=== PATIENT | female | born 1945 | race Caucasian/White ===

== ENCOUNTER 2018-01-01 11:14 | Outpatient (CLI) | payer OTHER, SELFPAY ==
--- NOTE | 2018-01-01 11:12 | DI.RAD_ITS ---
SYMPTOMS/DIAGNOSIS: SHORTNESS OF BREATH, R06..02 PA AND LATERAL CHEST: Comparison is made with [id number]. The patient is status post aortic valve prosthesis. Again noted is elevation of both diaphragms which appears chronic. No infiltrate, effusion or pulmonary edema is seen. IMPRESSION: No acute abnormality.
== END 2018-01-01 11:34 ==
PROVIDERS: PCP Emergency Medicine; Visit Provider Internal Medicine Cardiovascular Disease
DX: R06.02 Shortness of breath (principal); Z95.2 Presence of prosthetic heart valve
CPT/HCPCS: 71046

== ENCOUNTER 2018-01-15 00:32 | Outpatient (CLI) | payer OTHER, SELFPAY ==
--- NOTE | 2018-01-15 10:38 | MERGE_ITS ---
*[facility]* *[facility]* [address] [place] [address] Date of study: 01/15/2018 Transthoracic Echocardiography M-mode, complete 2D, complete spectral Doppler, and color Doppler *STUDY CONCLUSIONS* Impressions: Good function of new bioprosthetic AV, preserved LV function. Summary: 1. Left ventricle: The cavity size was normal. Wall thickness was at the upper limits of normal. Systolic function was normal. The estimated ejection fraction was 60-65%. Wall motion was normal; there were no regional wall motion abnormalities. 2. Aortic valve: A bioprosthesis was present and functioning normally. 3. Mitral valve: Moderately calcified annulus. Mildly thickened leaflets. Severe focal calcification of the posterior leaflet. 4. Right ventricle: The cavity size was normal. Wall thickness was normal. Systolic function was normal. 5. Tricuspid valve: There was mild-moderate regurgitation. *PATIENT PRESENTATION* Height: 157.5cm ((62in) ) S/D Pressure: 147 / 99 Weight: 80.7kg ((177.6lb) ) BSA: 1.91m^2 Test start time: 10:30 AM. Test stop time: 11:35 AM. PERFORMING Unknown ORDERING Taj Oscar REFERRING Tja Oscar PERFORMING [facility] [employer]NER Jessika Monsivais *PROCEDURE DATA* Procedure information: This study was interpreted by [facility]. Pertinent images and digital data are archived for permanent storage and are available for subsequent review. Comparison was made to the study of 03/31/2017. Study status: Routine. Transthoracic echocardiography. M-mode, complete 2D, complete spectral Doppler, and color Doppler. A Transthoracic Echocardiogram was performed. Scanning was performed from the parasternal, apical, subcostal, and suprasternal notch acoustic windows. Images were obtained using an [id number] 2000 cardiac ultrasound machine. Image quality was fair. Study completion: The patient tolerated the procedure well. History: PMH: Bio prosthetic Aortic Valve Shortness of Breath *CARDIAC ANATOMY* Left ventricle: The cavity size was normal. Wall thickness was at the upper limits of normal. Systolic function was normal. The estimated ejection fraction was 60-65%. Wall motion was normal; there were no regional wall motion abnormalities. Aortic valve: Normal thickness leaflets. A bioprosthesis was present and functioning normally. Mobility was not restricted. Doppler: Transvalvular velocity was increased, due to patient/prosthesis mismatch. There was no stenosis. There was no significant regurgitation. VTI ratio of LVOT to aortic valve: 0.54. Valve area (VTI): 1.4cm^2. Indexed valve area (VTI): 0.7cm^2/m^2. Peak velocity ratio of LVOT to aortic valve: 0.54. Valve area (Vmax): 1.4cm^2. Indexed valve area (Vmax): 0.7cm^2/m^2. Mean velocity ratio of LVOT to aortic valve: 0.47. Valve area (Vmean): 1.2cm^2. Indexed valve area (Vmean): 0.6cm^2/m^2. Mean gradient (S): 16.2mm Hg. Peak gradient (S): 30.5mm Hg. Aorta: Aortic root: The aortic root was normal in size. Ascending aorta: The ascending aorta was at upper normal limits. Mitral valve: Moderately calcified annulus. Mildly thickened leaflets. Severe focal calcification of the posterior leaflet. Mobility was not restricted. Doppler: Transvalvular velocity was within the normal range. There was no evidence for stenosis. There was no significant regurgitation. Valve area by pressure half-time: 3.1cm^2. Indexed valve area by pressure half-time: 1.6cm^2/m^2. Peak gradient (D): 2.3mm Hg. Left atrium: The atrium was normal in size. Right ventricle: The cavity size was normal. Wall thickness was normal. Systolic function was normal. Pulmonic valve: Poorly visualized. Doppler: Transvalvular velocity was within the normal range. There was no evidence for stenosis. There was trivial regurgitation. Peak gradient (S): 5.1mm Hg. Tricuspid valve: Structurally normal valve. Doppler: Transvalvular velocity was within the normal range. There was no evidence for stenosis. There was mild-moderate regurgitation. Pulmonary artery: Poorly visualized. Pulmonary systolic pressure was at the upper limits of normal. Right atrium: The atrium was normal in size. Pericardium: There was no pericardial effusion. Systemic veins: Inferior vena cava: The vessel was normal in size. The respirophasic diameter changes were in the normal range (greater than or equal to 50%), consistent with normal central venous pressure. Measurements Left ventricle Value 03/31/2017 Reference LV ID, ED, PLAX 4.1 cm 4.5 3.5 - 6.0 LV ID, ES, PLAX 2.5 cm 3.0 2.1 - 4.0 LV PW thickness, ED, PLAX 1.0 cm 1.0 LV end-diastolic volume, 90 ml 68 1-p A2C LV ejection fraction, 1-p 52 % 66 A2C LV end-diastolic volume, 72 ml 57 1-p A4C LV ejection fraction, 1-p 54 % 52 A4C Ventricular septum Value 03/31/2017 Reference IVS thickness, ED, PLAX 0.9 cm 1.0 LVOT Value 03/31/2017 Reference LVOT ID, A-P 1.8 cm 2.0 LVOT area 2.6 cm^2 3.1 LVOT peak velocity, S 1.5 m/sec 0.99 LVOT mean velocity, S 0.88 m/sec LVOT VTI, S 31.6 cm 20.4 LVOT peak gradient, S 9 mm Hg LVOT mean gradient, S 3.9 mm Hg 1.9 Stroke volume (SV), LVOT 81 ml DP Stroke index (SV/bsa), 42 ml/m^2 LVOT DP Aortic valve Value 03/31/2017 Reference Aortic valve peak 2.8 m/sec 4 velocity, S Aortic valve mean 1.89 m/sec 0.03 velocity, S Aortic valve VTI, S 58.6 cm Aortic mean gradient, S 16.2 mm Hg 36.4 Aortic peak gradient, S 30.5 mm Hg 63.7 VTI ratio, LVOT/AV 0.54 0.24 Aortic valve area, VTI 1.4 cm^2 0.7 Velocity ratio, peak, 0.54 0.25 LVOT/AV Aortic valve area, peak 1.4 cm^2 0.8 velocity Velocity ratio, mean, 0.47 LVOT/AV Aortic valve area, mean 1.2 cm^2 velocity Aortic valve area/bsa, 0.6 cm^2/m^2 mean velocity Aorta Value 03/31/2017 Reference Aortic root ID, ED 2.8 cm 3.2 Ascending aorta ID, A-P, S 3.4 cm 3.6 Left atrium Value 03/31/2017 Reference LA ID, A-P, ES 4.3 cm LA ID/bsa, A-P 2.2 cm/m^2 <=2.2 LA area, ES, A4C 18.3 cm^2 18 8.8 - 23.4 LA area, ES, A2C 23 cm^2 LA volume/bsa, S 38 ml/m^2 LA volume, ES, 2-p 66 ml LA volume/bsa, ES, 2-p 35 ml/m^2 LA/aortic root ratio 1.51 1.28 Mitral valve Value 03/31/2017 Reference Mitral E-wave peak 0.76 m/sec 0.66 velocity Mitral A-wave peak 0.67 m/sec 0.75 velocity Mitral deceleration time (H) 244 ms 256 150 - 230 Mitral pressure half-time 71 ms 74 Mitral peak gradient, D 2.3 mm Hg Mitral E/A ratio, peak 1.12 0.88 Mitral valve area, PHT, DP 3.1 cm^2 3 Pulmonary arteries Value 03/31/2017 Reference PA pressure, S, DP 29 mm Hg <=30 Tricuspid valve Value 03/31/2017 Reference Tricuspid regurg peak 2.4 m/sec 2.1 velocity Tricuspid peak RV-RA 23.9 mm Hg 17 gradient Right atrium Value 03/31/2017 Reference RA area, ES, A4C 15.6 cm^2 13.5 8.3 - 19.5 Systemic veins Value 03/31/2017 Reference Estimated CVP 10 mm Hg Right ventricle Value 03/31/2017 Reference RV pressure, S, DP (H) 34 mm Hg <=30 Pulmonic valve Value 03/31/2017 Reference Pulmonic peak gradient, S 5.1 mm Hg 2.4 Legend: (L) and (H) guanako values outside specified reference range. I have personally reviewed the images and have reviewed and edited the reported findings. Electronically signed by Deirdre Aldridge 01/15/2018 13:53
== END 2018-01-15 00:52 ==
PROVIDERS: PCP Emergency Medicine; Visit Provider Internal Medicine Cardiovascular Disease
DX: I48.0 Paroxysmal atrial fibrillation (principal); I10 Essential (primary) hypertension; Z95.2 Presence of prosthetic heart valve
CPT/HCPCS: 93306

== ENCOUNTER → 2018-05-31 14:02 | Outpatient (BNVA) | payer OTHER, SELFPAY | PROVIDERS: PCP Emergency Medicine; Visit Provider Internal Medicine Cardiovascular Disease | DX: I10 Essential (primary) hypertension (principal); E78.5 Hyperlipidemia, unspecified; I35.0 Nonrheumatic aortic (valve) stenosis; Z95.2 Presence of prosthetic heart valve | CPT/HCPCS: 99213 ==

== ENCOUNTER 2018-07-19 00:51 | Outpatient (CLI) | payer OTHER, SELFPAY ==
--- NOTE | 2018-07-19 13:00 | DI.MAMMO_ITS ---
SYMPTOM/DIAGNOSIS: SCREENING, Z12.31 MAMMOGRAMS: Mammograms were interpreted according to the usual protocol including computer analysis with CAD system, tomosynthesis and C view imaging. Comparison is made with exams from [id number]. The breasts are composed of scattered fibroglandular densities, breast density, Category B. There are no suspicious masses or suspicious microcalcifications. There has been no significant change. IMPRESSION: Category 1, negative mammogram. Yearly screening mammography is recommended. [facility] ASSESSMENT OF FINDINGS: Negative. Category 1. Patient will receive a letter notifying them of these results. BI-RADS category B. There are scattered areas of fibroglandular density.
== END 2018-07-19 01:11 ==
PROVIDERS: PCP Emergency Medicine; Visit Provider Emergency Medicine
DX: Z12.31 Encounter for screening mammogram for malignant neoplasm of breast (principal)
CPT/HCPCS: 77063; 77067

== ENCOUNTER 2018-10-19 11:05 | Outpatient (CLI) | payer OTHER, SELFPAY ==
[2018-10-19 13:05] LABS: HCT 40.6 % (36.0-46.0); HGB 12.7 g/dL (12.0-15.5); Mean Corp. HGB Concentration 31.3 g/dL (32.0-36.0); Mean Corpuscular Hemoglobin 29.8 pg (27.0-33.0); Mean Corpuscular Volume 95.3 fL (80-95); Mean Platelet Volume 10.3 fL (8.0-11.0); Platelet Count 262 x1000/uL (130-400); RBC 4.26 m/cumm (4.00-5.20); RBC Distribution Width 14.1 % (11.7-14.6); White Blood Cell Count 7.31 k/cumm (4.4-10.8)
[2018-10-19 13:11] LABS: Anion Gap 11.6 mmol/L (3-11); BUN 23 mg/dL (7-18); CO2 26.4 mmol/L (21.0-32.0); CREATININE 0.74 mg/dL (0.55-1.02); Calcium 9.2 mg/dL (8.5-10.1); Chloride 108 mmol/L (98-107); Glucose 106 mg/dL (70-100); NT-proBNP 319 pg/mL; Potassium 4.7 mmol/L (3.5-5.1); Sodium 146 mmol/L (136-145)
== END 2018-10-19 11:25 ==
PROVIDERS: PCP Emergency Medicine; Visit Provider Emergency Medicine
DX: I10 Essential (primary) hypertension (principal); R06.00 Dyspnea, unspecified; I50.9 Heart failure, unspecified
CPT/HCPCS: 36415; 80048; 85027; 83880

== ENCOUNTER 2019-06-23 09:27 | Outpatient (CLI) | payer OTHER, SELFPAY | END 2019-06-23 09:47 | PROVIDERS: PCP Emergency Medicine; Visit Provider Internal Medicine Cardiovascular Disease | DX: E78.5 Hyperlipidemia, unspecified (principal); Z95.3 Presence of xenogenic heart valve; I10 Essential (primary) hypertension | CPT/HCPCS: 93005; 93010; 99213 ==

== ENCOUNTER 2019-09-21 02:36 | Outpatient (CLI) | payer OTHER, SELFPAY ==
[2019-09-21 13:46] LABS: ALT 38 U/L (14-59); AST 22 U/L (15-37); Albumin 3.8 g/dL (3.4-5.0); Alkaline Phosphatase 105 U/L (46-116); Anion Gap 7.7 mmol/L (3-11); BUN 24 mg/dL (7-18); Bilirubin, Total 0.6 mg/dL (0.2-1.0); CO2 27.3 mmol/L (21.0-32.0); CREATININE 0.73 mg/dL (0.55-1.02); Calcium 8.9 mg/dL (8.5-10.1); Calculated LDL 103 mg/dL (<100); Chloride 106 mmol/L (98-107); Cholesterol 183 mg/dL (<200); Glucose 101 mg/dL (74-106); HDL Cholesterol 49 mg/dL (40-60); Sodium 141 mmol/L (136-145); Total Protein 7.2 g/dL (6.4-8.2); Triglyceride 158 mg/dL (<150)
[2019-09-21 14:04] LABS: NT-proBNP 285 pg/mL (<300)
== END 2019-09-21 02:56 ==
PROVIDERS: PCP Emergency Medicine; Visit Provider Emergency Medicine
DX: E66.9 Obesity, unspecified (principal); E78.5 Hyperlipidemia, unspecified; I10 Essential (primary) hypertension; R06.00 Dyspnea, unspecified; I50.9 Heart failure, unspecified; E11.9 Type 2 diabetes mellitus without complications
CPT/HCPCS: 36415; 80053; 80061; 83036; 83880

== ENCOUNTER 2020-01-27 21:59 | Outpatient (REF) | payer OTHER, SELFPAY ==
[2020-01-27 21:09] LABS: Abs Immature Grans 0.02 10^3/uL (0.0-0.06); Absolute Basophil Count 0.04 10^3/uL (0.0-0.2); Absolute Eosinophil Count 0.11 10^3/uL (0.0-0.7); Absolute Lymphocyte Count 1.86 10^3/uL (1.2-3.4); Absolute Monocyte Count 0.61 10^3/uL (0.1-0.8); Absolute Neutrophil Count 6.71 10^3/uL (1.2-6.7); Basophils % 0.4; Eosinophils % 1.2; HCT 37.3 % (36.0-46.0); HGB 11.9 g/dL (11.2-15.7); Immature Grans % 0.2; Lymphocytes % 19.9; MCH 29.5 pg (27.0-33.0); MCHC 31.9 % (32.0-36.0); MCV 92.3 fL (80-95); MPV 10.6 fL (8.0-11.0); Monocytes % 6.5; Neutrophils % 71.8; Nucleated RBC 0 %; Platelet Count 289 10^3/uL (130-400); RBC 4.04 10^6/uL (3.93-5.22); RDW 13.5 % (11.7-14.6); RDW-SD 45.7 fL; WBC 9.35 10^3/uL (4.4-10.8)
[2020-01-27 21:31] LABS: C-Reactive Protein 0.25 mg/dL (0.0-0.3); NT-proBNP 2016 pg/mL (<300)
[2020-01-27 21:43] LABS: ESR 15 mm/hr (0-30)
== END 2020-01-27 22:19 ==
LOC: LBN 21:59
PROVIDERS: PCP Emergency Medicine; Visit Provider Emergency Medicine
DX: R06.02 Shortness of breath (principal); I50.9 Heart failure, unspecified
CPT/HCPCS: 85652; 83880; 85025; 86140

== ENCOUNTER 2020-01-30 00:56 | Outpatient (CLI) | payer OTHER, SELFPAY ==
--- NOTE | 2020-01-30 06:30 | DI.RAD_ITS ---
EXAM: XR HIP RT COMPLETE AP PELVIS CLINICAL HISTORY: right hip pain,ARTHRALGIA RT HIP, M25.559 TECHNIQUE: COMPARISON: No exams were available for comparison FINDINGS: Three views were obtained. There is ovxj-sx-lorkjjal loss cartilaginous joint spaces of both hips. There are mild hypertrophic acetabular marginal osteophytes bilaterally. Greater tuberosity osteophy te formation of the femur is also noted bilaterally. Mild DJD of the SI joints noted bilaterally. M oderate degenerative changes of the lower lumbar spine noted disc space narrowing and prominent hyper trophic endplate changes. 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 RADIATION DOSE DELIVERED: Total DLP
--- NOTE | 2020-01-30 06:30 | DI.RAD_ITS ---
EXAM: XR CHEST 2V PA LATERAL CLINICAL HISTORY: sob,r06.02 TECHNIQUE: COMPARISON: CR XR CHEST 2V PA LATERAL from 01/01/2018 FINDINGS: Heart is not enlarged. There is an aortic valve prosthesis. There is a poor inspiration. There are areas of apparent bibasilar scarring. No acute consolidation, no evidence of pulmonary edema. No p leural effusion. IMPRESSION: No evidence of acute process. RADIATION DOSE DELIVERED: Total DLP
== END 2020-01-30 01:16 ==
PROVIDERS: PCP Emergency Medicine; Visit Provider Emergency Medicine
DX: M16.0 Bilateral primary osteoarthritis of hip (principal); R06.02 Shortness of breath; M51.36 Other intervertebral disc degeneration, lumbar region
CPT/HCPCS: 71046; 73502

== ENCOUNTER 2020-02-02 00:27 | Outpatient (CLI) | payer OTHER, SELFPAY ==
--- NOTE | 2020-02-02 14:21 | DI.US_ITS ---
APPROVED REPORT EXAM: Comprehensive 2D, Doppler, and color-flow Echocardiogram Patient Location: Out-Patient Strategy Lead: Jessika Monsivais RDCS (AE) Indications: New onset CHF, Bio AVR Other Information Study Quality: Adequate Conclusion Left Ventricle : The left ventricle is normal size. The left ventricular systolic function is normal. The left ventricular ejection fraction is within the normal range. There is normal left ventricular wall thickness. There is normal LV segmental wall motion. The left ventricular diastolic function is abnormal. LVEF is 52%. Right Ventricle : Right ventricle is not well visualized. Right ventricular systolic function could n ot be assessed. The RVSP is 14.9mmHg. Aortic Valve : Bioprosthetic aortic valve is present. It appears well-seated without any paravalvula r leak. No hemodynamically significant valvular aortic stenosis. No aortic regurgitation is present. Mitral Valve : The mitral valve is normal in structure. No evidence of mitral valve stenosis. Mild mi tral regurgitation. Please see remainder of study for further details. Compared to study from 01/15/2018, there is no significant change. Wall motion Left Ventricle The left ventricle is normal size. The left ventricular systolic function is normal. The left ventric ular ejection fraction is within the normal range. There is normal left ventricular wall thickness. T here is normal LV segmental wall motion. The left ventricular diastolic function is abnormal. There i s no ventricular septal defect visualized. LVEF is 52%. Right Ventricle Right ventricle is not well visualized. Right ventricular systolic function could not be assessed. Th e RVSP is 14.9mmHg. Atria The left atrium size is normal. The right atrium size is normal. The interatrial septum is intact wit h no evidence for an atrial septal defect. Aortic Valve Bioprosthetic aortic valve is present. It appears well-seated without any paravalvular leak. No hemod ynamically significant valvular aortic stenosis. No aortic regurgitation is present. Bioprosthetic ao rtic valve is present. Mitral Valve The mitral valve is normal in structure. No evidence of mitral valve stenosis. Mild mitral regurgitat ion. Tricuspid Valve The tricuspid valve is normal in structure. There is no tricuspid valve stenosis. Mild to moderate tr icuspid regurgitation. Pulmonic Valve The pulmonary valve is normal in structure. There is no pulmonic valvular stenosis. Trace pulmonic re gurgitation. Great Vessels The aortic root is not well visualized. The ascending aorta is mildly dilated. Aortic arch is normal in caliber. IVC is normal in size and collapses >50% with inspiration. Pericardium There is no pericardial effusion. 2D Dimensions IVSD d PLAX 0.93 cm F: 0.6-1.0 LV Vol A2C d MOD 76.8 mL LVPW d PLAX 0.94 cm F: 0.6 - 1.0 LV Vol A4C d MOD 73.4 mL LVID d PLAX 4.05 cm F: 3.8 - 5.2 LA vol/ BSA A2C s A-L 16.2 mL/m2 LVDs 2.85 cm F: 2.2 - 3.5 LA vol/ BSA A4C s A-L 35.0 mL/m2 Ao Root d 2.43 cm F: 2.7 - 3.3 LA Vol/ BSA Biplane s A-L 25.3 mL/m2 RA Area A4C 16.46 cm2 LA Area A4C s MOD 20.39 cm2 RA Vol/ BSA A4C s A-L 26.0 mL/m2 LA Area A2C s MOD 13.06 cm2 Ao Asc Diam d 3.45 cm F: 2.3 - 3.1 LV EF A4C MOD 54.0 % LV EF Teichholz 55.5 % LV EF A2C MOD 52.4 % LVEF ([employer]) 52.47 % F: 54 - 74 LV EF Biplane MOD 52.5 % LV Volume 58.81 mL F: 46 - 106 SV 39.69 mL LV Volume Index 32.67 mL/m2 F: 29 - 61 SV Index 22.03 mL/m2 LV Vol Biplane MOD 75.6 mL FS 28.45 % M-Mode TAPSE 1.49 cm (M/F) >1.7 LV Diastology MV E' medial 0.069 (>0.07 m/s) MV E Vmax 1.02 (0.4-1.3 m/s) LV E/e MED 14.75 (<14) MV E' lateral 0.076 (>0.1 m/s) LV E/e LAT 13.50 (<14) MV E/E' medial 14.78 MV E/E' lateral 13.51 Aortic Valve LVOT Area 2.65 cm2 AoV Area Vmax 1.47 cm2 LVOT Vmax 1.10 m/s AoV Area/ BSA (Vmax) 0.82 cm2/m2 LVOT Mean Shay. 0.78 m/s KEVIN Mean Shay. 1.51 cm2 LVOT Peak Grad 4.8 mmHg KEVIN Mean Shay. Index 0.84 cm2/m2 LVOT Mean Grad 2.7 mmHg LVOT VTI 0.183 m LVOT Diam s 1.80 cm AoV Vmax 1.98 m/s Velocity Ratio 0.55 AoV Mean Shay. 1.37 m/s AoV Peak Grad 15.7 mmHg LVOT SV 48.46 mL AoV Mean Grad 8.5 mmHg AoV VTI 0.359 m AoV Area VTI 1.35 cm2 AoV Area/ BSA (VTI) 0.75 cm/m2 Mitral Valve MV DT 193 (160-240 msec) MV PHT 56 msec MV Area PHT 3.94 cm2 Pulmonary Valve PV Vmax 0.83 (0.5-1.5 m/s) RVOT Peak Gr. 1.49 mmHg PV Peak Grad 2.7 mmHg RVOT Mean Gr. 0.70 mmHg PV Mean Grad 1.3 mmHg RVOT VTI 0.113 m PV VTI 0.131 m RVOT Vmax 0.61 m/s Tricuspid Valve TR Peak Grad 11.9 mmHg TR Vmax 1.73 m/s RA Pressure 3.00 mmHg RVSP (TR) 14.9 mmHg
== END 2020-02-02 00:47 ==
PROVIDERS: PCP Emergency Medicine; Visit Provider Emergency Medicine
DX: I50.9 Heart failure, unspecified (principal); I34.0 Nonrheumatic mitral (valve) insufficiency
CPT/HCPCS: 93306

== ENCOUNTER 2020-02-14 10:51 | Outpatient (CLI) | payer OTHER, SELFPAY ==
--- NOTE | 2020-02-14 10:45 | RT.EKG_ITS ---
APPROVED REPORT Exam: Resting ECG Patient Location: O HR:96 bpm ECG Measurements Heart Rate 96 AXIS DE [id number] P [id number] QRSd 134 QRS 86 QT 373 T 11 QTc 471 Conclusion Atrial fibrillation...V-rate 64-116, irreg A-activity Right bundle branch block...QRSd>120, terminal axis(90,270)
== END 2020-02-14 11:11 ==
PROVIDERS: PCP Emergency Medicine; Visit Provider Emergency Medicine
DX: I48.91 Unspecified atrial fibrillation (principal)

== ENCOUNTER 2020-02-15 03:39 | Outpatient (CLI) | payer OTHER, SELFPAY | END 2020-02-15 03:59 | PROVIDERS: PCP Emergency Medicine; Visit Provider Emergency Medicine | DX: I48.91 Unspecified atrial fibrillation (principal) | CPT/HCPCS: 93225 ==

== ENCOUNTER 2020-02-16 10:25 | Outpatient (CLI) | payer OTHER, SELFPAY ==
--- NOTE | 2020-02-16 12:04 | W.HOLTRPT ---
Date of service: 02/16/20 Time of Service: 12:05 Holter Monitor Report Referring Provider:: Mauricio Indications:: Atrial fibrillation Holter Monitor Note: This is a 24-hour Holter monitor ordered for indication of atrial fibrillation. ?The patient was in atrial fibrillation for the entirety of the recording with a maximal heart rate of 144 bpm. The average heart rate was 92 bpm. ?There were no episodes of ventricular tachycardia and occasional (1.6%) PVCs. ?There were no pauses greater than 3 seconds and no evidence of high degree heart block.
== END 2020-02-16 10:45 ==
PROVIDERS: PCP Emergency Medicine; Visit Provider Emergency Medicine
DX: I48.91 Unspecified atrial fibrillation (principal); I49.3 Ventricular premature depolarization
CPT/HCPCS: 93227; 93226

== ENCOUNTER → 2020-02-21 14:50 | Outpatient (BNVA) | payer OTHER, SELFPAY | PROVIDERS: PCP Emergency Medicine; Referring Provider Emergency Medicine; Visit Provider Internal Medicine Cardiovascular Disease | DX: I48.91 Unspecified atrial fibrillation (principal); I50.9 Heart failure, unspecified; Z95.3 Presence of xenogenic heart valve; I11.0 Hypertensive heart disease with heart failure | CPT/HCPCS: 99214 ==

== ENCOUNTER 2020-03-09 12:09 | Emergency (ER) | payer OTHER, SELFPAY ==
[2020-03-09] VITALS (7 sets, daily range): BP systolic 93–110; BP diastolic 52–78; PULSE 76–135; RESP 16–18; TEMP 36–36.8; O2SAT 85–99
--- NOTE | 2020-03-09 12:35 | ED.GENADUL_ITS ---
Discharge Plan Disposition Patient Disposition: HOME Condition: Stable Discharge Details Clinical Impression: Hematuria Primary Care Provider: Wade Martínez ED Provider: Lesli Kathleen Home Meds and New Rx's Prescriptions: Continued aspirin [Adult Low Dose Aspirin] 81 mg tablet,delayed release (DR/EC) 81 mg PO BID RF: 0 furosemide 40 mg tablet 40 mg PO DAILY Qty: 90 RF: 3 multivitamin [Once Daily] 1 EACH tablet 1 tab PO DAILY RF: 0 triamcinolone acetonide 0.1 % cream 1 applic TP BID Qty: 30 RF: 4 amlodipine 5 mg tablet 5 mg PO DAILY Qty: 90 RF: 3 atorvastatin 20 mg tablet 20 mg PO DAILY Qty: 90 RF: 3 lisinopril 10 mg tablet 10 mg PO DAILY Qty: 90 RF: 3 metoprolol tartrate 25 mg tablet 25 mg PO BID Qty: 180 RF: 3 Discontinued warfarin 5 mg tablet 5 mg PO DAILY Qty: 90 RF: 3 Discharge Instructions Instructions: Hematuria (ED) Additional Instructions: Stop taking your Coumadin or warfarin for 2 days. Have your blood drawn again on Thursday. Keep your scheduled appointment on Thursday with Dr. Martínez. Return for any worsening bleeding, increased blood in your urine, bloody nose that does not stop after 15 minutes of holding pressure or any other concerns. Follow up with primary care provider in 3-5 days. Return to ED sooner if any worsening or concerns. Increase oral fluids. Referrals: Wade Martínez, [Primary Care Provider] - Discharge Data Discharge Date/Time-TO BE ENTERED AT DEPARTURE: 03/09/20 15:30 Medical Decision Making 1512: The coag machine is down in the lab they had to send out the PT/INR to [facility] to have resulted. At this time I do not have results. Discussed with patient she request to be discharged at this time. I will call her with the results. Due to her bleeding I instructed her to hold her Coumadin for 2 days. I will order an outpatient PT and INR to be drawn on Thursday, she does have a PCP follow-up appointment on Thursday with Dr. Wilson. I encouraged her to keep this appointment. Written for outpatient lab draw for PT/INR to be drawn on Thursday. Patient given lab requisition. HPI General Mode of arrival: ambulatory . Date/Time Provider Initiated Documentation: 03/09/20 12:13 . Limitations to Documentation: no limitations . Information obtained by: patient . HPI Narrative: 75-year-old female presents to the ED chief complaint of hematuria. She noticed the past 2 days having bright red blood in the toilet after urinating. She also states this morning she blew her nose and had a little blood clot noted. She currently does not have any epistaxis. She has a contusion noted to her right frontal scalp which she states that this was caused by her dog. She denies any other injuries or loss of consciousness. She is unsure she has had dark stools or blood in her stools. She denies any pain no chest pain no abdominal pain no nausea vomiting no diarrhea. Related Data Home Medications Medication Instructions Recorded Confirmed multivitamin [Once Daily] 1 tab PO DAILY 09/02/12 03/09/20 aspirin 81 mg tablet,delayed 81 mg PO BID tab 10/19/18 03/09/20 release triamcinolone acetonide 0.1 % 1 applic TP BID #30 gm 03/18/19 03/09/20 topical cream amlodipine 5 mg tablet 5 mg PO DAILY #90 tab 10/14/19 03/09/20 atorvastatin 20 mg tablet 20 mg PO DAILY #90 tab 01/18/20 03/09/20 lisinopril 10 mg tablet 10 mg PO DAILY #90 tab 01/18/20 03/09/20 metoprolol tartrate 25 mg tablet 25 mg PO BID #180 tab 01/18/20 03/09/20 furosemide 40 mg tablet 40 mg PO DAILY #90 tab 02/21/20 03/09/20 Previous Rx's Medication Instructions Recorded triamcinolone acetonide 0.1 % 1 applic TP BID #30 gm 03/18/19 topical cream amlodipine 5 mg tablet 5 mg PO DAILY #90 tab 10/14/19 atorvastatin 20 mg tablet 20 mg PO DAILY #90 tab 01/18/20 lisinopril 10 mg tablet 10 mg PO DAILY #90 tab 01/18/20 metoprolol tartrate 25 mg tablet 25 mg PO BID #180 tab 01/18/20 furosemide 40 mg tablet 40 mg PO DAILY #90 tab 02/21/20 Allergies Allergy/AdvReac Type Severity Reaction Status Date / Time diclofenac Allergy Severe HIVES Verified 02/21/20 14:52 nifedipine AdvReac Unknown PEDAL EDEMA Verified 02/21/20 14:52 General Stated Complaint: Urinary FEDERICO: 3 Review of Systems Narrative: Constitutional: Negative for weight loss, alert and oriented, well groomed, normal body habitus, appears comfortable. HEENT: Denies trauma, headaches, blurry vision, nasal discharge, sore throat, trouble swallowing. Positive bloody nose which has resolved. Chest: Denies chest pain, palpitations, irregular rhythm, hypertension. Respiratory: Denies Shortness of breath, cough, hemoptysis. GI: Denies abdominal pain, nausea, vomiting, diarrhea, constipation. : Denies dysuria, flank pain. Positive hematuria. Neuro: Denies dizziness, blurry vision, weakness, syncope, headache or facial numbness. Hematologic: Denies, intolerance to heat or cold, hair loss. Positive easy bruising is on Coumadin. [facility] Medical History Atrial fibrillation Chronic anticoagulation History of obesity Hyperlipemia Hypertension SOB (shortness of breath) Surgical History Abdominal hysterectomy (~08/1994) Bilateral salpingectomy with oophorectomy (~08/1994) PROCEDURES CARDIAC STRESS TEST [facility], NORMAL EXC/DEST INTVRT DISC NOS, 1990 micro disc surgery Family History Mother Diabetes Heart disease Father Diabetes Heart disease Sister Diabetes Personal history of malignant neoplasm CERVICAL Brother Diabetes Grandfather No problems noted. Grandfather No problems noted. Grandmother No problems noted. Grandmother No problems noted. Social History Smoking/Tobacco Use Status: Never Smoking risk assessment performed?: Yes Alcohol Intake: never Drug use: Never Substance use type: does not use What type of physical activity do you participate in: none Do you feel safe at home: Yes Do you feel safe in your relationship?: Yes Exam Narrative Exam Narrative: Constitutional: Alert and oriented x3. Appears stated age. Normal body habitus. Head: Normocephalic. Eyes: Pupils PERRLA, Red reflex noted, EOM's intact. Eyelids symmetrical without lesions, discharge, or swelling. Has a contusion noted to the right frontal scalp. ENT: Bilateral TM's WNL, External ear normal to inspection, no mastoid TTP, swelling, or erythema, Nasal turbinates on the right there is some dried blood noted to the distal turbinate no active bleeding noted.. Normal dentition, Posterior pharynx WNL, no exudate. Chest: RRR, Normal S1, S2, distal pulses intact. Resp: Lungs clear to auscultation bilaterally, no wheezes, rales, or rhonchi. Abdomen: Soft nondistended, nontender to palpation all 4 quadrants. : Reports hematuria denies dysuria. Musculoskeletal: Normal gait, 5/5 strength to all four extremities. Skin: No suspicious rashes or lesions. Capillary refill less than 2 sec. Neurologic: Cranial nerves II-XII intact. Alert and oriented x 3. DTR's intact. Hematologic/Lymphatic: no lymphadenopathy. Course Vital Signs Vital signs: Vital Signs Temperature 36.6 C 03/09/20 12:15 Pulse 76 03/09/20 12:15 Respiratory Rate 18 03/09/20 12:15 Blood Pressure 93/55 L 03/09/20 12:15 Pulse Oximetry 99 03/09/20 12:15 Temperature 36.6 C 03/09/20 12:15 Temperature Source Skin 03/09/20 12:15 Pulse 76 03/09/20 12:15 Respiratory Rate 18 03/09/20 12:15 Blood Pressure 93/55 L 03/09/20 12:15 Blood Pressure Position Sitting 03/09/20 12:15 Pulse Oximetry 99 03/09/20 12:15 Oxygen Delivery Method Room Air 03/09/20 12:15 Oxygen Flow Rate 0 03/09/20 12:15 Pain Level 0 03/09/20 12:15 Comment states it is always good 03/09/20 12:15 Procedures Stool Hemoccult Procedural Steps Taken: stool placed in appropriate test area, developer placed on stool and control areas and controls appropriately positive and negative Hemoccult result: positive
[2020-03-09 12:49] LABS: Bilirubin Negative (Negative); Blood Large (Negative); Clarity Turbid (Clear); Glucose Negative (Negative); Ketones Negative (Negative); Leukocyte Esterase Trace (Negative); Nitrite Negative (Negative); Urobilinogen 0.2 EU/dL (Up TO 0.2)
[2020-03-09 12:50] LABS: RBC >50 HPF (0-2)
[2020-03-09 12:51] LABS: C & S Indicated? Yes
[2020-03-09 13:13] LABS: Abs Immature Grans 0.04 10^3/uL (0.0-0.06); Absolute Basophil Count 0.04 10^3/uL (0.0-0.2); Absolute Eosinophil Count 0.05 10^3/uL (0.0-0.7); Absolute Lymphocyte Count 1.64 10^3/uL (1.2-3.4); Absolute Monocyte Count 0.72 10^3/uL (0.1-0.8); Basophils % 0.4; Eosinophils % 0.5; HGB 12.8 g/dL (11.2-15.7); Immature Grans % 0.4; Lymphocytes % 15.6; MCH 29.8 pg (27.0-33.0); MCHC 32.8 % (32.0-36.0); MCV 90.9 fL (80-95); MPV 9.9 fL (8.0-11.0); Monocytes % 6.9; Neutrophils % 76.2; Nucleated RBC 0 %; Platelet Count 294 10^3/uL (130-400); RBC 4.29 10^6/uL (3.93-5.22); RDW 13.4 % (11.7-14.6); RDW-SD 44.7 fL; WBC 10.49 10^3/uL (4.4-10.8)
[2020-03-09 13:31] LABS: ALT 30 U/L (14-59); AST 18 U/L (15-37); Albumin 3.5 g/dL (3.4-5.0); Alkaline Phosphatase 107 U/L (46-116); Anion Gap 11.4 mmol/L (3-11); BUN 27 mg/dL (7-18); Bilirubin, Total 0.9 mg/dL (0.2-1.0); CO2 25.6 mmol/L (21.0-32.0); CREATININE 1.06 mg/dL (0.55-1.02); Calcium 8.7 mg/dL (8.5-10.1); Chloride 104 mmol/L (98-107); Estimated GFR 50.67 (mL/min/1.73m2); Glucose 145 mg/dL (74-106); Sodium 141 mmol/L (136-145); Total Protein 7.5 g/dL (6.4-8.2)
--- NOTE | 2020-03-09 17:09 | W.ED.FU ---
inr over upper limit of normal, I called and spoke with pt and she has no gross bleeding now. Discussed with her and advised to come back for vitamin K tonight but she states she will likely come tomorrow, and over the phone has capacity to make her own decisions and understands importance of taking this medicine
--- NOTE | 2020-03-10 09:15 | ED.FU.B_ITS ---
Date of service: 03/10/20 Time of Service: 09:15 Follow Up Plan: Call made to patient regarding elevated PT and INR as of yesterday. Patient states that she still is having hematuria. Patient's daughter Nirmala is here to forklift picker vitamin K prescription for her mother. Call made to the pharmacy they do not carry vitamin K. Discussed seriousness of patient's condition with daughter and strongly encouraged her to bring her mother back here for reevaluation and administration of vitamin K and possibly admission if patient will agree to that. Daughter verbalized understanding.
== END 2020-03-09 15:30 | disposition home or self-care (01) ==
PROVIDERS: Emergency Provider Registered Nurse Emergency; PCP Emergency Medicine
DX: R31.0 Gross hematuria (principal); R79.1 Abnormal coagulation profile; T45.515A Adverse effect of anticoagulants, initial encounter; Z79.01 Long term (current) use of anticoagulants; I10 Essential (primary) hypertension
CPT/HCPCS: 36415; 80053; 99283; 81003; 81015; 85025; 85610; 87086; 99284

== ENCOUNTER 2020-03-10 11:04 | Inpatient (IN) | payer OTHER, SELFPAY ==
[2020-03-10] VITALS (58 sets, daily range): BP systolic 72–114; BP diastolic 49–99; PULSE 75–153; RESP 16–38; TEMP 36.5–37.5; O2SAT 92–100
--- NOTE | 2020-03-10 11:30 | DI.CT_ITS ---
EXAM: CT ABDOMEN PELVIS W INDICATION: Abdominal pain,. COMPARISON: No exams were available for comparison TECHNIQUE: FINDINGS: CT examination of the abdomen and pelvis was performed with a bolus infusion of 100 cc of Omnipaque 3 50. Images obtained through the lung bases are unremarkable. Note is made of an aortic valve replacement in position. The liver is unremarkable in appearance except for a less than 1 cm in diameter posterior right hepat ic lobe lesion too small to characterize but probably representing a cyst.. Gallbladder and bile ducts are CT normal. There is a probable diverticulum of the C-loop of the duodenum. Pancreas appears normal. Spleen is unremarkable in appearance. Adrenals appear normal. The kidneys show fairly homogeneous cortical enhancement. There is an incidental left renal cyst. T here is slight perinephric fat stranding. There is wall thickening of the collecting systems and pel ves of the kidneys as well as the proximal ureters bilaterally. There may be slight bilateral hydron ephrosis. No renal or ureteral calcification identified. The findings as described may represent in flammatory process including infection. Urinary bladder unremarkable. Abdominal aorta is of normal diameter. There is dense wall calcification of the abdominal aorta. Th ere are dense calcifications at the origins of right and left renal arteries, renal artery stenosis n ot excluded. No abdominal wall hernia. No abdominal or pelvic adenopathy. Uterus is atrophic or absent. Appendix is normal. No evidence of diverticulitis or bowel obstruction. IMPRESSION: Mild perinephric fat stranding, wall thickening collecting systems and proximal ureters bilaterally r aising the possibility of infectious process. Please correlate clinically. The there is also questi on of slight bilateral hydronephrosis, this could be due to the patient's reported hematuria with thr ombus in the ureters, other causes of ureteral obstruction not excluded.. RADIATION DOSE DELIVERED: 929.33mGy.cm Total DLP 929.33mGy.cm Total DLP
--- NOTE | 2020-03-10 11:30 | RT.EKG_ITS ---
APPROVED REPORT Exam: Resting ECG Patient Location: E HR:131 bpm ECG Measurements Heart Rate 131 AXIS ID [id number] P [id number] QRSd 140 QRS 94 QT 342 T -9 QTc 505 Conclusion Atrial fibrillation...V-rate 80-172, irreg A-activity RBBB and LPFB...QRSd >120mS, axis(90,210) I have reviewed and interpreted ECG and agree with software generated interpretation.
[2020-03-10] MEDS: Phytonadione 5 MG TABLET 10 MG PO (11:39)
--- NOTE | 2020-03-10 11:51 | W.ED.GENAD ---
Discharge Plan Disposition Patient Disposition: HOME Condition: Stable Discharge Details Clinical Impression: Coagulopathy Primary Care Provider: Wade Martínez ED Provider: Lesli Kathleen Medical Decision Making 75-year-old female presents to the ED for the second day in a row. Patient had PT and INR reading of high, it was too high to read yesterday. She was called and instructed to return back to the emergency room for reevaluation and she received vitamin K. Patient is taking 5 mg of warfarin daily for atrial fibrillation. She has a new diagnosis of atrial fibrillation and was started on warfarin on February 19. She states that she has never had her INR checked since receiving the warfarin. She presented yesterday with a chief complaint of hematuria. She stated that she has been peeing bright red blood for approximately 3 days. She has no complaints of chest pain, shortness of breath. Her only other complaint today is that she was unable to have a bowel movement this morning. She denies any abdominal pain to me upon initial exam. CBC shows white blood cell count of 12.53 which is up from yesterday, RBCs are 3.4 which is decreased from before yesterday. Hemoglobin is 11.2, yesterday it was 12.8, hematocrit is a 35.1 which is decreased from yesterday, yesterday's value was 39.0. PT is greater than 83.4 seconds, INR is greater than 8.8, sodium is 139, potassium 3.8, anion gap is 8.3, BUN is 31, creatinine is 1.19 which is also elevated from yesterday. Glucose is 141, total bilirubin is 1.2. Exam: CT Abdomen And Pelvis With Contrast Exam date and time: 03/10/2020 11:40 AM Age: 75 years old Clinical indication: Abdominal tenderness and other: Blood in urine per patient TECHNIQUE: Imaging protocol: Computed tomography of the abdomen and pelvis with intravenous contrast. COMPARISON: CR XR HIP RT COMPLETE AP PELVIS 01/30/2020 8:33 AM FINDINGS: Heart: Cardiomegaly. Sternotomy. AVR Mediastinal space: Esophageal hiatal hernia. Liver: Normal. No mass. Gallbladder and bile ducts: Normal. No calcified stones. No ductal dilation. Pancreas: Pancreatic parenchyma is atrophic. Spleen: Normal. No splenomegaly. Adrenal glands: Benign appearing thickening of the bilateral adrenal glands. Kidneys and ureters: Mild bilateral hydronephrosis and ureterectasis, worse left with peripelvic and periureteric soft tissue stranding, worse on the left. Mild thickening of the wall of the bilateral renal pelves, slightly worse on the right. No urinary calculi are identified. Findings could be due to inflammatory or neoplastic process of the collecting systems. 9 mm benign cyst lower pole left kidney. Stomach and bowel: Sigmoid diverticulosis without evidence of diverticulitis. Duodenal diverticulum. Appendix: No evidence of appendicitis. Intraperitoneal space: Unremarkable. No free air. No significant fluid collection. Vasculature: Vascular calcifications. No aneurysm identified. Dense vascular calcifications. No aneurysm identified. Dense atheromatous calcification of the origin of the SMA without evidence of stenosis. Lymph nodes: Unremarkable. No enlarged lymph nodes. Urinary bladder: Unremarkable as visualized. Reproductive: Hysterectomy. Bones/joints: The bones are demineralized. Degenerative arthritis in the spine and pelvis. No worrisome bone lesions are identified. Soft tissues: Unremarkable. Lungs: Dependent atelectasis in the lung bases. IMPRESSION: 1. Mild bilateral hydronephrosis and ureterectasis with peripelvic and periureteric soft tissue stranding and thickening of the wall of the renal pelves. Findings could be due to infectious, inflammatory or neoplastic etiology. No urinary calculi are identified. Thank you for allowing us to participate in the care of your patient. Dictated and Authenticated by: Indira Espinoza MD 1326: Discussed results with patient, discussed the risks versus benefits of admission, patient is agreeable to stay in the hospital however rather reluctantly. She is complaining of abdominal pain and is requesting a Dulcolax suppository to aid in having a bowel movement. Usually takes these at home. 1338: Discussed patient case in details with hospitalist Dr. Sheldon who is requesting a consult with urology regarding patient CT result. 1343: Urology paged, message left. 1355: Urology at [facility] paged. Patient was able to give us urine sample however the to collect suppository contaminated specimen. It is still grossly bloody, no clots. 1438: Spoke with Dr. Ahuja with [facility] urology, he was personally able to review the CT scan, he does not recommend any urgent interventions at this time, he recommends that it would be appropriate to admit patient here and have urology consult on her early in the week. 1442: Spoke again with Dr. Sheldon who agrees to admit patient after speaking [place] [facility] [place], she is concerned that the patient may need a Gay or bladder irrigation. At this time patient is urinating on her own and is able to empty her bladder. Dr. Sheldon agrees to admit patient and will place bridging orders. She does recommend bladder scan to R/O urine retention. 1504: Bladder scan ordered: 290ml pre void, 34ml post void. 1550: Patient transported up to floor. HPI General Mode of arrival: ambulatory. Date/Time Provider Initiated Documentation: 03/10/20 11:30. Limitations to Documentation: no limitations. Information obtained by: patient. HPI Narrative: 75-year-old female presents to the ED for the second day in a row. Patient had PT and INR reading of high, it was too high to read yesterday. She was called and instructed to return back to the emergency room for reevaluation and she received vitamin K. Patient is taking 5 mg of warfarin daily for atrial fibrillation. She has a new diagnosis of atrial fibrillation and was started on warfarin on February 19. She states that she has never had her INR checked since receiving the warfarin. She presented yesterday with a chief complaint of hematuria. She stated that she has been peeing bright red blood for approximately 3 days. She has no complaints of chest pain, shortness of breath. Her only other complaint today is that she was unable to have a bowel movement this morning. She denies any abdominal pain to me upon initial exam. Related Data Home Medications Medication Instructions Recorded Confirmed multivitamin [Once Daily] 1 tab PO DAILY 09/02/12 03/10/20 aspirin 81 mg tablet,delayed 81 mg PO BID tab 10/19/18 03/10/20 release triamcinolone acetonide 0.1 % 1 applic TP BID #30 gm 03/18/19 03/10/20 topical cream amlodipine 5 mg tablet 5 mg PO DAILY #90 tab 10/14/19 03/10/20 atorvastatin 20 mg tablet 20 mg PO DAILY #90 tab 01/18/20 03/10/20 lisinopril 10 mg tablet 10 mg PO DAILY #90 tab 01/18/20 03/10/20 metoprolol tartrate 25 mg tablet 25 mg PO BID #180 tab 01/18/20 03/10/20 furosemide 40 mg tablet 40 mg PO DAILY #90 tab 02/21/20 03/10/20 warfarin 5 mg PO DAILY 03/10/20 03/10/20 Previous Rx's Medication Instructions Recorded triamcinolone acetonide 0.1 % 1 applic TP BID #30 gm 03/18/19 topical cream amlodipine 5 mg tablet 5 mg PO DAILY #90 tab 10/14/19 atorvastatin 20 mg tablet 20 mg PO DAILY #90 tab 01/18/20 lisinopril 10 mg tablet 10 mg PO DAILY #90 tab 01/18/20 metoprolol tartrate 25 mg tablet 25 mg PO BID #180 tab 01/18/20 furosemide 40 mg tablet 40 mg PO DAILY #90 tab 02/21/20 Allergies Allergy/AdvReac Type Severity Reaction Status Date / Time diclofenac Allergy Severe HIVES Verified 03/10/20 11:27 nifedipine AdvReac Unknown PEDAL EDEMA Verified 03/10/20 11:27 General Stated Complaint: Abd Prob FEDERICO: 2 Review of Systems Narrative: Constitutional: Negative for weight loss, alert and oriented, well groomed, normal body habitus, appears comfortable. HEENT: Denies trauma, headaches, blurry vision, nasal discharge, sore throat, trouble swallowing. Chest: Denies chest pain, palpitations, irregular rhythm, hypertension. Respiratory: Denies Shortness of breath, cough, hemoptysis. GI: Denies abdominal pain, nausea, vomiting, diarrhea, constipation. : Denies dysuria, flank pain, rectal bleeding. Positive hematuria. Neuro: Denies dizziness, blurry vision, weakness, syncope, headache or facial numbness. Hematologic: Denies easy bruising, intolerance to heat or cold, hair loss. [facility] Medical History Atrial fibrillation Chronic anticoagulation History of obesity Hyperlipemia Hypertension SOB (shortness of breath) Surgical History Abdominal hysterectomy (~08/1994) Bilateral salpingectomy with oophorectomy (~08/1994) PROCEDURES CARDIAC STRESS TEST [facility], NORMAL EXC/DEST INTVRT DISC NOS, 1990 micro disc surgery Family History Mother Diabetes Heart disease Father Diabetes Heart disease Sister Diabetes Personal history of malignant neoplasm CERVICAL Brother Diabetes Grandfather No problems noted. Grandfather No problems noted. Grandmother No problems noted. Grandmother No problems noted. Social History Smoking/Tobacco Use Status: Never Smoking risk assessment performed?: Yes Alcohol Intake: never Drug use: Never Substance use type: does not use What type of physical activity do you participate in: none Do you feel safe at home: Yes Do you feel safe in your relationship?: Yes Exam Narrative Exam Narrative: Constitutional: Alert and oriented x3. Appears stated age. Normal body habitus. Head: Normocephalic, ecchymosis noted to right frontal scalp. Eyes: Pupils PERRLA, Red reflex noted, EOM's intact. Eyelids symmetrical without lesions, discharge, or swelling. ENT: Bilateral TM's WNL, External ear normal to inspection, no mastoid TTP, swelling, or erythema, Nasal turbinates WNL, no nasal discharge. Normal dentition, Posterior pharynx WNL, no exudate. Chest: RRR, Normal S1, S2, distal pulses intact. Resp: Lungs clear to auscultation bilaterally, no wheezes, rales, or rhonchi. Musculoskeletal: Normal gait, 5/5 strength to all four extremities. Skin: No suspicious rashes or lesions. Capillary refill less than 2 sec. Neurologic: Cranial nerves II-XII intact. Alert and oriented x 3. DTR's intact. Hematologic/Lymphatic: No ecchymosis, no lymphadenopathy. Course Vital Signs Vital signs: Vital Signs Temperature 36.5 C 03/10/20 11:24 Pulse 100 H 03/10/20 11:24 Respiratory Rate 16 03/10/20 11:24 Pulse Oximetry 100 03/10/20 11:24 Temperature 36.5 C 03/10/20 11:24 Temperature Source Skin 03/10/20 11:24 Pulse 100 H 03/10/20 11:24 Respiratory Rate 16 03/10/20 11:24 Respiratory Effort Non-Labored 03/10/20 11:24 Blood Pressure Position Sitting 03/10/20 11:24 Pulse Oximetry 100 03/10/20 11:24 Oxygen Delivery Method Room Air 03/10/20 11:24 Oxygen Flow Rate 0 03/10/20 11:24 Pain Level 9 03/10/20 11:24
[2020-03-10 11:59] LABS: Abs Immature Grans 0.06 10^3/uL (0.0-0.06); Absolute Lymphocyte Count 1.05 10^3/uL (1.2-3.4); Absolute Monocyte Count 0.86 10^3/uL (0.1-0.8); Basophils % 0.2; HCT 35.1 % (36.0-46.0); HGB 11.2 g/dL (11.2-15.7); Immature Grans % 0.5; Lymphocytes % 8.4; MCH 29.2 pg (27.0-33.0); MCHC 31.9 % (32.0-36.0); MCV 91.4 fL (80-95); MPV 9.6 fL (8.0-11.0); Monocytes % 6.9; Nucleated RBC 0 %; Platelet Count 291 10^3/uL (130-400); RBC 3.84 10^6/uL (3.93-5.22); RDW 13.4 % (11.7-14.6); RDW-SD 45.1 fL; WBC 12.53 10^3/uL (4.4-10.8)
[2020-03-10 12:02] LABS: Absolute Basophil Count 0.03 10^3/uL (0.0-0.2); Absolute Neutrophil Count 10.53 10^3/uL (1.2-6.7)
[2020-03-10 12:12] LABS: ALT 29 U/L (14-59); AST 18 U/L (15-37); Albumin 3.4 g/dL (3.4-5.0); Alkaline Phosphatase 98 U/L (46-116); Anion Gap 8.3 mmol/L (3-11); BUN 31 mg/dL (7-18); Bilirubin, Total 1.2 mg/dL (0.2-1.0); CO2 28.7 mmol/L (21.0-32.0); CREATININE 1.19 mg/dL (0.55-1.02); Calcium 8.6 mg/dL (8.5-10.1); Chloride 102 mmol/L (98-107); Estimated GFR 44.34 (mL/min/1.73m2); Glucose 141 mg/dL (74-106); Lipase 74 U/L (73-393); Magnesium 1.8 mg/dL (1.8-2.4); Potassium 3.8 mmol/L (3.5-5.1); Sodium 139 mmol/L (136-145); Total Protein 7.1 g/dL (6.4-8.2)
[2020-03-10 12:25] LABS: Prothrombin Time > 83.4 sec (9.3-11.0)
[2020-03-10 12:26] LABS: INR > 8.8 (0.9-1.1)
[2020-03-10] MEDS: Normal Saline - Diluent 50 ML VIAL IV (12:56)
[2020-03-10] MEDS: Omnipaque 350 MG/ML 100 ML BTL IJ (12:56)
--- NOTE | 2020-03-10 13:17 | DI.VRAD_ITS ---
PROCEDURE INFORMATION: Exam: CT Abdomen And Pelvis With Contrast Exam date and time: 03/10/2020 11:40 AM Age: 75 years old Clinical indication: Abdominal tenderness and other: Blood in urine per patient TECHNIQUE: Imaging protocol: Computed tomography of the abdomen and pelvis with intravenous contrast. COMPARISON: CR XR HIP RT COMPLETE AP PELVIS 01/30/2020 8:33 AM FINDINGS: Heart: Cardiomegaly. Sternotomy. AVR Mediastinal space: Esophageal hiatal hernia. Liver: Normal. No mass. Gallbladder and bile ducts: Normal. No calcified stones. No ductal dilation. Pancreas: Pancreatic parenchyma is atrophic. Spleen: Normal. No splenomegaly. Adrenal glands: Benign appearing thickening of the bilateral adrenal glands. Kidneys and ureters: Mild bilateral hydronephrosis and ureterectasis, worse left with peripelvic and periureteric soft tissue stranding, worse on the left. Mild thickening of the wall of the bilateral renal pelves, slightly worse on the right. No urinary calculi are identified. Findings could be due to inflammatory or neoplastic process of the collecting systems. 9 mm benign cyst lower pole left kidney. Stomach and bowel: Sigmoid diverticulosis without evidence of diverticulitis. Duodenal diverticulum. Appendix: No evidence of appendicitis. Intraperitoneal space: Unremarkable. No free air. No significant fluid collection. Vasculature: Vascular calcifications. No aneurysm identified. Dense vascular calcifications. No aneurysm identified. Dense atheromatous calcification of the origin of the SMA without evidence of stenosis. Lymph nodes: Unremarkable. No enlarged lymph nodes. Urinary bladder: Unremarkable as visualized. Reproductive: Hysterectomy. Bones/joints: The bones are demineralized. Degenerative arthritis in the spine and pelvis. No worrisome bone lesions are identified. Soft tissues: Unremarkable. Lungs: Dependent atelectasis in the lung bases. IMPRESSION: 1. Mild bilateral hydronephrosis and ureterectasis with peripelvic and periureteric soft tissue stranding and thickening of the wall of the renal pelves. Findings could be due to infectious, inflammatory or neoplastic etiology. No urinary calculi are identified. Dictated and Authenticated by: Indira Espinoza MD. Ordering:KEN Ballesteros MD
[2020-03-10] MEDS: Bisacodyl 10 MG SUPP PR (13:30)
--- NOTE | 2020-03-10 14:01 | NUR.NOTE ---
Nursing Note:Patient up to BSC to void. Urine is very much improved since yesterday. Urine is still bloody but only bright red tinged not dark, dark red like yesterday. Unable to use for specimen r/t the suppository being in it.
[2020-03-10] MEDS: Normal Saline 250 ML 500 ML IV (14:55)
--- NOTE | 2020-03-10 15:25 | W.PM.HP.N ---
Date of service: 03/10/20 Time of Service: 15:26 Assessment and Plan Assessment and plan (1) Hematuria: Status: Acute Assessment and plan: We will be monitoring for urinary retention/clot formation. For now, per urology, no rendon/CBI is indicated. Hold anticoagulation. The patient is s/p Vitamin K. Trend H/H. If hematuria persists past tomorrow, will need to be seen by our urology on Thursday. Otherwise, outpatient follow up for the abnormalities on CT. (2) Coagulopathy: Status: Acute Assessment and plan: In setting of therapy with coumadin. Hold coumadin. Trend H/H and INR now that the patient is s/p Vitamin K. Should her bleeding make her hemodynamically unstable, would give FFP. (3) Atrial fibrillation: Status: Chronic Assessment and plan: The patient's ventricular rate right now is rapid, in 130s-140's. I wonder if this is fueled by blood loss. Will monitor on tele. I am writing for prn IV lopressor. Continue home metoprolol. As above - hold anticoagulation. (4) Hydronephrosis: Status: Acute Assessment and plan: As above. (5) Constipation: Status: Acute Assessment and plan: Write for bowel regimen. (6) Discharge planning issues: Status: Acute Assessment and plan: Full code. History of Present Illness History of Present Illness Chief Complaint: Called back to come to ED due to an elevated INR Narrative: Ms Fowler is a 75 year old female with PMHx of Afib, on coumadin, as well as chronic diastolic CHF, aortic stenosis s/p bioprosthetic valve, hypertension, who was seen in our ED yesterday for hematuria x 2 days as well as epistaxis. Her INR result was not yet back at the time of her discharge home, but came back to be greater than >8.8. She was asked to come back to our ED yesterday evening for vitamin K administration, but did not come back until this morning, when her INR is still >8.8. She continues to have hematuria and reported abdominal pain to the ED provider, who obtained a CT of her abdomen/pelvis, demonstrating no nephrolithiasis, but a bilateral hydronephrosis/thickening collecting systems. The images were reviewed by [facility] urology (Dr Ahuja), who felt that the it is less likely that the hydronephroses were caused by thrombosis, especially given a relatively preserved GFR, and was suspecting a possible malignancy, for which further investigation would have to happen non-emergently. The patient was recommended observation over the next 24 hours. The patient reports lower abdominal pain earlier today, though it has resolved now, which she attributes to constipation. Her last BM was more than 2 days ago, and she feels she might be able to have a bowel movement now. She has not had any difficulty voiding, and in the ED she was not retaining urine by bladder scan. Review of Systems Narrative: Denies symptoms of or exposure to anyone known to have COVID-19. Explains presence of an ecchymosis above her R eyebrow as her garcia retriever jumping at her 2 days ago - he also stepped on her right foot, where she also has a bruise. All systems reviewed & are unremarkable except as noted in HPI and below PFSH Medical History Atrial fibrillation Chronic anticoagulation History of obesity Hyperlipemia Hypertension SOB (shortness of breath) Surgical History Abdominal hysterectomy (~08/1994) Bilateral salpingectomy with oophorectomy (~08/1994) PROCEDURES CARDIAC STRESS TEST [facility], NORMAL EXC/DEST INTVRT DISC NOS, 1990 micro disc surgery Family History Mother Diabetes Heart disease Father Diabetes Heart disease Sister Diabetes Personal history of malignant neoplasm CERVICAL Brother Diabetes Grandfather No problems noted. Grandfather No problems noted. Grandmother No problems noted. Grandmother No problems noted. Social History Smoking/Tobacco Use Status: Never Smoking risk assessment performed?: Yes Alcohol Intake: never Drug use: Never Substance use type: does not use What type of physical activity do you participate in: none Do you feel safe at home: Yes Do you feel safe in your relationship?: Yes Meds Home Medications and Allergies Home Medications Medication Instructions Recorded Confirmed Type multivitamin [Once Daily] 1 tab PO DAILY 09/02/12 03/10/20 History aspirin 81 mg tablet,delayed 81 mg PO BID tab 10/19/18 03/10/20 History release triamcinolone acetonide 0.1 % 1 applic TP BID #30 gm 03/18/19 03/10/20 Rx topical cream amlodipine 5 mg tablet 5 mg PO DAILY #90 tab 10/14/19 03/10/20 Rx atorvastatin 20 mg tablet 20 mg PO DAILY #90 tab 01/18/20 03/10/20 Rx lisinopril 10 mg tablet 10 mg PO DAILY #90 tab 01/18/20 03/10/20 Rx metoprolol tartrate 25 mg tablet 25 mg PO BID #180 tab 01/18/20 03/10/20 Rx furosemide 40 mg tablet 40 mg PO DAILY #90 tab 02/21/20 03/10/20 Rx warfarin 5 mg PO DAILY 03/10/20 03/10/20 History Allergies Allergy/AdvReac Type Severity Reaction Status Date / Time diclofenac Allergy Severe HIVES Verified 03/10/20 11:27 nifedipine AdvReac Unknown PEDAL EDEMA Verified 03/10/20 11:27 Exam Narrative Exam Narrative: General: Pleasant elderly female, who is sitting comfortably at the edge of the bed, good history provider, does not look ill Neurological: A&Ox3, no focal deficits Psychiatric: appropriate speech pattern/content/mood/affect Skin: Ecchymosis above right eyebrow as well as on R foot, both dark blue to brown HEENT: Normocephalic, EOMI, MMM, clear oropharynx, no submandibular or cervical lymphadenopathy, no goiter or JVD Cardiovascular: irregularly irregular rhythm, no m/r/g Lungs: CTAB Gastrointestinal: soft, mildly tender in suprapubic area Genitourinary: deferred Extremities: no e/c/c BLE's, +1 pedal pulses B. Ecchymosis R foot as described. Results Imaging Additional studies: CT abdomen/pelvis: Mild perinephric fat stranding, wall thickening collecting systems and proximal ureters bilaterally raising the possibility of infectious process. Please correlate clinically. The there is also question of slight bilateral hydronephrosis, this could be due to the patient's reported hematuria with thrombus in the ureters, other causes of ureteral obstruction not excluded. EKG: Afib, HR 131, RBBB, no acute ischemia Labs Result diagrams: 03/10/20 11:52 03/10/20 11:52 Labs: Laboratory Results - last 24 hr 03/10/20 03/10/20 03/10/20 11:52 11:52 11:52 WBC 12.53 H RBC 3.84 L Hgb 11.2 Hct 35.1 L MCV 91.4 MCH 29.2 MCHC 31.9 L RDW 13.4 Plt Count 291 MPV 9.6 Immature Gran % 0.5 Neutrophils % 84.0 Lymphocytes % 8.4 Monocytes % 6.9 Eosinophils % 0.0 Basophils % 0.2 Nucleated RBC % 0 Absolute Neutrophils 10.53 H Absolute Lymphocytes 1.05 L Absolute Monocytes 0.86 H Absolute Eosinophils 0.00 Absolute Basophils 0.03 PT > 83.4 H INR > 8.8 H* Sodium 139 Potassium 3.8 Chloride 102 Carbon Dioxide 28.7 Anion Gap 8.3 BUN 31 H Creatinine 1.19 H Estimated GFR/1.73 m2 44.34 Glucose 141 H Calcium 8.6 Magnesium 1.8 Total Bilirubin 1.2 H AST 18 ALT 29 Alkaline Phosphatase 98 Total Protein 7.1 Albumin 3.4 Lipase 74 COVID-19 PCR Nasopharyn COVID-19 PCR Ref Test Perform Site 03/10/20 15:00 WBC RBC Hgb Hct MCV MCH MCHC RDW Plt Count MPV Immature Gran % Neutrophils % Lymphocytes % Monocytes % Eosinophils % Basophils % Nucleated RBC % Absolute Neutrophils Absolute Lymphocytes Absolute Monocytes Absolute Eosinophils Absolute Basophils PT INR Sodium Potassium Chloride Carbon Dioxide Anion Gap BUN Creatinine Estimated GFR/1.73 m2 Glucose Calcium Magnesium Total Bilirubin AST ALT Alkaline Phosphatase Total Protein Albumin Lipase COVID-19 PCR Cancelled Nasopharyn COVID-19 PCR Cancelled Ref Test Perform Site Cancelled Last Vital Signs Temp 36.5 C 03/10/20 11:24 Pulse 89 03/10/20 14:01 Resp 22 03/10/20 14:01 BP 104/57 L 03/10/20 14:01 Pulse Ox 98 03/10/20 14:01 COVID-19 Screening Have you, or household traveled for leisure in last 14 days?: No Had IN PERSON contact w/suspected or confirmed C-19 person: No
[2020-03-10 16:47] LABS: HCT 35.1 % (36.0-46.0); HGB 11.1 g/dL (11.2-15.7)
[2020-03-10 16:54] LABS: Bilirubin Negative (Negative); Blood Large (Negative); Clarity Turbid (Clear); Glucose Negative (Negative); Ketones Negative (Negative); Leukocyte Esterase Negative (Negative); Nitrite Negative (Negative); Specific Gravity 1.015 (1.005-1.025); Urobilinogen 0.2 EU/dL (Up TO 0.2); pH 6.5 (5-8)
[2020-03-10 17:01] LABS: Epithelial Cells Rare HPF (Negative); RBC >50 HPF (0-2); WBC 0-2 HPF (0-5)
[2020-03-10 17:02] LABS: Bacteria Rare HPF (Negative); C & S Indicated? C&S Done As Ordered; Casts Negative LPF (Negative); Crystals Negative HPF (Negative); Mucus Negative (Negative)
[2020-03-10] MEDS: Metoprolol 5 MG/5 ML VIAL 2.5 MG IVP (17:09)
[2020-03-10] MEDS: Normal Saline Flush 10 ML SYR IVP ×2 (17:13→19:42)
[2020-03-10 18:03] LABS: HCT 38.5 % (36.0-46.0); HGB 12.1 g/dL (11.2-15.7)
[2020-03-10] MEDS: Metoprolol 25 MG TAB PO (19:42)
[2020-03-10] MEDS: Docusate Sodium 100 MG CAP PO (19:42)
[2020-03-11] VITALS (12 sets, daily range): BP systolic 80–116; BP diastolic 58–78; PULSE 85–120; RESP 17–20; TEMP 36–36.9; O2SAT 94–96
[2020-03-11] MEDS: Metoprolol 25 MG TAB PO ×3 (02:17→15:47)
[2020-03-11 06:28] LABS: Abs Immature Grans 0.09 10^3/uL (0.0-0.06); Absolute Eosinophil Count 0.04 10^3/uL (0.0-0.7); Absolute Lymphocyte Count 1.46 10^3/uL (1.2-3.4); Absolute Monocyte Count 0.89 10^3/uL (0.1-0.8); Basophils % 0.3; Eosinophils % 0.3; HCT 33.6 % (36.0-46.0); HGB 11.2 g/dL (11.2-15.7); Immature Grans % 0.8; Lymphocytes % 12.5; MCH 29.5 pg (27.0-33.0); MCHC 33.3 % (32.0-36.0); MCV 88.4 fL (80-95); Monocytes % 7.6; Neutrophils % 78.5; Nucleated RBC 0 %; Platelet Count 274 10^3/uL (130-400); RDW 13.4 % (11.7-14.6); RDW-SD 43.6 fL
[2020-03-11 06:31] LABS: Absolute Basophil Count 0.04 10^3/uL (0.0-0.2); Absolute Neutrophil Count 9.18 10^3/uL (1.2-6.7)
[2020-03-11 06:34] LABS: Anion Gap 7.9 mmol/L (3-11); BUN 36 mg/dL (7-18); CO2 27.1 mmol/L (21.0-32.0); CREATININE 1.43 mg/dL (0.55-1.02); Calcium 8.7 mg/dL (8.5-10.1); Chloride 103 mmol/L (98-107); Estimated GFR 35.87 (mL/min/1.73m2); Glucose 125 mg/dL (74-106); Potassium 3.8 mmol/L (3.5-5.1); Sodium 138 mmol/L (136-145)
[2020-03-11 06:43] LABS: Prothrombin Time 52.7 sec (9.3-11.0)
[2020-03-11 06:57] LABS: INR 5.5 (0.9-1.1)
[2020-03-11] MEDS: Docusate Sodium 100 MG CAP PO ×2 (07:45→19:43)
[2020-03-11] MEDS: Atorvastatin 20 MG TAB PO (07:46)
[2020-03-11] MEDS: Multivitamin TAB 1 TAB PO (07:46)
[2020-03-11] MEDS: Normal Saline Flush 10 ML SYR IVP (08:15)
[2020-03-11] MEDS: Normal Saline 1,000 ML 75 ML IV (08:16)
--- NOTE | 2020-03-11 10:57 | PGE_ITS ---
Date of Service Date of service: 03/11/20 Time of Service: 10:57 Assessment and Plan Assessment and plan (1) Hematuria: Status: Acute Assessment and plan: Persists. INR is 5.5 today. H/H and hemodynamically stable. I am getting concerned about the slight worsening of the Cr - are there now thrombi within her ureters? Check US renal to assess for worsening of the hydronephrosis. Urology is consulted. Continue to hold anticoagulation. Continue monitoring for urinary retention/clot formation. Await urology consult. (2) Coagulopathy: Status: Acute Assessment and plan: In setting of therapy with coumadin. S/p Vitamin K on 03/10/2020. INR 5.5 today, still bleeding, but H/H stable. Hold coumadin. Continue to trend H/H and INR. Should her bleeding make her hemodynamically unstable, would give FFP. (3) Atrial fibrillation: Status: Chronic Assessment and plan: Rate better since increasing beta blockers. Continue to monitor on tele. Continue prn IV lopressor. As above - hold anticoagulation. (4) Hydronephrosis: Status: Acute Assessment and plan: As above. Check US renal to assess for worsening. (5) Constipation: Status: Resolved Assessment and plan: Continue bowel regimen. (6) Discharge planning issues: Status: Acute Assessment and plan: Full code. Admit to inpatient status. Consult PT. Consult nutrition for discussion of coumadin diet. I have asked care management to talk to the patient re affordability of DOACs. Subjective Subjective Interval history since last seen: Ms Fowler no longer has abdominal pain after h aving a large BM today (heme +). Continues to have hematuria. She has not been retaining urine or passing blood clots in her urine. Her HR has gone up to 150 overnight, so her metoprolol was doubled (afib) - since then, it is better. She denies dizziness, chest pain, shortness of breath, nausea. Per nursing, she is a little unsteady while walking, trying to stabilize herself by touching a wall. Exam Narrative Exam Narrative: General: Pleasant elderly female, looks well, laying in bed without dyspnea/tachypnea HEENT: EOMI, MMM, ecchymosis over R eyebrow unchanged Cardiovascular: irregularly irregular rhythm, rate is better today, + quiet LIAS Lungs: CTAB Gastrointestinal: soft, nontender, nondistended Extremities: no e/c/c BLE's, +1 pedal pulses B. Objective Last Vital Signs Temp 36.7 C 03/11/20 07:18 Pulse 101 H 03/11/20 07:18 Resp 18 03/11/20 07:18 BP 104/73 03/11/20 07:18 Pulse Ox 94 03/11/20 07:18 Laboratory Results - last 24 hr 03/10/20 03/10/20 03/10/20 11:52 11:52 11:52 WBC 12.53 H RBC 3.84 L Hgb 11.2 Hct 35.1 L MCV 91.4 MCH 29.2 MCHC 31.9 L RDW 13.4 Plt Count 291 MPV 9.6 Immature Gran % 0.5 Neutrophils % 84.0 Lymphocytes % 8.4 Monocytes % 6.9 Eosinophils % 0.0 Basophils % 0.2 Nucleated RBC % 0 Absolute Neutrophils 10.53 H Absolute Lymphocytes 1.05 L Absolute Monocytes 0.86 H Absolute Eosinophils 0.00 Absolute Basophils 0.03 PT > 83.4 H INR > 8.8 H* Sodium 139 Potassium 3.8 Chloride 102 Carbon Dioxide 28.7 Anion Gap 8.3 BUN 31 H Creatinine 1.19 H Estimated GFR/1.73 m2 44.34 Glucose 141 H Calcium 8.6 Magnesium 1.8 Total Bilirubin 1.2 H AST 18 ALT 29 Alkaline Phosphatase 98 Total Protein 7.1 Albumin 3.4 Lipase 74 Urine Color Urine Clarity Urine pH Ur Specific [place] Urine Protein Urine Ketones Urine Blood Urine Nitrite Urine Bilirubin Urine Urobilinogen Ur Leukocyte Esterase Urine RBC Urine WBC Ur Epithelial Cells Urine Crystals Urine Bacteria Urine Casts Urine Mucus Ur Culture Indicated? Urine Glucose SARS-CoV-2 Source SARS-CoV-2 (PCR) 03/10/20 03/10/20 03/10/20 11:52 15:00 15:40 WBC RBC Hgb 11.1 L Hct 35.1 L MCV MCH MCHC RDW Plt Count MPV Immature Gran % Neutrophils % Lymphocytes % Monocytes % Eosinophils % Basophils % Nucleated RBC % Absolute Neutrophils Absolute Lymphocytes Absolute Monocytes Absolute Eosinophils Absolute Basophils PT INR Sodium Potassium Chloride Carbon Dioxide Anion Gap BUN Creatinine Estimated GFR/1.73 m2 Glucose Calcium Magnesium Total Bilirubin AST ALT Alkaline Phosphatase Total Protein Albumin Lipase Urine Color Red Urine Clarity Turbid Urine pH 6.5 Ur Specific [place] 1.015 Urine Protein >=300 H Urine Ketones Negative Urine Blood Large H Urine Nitrite Negative Urine Bilirubin Negative Urine Urobilinogen 0.2 Ur Leukocyte Esterase Negative Urine RBC >50 H Urine WBC 0-2 Ur Epithelial Cells Rare Urine Crystals Negative Urine Bacteria Rare Urine Casts Negative Urine Mucus Negative Ur Culture Indicated? C&s done as ordered Urine Glucose Negative SARS-CoV-2 Source Cancelled SARS-CoV-2 (PCR) Cancelled 03/10/20 03/11/20 03/11/20 17:45 06:09 06:09 WBC 11.70 H RBC 3.80 L Hgb 12.1 11.2 Hct 38.5 33.6 L MCV 88.4 D MCH 29.5 MCHC 33.3 RDW 13.4 Plt Count 274 MPV 10.0 Immature Gran % 0.8 Neutrophils % 78.5 Lymphocytes % 12.5 Monocytes % 7.6 Eosinophils % 0.3 Basophils % 0.3 Nucleated RBC % 0 Absolute Neutrophils 9.18 H Absolute Lymphocytes 1.46 Absolute Monocytes 0.89 H Absolute Eosinophils 0.04 Absolute Basophils 0.04 PT INR Sodium 138 Potassium 3.8 Chloride 103 Carbon Dioxide 27.1 Anion Gap 7.9 BUN 36 H Creatinine 1.43 H Estimated GFR/1.73 m2 35.87 Glucose 125 H Calcium 8.7 Magnesium 2.0 Total Bilirubin AST ALT Alkaline Phosphatase Total Protein Albumin Lipase Urine Color Urine Clarity Urine pH Ur Specific [place] Urine Protein Urine Ketones Urine Blood Urine Nitrite Urine Bilirubin Urine Urobilinogen Ur Leukocyte Esterase Urine RBC Urine WBC Ur Epithelial Cells Urine Crystals Urine Bacteria Urine Casts Urine Mucus Ur Culture Indicated? Urine Glucose SARS-CoV-2 Source SARS-CoV-2 (PCR) 03/11/20 06:09 WBC RBC Hgb Hct MCV MCH MCHC RDW Plt Count MPV Immature Gran % Neutrophils % Lymphocytes % Monocytes % Eosinophils % Basophils % Nucleated RBC % Absolute Neutrophils Absolute Lymphocytes Absolute Monocytes Absolute Eosinophils Absolute Basophils PT 52.7 H INR 5.5 H* D Sodium Potassium Chloride Carbon Dioxide Anion Gap BUN Creatinine Estimated GFR/1.73 m2 Glucose Calcium Magnesium Total Bilirubin AST ALT Alkaline Phosphatase Total Protein Albumin Lipase Urine Color Urine Clarity Urine pH Ur Specific [place] Urine Protein Urine Ketones Urine Blood Urine Nitrite Urine Bilirubin Urine Urobilinogen Ur Leukocyte Esterase Urine RBC Urine WBC Ur Epithelial Cells Urine Crystals Urine Bacteria Urine Casts Urine Mucus Ur Culture Indicated? Urine Glucose SARS-CoV-2 Source SARS-CoV-2 (PCR)
[2020-03-11 11:28] LABS: COVID-19 RT-PCR UVMMC Result Negative (Negative)
--- NOTE | 2020-03-11 11:33 | PDOC.CMIN ---
- If Service Date Differs Date of service: 03/11/20 Time of Service: 11:33 Care Management Initial Assess REASON FOR HOSPITALIZATION:: Elevated INR, Hematuria PAST MEDICAL HISTORY/PAST SURGICAL HISTORY:: Medical hx: Atrial fibrillation. Chronic anticoagulation. History of obesity. Hyperlipemia. Hypertension. SOB (shortness of breath). Surgical Hx: Aortic Valve replacement 2018 PREVIOUS FUNCTIONAL STATUS/SOCIAL/FAMILY SUPPORTS:: Aurea is for about 10 years now. 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 Her daughter lives next door and her grandaughter lives with her. She drives, and is indpendent with ADL's. She describes a large family that is supportive. CURRENT FUNCTIONAL STATUS:: Aurea is engaged during assessment. She does not want to be in the hospital however understands she will be here overnight. She states she did not understand the follow up care on her new medications Warfin. She states she was not scheduled for follow up lab work to monitor her INR. She also is not able to articulate condition that was r/t starting of anticoagulation. Aurea was orginally ordered to start Eliquis however due to cost was not able to obtain that prescription and prescription was exchanged for Eliquis. Aurea will complete the paperwork for Eliquis finanical assistance to determine if she could obtain the medication and a lower cost, CM will complete with her. CM did review advance directives with Aurea she will consider completing them if not here she will take the forms home to review. Aurea does state her daughter Nirmala would be the person to make her decisions in the event she could not. ADVANCE DIRECTIVES:: None on file - CM will provide forms Has patient been provided with info about the portal/API?: Yes Did the patient sign up for the portal?: No CODE STATUS:: Full Code INSURANCE COVERAGE / FINANCIAL ISSUES:: [facility] CURRENT HOME/COMMUNITY SERVICES/EQUIPMENT:: No current sevices PRIMARY CARE PHYSICIAN:: POTENTIAL DISCHARGE NEEDS:: Follow up appointment with primary care, griceldaanical aid application for Eliquis PATIENT/FAMILY EDUCATION NEEDS:: Discharge education, limitations and follow up plan of care including ask me three and self management. Aurea will benefit from disease specific education and medications. ANTICIPATED BARRIERS TO DISCHARGE:: Elevated INR is still 5.5 today Creatinine is worsening, Warfin remains on hold TRANSPORTATION:: Via private car with daughter at time of discharge PLAN:: Aurea transition to inpatient today, she continues to need close monitoring of her labs and risk for bleeding. Diuretic is on hold, she is receiving gentle IV hydration related to elevated cr. CM will assist in completing her finanical forms for Eliquis and continue to assess for discharge needs and coordination of disposition.
--- NOTE | 2020-03-11 14:18 | PHA.REVIEW ---
Pharmacy Admission Review - Admission Clinical Review (Last Reviewed 03/10/20 @ 11:54 by Lesli Kathleen) Discharge planning issues (Acute) Hydronephrosis (Acute) Hematuria (Acute) Coagulopathy (Acute) diclofenac Allergy (Severe, Verified 03/10/20 11:27) HIVES nifedipine Adverse Reaction (Unknown, Verified 03/10/20 11:27) PEDAL EDEMA Height 5 ft 2 in Weight 78.6 kg - Renal Dosing Renal Dosing: BUN 36 mg/dL (7-18) H 03/11/20 06:09 Creatinine 1.43 mg/dL (0.55-1.02) H 03/11/20 06:09 Medications needing adjustments: Reviewed (Crcl ~33.6 mL/min using adjusted body weight, current meds okay.) - Anticoagulation Anticoagulation: Hgb 11.2 g/dL (11.2-15.7) 03/11/20 06:09 Hct 33.6 % (36.0-46.0) L 03/11/20 06:09 Plt Count 274 10^3/uL (130-400) 03/11/20 06:09 INR 5.5 (0.9-1.1) H* D 03/11/20 06:09 Creatinine 1.43 mg/dL (0.55-1.02) H 03/11/20 06:09 DVT Prohphylaxis: N/A Therapeutic Anticoagulation: Reviewed Medications: Warfarin (on hold due to hematuria and supratherapeutic INR) - Opiate Usage Evaluate Pain Scale/Pains Meds: N/A - Relevant Labs Sodium 138 mmol/L (136-145) 03/11/20 06:09 Potassium 3.8 mmol/L (3.5-5.1) 03/11/20 06:09 Chloride 103 mmol/L (98-107) 03/11/20 06:09 Magnesium 2.0 mg/dL (1.8-2.4) 03/11/20 06:09 Electrolytes, C-Reactive P, ESR: Reviewed - DM Control DM Control: Glucose 125 mg/dL (74-106) H 03/11/20 06:09 Insulin Dosing: Reviewed (BG elevated, previous A1c was 6.0 on 09/21/2019) - Heart Failure/[place] EF%, DANIEL's, B-Blockers, Diuretics: N/A - BP Control BP Control: Blood Pressure 100/61 Blood Pressure 104/73 Blood Pressure 110/76 If elevated: Reviewed (hypotensive, metoprolol dosing changed from Q6H to Q8H (has hold parameters), amlodipine and furosemide on hold.) - Qtc Review If Elevated: Reviewed (QTc 505 current meds okay) - IV to PO Switch IV Medications: Reviewed - Home Meds Home Med List reviewed: Reviewed (Aspirin may enhance the anticoagulant effect of warfarin; avoid higher doses of aspirin, enhance monitoring when using cardioprotective doses.) Relevent Home Meds Not ordered & why?: aspirin and warfarin (on hold), lisinopril (hypotensive, renal function) - Current meds Current Medication Order Review: Intervened (Discontinued DI meds, had already been given.) - Comments Comments/Follow Ups: Watch BP, HR, BG, SCr, INR, and for med changes (possible renal dosing adjustments, avoid QT prolonging meds).
[2020-03-12] MEDS: Metoprolol 25 MG TAB PO ×3 (00:02→19:34)
[2020-03-12 03:15] VITALS: BP 97/64; PULSE 106; RESP 16; TEMP 37; O2SAT 96
[2020-03-12 07:26] LABS: Abs Immature Grans 0.05 10^3/uL (0.0-0.06); Absolute Basophil Count 0.04 10^3/uL (0.0-0.2); Absolute Eosinophil Count 0.09 10^3/uL (0.0-0.7); Absolute Lymphocyte Count 1.35 10^3/uL (1.2-3.4); Absolute Monocyte Count 0.67 10^3/uL (0.1-0.8); Absolute Neutrophil Count 6.53 10^3/uL (1.2-6.7); Basophils % 0.5; HCT 30.1 % (36.0-46.0); HGB 9.9 g/dL (11.2-15.7); Immature Grans % 0.6; Lymphocytes % 15.5; MCH 29.6 pg (27.0-33.0); MCHC 32.9 % (32.0-36.0); MCV 89.9 fL (80-95); MPV 10.5 fL (8.0-11.0); Monocytes % 7.7; Neutrophils % 74.7; Nucleated RBC 0 %; Platelet Count 271 10^3/uL (130-400); RBC 3.35 10^6/uL (3.93-5.22); RDW 13.3 % (11.7-14.6); RDW-SD 43.8 fL; WBC 8.73 10^3/uL (4.4-10.8)
[2020-03-12 07:32] VITALS: BP 116/79; PULSE 101; RESP 17; TEMP 36.8; O2SAT 94
[2020-03-12 07:32] LABS: Anion Gap 7.2 mmol/L (3-11); BUN 39 mg/dL (7-18); CO2 27.8 mmol/L (21.0-32.0); CREATININE 1.26 mg/dL (0.55-1.02); Calcium 8.5 mg/dL (8.5-10.1); Chloride 105 mmol/L (98-107); Estimated GFR 41.51 (mL/min/1.73m2); Glucose 114 mg/dL (74-106); Magnesium 1.9 mg/dL (1.8-2.4); Potassium 4.3 mmol/L (3.5-5.1); Sodium 140 mmol/L (136-145)
[2020-03-12] MEDS: Normal Saline Flush 10 ML SYR IVP ×2 (07:53→19:40)
[2020-03-12] MEDS: Docusate Sodium 100 MG CAP PO ×2 (07:53→19:34)
[2020-03-12] MEDS: Multivitamin TAB 1 TAB PO (07:53)
[2020-03-12] MEDS: Atorvastatin 20 MG TAB PO (07:53)
--- NOTE | 2020-03-12 08:00 | DI.US_ITS ---
EXAM: US RENAL CLINICAL HISTORY: follow up bilateral hydronephrosis. TECHNIQUE: Luna scale, color and spectral Doppler were used. COMPARISON: No exams were available for comparison FINDINGS: Renal size in cm: Right: 10.7. Left: 11.6. Echogenicity: Normal. Hydronephrosis: Mild left hydronephrosis. Cyst or mass: 1 cm simple cyst on the left kidney. Nephrolithiasis: No. Other findings: None. Bladder:The urinary bladder was empty. Ureteral jets: Right: Could not be visualized on this examination. Left: Could not be visualized on this examination. Prevoid vol:The urinary bladder was empty. Renal color flow: Symmetric and within normal limits. IMPRESSION: Mild left hydronephrosis. DATA REPOSITORY:
[2020-03-12 08:11] LABS: Prothrombin Time 40.3 sec (9.3-11.0)
[2020-03-12 08:13] LABS: INR 4.2 (0.9-1.1)
--- NOTE | 2020-03-12 08:50 | IN_ITS ---
Date of service: 03/12/20 Time of Service: 08:50 PT Notes Visit Reasons: HEMATURIA, ELEVATED INR, ABNORMAL CT SCAN Physical Therapy Inpatient Initial Evaluation Date: 03/12/2020 Referring Doctor: Swati Sheldon MD PT Orders: PT CONSULT: Limited ability. Unsteady gait when walking with nursing; patient on anticoagulation Precautions: Fall. Standard. Activity as tolerated. Patient Profile/Admitting Diagnosis: Aurea is a 75-year-old female who presented to the ED on 1112 and 1113 first with complaints of blood in urine and the following day with inability to have a bowel movement. Patient is diagnosed with atrial fibrillation and had been started on warfarin as of 02/20/2020, coagulopathy, hydronephrosis, and constipation. PMHX: Medical History Atrial fibrillation Chronic anticoagulation History of obesity Hyperlipemia Hypertension SOB (shortness of breath) Surgical History Abdominal hysterectomy (~08/1994) Bilateral salpingectomy with oophorectomy (~08/1994) PROCEDURES CARDIAC STRESS TEST [facility], NORMAL EXC/DEST INTVRT DISC NOS, 1990 micro disc surgery Social History/Home Situation: Lives with granddaughter in a private home with 3 steps to enter and rails on both sides. Independent with all aspects of ADLs without the need for an assistive ambulatory device nor adaptive equipment. Equipment Owned/DME: 2 front wheeled walkers Subjective: Agreeable to PT consult. States that without a walker, she tends to bend forward to minimize pain in her back, this has been going on since her back surgery. Patient complained of chest discomfort with ambulation activity that subsided with rest. Objective: General Observation: Seated at edge of bed. Telemetry monitoring in place. In no apparent distress. Contusion on right frontal area. Mental Status: Alert and oriented x4 Pain: Mild sternal pain with ambulation activity. 2?3/10 pain in the back when not using front wheeled walker Vital Signs: Heart rate high of 140 bpm and low of 120 bpm during ambulation activity. ROM: Trunk: Bent about 30 degrees from vertical on the sagittal plane if not holding onto front wheeled walker Right Upper Extremity: Shoulder Flexion WFL. Shoulder abduction WFL. Elbow flexion WFL. Wrist flexion WFL. Opening and closing of hand WFL. Left Upper Extremity: Shoulder Flexion WFL. Shoulder abduction WFL. Elbow flexion WFL. Wrist flexion WFL. Opening and closing of hand WFL. Right Lower Extremity: Hip flexion WFL. Hip abduction WFL. Knee flexion WFL. Ankle dorsiflexion WFL. Ankle plantarflexion WFL. Left Lower Extremity: Hip flexion WFL. Hip abduction WFL. Knee flexion WFL. Ankle dorsiflexion WFL. Ankle plantarflexion WFL. Strength: Trunk extensors: 3-/5 Right Upper Extremity: Shoulder flexors 4/5. Shoulder abductors 4/5. Elbow flexors 4/5. Elbow extensors 4/5. Scientific Software Developer strong. Left Upper Extremity: Shoulder flexors 4/5. Shoulder abductors 4/5. Elbow flexors 4/5. Elbow extensors 4/5. Scientific Software Developer strong. Right Lower Extremity: Hip flexors 4/5. Hip abductors 4/5. Knee flexors 4/5. Knee extensors 4/5. Ankle dorsiflexors 4/5. Ankle plantarflexors 4/5. Left Lower Extremity:Hip flexors 4/5. Hip abductors 4/5. Knee flexors 4/5. Knee extensors 4/5. Ankle dorsiflexors 4/5. Ankle plantarflexors 4/5. Sensation: Intact as to pain and pressure on bilateral lower extremities. Bed Mobility/Transfers: Rolling independent Supine to sit independent Sit to supine independent Sit to stand supervision Stand to sit supervision Bed to chair supervision Chair to bed supervision Gait: 80 feet + 40 feet using front-wheeled walker with standby assist and minimal verbal cueing for directions only. Aurea reported mild discomfort in her chest which subsided with seated rest for about 2 3 minutes. Heart rate ranged from 120 to 140 beats per minute during ambulation activity. Normalized 10 107 degrees with rest. Balance: Static Sitting: Normal Dynamic Sitting: Normal Static Standing: Fair Dynamic Standing: Fair Special Tests: Mobility Limitations Standardized Measure [facility] AM-PAC 6 clicks Basic Mobility Inpatient Short Form: Raw Score: 23 CMS Score: 11% deficit 4-stage balance test: Only able to maintain feet together and symptoms but is unable to perform the other 3 positions indicating at risk for falls without the use of a front wheeled walker. Informed Consent/Education: Patient instructed in purpose of PT consult and plan of care. Assessment: Aurea demonstrates functional mobility decline requiring the use of a front wheeled walker for all mobility ADL performance, decreased activity tolerance, and increased risk for falls due to admitting diagnoses and co- morbidities. She will require PT services in order to closely monitor heart rate response during mobility ADL performance and reduce fall risk. The use of a front wheeled walker facilitates more erect posture and conserve energy during transfer and ambulation task performance. Patient presents with clinical signs and symptoms consistent with current/admitting diagnoses that have resulted to mobility limitations, gait instability, generalized weakness, and impairment of motor control as demonstrated by the following impairment level findings: 1. Impaired standing balance 2. Impaired activity tolerance 3. Limitation of joint range of motion in trunk extension (chronic) Impairments are contributing to the following functional limitations: 1. Inability to safely ambulate without assistive device 2. Increase completion time for mobility ADL performance 3. Increased fall risk 4. Inability to negotiate steps alone safely Patient is assessed as a [id number] moderate complexity based on the following: History: 75-year-old female with impairment level findings, functional limitations, and past medical history as indicated above Examination: Demonstrable impairment in strength, balance, and mobility level with underlying impairments and functional limitations as documented above Presentation:Evolving Decision Makin moderate complexity Goals: Goals X 3 days 1. Sit-Stand independent 2. Stand-Sit independent 3. Bed-Chair independent 4. Chair-Bed independent 5. Independent gait on level surface with use of least restrictive device for at least 300 feet without report of pain nor dyspnea 6. Independent stair negotiation while holding onto bilateral rails for at least 10 steps without report of pain nor dyspnea 7. Independent with home exercise program 8. Good static and dynamic standing balance/tolerance Plan of Care/Treatment Plan: 1-2x/day, 7 days/week x 1 week. Plan of care has been reviewed with the STORAGE WHARFAGE CLERK providing the service under Physical Therapy direction. Initiate Physical Therapy intervention for strengthening, bed mobility, transfers, gait, stairs, balance training, use of assistive device. DISCHARGE RECOMMENDATIONS: Home when medically cleared by hospitalist. No equipment needs at this time. TREATMENT CODE/TIME: [id number] x 27 minutes beginning at 8:50 AM. Thank you for the opportunity to participate in the care of this patient. Pham Joseph PT, DPT, CLT [facility], [place]
[2020-03-12] MEDS: Triamcinolone 0.1% CR 15 GM TUBE TP ×2 (09:30→19:34)
[2020-03-12 11:11] VITALS: BP 111/76; PULSE 61; RESP 18; TEMP 37.2; O2SAT 98
--- NOTE | 2020-03-12 12:33 | CCONE_ITS ---
Date of service: 03/12/20 Time of Service: 12:33 Assessment and Plan Assessment and plan (1) Atrial fibrillation: Status: Chronic Assessment and plan: The patient's dysrhythmia was discussed with the spitalist Dr. Sheldon Previously the patient's heart rate was controlled on metoprolol tartrate 25 mg twice daily as documented by Holter monitor. It may be that her current elevated rate is related to her acute illness and presentation as well as anemia I recommended adding amiodarone 200 mg daily to the beta-allison. This should not result in additional blood pressure lowering Outpatient follow-up including repeat Holter, and early office visit can be considered I agree that changing from warfarin to one of the newer anticoagulants would be a good choice, as she will require chronic anticoagulation for stroke prevention. This of course depends on affordability of the medication for the patient Thank you for the opportunity to participate in this patient's care. Look forward to seeing her again in clinic (2) Aortic stenosis: Status: Acute (3) Hematuria: Status: Acute (4) Chronic anticoagulation: Status: Acute History of Present Illness History of Present Illness Chief Complaint: Hematuria Narrative: This is a 75-year-old woman with atrial fibrillation and a prior aortic valve replacement. She was discovered to have atrial fibrillation in January and was started on rate control with metoprolol tartrate 25 mg twice daily. She was also begun on warfarin. She had a Holter monitor recording for 24 hours that showed persistent atrial fib, rate 92. She presented to the hospital with hematuria and a supratherapeutic INR. War farin has appropriately been withheld Her medications have been adjusted due to inadequately controlled heart rate. Amlodipine was stopped. Efforts to increase her beta-allison have been limited by relative hypotension The patient is expressing a desire to go home. She has no symptoms referable to her dysrhythmia, specifically denying palpitations shortness of breath chest discomfort dizziness or lightheadedness. Recent echocardiogram showed normal left ventricular systolic function and a nor fatuma functioning aortic bioprosthesis She does not have any underlying coronary artery disease documented at the time of her cardiac catheterization Consults Consult date: 03/12/20 Requesting physician: Swati Sheldon Review of Systems Cardiovascular Cardiovascular: Reports as per HPI, Denies chest pain, Denies chest pain at rest, Denies lightheadedness, Denies radiating jaw, neck or arm pain, Denies palpitations, Denies dyspnea and Denies dyspnea on exertion Respiratory Respiratory: Denies dyspnea and Denies dyspnea on exertion Endocrine Endocrine: Denies palpitations PFSH Medical History Atrial fibrillation Chronic anticoagulation History of obesity Hyperlipemia Hypertension SOB (shortness of breath) Surgical History Abdominal hysterectomy (~08/1994) Bilateral salpingectomy with oophorectomy (~08/1994) PROCEDURES CARDIAC STRESS TEST [facility], NORMAL EXC/DEST INTVRT DISC NOS, 1990 micro disc surgery Family History Mother Diabetes Heart disease Father Diabetes Heart disease Sister Diabetes Personal history of malignant neoplasm CERVICAL Brother Diabetes Grandfather No problems noted. Grandfather No problems noted. Grandmother No problems noted. Grandmother No problems noted. Social History Smoking/Tobacco Use Status: Never Smoking risk assessment performed?: Yes Alcohol Intake: never Drug use: Never Substance use type: does not use What type of physical activity do you participate in: none Do you feel safe at home: Yes Do you feel safe in your relationship?: Yes Exam Const General: comfortable Nutritional Appearance: overweight Eyes Pupils: PERRL EOM: EOM intact bilaterally Neck Other: No neck vein distention, no V waves, normal carotid upstrokes without bruits Resp Auscultation: clear to auscultation bilaterally Cardio Other: Irregular irregular rate 100 220 widely split S2, soft systolic ejection quality murmur Extrem Other: No peripheral edema Results Last Vital Signs Temp 37.2 C 03/12/20 11:11 Pulse 61 03/12/20 11:11 Resp 18 03/12/20 11:11 BP 111/76 03/12/20 11:11 Pulse Ox 98 03/12/20 11:11 Labs Result diagrams: 03/12/20 06:33 03/12/20 06:33 Labs: Laboratory Results - last 24 hr 03/12/20 03/12/20 03/12/20 06:33 06:33 06:33 WBC 8.73 RBC 3.35 L Hgb 9.9 L Hct 30.1 L MCV 89.9 MCH 29.6 MCHC 32.9 RDW 13.3 Plt Count 271 MPV 10.5 Immature Gran % 0.6 Neutrophils % 74.7 Lymphocytes % 15.5 Monocytes % 7.7 Eosinophils % 1.0 Basophils % 0.5 Nucleated RBC % 0 Absolute Neutrophils 6.53 Absolute Lymphocytes 1.35 Absolute Monocytes 0.67 Absolute Eosinophils 0.09 Absolute Basophils 0.04 PT 40.3 H INR 4.2 H* D Sodium 140 Potassium 4.3 Chloride 105 Carbon Dioxide 27.8 Anion Gap 7.2 BUN 39 H Creatinine 1.26 H Estimated GFR/1.73 m2 41.51 Glucose 114 H Calcium 8.5 Magnesium 1.9
--- NOTE | 2020-03-12 12:40 | NUR.NOTE ---
Nursing Note: 12:40 03/12/2020 Patient reported to nurse that she would like to leave and go home. Nurse provided verbal education to patient about her condition and that if she were to leave it would be against medical advice. Nurse told patient that it could be dangerous if the leaves the hospital before being medically cleared. Patient verbalized understanding and said I don't care if I live or , I want to get out of here. Nurse informed charge nurse.
[2020-03-12] MEDS: Amiodarone 200 MG TAB PO (13:08)
--- NOTE | 2020-03-12 15:09 | CMPROGNOTE_ITS ---
- If Service Date Differs Date of service: 03/12/20 Time of Service: 15:09 Care Management Progress Note S/O: Aurea remains inpatient she wants to return home she states she has a dog that she misses terribly. She was able to complete her advance directives today and a copy was sent to the registry. CM did complete the Eliquis assistance paperwork with her although she will not be discharged on the medication it would be good to have complete for future ordering if she is approved otherwise it is to costly. CM email to Chronic Marketing Sales Supervisor at primary care for follow up She does get her prescriptions through [facility] and does not have large copays through them. Future anticoagulation to be determined by primary care provider. Aurea reports she continues to have hematuria she is not sure why she has to stay in the hospital for it. She does tell this assembly instructions writer that she is having it frequently. Aurea will be seen by urology today and discharge to be determined. Cardiology did meet with her today and offered to see her again as outpatient, anticipate she will have a 48 event monitor at discharge while adjusting her betablockers per provider. A: Aurea is a 75 year old patient admitted with hematuria and elevated INR P: Aurea will be discharged home when medically ready, she will be discharged with a 48 hour event monitor, follow up with cardiology and urology. She will be transported home via private car with family. CONRAD emailed copy of Eliquis form to [facility] for follow up.
--- NOTE | 2020-03-12 15:22 | CHAPLAIN ---
Aurea was resting in bed when I visited. She really wants to go home, and said she thought she was all set to go but doesn't know who actually discharged her. I suggested she talk with her Care Manger. She talked about her 33 year old granddaughter who lives with her, and her 17 month old garcia retriever, Zeyad. I will continue to visit Aurea
[2020-03-12 15:31] VITALS: BP 127/92; PULSE 106; RESP 18; TEMP 36.7; O2SAT 96
--- NOTE | 2020-03-12 15:44 | W.UROLOGYCON ---
Date of service: 03/12/20 Time of Service: 15:45 Assessment and Plan Assessment and plan (1) Hematuria: Status: Acute Assessment and plan: To complete her work-up, we would recommend a cystoscopy and retrograde pyelogram. I think the studies can be done safely as an outpatient. As long as she does not develop retention, I would actually prefer to wait until her INR has come back down. That way, if I were to find some pathology (such as a bladder tumor) I had be able to safely resect the tissue at that time. From what I understand, the patient is very anxious to be released from the hospital. I would ask that she have a follow-up with me in about a week so that we can make arrangements for the cystoscopy and retrograde pyelogram. History of Present Illness History of Present Illness Chief Complaint: Gross hematuria Narrative: This is a 75-year-old woman who has a history of atrial fibrillation. She was started on warfarin and developed supratherapeutic levels with an INR over 8. The warfarin has been withheld and today's INR is down to 4. She developed gross painless hematuria in the past week. She denies any hematuria previously. She has no history of kidney stones or urinary tract infections. She has not been a smoker. She has no previous urologic surgery. She has been able to void with no clots or retention. Review of Systems Constitutional Constitutional: Denies chills and Denies fever(s) Cardiovascular Cardiovascular: Denies chest pain and Reports rapid heart rate Respiratory Respiratory: Denies cough and Denies hemoptysis Gastrointestinal Gastrointestinal: Denies nausea, Denies vomiting and Denies hematemesis [facility] Medical History Atrial fibrillation Chronic anticoagulation History of obesity Hyperlipemia Hypertension SOB (shortness of breath) Surgical History Abdominal hysterectomy (~08/1994) Bilateral salpingectomy with oophorectomy (~08/1994) PROCEDURES CARDIAC STRESS TEST [facility], NORMAL EXC/DEST INTVRT DISC NOS, 1990 micro disc surgery Family History Mother Diabetes Heart disease Father Diabetes Heart disease Sister Diabetes Personal history of malignant neoplasm CERVICAL Brother Diabetes Grandfather No problems noted. Grandfather No problems noted. Grandmother No problems noted. Grandmother No problems noted. Social History Smoking/Tobacco Use Status: Never Smoking risk assessment performed?: Yes Alcohol Intake: never Drug use: Never Substance use type: does not use What type of physical activity do you participate in: none Do you feel safe at home: Yes Do you feel safe in your relationship?: Yes Exam Narrative Exam Narrative: She is a pleasant woman in no current distress. She is cooperative. Her vital signs are documented elsewhere There is an ecchymotic area above the right eye Her abdomen is soft with no guarding or rebound tenderness. The kidneys, liver and spleen are not enlarged. Her bladder is not distended. She is awake, alert and oriented. I reviewed her CT scan and her renal ultrasound on the PACS system. I do not see any solid renal masses. The kidneys and upper ureter areas are a bit more dilated than I would expect, but no specific filling defects or points of obstruction are identified. These are all very nonspecific findings. Results Last Vital Signs Temp 36.7 C 03/12/20 15:31 Pulse 106 H 03/12/20 15:31 Resp 18 03/12/20 15:31 BP 127/92 H 03/12/20 15:31 Pulse Ox 96 03/12/20 15:31 Labs Result diagrams: 03/12/20 06:33 03/12/20 06:33 Labs: Laboratory Results - last 24 hr 03/12/20 03/12/20 03/12/20 06:33 06:33 06:33 WBC 8.73 RBC 3.35 L Hgb 9.9 L Hct 30.1 L MCV 89.9 MCH 29.6 MCHC 32.9 RDW 13.3 Plt Count 271 MPV 10.5 Immature Gran % 0.6 Neutrophils % 74.7 Lymphocytes % 15.5 Monocytes % 7.7 Eosinophils % 1.0 Basophils % 0.5 Nucleated RBC % 0 Absolute Neutrophils 6.53 Absolute Lymphocytes 1.35 Absolute Monocytes 0.67 Absolute Eosinophils 0.09 Absolute Basophils 0.04 PT 40.3 H INR 4.2 H* D Sodium 140 Potassium 4.3 Chloride 105 Carbon Dioxide 27.8 Anion Gap 7.2 BUN 39 H Creatinine 1.26 H Estimated GFR/1.73 m2 41.51 Glucose 114 H Calcium 8.5 Magnesium 1.9
--- NOTE | 2020-03-12 15:58 | PT.INTREAT ---
Date of service: 03/12/20 Time of Service: 13:00 PT Notes Visit Reasons: HEMATURIA, ELEVATED INR, ABNORMAL CT SCAN Inpatient Physical Therapy Treatment Note [facility] Date: 03/12/2020 PRECAUTIONS: Fall SUBJECTIVE: Aurea states that she is feeling okay today. She reports that she normally walks hunched over and that she does not use an FWW at home, although she feels that she should start doing that. OBJECTIVE: PAIN: No c/o pain BED MOBILITY/TRANSFERS Supine-sit: I Sit-supine: I Sit-stand: I Stand-sit: I GAIT Assistive Device: FWW Weight bearing: Full Assist: SBA Distance: 60' x2 Deviation: Increased trunk flexion, SOB VITALS: HR: 110-155 bpm with gait training THEREX: Patient was instructed in several lower extremity strengthening exercises, both seated at EOB, as per flow sheet. ASSESSMENT: Patient demonstrates increased heart rate and SOB with gait training, which appears to limit the distance she is able to ambulate with FWW support. She would benefit from continued global strengthening as well as gait training for improved mobility and continued progression towards baseline level of function. PLAN: Continue with global strengthening and gait training TREATMENT CODE/TIME: 20 minutes; 02173
--- NOTE | 2020-03-12 16:11 | W.PM.PROGNOT ---
Date of Service Date of service: 03/12/20 Time of Service: 16:11 Assessment and Plan Assessment and plan (1) Hematuria: Status: Acute Assessment and plan: Persists. INR is 4.2 today. H/H and hemodynamically stable. Cr better. Does have hydronephrosis, no evidence of stones. Urology will work this up further as outpatient. For now will continue to hold anticoagulation and trending H/H. Continue monitoring for urinary retention/clot formation. (2) Coagulopathy: Status: Acute Assessment and plan: Improving. In setting of therapy with coumadin. S/p Vitamin K on 03/10/2020. INR 4.2 today, but may worsen now that we added amiodarone. Hold coumadin. Continue to trend H/H and INR. Should her bleeding make her hemodynamically unstable, would give FFP. (3) Atrial fibrillation: Status: Chronic Assessment and plan: Patient was unable to tolerate up-titration of beta blockers due to development of hypotension. Cardiology recommended adding amiodarone - done. Will monitor on tele. Continue metoprolol at home dose (25 mg PO BID). As above - hold anticoagulation. (4) Hydronephrosis: Status: Acute Assessment and plan: As above. Will need outpatient follow up once the coagulopathy has resolved (5) Constipation: Status: Resolved Assessment and plan: Continue bowel regimen. (6) Discharge planning issues: Status: Acute Assessment and plan: Full code. Continues to require hospitalization. Subjective Subjective Interval history since last seen: Ms Fowler states that she is continuing to have hematuria, but she is not having any pain. Denies dizziness, chest pain, shortness of breath, nausea, vomiting. Seen by urology - recommended outpatient cystoscopy. Seen by cardiology - recommended addition of amiodarone. Exam Narrative Exam Narrative: General: Pleasant elderly female, very anxious, but appears comfortable HEENT: EOMI, MMM, ecchymosis over R eyebrow unchanged Cardiovascular: irregularly irregular rhythm, rate is better today Lungs: CTAB Gastrointestinal: soft, nontender, nondistended Extremities: no e/c/c BLE's, +1 pedal pulses B. Objective Last Vital Signs Temp 36.7 C 03/12/20 15:31 Pulse 106 H 03/12/20 15:31 Resp 18 03/12/20 15:31 BP 127/92 H 03/12/20 15:31 Pulse Ox 96 03/12/20 15:31 Laboratory Results - last 24 hr 03/12/20 03/12/20 03/12/20 06:33 06:33 06:33 WBC 8.73 RBC 3.35 L Hgb 9.9 L Hct 30.1 L MCV 89.9 MCH 29.6 MCHC 32.9 RDW 13.3 Plt Count 271 MPV 10.5 Immature Gran % 0.6 Neutrophils % 74.7 Lymphocytes % 15.5 Monocytes % 7.7 Eosinophils % 1.0 Basophils % 0.5 Nucleated RBC % 0 Absolute Neutrophils 6.53 Absolute Lymphocytes 1.35 Absolute Monocytes 0.67 Absolute Eosinophils 0.09 Absolute Basophils 0.04 PT 40.3 H INR 4.2 H* D Sodium 140 Potassium 4.3 Chloride 105 Carbon Dioxide 27.8 Anion Gap 7.2 BUN 39 H Creatinine 1.26 H Estimated GFR/1.73 m2 41.51 Glucose 114 H Calcium 8.5 Magnesium 1.9
[2020-03-12 19:21] VITALS: BP 131/84; PULSE 104; RESP 18; TEMP 36.7; O2SAT 96
[2020-03-12 23:05] VITALS: BP 128/88; PULSE 118; RESP 18; TEMP 36.2; O2SAT 97
[2020-03-13] MEDS: Polyethylene Glycol 3350 17 GM PACKET PO (02:10)
[2020-03-13] MEDS: Milk of Magnesia 30 ML CUP PO (02:10)
[2020-03-13 03:29] VITALS: BP 118/73; PULSE 95; RESP 17; TEMP 36.3; O2SAT 96
[2020-03-13 07:27] LABS: Abs Immature Grans 0.06 10^3/uL (0.0-0.06); Absolute Basophil Count 0.03 10^3/uL (0.0-0.2); Absolute Monocyte Count 0.76 10^3/uL (0.1-0.8); Absolute Neutrophil Count 11.08 10^3/uL (1.2-6.7); Basophils % 0.2; HCT 32.6 % (36.0-46.0); HGB 10.5 g/dL (11.2-15.7); Immature Grans % 0.5; Lymphocytes % 6.3; MCH 29.2 pg (27.0-33.0); MCHC 32.2 % (32.0-36.0); MCV 90.8 fL (80-95); MPV 10.1 fL (8.0-11.0); Nucleated RBC 0 %; Platelet Count 316 10^3/uL (130-400); RBC 3.59 10^6/uL (3.93-5.22); RDW 13.2 % (11.7-14.6); RDW-SD 44.6 fL; WBC 12.73 10^3/uL (4.4-10.8)
[2020-03-13 07:34] LABS: Anion Gap 8.5 mmol/L (3-11); BUN 40 mg/dL (7-18); CO2 26.5 mmol/L (21.0-32.0); CREATININE 1.43 mg/dL (0.55-1.02); Calcium 8.9 mg/dL (8.5-10.1); Chloride 104 mmol/L (98-107); Estimated GFR 35.87 (mL/min/1.73m2); Glucose 139 mg/dL (74-106); Magnesium 2.1 mg/dL (1.8-2.4); Potassium 4.6 mmol/L (3.5-5.1); Sodium 139 mmol/L (136-145)
[2020-03-13 07:38] LABS: INR 3.5 (0.9-1.1)
[2020-03-13] MEDS: Atorvastatin 20 MG TAB PO (07:58)
[2020-03-13] MEDS: Multivitamin TAB 1 TAB PO (07:58)
[2020-03-13] MEDS: Docusate Sodium 100 MG CAP PO (07:58)
[2020-03-13] MEDS: Amiodarone 200 MG TAB PO (07:59)
[2020-03-13] MEDS: Normal Saline Flush 10 ML SYR IVP (07:59)
[2020-03-13] MEDS: Metoprolol 25 MG TAB PO (07:59)
[2020-03-13 08:00] VITALS: BP 128/88; PULSE 108; RESP 18; TEMP 36.7; O2SAT 97
[2020-03-13] MEDS: cefTRIAXone 1 GM/50 ML BAG IVPB (11:03)
[2020-03-13 11:15] VITALS: BP 123/78; BP 126/74; BP 127/78; PULSE 102; PULSE 113; PULSE 115
--- NOTE | 2020-03-13 11:21 | W.NUTRFU ---
Date of service: 03/13/20 Time of Service: 11:21 Nutritional Follow up NOTE: Pt admitted with hematuria and elevated INR. BMI 32 indicates class 1 obesity. Following regular diet with adequate intake to meet nutrient and fluid needs. Not at nutritional risk at this time. Will continue to follow. Time Spent in Nutritional Counseling and Treatment: 0
[2020-03-13 11:22] VITALS: BP 120/85; PULSE 104; RESP 17; TEMP 36.9; O2SAT 97
--- NOTE | 2020-03-13 12:02 | PT.INTREAT ---
Date of service: 03/13/20 Time of Service: 10:15 PT Notes Visit Reasons: HEMATURIA, ELEVATED INR, ABNORMAL CT SCAN Inpatient Physical Therapy Treatment Note [facility] Date: 03/12/2020 PRECAUTIONS: Fall SUBJECTIVE: Aurea states that she is feeling better today, she is hopeful that she will be discharged to home today. OBJECTIVE: PAIN: No c/o pain BED MOBILITY/TRANSFERS Supine-sit: I Sit-supine: I Sit-stand: I Stand-sit: I GAIT Assistive Device: FWW Weight bearing: Full Assist: S Distance: 25' + 50' Deviation: Increased trunk flexion, mild SOB VITALS: HR: <130 bpm with gait training STAIRS: Up/down 3x4 using B rails and a step-over pattern, independently ASSESSMENT: Patient continues to demonstrate increased heart rate and mild SOB with gait training, which decreases quickly with frequent seated rests between activities. She demonstrates independence with bed mobility and transfers, as well as stair negotiation at this time. PLAN: Continue with global strengthening and gait training TREATMENT CODE/TIME: Session 1: 15 minutes; [id number]
--- NOTE | 2020-03-13 14:37 | W.PM.PROGNOT ---
Date of Service Date of service: 03/13/20 Time of Service: 14:37 Assessment and Plan Assessment and plan (1) Hematuria: Status: Acute Assessment and plan: I will plan on completing her hematuria work-up as an outpatient. I will propose a cystoscopy and bilateral retrograde pyelogram to assess both the hematuria and the mild hydronephrosis seen on imaging studies. (2) Hydronephrosis: Status: Acute Subjective Subjective Interval history since last seen: She is not having any flank pain. She tells me that her urine has cleared quite a bit. Exam Narrative Exam Narrative: She looks well. Her vital signs are documented elsewhere She has no CVA tenderness. Her bladder is not distended. She is awake and alert Her INR is down to 3.5 Objective Last Vital Signs Temp 36.9 C 03/13/20 11:22 Pulse 104 H 03/13/20 11:22 Resp 17 03/13/20 11:22 BP 120/85 03/13/20 11:22 Pulse Ox 97 03/13/20 11:22 Laboratory Results - last 24 hr 03/13/20 03/13/20 03/13/20 06:50 06:50 06:50 WBC 12.73 H D RBC 3.59 L Hgb 10.5 L Hct 32.6 L MCV 90.8 MCH 29.2 MCHC 32.2 RDW 13.2 Plt Count 316 MPV 10.1 Immature Gran % 0.5 Neutrophils % 87.0 Lymphocytes % 6.3 Monocytes % 6.0 Eosinophils % 0.0 Basophils % 0.2 Nucleated RBC % 0 Absolute Neutrophils 11.08 H Absolute Lymphocytes 0.80 L Absolute Monocytes 0.76 Absolute Eosinophils 0.00 Absolute Basophils 0.03 PT 34.0 H INR 3.5 H D Sodium 139 Potassium 4.6 Chloride 104 Carbon Dioxide 26.5 Anion Gap 8.5 BUN 40 H Creatinine 1.43 H Estimated GFR/1.73 m2 35.87 Glucose 139 H Calcium 8.9 Magnesium 2.1
[2020-03-13 15:24] VITALS: BP 131/87; PULSE 127; RESP 16; TEMP 37; O2SAT 92
--- NOTE | 2020-03-13 15:41 | DSE_ITS ---
Date of service: 03/13/20 Time of Service: 15:41 DS: Diagnosis Discharge Diagnosis (1) Hematuria: Status: Acute (2) Hydronephrosis: Status: Acute (3) Coagulopathy: Status: Acute (4) UTI (urinary tract infection): Status: Acute (5) MISSY (acute kidney injury): Status: Acute (6) Chronic atrial fibrillation with rapid ventricular response: Status: Acute (7) Chronic diastolic CHF (congestive heart failure): Status: Acute (8) COVID-19 ruled out by laboratory testing: Status: Ruled-out (9) Constipation: Status: Resolved Discharge Plan Disposition Patient Disposition: HOME Condition: Stable Discharge Details Reason For Visit: HEMATURIA, ELEVATED INR, ABNORMAL CT SCAN Admit Date/Time: 03/11/20 10:55 Admit Provider: Swati Sheldon Attending Provider: Swati Sheldon Primary Care Provider: Wade Martínez [facility] Hospital Course: Ms Fowler is a 75 year old female with PMHx of Afib, diagnosed and initiated on coumadin in January of this year, as well as chronic diastolic CHF, h/o bioprosthetic aortic valve, hypertension, and dyslipidemia, who was admitted to [facility] hospitalist service on 03/10/2020 with hematuria in setting of supratherapeutic INR. Her imaging revealed B hydronephrosis without evidence of kidney stones. She was treated with Vitamin K. Her hemoglobin did drift down from 12.8, which is her baseline, to 10.5 on day of discharge, but is stable over the last 24 hours. She did not require blood transfusion. Because there was evidence of MISSY, we held her lasix and lisinopril and treated her with gentle IVF for less than 24 hrs. Per urology at [facility], it was unlikely that the patient was forming clots in her ureters, causing hydronephrosis, and this will need further workup, which Dr Silver, who saw the patient in consult, is planning to complete as outpatient. Over the last 24 hours, her hematuria has resolved, her INR is 3.5, and she is stable for discharge home from the urology stand point. I am putting her on cefpodoxime on discharge to complete a 1 week course, since there is evidence of GPCs in her urine and she has a borderline elevated white count, so a UTI is suspected. Naturally, she is being discharged without any anticoagulation until her procedure with Dr Silver is completed. She will need follow up of her CBC and INR as outpatient. The patient's atrial fibrillation had not been well controlled here, and she has been asymptomatic, but tachycardic to 130s-150s throughout her hospitalization. Cardiology was consulted and felt that this could be related to the patient's acute illness, but did recommend initiation of amiodarone 200 mg daily, since we were not successful in up-titrating her beta blockers (the patient developed hypotension even on metoprolol 12.5 mg PO TID). The patient is being discharged home with a 48 hour holter monitor and cardiology follow up. As far as her anticoagulation, it is felt that, when the patient has completed her workup by urology, she likely should resume anticoagulation, but this time it should be a DOAC. Our care management team has initiated an application for the patient to qualify for a patient assistance program for [email or web address]. This, too, should be followed up as outpatient. She is medically stable for discharge home today. Care for patient as well as completion of her discharge summary on day of discharge took 45 minutes. Home Meds and New Rx's Prescriptions: New amiodarone 200 mg Tablet 200 mg PO DAILY Qty: 30 RF: 0 docusate sodium [Colace] 100 mg Capsule 100 mg PO BID Qty: 60 RF: 0 furosemide [Lasix] 20 mg tablet 20 mg PO DAILY Qty: 14 RF: 0 cefpodoxime 100 mg tablet 100 mg PO BID Qty: 12 RF: 0 Continued multivitamin [Once Daily] 1 EACH tablet 1 tab PO DAILY RF: 0 atorvastatin 20 mg tablet 20 mg PO DAILY Qty: 90 RF: 3 metoprolol tartrate 25 mg tablet 25 mg PO BID Qty: 180 RF: 3 Changed aspirin [Adult Low Dose Aspirin] 81 mg tablet,delayed release (DR/EC) 81 mg PO DAILY Qty: 0 RF: 0 Discontinued furosemide 40 mg tablet 40 mg PO DAILY Qty: 90 RF: 3 amlodipine 5 mg tablet 5 mg PO DAILY Qty: 90 RF: 3 lisinopril 10 mg tablet 10 mg PO DAILY Qty: 90 RF: 3 warfarin 5 mg tablet 5 mg PO DAILY RF: 0 Discharge Instructions Instructions: Amiodarone (By mouth), Cefpodoxime Proxetil (By mouth), A-fib (Atrial Fibrillation) (DC), Hematuria (ED) Additional Instructions: Return to the hospital with any fever, bleeding, chest pain, or shortness of breath. Follow up with your PCP, cardiology, and with Dr Silver of urology. Referrals: Wade Martínez DO [Primary Care Provider] - Axel Silver MD [ [facility] STAFF PHYSICIAN] - (Sugar Presser will call you to make an appt to see Dr. Silver in 1 week) Blanca Foreman MD [ [facility] STAFF PHYSICIAN] - Activity:: Activity as Tolerated Equipment/Supplies:: 48 hour holter monitor Diet:: Low Sodium Discharge Orders Discharge Orders: Discharge Order (Routine); Ordered 03/13/20 Ordered By: Swati Sheldon Other Ambulatory Orders: Holter Monitor (Outpt) (ONCE) Location: None Selected Ordered By: Swati Sheldon DS: Summary Status at Discharge Functional status at discharge: uses cane/walker Overall status at discharge: patient is back to baseline Mental Status: mental status grossly normal Speech and Movement: speech and movement normal Mood: congruent mood and anxious mood Affect: normal affect Exam Narrative Exam Narrative: General: Pleasant elderly female, very anxious, but appears comfortable HEENT: EOMI, MMM, ecchymosis over R eyebrow unchanged Cardiovascular: irregularly irregular rhythm, rate is better today Lungs: CTAB Gastrointestinal: soft, nontender, nondistended Extremities: no e/c/c BLE's, +1 pedal pulses B. Psych Mental Status: mental status grossly normal Speech and Movement: speech and movement normal Mood: congruent mood and anxious mood Affect: normal affect DS: Data Vitals/I&O Vitals and I&O: Vital Signs Temperature 37 C 03/13/20 15:24 Temperature Source Tympanic 03/13/20 15:24 Pulse 127 H 03/13/20 15:24 Pulse Rhythm Irregular 03/13/20 15:24 Pulse 125 H 03/10/20 15:40 Respiratory Rate 16 03/13/20 15:24 Respiratory Effort Non-Labored 03/13/20 15:24 Respiratory Depth Normal 03/13/20 15:24 Respiratory Pattern Normal 03/13/20 15:24 Blood Pressure 131/87 03/13/20 15:24 Blood Pressure Mean 68 03/10/20 15:31 Blood Pressure Position Sitting 03/10/20 11:24 Pulse Oximetry 92 03/13/20 15:24 Oxygen Delivery Method Room Air 03/13/20 15:24 Oxygen Flow Rate 0 03/13/20 15:24 Pain Level 0 03/13/20 15:24 Comment 03/12/20 03:15 Intake & Output 03/12/20 03/13/20 03/13/20 23:59 11:59 23:59 Intake Total 480 / 860 140 / 380 240 / 380 Output Total 400 / 1300 475 / 475 Balance 80 / -440 -335 / -95 240 / -95 Weight 80.3 kg Intake: IV Oral 480 / 840 120 / 360 240 / 360 Output: Urine 400 / 1300 475 / 475 Other: Urine Color Dark Red Pale Brown Urine Appearance Hematuria Sediment Urine Odor Strong None Comment PVR Voiding Methods Toilet Toilet Data Completed and Pending Completed studies during hospitalization [Text1]: CT abdomen/pelvis: Mild perinephric fat stranding, wall thickening collecting systems and proximal ureters bilaterally raising the possibility of infectious process. Please correlate clinically. The there is also question of slight bilateral hydronephrosis, this could be due to the patient's reported hematuria with thrombus in the ureters, other causes of ureteral obstruction not excluded. US renal; Mild left hydronephrosis Labs on day of discharge: Labs from last 24 hours 03/13/20 03/13/20 03/13/20 06:50 06:50 06:50 WBC 12.73 H D RBC 3.59 L Hgb 10.5 L Hct 32.6 L MCV 90.8 MCH 29.2 MCHC 32.2 RDW 13.2 Plt Count 316 MPV 10.1 Immature Gran % 0.5 Neutrophils % 87.0 Lymphocytes % 6.3 Monocytes % 6.0 Eosinophils % 0.0 Basophils % 0.2 Nucleated RBC % 0 Absolute Neutrophils 11.08 H Absolute Lymphocytes 0.80 L Absolute Monocytes 0.76 Absolute Eosinophils 0.00 Absolute Basophils 0.03 PT 34.0 H INR 3.5 H D Sodium 139 Potassium 4.6 Chloride 104 Carbon Dioxide 26.5 Anion Gap 8.5 BUN 40 H Creatinine 1.43 H Estimated GFR/1.73 m2 35.87 Glucose 139 H Calcium 8.9 Magnesium 2.1 PFSH Medical History Atrial fibrillation Chronic anticoagulation History of obesity Hyperlipemia Hypertension SOB (shortness of breath) Surgical History Abdominal hysterectomy (~08/1994) Bilateral salpingectomy with oophorectomy (~08/1994) PROCEDURES CARDIAC STRESS TEST NEC, NORMAL EXC/DEST INTVRT DISC NOS, 1990 micro disc surgery Family History Mother Diabetes Heart disease Father Diabetes Heart disease Sister Diabetes Personal history of malignant neoplasm CERVICAL Brother Diabetes Grandfather No problems noted. Grandfather No problems noted. Grandmother No problems noted. Grandmother No problems noted. Social History Smoking/Tobacco Use Status: Never Smoking risk assessment performed?: Yes Alcohol Intake: never Drug use: Never Substance use type: does not use What type of physical activity do you participate in: none Do you feel safe at home: Yes Do you feel safe in your relationship?: Yes
--- NOTE | 2020-03-13 16:20 | CMDISCH_ITS ---
LACE Index Scoring Tool - Questions: Length of Stay (in days): 2 Acuity (Admit via E.D.?): Yes Comorbidities: Congestive Heart Failure E.D. Visits: 2 - Answers: Total Score: 9 Risk of Readmission: Low Risk Care Management Discharge Reason for Hospitalization: Elevated INR, Hematuria Discharge Plan: Aurea will be discharged home when medically ready, she will be discharged with a 48 hour event monitor, follow up with cardiology and urology. She will be transported home via private car with family. CM emailed co py of Eliquis form to [facility] for follow up. Patient/Family Education Needs: Review discharge instructions, discuss Ask Me Three.
--- NOTE | 2020-03-16 12:11 | PT.INDS ---
Date of service: 03/16/20 Time of Service: 12:12 PT Notes Visit Reasons: HEMATURIA, ELEVATED INR, ABNORMAL CT SCAN Physical Therapy Inpatient Discharge Summary Date: 03/12/2020 Date of service: 03/12/2020 through 03/13/2020 This is a clinical summary of care provided on the duration of dates listed above. No charge was made in the completion of this documentation. Referring Doctor: Swati Sheldon MD PT Orders: PT CONSULT: Limited ability. Unsteady gait when walking with nursing; patient on anticoagulation Precautions: Fall. Standard. Activity as tolerated. Patient Profile/Admitting Diagnosis: Aurea is a 75-year-old female who presented to the ED on 111 and 111 first with complaints of blood in urine and the following day with inability to have a bowel movement. Patient is diagnosed with atrial fibrillation and had been started on warfarin as of 02/20/2020, coagulopathy, hydronephrosis, and constipation. PMHX: Medical History Atrial fibrillation Chronic anticoagulation History of obesity Hyperlipemia Hypertension SOB (shortness of breath) Surgical History Abdominal hysterectomy (~08/1994) Bilateral salpingectomy with oophorectomy (~08/1994) PROCEDURES CARDIAC STRESS TEST [facility] NORMAL EXC/DEST INTVRT DISC NOS, 1990 micro disc surgery Social History/Home Situation: Lives with granddaughter in a private home with 3 steps to enter and rails on both sides. Independent with all aspects of ADLs without the need for an assistive ambulatory device nor adaptive equipment. Equipment Owned/DME: 2 front wheeled walkers Subjective: NT. See most recent MUSEUM EXHIBIT TECHNICIAN notes. Objective: General Observation: NT. See most recent MUSEUM EXHIBIT TECHNICIAN notes. Mental Status: NT. See most recent MUSEUM EXHIBIT TECHNICIAN notes. Pain: NT. See most recent MUSEUM EXHIBIT TECHNICIAN notes. Vital Signs: NT. See most recent MUSEUM EXHIBIT TECHNICIAN notes. ROM: Trunk: Bent about 30 degrees from vertical on the sagittal plane if not holding onto front wheeled walker Right Upper Extremity: Shoulder Flexion WFL. Shoulder abduction WFL. Elbow flexion WFL. Wrist flexion WFL. Opening and closing of hand WFL. Left Upper Extremity: Shoulder Flexion WFL. Shoulder abduction WFL. Elbow flexion WFL. Wrist flexion WFL. Opening and closing of hand WFL. Right Lower Extremity: Hip flexion WFL. Hip abduction WFL. Knee flexion WFL. Ankle dorsiflexion WFL. Ankle plantarflexion WFL. Left Lower Extremity: Hip flexion WFL. Hip abduction WFL. Knee flexion WFL. Ankle dorsiflexion WFL. Ankle plantarflexion WFL. Strength: Trunk extensors: 3-/5 Right Upper Extremity: Shoulder flexors 4/5. Shoulder abductors 4/5. Elbow flexors 4/5. Elbow extensors 4/5. Junior Manufacturing Engineer strong. Left Upper Extremity: Shoulder flexors 4/5. Shoulder abductors 4/5. Elbow flexors 4/5. Elbow extensors 4/5. Junior Manufacturing Engineer strong. Right Lower Extremity: Hip flexors 4/5. Hip abductors 4/5. Knee flexors 4/5. Knee extensors 4/5. Ankle dorsiflexors 4/5. Ankle plantarflexors 4/5. Left Lower Extremity:Hip flexors 4/5. Hip abductors 4/5. Knee flexors 4/5. Knee extensors 4/5. Ankle dorsiflexors 4/5. Ankle plantarflexors 4/5. Sensation: Intact as to pain and pressure on bilateral lower extremities. Bed Mobility/Transfers: Rolling independent Supine to sit independent Sit to supine independent Sit to stand independent Stand to sit independent Bed to chair independent Chair to bed independent Gait: 80 feet + 40 feet using front-wheeled walker with standby assist and minimal verbal cueing for directions only. Up and down 3 x 4 steps while holding onto B rails independently. Balance: Static Sitting: Normal Dynamic Sitting: Normal Static Standing: Fair Dynamic Standing: Fair Assessment: Aurea demonstrates improved functional mobility skills during this episode of care as evidenced by goal status below. Goals: Goals X 3 days 1. Sit-Stand independent MET 2. Stand-Sit independent MET 3. Bed-Chair independent MET 4. Chair-Bed independent MET 5. Independent gait on level surface with use of least restrictive device for at least 300 feet without report of pain nor dyspnea NOT MET 6. Independent stair negotiation while holding onto bilateral rails for at least 10 steps without report of pain nor dyspnea MET 7. Independent with home exercise program NOT MET 8. Good static and dynamic standing balance/tolerance NOT MET DISCHARGE RECOMMENDATIONS: Home when medically cleared by hospitalist. No equipment needs at this time. TREATMENT CODE/TIME: NC. Thank you for the opportunity to participate in the care of this patient. Pham Joseph PT, DPT, CLT [facility] [place], [place]
== END 2020-03-13 16:54 | disposition home or self-care (01) | DRG 696 ==
LOC: ER 14:45 → MS 16:31
PROVIDERS: Admitting Provider Internal Medicine; Emergency Provider Registered Nurse Emergency; PCP Emergency Medicine; Visit Provider Internal Medicine
DX: R31.9 Hematuria, unspecified (principal); D68.32 Hemorrhagic disorder due to extrinsic circulating anticoagulants; I50.32 Chronic diastolic (congestive) heart failure; I48.20 Chronic atrial fibrillation, unspecified; T45.515A Adverse effect of anticoagulants, initial encounter; R93.422 Abnormal radiologic findings on diagnostic imaging of left kidney; R93.421 Abnormal radiologic findings on diagnostic imaging of right kidney; Z79.01 Long term (current) use of anticoagulants; N39.0 Urinary tract infection, site not specified; N17.9 Acute kidney failure, unspecified; N13.30 Unspecified hydronephrosis; R19.5 Other fecal abnormalities; K59.00 Constipation, unspecified; I11.0 Hypertensive heart disease with heart failure; Z95.3 Presence of xenogenic heart valve; E78.5 Hyperlipidemia, unspecified; Z03.818 Encounter for observation for suspected exposure to other biological agents ruled out
CPT/HCPCS: 36415; 76770; 80048; 80053; 83690; 93005; 96360; 97162; 97530; 99220; 99221; 99222; 99231; 99232; 99233; 99239; 99252; 99253; 99285; U0003; 74177; 81003; 81015; 83735; 85014; 85018; 85025; 85610; 87086; 93010; 99223; G0378; J0696; J3490

== ENCOUNTER 2020-03-14 08:44 | Outpatient (RCR) | payer OTHER, SELFPAY ==
--- NOTE | 2020-03-14 11:00 | HOLTER_ITS ---
APPROVED REPORT Exam Type: HOLTER MONITOR APPLICATION Reason for Test: AF with RVR Patient Location: O Conclusion This was a 48-hour Holter monitor The patient was in atrial fibrillation throughout with an average heart rate of 128. Minimum heart r ate was 91, maximum 179 There were rare ventricular ectopic beats There were no pauses greater than 3 seconds Heart rates were significantly lower during sleeping hours No patient symptoms were reported
== END 2020-03-26 23:59 | disposition home or self-care (01) ==
LOC: RT 08:44
PROVIDERS: PCP Emergency Medicine; Visit Provider Emergency Medicine
DX: I48.91 Unspecified atrial fibrillation (principal)
CPT/HCPCS: 93227; 99238; 93225; 93226

== ENCOUNTER 2020-03-19 08:18 | Outpatient (RCR) | payer OTHER, SELFPAY | END 2020-03-26 23:59 | disposition home or self-care (01) | LOC: RT 08:18 | PROVIDERS: PCP Emergency Medicine; Visit Provider Emergency Medicine | DX: Z53.9 Procedure and treatment not carried out, unspecified reason (principal) | CPT/HCPCS: 93226 ==

== ENCOUNTER 2020-03-23 01:54 | Outpatient (RCR) | payer OTHER, SELFPAY ==
--- NOTE | 2020-03-23 10:45 | HOLTER_ITS ---
APPROVED REPORT Exam Type: HOLTER MONITOR APPLICATION Reason for Test: AF Patient Location: O Conclusion This is a 48-hour Holter monitor The patient was in atrial fibrillation throughout with an average heart rate of 94 bpm. Minimum hear t rate was 69, peak 158. Heart rate during sleep was approximately 75. Heart rate while awake avera ged 100 -110 There were rare ventricular ectopic beats. There was no ventricular tachycardia There were no pauses greater than 3 seconds No patient symptoms were reported
== END 2020-03-26 23:59 | disposition home or self-care (01) ==
LOC: RT 01:54
PROVIDERS: PCP Emergency Medicine; Visit Provider Emergency Medicine
DX: R55 Syncope and collapse (principal); I48.91 Unspecified atrial fibrillation
CPT/HCPCS: 93227; 93225; 93226

== ENCOUNTER 2020-03-30 08:25 | Outpatient (CLI) | payer OTHER, SELFPAY ==
[2020-03-30 12:21] LABS: HCT 35.4 % (36.0-46.0); MCH 29.3 pg (27.0-33.0); MCHC 31.1 % (32.0-36.0); MCV 94.4 fL (80-95); MPV 10.4 fL (8.0-11.0); Platelet Count 343 10^3/uL (130-400); RBC 3.75 10^6/uL (3.93-5.22); RDW 14.6 % (11.7-14.6); RDW-SD 50.3 fL
[2020-03-30 12:36] LABS: Prothrombin Time 10.3 sec (9.3-11.0)
[2020-03-30 12:51] LABS: Anion Gap 8.6 mmol/L (3-11); BUN 31 mg/dL (7-18); CO2 27.4 mmol/L (21.0-32.0); CREATININE 1.02 mg/dL (0.55-1.02); Calcium 9.1 mg/dL (8.5-10.1); Chloride 105 mmol/L (98-107); Estimated GFR 52.97 (mL/min/1.73m2); Glucose 134 mg/dL (74-106); Potassium 4.1 mmol/L (3.5-5.1); Sodium 141 mmol/L (136-145)
== END 2020-03-30 08:45 ==
PROVIDERS: PCP Emergency Medicine; Visit Provider Emergency Medicine
DX: I10 Essential (primary) hypertension (principal); N17.9 Acute kidney failure, unspecified; I48.20 Chronic atrial fibrillation, unspecified
CPT/HCPCS: 36415; 80048; 85027; 85610

== ENCOUNTER 2020-04-17 02:02 | Outpatient (CLI) | payer OTHER, SELFPAY ==
[2020-04-17 08:41] LABS: HCT 35.8 % (36.0-46.0); MCH 28.1 pg (27.0-33.0); MCHC 30.7 % (32.0-36.0); MCV 91.6 fL (80-95); MPV 9.6 fL (8.0-11.0); Platelet Count 337 10^3/uL (130-400); RBC 3.91 10^6/uL (3.93-5.22); RDW 13.7 % (11.7-14.6); RDW-SD 46.5 fL; WBC 8.34 10^3/uL (4.4-10.8)
[2020-04-17 09:36] LABS: Ferritin 21 ng/mL (8-252)
[2020-04-17 09:58] LABS: NT-proBNP 1248 pg/mL (<300)
== END 2020-04-17 02:22 ==
PROVIDERS: PCP Emergency Medicine; Visit Provider Emergency Medicine
DX: D64.9 Anemia, unspecified (principal); I50.32 Chronic diastolic (congestive) heart failure; I48.20 Chronic atrial fibrillation, unspecified
CPT/HCPCS: 36415; 85027; 82728; 83880

== ENCOUNTER 2020-04-23 03:15 | Outpatient (RCR) | payer OTHER, SELFPAY ==
--- NOTE | 2020-04-23 10:00 | HOLTER_ITS ---
APPROVED REPORT Exam Type: HOLTER MONITOR APPLICATION Reason for Test: Rapid atrial fibrillation Patient Location: O Conclusion This is a 48-hour monitor ordered indication of atrial fibrillation. ???The patient was in atrial fibrillation for the entirety of the recording with a maximum heart rate of 147 bpm. Average heart rate was 89 bpm. ???There were rare PVCs. ???There were no episodes of ventricular tachycardia, no pauses greater than 3 seconds and no evidenc e of high degree heart block. ???There were no patient triggered events.
== END 2020-04-26 23:59 | disposition home or self-care (01) ==
LOC: RT 03:15
PROVIDERS: PCP Emergency Medicine; Visit Provider Emergency Medicine
DX: I48.20 Chronic atrial fibrillation, unspecified (principal)
CPT/HCPCS: 93225; 93226

== ENCOUNTER 2020-04-30 09:28 | Outpatient (CLI) | payer OTHER, SELFPAY | END 2020-04-30 09:48 | PROVIDERS: PCP Emergency Medicine; Referring Provider Emergency Medicine; Visit Provider Internal Medicine Cardiovascular Disease | DX: I48.20 Chronic atrial fibrillation, unspecified (principal) | CPT/HCPCS: 93227 ==

== ENCOUNTER → 2020-05-14 11:06 | Outpatient (BNVA) | payer OTHER, SELFPAY | PROVIDERS: PCP Emergency Medicine; Referring Provider Emergency Medicine; Visit Provider Nurse Practitioner Gerontology | DX: R31.0 Gross hematuria (principal); T45.515A Adverse effect of anticoagulants, initial encounter; I10 Essential (primary) hypertension; I48.91 Unspecified atrial fibrillation; Z79.01 Long term (current) use of anticoagulants | CPT/HCPCS: 81003; 99215 ==

== ENCOUNTER → 2020-05-17 09:51 | Outpatient (BNVA) | payer OTHER, SELFPAY | PROVIDERS: PCP Emergency Medicine; Referring Provider Emergency Medicine; Visit Provider Internal Medicine Cardiovascular Disease | DX: I48.20 Chronic atrial fibrillation, unspecified (principal); Z95.3 Presence of xenogenic heart valve; Z79.01 Long term (current) use of anticoagulants | CPT/HCPCS: 99214 ==

== ENCOUNTER 2020-05-31 03:58 | Outpatient (CLI) | payer OTHER, SELFPAY ==
[2020-05-31 08:59] LABS: HCT 38.1 % (36.0-46.0); HGB 11.9 g/dL (11.2-15.7); MCH 27.8 pg (27.0-33.0); MCHC 31.2 % (32.0-36.0); Platelet Count 264 10^3/uL (130-400); RBC 4.28 10^6/uL (3.93-5.22); RDW 14.4 % (11.7-14.6); RDW-SD 45.9 fL; WBC 7.19 10^3/uL (4.4-10.8)
[2020-05-31 09:41] LABS: Iron 56 ug/dL (50-170); Total Iron Binding Capacity 401 ug/dL (250-450); Transferrin Sat 14 % (15-50)
[2020-05-31 09:54] LABS: NT-proBNP 997 pg/mL (<300); TSH 1.68 uIU/mL (0.36-3.74)
[2020-05-31 10:19] LABS: Ferritin 15 ng/mL (8-252)
== END 2020-05-31 03:59 | disposition home or self-care (01) ==
LOC: LBO 03:58
PROVIDERS: PCP Emergency Medicine; Visit Provider Emergency Medicine
DX: D64.9 Anemia, unspecified (principal); E03.9 Hypothyroidism, unspecified; I50.9 Heart failure, unspecified
CPT/HCPCS: 36415; 85027; 82728; 83540; 83550; 83880; 84443

== ENCOUNTER → 2020-08-30 09:34 | Outpatient (BNVA) | payer OTHER, SELFPAY | PROVIDERS: PCP Emergency Medicine; Referring Provider Emergency Medicine; Visit Provider Internal Medicine Cardiovascular Disease | DX: I48.91 Unspecified atrial fibrillation (principal); Z95.3 Presence of xenogenic heart valve; I11.0 Hypertensive heart disease with heart failure; I50.32 Chronic diastolic (congestive) heart failure; Z79.01 Long term (current) use of anticoagulants | CPT/HCPCS: 99213 ==

== ENCOUNTER 2020-08-31 03:37 | Outpatient (CLI) | payer OTHER, SELFPAY ==
[2020-08-31 07:42] LABS: HCT 40.7 % (36.0-46.0); HGB 12.9 g/dL (11.2-15.7); MCH 28.7 pg (27.0-33.0); MCHC 31.7 % (32.0-36.0); MCV 90.6 fL (80-95); MPV 9.9 fL (8.0-11.0); Platelet Count 258 10^3/uL (130-400); RBC 4.49 10^6/uL (3.93-5.22); RDW 15.4 % (11.7-14.6); RDW-SD 51.3 fL; WBC 7.54 10^3/uL (4.4-10.8)
[2020-08-31 08:51] LABS: Iron 62 ug/dL (50-170); Total Iron Binding Capacity 340 ug/dL (250-450); Transferrin Sat 18 % (15-50)
[2020-08-31 09:01] LABS: Ferritin 33 ng/mL (8-252)
== END 2020-08-31 03:38 | disposition home or self-care (01) ==
LOC: LBO 03:37
PROVIDERS: PCP Emergency Medicine; Visit Provider Emergency Medicine
DX: D64.9 Anemia, unspecified (principal)
CPT/HCPCS: 36415; 85027; 82728; 83540; 83550

== ENCOUNTER 2020-10-12 16:52 | Outpatient (REF) | payer OTHER, SELFPAY ==
[2020-10-12 14:11] LABS: HCT 39.3 % (36.0-46.0); HGB 12.4 g/dL (11.2-15.7); MCHC 31.6 % (32.0-36.0); MCV 95.2 fL (80-95); MPV 10.7 fL (8.0-11.0); Platelet Count 253 10^3/uL (130-400); RBC 4.13 10^6/uL (3.93-5.22); RDW 14.2 % (11.7-14.6); RDW-SD 49.9 fL; WBC 8.53 10^3/uL (4.4-10.8)
[2020-10-12 14:37] LABS: Anion Gap 10.7 mmol/L (3-11); BUN 28 mg/dL (7-18); CO2 24.3 mmol/L (21.0-32.0); CREATININE 0.9 mg/dL (0.55-1.02); Calcium 8.9 mg/dL (8.5-10.1); Chloride 111 mmol/L (98-107); Glucose 109 mg/dL (74-106); NT-proBNP 1586 pg/mL (<300); Potassium 4.4 mmol/L (3.5-5.1); Sodium 146 mmol/L (136-145); TSH 1.38 uIU/mL (0.36-3.74)
== END 2020-10-12 16:53 | disposition home or self-care (01) ==
LOC: LBN 16:52
PROVIDERS: PCP Emergency Medicine; Visit Provider Emergency Medicine
DX: I10 Essential (primary) hypertension (principal); D64.9 Anemia, unspecified; I50.32 Chronic diastolic (congestive) heart failure; N17.8 Other acute kidney failure; E03.9 Hypothyroidism, unspecified
CPT/HCPCS: 80048; 85027; 83880; 84443

== ENCOUNTER 2020-10-15 02:07 | Outpatient (CLI) | payer OTHER, SELFPAY ==
--- NOTE | 2020-10-15 08:32 | DI.RAD_ITS ---
Exam(s) XR HIP LT COMPLETE AP PELVIS EXAM: XR HIP LT COMPLETE AP PELVIS CLINICAL HISTORY: left hip pain,M25.552. TECHNIQUE: 2D digital imaging was performed. COMPARISON: CR XR HIP RT COMPLETE AP PELVIS from 01/30/2020 FINDINGS: No evidence of pelvic or hip fracture. Mild degenerative changes in in the hips. No prominent degen erative changes. No osseous lesions. Degenerative disc disease in the lumbar spine noted IMPRESSION: DATA REPOSITORY: RADIATION DOSE DELIVERED:
== END 2020-10-15 02:27 ==
PROVIDERS: PCP Emergency Medicine; Visit Provider Emergency Medicine
DX: M25.552 Pain in left hip (principal); G89.29 Other chronic pain
CPT/HCPCS: 73502

== ENCOUNTER → 2020-11-13 08:29 | Outpatient (BNVA) | payer OTHER, SELFPAY | PROVIDERS: PCP Emergency Medicine; Referring Provider Emergency Medicine; Visit Provider Nurse Practitioner Gerontology | DX: R31.0 Gross hematuria (principal); N13.30 Unspecified hydronephrosis | CPT/HCPCS: 81003; 99213 ==

== ENCOUNTER → 2020-11-30 08:08 | Outpatient (BNVA) | payer OTHER, SELFPAY | PROVIDERS: PCP Emergency Medicine; Referring Provider Emergency Medicine; Visit Provider Student in an Organized Health Care Education/Training Program | DX: M70.62 Trochanteric bursitis, left hip (principal); M54.5 Low back pain | CPT/HCPCS: 99213 ==

== ENCOUNTER → 2021-01-18 09:21 | Outpatient (BNVA) | payer MEDICARE, SELFPAY | PROVIDERS: PCP Emergency Medicine; Referring Provider Emergency Medicine; Visit Provider Internal Medicine Cardiovascular Disease | DX: I48.21 Permanent atrial fibrillation (principal); Z95.3 Presence of xenogenic heart valve; I11.0 Hypertensive heart disease with heart failure; I50.32 Chronic diastolic (congestive) heart failure; Z79.01 Long term (current) use of anticoagulants | CPT/HCPCS: 99214; 99213 ==

== ENCOUNTER 2021-03-11 02:29 | Outpatient (CLI) | payer MEDICARE, SELFPAY ==
--- NOTE | 2021-03-11 06:30 | DI.US_ITS ---
Exam(s) US RENAL EXAM: US RENAL CLINICAL HISTORY: monitoring hydronephrosis,n13.30 TECHNIQUE: Ultrasound of both kidneys performed using standard protocol. COMPARISON: US US RENAL from 03/12/2020 FINDINGS: RIGHT KIDNEY: Measures 9.6 cm in length. No cysts evident. Normal cortical thickness and corticomedullary different iation .No solid masses No intrarenal calculi nor hydronephrosis.Previously described hydronephrosis left kidney seen on ultr asound examination 03/12/2020 is no longer seen. LEFT KIDNEY: Measures 9.2 cm in length. There is a 10 x 11 millimeters cyst in the lateral inferior aspect of the left kidney. Normal cortical thickness and corticomedullary differentiaion. No solids masses. No i ntrarenal calculi nor hydonephrosis. URINARY BLADDER: Prevoid volume is 63 cc Postvoid volume is difficult to assess as this patient's bladder was not adequately prepped. Cc No evidence of obvious bladder mass nor diverticuli. Ureterovesical jets: Both identified and appear symmetrical IMPRESSION: 1. Solitary small cyst in left kidney. No other focal renal findings. 2. No hydronephrosis on today's study DATA REPOSITORY:
== END 2021-03-11 02:49 ==
PROVIDERS: PCP Emergency Medicine; Visit Provider Nurse Practitioner Gerontology
DX: N13.30 Unspecified hydronephrosis (principal); N28.1 Cyst of kidney, acquired
CPT/HCPCS: 76770

== ENCOUNTER → 2021-03-18 13:32 | Outpatient (BNVA) | payer MEDICARE, SELFPAY | PROVIDERS: PCP Emergency Medicine; Visit Provider Urology | DX: N13.30 Unspecified hydronephrosis (principal) | CPT/HCPCS: 99212 ==

== ENCOUNTER → 2021-05-21 08:53 | Outpatient (BNVA) | payer MEDICARE, SELFPAY | PROVIDERS: PCP Emergency Medicine; Referring Provider Emergency Medicine; Visit Provider Internal Medicine Cardiovascular Disease | DX: I50.32 Chronic diastolic (congestive) heart failure (principal); I11.0 Hypertensive heart disease with heart failure; Z79.01 Long term (current) use of anticoagulants; Z95.3 Presence of xenogenic heart valve | CPT/HCPCS: 99214 ==

== ENCOUNTER 2021-06-21 02:30 | Outpatient (CLI) | payer MEDICARE, SELFPAY ==
--- NOTE | 2021-06-21 06:45 | DI.US_ITS ---
APPROVED REPORT EXAM: Comprehensive 2D, Doppler, and color-flow Echocardiogram Patient Location: Out-Patient [place]: Jessika Monsivais RDCS (AE) Indications: CHF, A Fib, Bioprosthetic aortic valve Other Information Study Quality: Adequate Conclusion Normal left ventricular wall thickness and chamber size. Estimated ejection fraction is 55 to 60%. There are no segmental wall motion abnormalities Borderline dilated right ventricle with normal systolic function Both atria are moderately enlarged There is an aortic valve bioprosthesis. There is no significant aortic stenosis. Mean gradient is 1 1 mmHg. There is no aortic regurgitation Moderate mitral annular calcification with trace mitral regurgitation Normal tricuspid valve with mild to moderate regurgitation. Estimated right ventricular systolic pre ssure is 31 mmHg Dilated ascending aorta measuring 3.57 cm Wall motion Left Ventricle The left ventricle is normal size. The left ventricular systolic function is normal. The left ventric ular ejection fraction is within the normal range. There is normal left ventricular wall thickness. T here is no ventricular septal defect visualized. LVEF is 55-60%. Right Ventricle Right ventricle is borderline dilated. Right ventricular systolic function is grossly normal. Atria Left atrium is moderately dilated. Right atrium is moderately dilated. The interatrial septum is inta ct with no evidence for an atrial septal defect. Aortic Valve No hemodynamically significant valvular aortic stenosis. Mean gradient 11 mmHg No aortic regurgitatio n is present. Bioprosthetic aortic valve is present. Mitral Valve Moderate mitral annular calcification. No evidence of mitral valve stenosis. Trace mitral regurgitati on. Tricuspid Valve The tricuspid valve is normal in structure. There is no tricuspid valve stenosis. Mild to moderate tr icuspid regurgitation. Pulmonic Valve The pulmonary valve is normal in structure. There is no pulmonic valvular stenosis. Trace pulmonic re gurgitation. Great Vessels The aortic root is normal in size. The ascending aorta is mildly dilated. Aortic arch is normal in ca liber. IVC is normal in size and collapses >50% with inspiration. Pericardium There is no pericardial effusion. 2D Dimensions IVSD d PLAX 0.93 cm F: 0.6-1.0 LV Vol A2C d MOD 100.8 mL LVPW d PLAX 0.90 cm F: 0.6 - 1.0 LV Vol A4C d MOD 78.5 mL LVID d PLAX 4.30 cm F: 3.8 - 5.2 LA vol/ BSA A2C s A-L 41.4 mL/m2 LVDs 3.10 cm F: 2.2 - 3.5 LA vol/ BSA A4C s A-L 34.3 mL/m2 Ao Root d 2.49 cm F: 2.7 - 3.3 LA Vol/ BSA Biplane s A-L 37.7 mL/m2 RA Area A4C 18.19 cm2 LA Area A4C s MOD 21.19 cm2 RA Vol/ BSA A4C s A-L 27.4 mL/m2 LA Area A2C s MOD 23.28 cm2 Ao Asc Diam d 3.57 cm F: 2.3 - 3.1 LV EF A4C MOD 56.2 % LV EF Teichholz 53.0 % LV EF A2C MOD 50.7 % LVEF ([facility]) 51.67 % F: 54 - 74 LV EF Biplane MOD 51.7 % LV Volume 71.77 mL F: 46 - 106 SV 47.78 mL LV Volume Index 39.65 mL/m2 F: 29 - 61 SV Index 26.39 mL/m2 LV Vol Biplane MOD 92.5 mL FS 27.00 % M-Mode TAPSE 1.08 cm (M/F) >1.7 LV Diastology MV E Vmax 0.99 (0.4-1.3 m/s) Aortic Valve LVOT Area 3.30 cm2 AoV Area Vmax 1.31 cm2 LVOT Vmax 0.86 m/s AoV Area/ BSA (Vmax) 0.72 cm2/m2 LVOT Mean Shay. 0.55 m/s KEVIN Mean Shay. 1.16 cm2 LVOT Peak Grad 3.0 mmHg KEVIN Mean Shay. Index 0.64 cm2/m2 LVOT Mean Grad 1.5 mmHg LVOT VTI 0.138 m LVOT Diam s 2.00 cm AoV Vmax 2.17 m/s Velocity Ratio 0.39 AoV Mean Shay. 1.58 m/s AoV Peak Grad 18.9 mmHg LVOT SV 45.39 mL AoV Mean Grad 11.0 mmHg AoV VTI 0.373 m AoV Area VTI 1.22 cm2 AoV Area/ BSA (VTI) 0.67 cm/m2 Mitral Valve MV DT 254 (160-240 msec) MV PHT 74 msec MV Area PHT 2.99 cm2 MV VTI 0.251 m MV Area VTI 1.81 (4.0-6.0 cm2) Pulmonary Valve PV Vmax 0.94 (0.5-1.5 m/s) RVOT Peak Gr. 0.59 mmHg PV Peak Grad 3.5 mmHg RVOT Mean Gr. 0.30 mmHg PV Mean Grad 1.8 mmHg RVOT VTI 0.068 m PV VTI 0.129 m RVOT Vmax 0.38 m/s Tricuspid Valve TR Peak Grad 27.6 mmHg TR Vmax 2.63 m/s RA Pressure 3.00 mmHg RVSP (TR) 30.6 mmHg
== END 2021-06-21 02:50 ==
LOC: DI 02:31
PROVIDERS: PCP Emergency Medicine; Visit Provider Emergency Medicine
DX: I50.9 Heart failure, unspecified (principal)
CPT/HCPCS: 93306

== ENCOUNTER 2021-06-21 04:03 | Outpatient (CLI) | payer MEDICARE, SELFPAY ==
[2021-06-21 10:41] LABS: Anion Gap 8.5 mmol/L (3-11); BUN 32 mg/dL (7-18); CO2 30.5 mmol/L (21.0-32.0); CREATININE 1.2 mg/dL (0.55-1.02); Calcium 9.4 mg/dL (8.5-10.1); Chloride 105 mmol/L (98-107); Glucose 107 mg/dL (74-106); NT-proBNP 2176 pg/mL (<300); Potassium 4.7 mmol/L (3.5-5.1); Sodium 144 mmol/L (136-145)
== END 2021-06-21 04:04 | disposition home or self-care (01) ==
LOC: LBO 04:03
PROVIDERS: PCP Emergency Medicine; Visit Provider Emergency Medicine
DX: I10 Essential (primary) hypertension (principal); I50.9 Heart failure, unspecified
CPT/HCPCS: 36415; 80048; 83880

== ENCOUNTER → 2021-11-19 08:43 | Outpatient (BNVA) | payer MEDICARE, SELFPAY | PROVIDERS: PCP Nurse Practitioner; Referring Provider Nurse Practitioner; Visit Provider Internal Medicine Cardiovascular Disease | DX: I48.91 Unspecified atrial fibrillation (principal); I50.32 Chronic diastolic (congestive) heart failure; I10 Essential (primary) hypertension; Z79.01 Long term (current) use of anticoagulants; Z95.3 Presence of xenogenic heart valve | CPT/HCPCS: 99214; 99213 ==

== ENCOUNTER 2022-09-12 02:18 | Outpatient (CLI) | payer MEDICARE, SELFPAY ==
[2022-09-12 12:14] LABS: HGB 13.1 g/dL (11.2-15.7); MCH 29.7 pg (27.0-33.0); MCHC 31.2 % (32.0-36.0); MCV 95 fL (80-95); MPV 10.2 fL (8.0-11.0); Platelet Count 355 10^3/uL (130-400); RBC 4.41 10^6/uL (3.93-5.22); RDW 13.3 % (11.7-14.6); RDW-SD 46.6 fL; WBC 10.63 10^3/uL (4.4-10.8)
[2022-09-12 12:48] LABS: ALT 24 U/L (14-59); AST 22 U/L (15-37); Albumin 3.6 g/dL (3.4-5.0); Alkaline Phosphatase 118 U/L (46-116); BUN 28 mg/dL (7-18); Bilirubin, Total 0.9 mg/dL (0.2-1.0); CREATININE 1.2 mg/dL (0.55-1.02); Calcium 9.3 mg/dL (8.5-10.1); Calculated LDL 111 mg/dL (<100); Chloride 102 mmol/L (98-107); Cholesterol 174 mg/dL (<200); Estimated GFR 46.91 (mL/min/1.73m2); Glucose 112 mg/dL (74-106); HDL Cholesterol 43 mg/dL (40-60); Potassium 3.9 mmol/L (3.5-5.1); Sodium 143 mmol/L (136-145); Total Protein 7.9 g/dL (6.4-8.2); Triglyceride 102 mg/dL (<150)
== END 2022-09-12 02:19 | disposition home or self-care (01) ==
LOC: LOS 02:18
PROVIDERS: PCP Nurse Practitioner Family; Visit Provider Nurse Practitioner Family
DX: E78.5 Hyperlipidemia, unspecified (principal); I10 Essential (primary) hypertension; I48.91 Unspecified atrial fibrillation; N17.9 Acute kidney failure, unspecified; J98.6 Disorders of diaphragm
CPT/HCPCS: 36415; 80053; 80061; 85027

== ENCOUNTER 2022-11-03 14:49 | Outpatient (REF) | payer MEDICARE, SELFPAY | END 2022-11-03 14:50 | disposition home or self-care (01) | LOC: LBN 14:49 | PROVIDERS: PCP Nurse Practitioner Family; Visit Provider Nurse Practitioner Family | DX: L02.413 Cutaneous abscess of right upper limb (principal) | CPT/HCPCS: 87077; 87070; 87186; 87205 ==

== ENCOUNTER 2022-11-25 08:13 | Outpatient (CLI) | payer MEDICARE, SELFPAY ==
--- NOTE | 2022-11-25 08:00 | RT.EKG_ITS ---
APPROVED REPORT Exam: Resting ECG Reason for Exam: afib Patient Location: O HR:79 bpm ECG Measurements Heart Rate 79 AXIS NC [id number] P [id number] QRSd 140 QRS 93 QT 409 T 19 QTc 469 Conclusion Atrial fibrillation...V-rate 61-100, irreg A-activity RBBB and LPFB...QRSd >120mS, axis(90,210) Artifact in lead(s) I,II,III,aVR,aVL,aVF
== END 2022-11-25 08:14 | disposition home or self-care (01) ==
LOC: DI.CARD 08:13
PROVIDERS: PCP Nurse Practitioner Family; Visit Provider Internal Medicine Cardiovascular Disease
DX: I48.91 Unspecified atrial fibrillation (principal); I50.32 Chronic diastolic (congestive) heart failure; R06.00 Dyspnea, unspecified
CPT/HCPCS: 93010

== ENCOUNTER → 2022-11-25 08:51 | Outpatient (BNVA) | payer MEDICARE, SELFPAY | PROVIDERS: PCP Nurse Practitioner Family; Visit Provider Internal Medicine Cardiovascular Disease | DX: I48.91 Unspecified atrial fibrillation (principal); Z79.01 Long term (current) use of anticoagulants; I10 Essential (primary) hypertension | CPT/HCPCS: 93005; 99214 ==

== ENCOUNTER 2023-08-30 19:25 | Inpatient (IN) | payer MEDICARE, SELFPAY ==
[2023-08-30] VITALS (74 sets, daily range): BP systolic 71–174; BP diastolic 48–135; PULSE 82–132; RESP 13–42; TEMP 36.8–38.5; O2SAT 90–98
--- NOTE | 2023-08-30 19:15 | RT.EKG_ITS ---
APPROVED REPORT Exam: Resting ECG Reason for Exam: a-fib Patient Location: E HR:120 bpm ECG Measurements Heart Rate 120 AXIS NE [id number] P [id number] QRSd 146 QRS 112 QT 336 T 12 QTc 476 Conclusion Atrial fibrillation...? atrial activity RBBB and LPFB...QRSd >120mS, axis(90,210) Physician: no stemi
--- NOTE | 2023-08-30 19:30 | DI.CT_ITS ---
Exam(s) CT HEAD WO EXAM: CT HEAD WO CLINICAL HISTORY: confused. TECHNIQUE: Imaging Protocol: Axial computed tomography images with coronal and sagittal reformatted images were created and reviewed COMPARISON: No exams were available for comparison FINDINGS: Ventricles and Extra axial spaces: Normal in size and morphology for the patient's age. Hemorrhage: None. Cerebral parenchyma: No evidence of acute infarct or mass. Mild white matter changes small vessel dis ease. Mild atrophy. Midline shift: None. Brainstem/Cerebellum: Normal. Calvarium: Normal. Visualized Paranasal sinuses:Clear. Mastoids: Clear. Soft Tissues: Unremarkable. ORBITS: Unremarkable. PITUITARY: Not enlarged. IMPRESSION: No acute intracranial process. RADIATION DOSE DELIVERED: 758.46mGy.cm Total DLP DATA REPOSITORY: All CT scans at this facility are submitted to the National Radiology Data Registry (NRDR) Dose Index Registry (DIR) with the [employer] (ACR). RADIATION OPTIMIZATION: All CT scans at this facility use at least one of these dose optimization te chniques: automated exposure control; mA and/or kV adjustment per patient size (includes targeted exa ms where dose is matched to clinical indication); or iterative reconstruction.
--- NOTE | 2023-08-30 19:34 | DI.RAD_ITS ---
Exam(s) XR CHEST 1V IN DI DEPT EXAM: XR CHEST 1V IN DI DEPT CLINICAL HISTORY: fever, hypoxic, eval for pneumonia TECHNIQUE: 2D digital imaging was performed. COMPARISON: CR XR CHEST 2V PA LATERAL from 01/30/2020 FINDINGS: Extremely limited exam due to under penetration and poor pulmonary inflation. LUNGS: Grossly clear with the exception mild basilar atelectasis. No pleural abnormality seen. HEART: Cardiac silhouette obscured. AORTA: Normal diameter. BONES: Sternal wires. Spine mainly obscured. Soft tissues: Unremarkable. IMPRESSION: Limited exam due to poor pulmonary inflation.. Mild basilar atelectasis. No acute findings. DATA REPOSITORY: RADIATION DOSE DELIVERED:
--- NOTE | 2023-08-30 19:36 | ED.GENADUL_ITS ---
Discharge Plan Disposition Patient Disposition: Admit to [facility] Condition: Critical Discharge Details Chief Complaint: GenMedical Clinical Impression: Urinary tract infection, Acute dehydration, Septic shock, Pneumonia, Hyperkalemia Primary Care Provider: Connie Simmons ED Provider: Nicolas Dumont Home Meds and New Rx's Prescriptions: No Action multivitamin [Once Daily] 1 EACH tablet 1 tab PO DAILY triamcinolone acetonide 0.1 % cream 1 applic TP BID Qty: 30 4RF apixaban 2.5 mg tablet 2.5 mg PO BID 30 Days Qty: 60 4RF atorvastatin 20 mg tablet 20 mg PO DAILY Qty: 90 3RF furosemide [Lasix] 20 mg tablet 40 mg PO DAILY Qty: 180 3RF metoprolol succinate [Toprol XL] 100 mg tablet extended release 24 hr 100 mg PO DAILY Qty: 90 3RF spironolactone 25 mg tablet See Rx Instructions .ROUTE .COMPLEX Qty: 45 3RF Dose Instruction: TAKE ONE-HALF TABLET BY MOUTH DAILY Rx Instructions: TAKE ONE-HALF TABLET BY MOUTH DAILY aspirin [Adult Low Dose Aspirin] 81 mg tablet,delayed release (DR/EC) 81 mg PO DAILY Qty: 0 0RF HPI General Date/Time Provider Initiated Documentation: 08/30/23 19:32 . HPI Narrative: 78-year-old female with a past medical history of atrial fibrillation, high cholesterol, hypertension, atrial fibrillation on apixaban, hysterectomy with salpingo-oophorectomy, who presents today for evaluation of altered mental status. Family states that she was doing fine today, and then this evening her legs gave out and she got very weak, she was slowly lowered to the floor/couch. She was slightly confused after this, and was noted to have a fever. EMS was called and she was brought to the ER for further assessment. Patient denies any cough, headache neck pain or chest pain. She denies any vomiting or diarrhea. She has no complaints herself. Family denies any trauma to the head or falls otherwise. No other complaints. No other modifying factors. Related Data Home Medications Medication Instructions Recorded Confirmed multivitamin (Once Daily tablet) 1 tab PO DAILY 09/02/12 02/19/23 aspirin 81 mg tablet,delayed 81 mg PO DAILY #0 tabs 03/13/20 02/19/23 release (Adult Low Dose Aspirin) triamcinolone acetonide 0.1 % 1 applic topical BID #30 grams 03/19/22 02/19/23 topical cream apixaban 2.5 mg tablet 2.5 mg PO BID 30 days #60 tabs 05/22/23 atorvastatin 20 mg tablet 20 mg PO DAILY #90 tabs 06/11/23 furosemide 20 mg tablet (Lasix) 40 mg (2 x 20 mg) PO DAILY #180 06/11/23 tabs metoprolol succinate 100 mg 100 mg PO DAILY #90 tabs 06/11/23 tablet,extended release 24 hr (Toprol XL) spironolactone 25 mg tablet See Rx Instructions .Route 06/11/23 .COMPLEX #45 tabs Previous Rx's Medication Instructions Recorded aspirin 81 mg tablet,delayed 81 mg PO DAILY #0 tabs 03/13/20 release (Adult Low Dose Aspirin) triamcinolone acetonide 0.1 % 1 applic topical BID #30 grams 03/19/22 topical cream apixaban 2.5 mg tablet 2.5 mg PO BID 30 days #60 tabs 05/22/23 atorvastatin 20 mg tablet 20 mg PO DAILY #90 tabs 06/11/23 furosemide 20 mg tablet (Lasix) 40 mg (2 x 20 mg) PO DAILY #180 06/11/23 tabs metoprolol succinate 100 mg 100 mg PO DAILY #90 tabs 06/11/23 tablet,extended release 24 hr (Toprol XL) spironolactone 25 mg tablet See Rx Instructions .Route 06/11/23 .COMPLEX #45 tabs Allergies Allergy/AdvReac Type Severity Reaction Status Date / Time diclofenac Allergy Severe HIVES Verified 08/30/23 19:33 nifedipine AdvReac Unknown PEDAL EDEMA Verified 08/30/23 19:33 General Stated Complaint: GenMedical 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 3.ENT: Atraumatic external nose and ears. Notably dry MM. Neck: Symmetric, trachea midline, No thyromegaly. 4.CVS: +S1/S2, No murmurs or gallops. Peripheral pulses 2+ and equal in all extremities. Brisk capillary refill in all extremities. 5.RESP: Unlabored respiratory effort. Crackles in the bases bilaterally 6.GI: Soft, Nontender/Nondistended, No hepatosplenomegaly. No guarding or rebound. 7.MSK: Normocephalic/Atraumatic, Extremities w/o deformity or ttp No cyanosis or clubbing, Normal movement of all extremities, trace pitting edema. Multiple scars small scabs and lesions on the shins bilaterally. 8.Skin: Warm, Dry. Patient demonstrates a few small scattered scabs and lesions on the shins, slightly purulent 1 on the left anterior thigh, as well as 1 over the right shoulder. No Osler nodes or Janeway lesions otherwise. Patient has notable fungal dermal irritation on the panel folds by the groin. These are red, erythematous and tender. Patient also has mild redness over the left thumb. Tenderness in that area as well. 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 Sensation grossly intact, no focal neurologic deficits. 10.Psych: (AAO) x3. Appropriate mood and affect Course Vital Signs Vital signs: Vital Signs Temperature 38.5 C H 08/30/23 19:26 Pulse 110 H 08/30/23 19:26 Respiratory Rate 42 H 08/30/23 19:26 Blood Pressure 174/128 H 08/30/23 19:26 Pulse Oximetry 91 L 08/30/23 19:26 Temperature 38.5 C H 08/30/23 19:26 Temperature Source Oral 08/30/23 19:26 Pulse 110 H 08/30/23 19:26 Respiratory Rate 42 H 08/30/23 19:26 Respiratory Effort Short of Breath, Labored, Grunting, Incrsd Work of Breathing 08/30/23 19:33 Blood Pressure 174/128 H 08/30/23 19:26 Pulse Oximetry 91 L 08/30/23 19:26 Oxygen Delivery Method Nasal Cannula 08/30/23 19:26 Pain Level 8 08/30/23 19:26 Lab/Test Results Lab/Test Results: 08/30/23 19:33 Blood Blood Culture - Pending 08/30/23 19:33 Blood Blood Culture - Pending Procedures Arterial Line Time Out Performed: Yes Size (Gauge): 16 Technique Used: guide wire technique Post-Procedure: line sutured into place and dry sterile dressing placed Patient Tolerated Procedure: well and no complications Complications: none Site: right Additional Comments: Procedure: Arterial Line Indication: Hemodynamic monitoring A time-out was completed verifying correct patient, procedure, site, positioning, and special equipment if applicable. Sharif?s test was performed to ensure adequate perfusion. The patient?s <left> wrist was prepped and draped in sterile fashion. 1% Lidocaine was used to anesthetize the area. The arterial line was introduced into the radial artery. The catheter was threaded over the guide wire and the needle was removed with appropriate pulsatile blood return. The catheter was then sutured in place to the skin and a sterile dressing applied. Perfusion to the extremity distal to the point of catheter insertion was checked and found to be adequate. Estimated Blood Loss: 3ml?s The patient tolerated the procedure well and there were no complications. Central Line Placement Right IJ: Time Out Performed: Yes Patient Placed on Monitor/Pulse Ox: Yes MD Prep: mask, gown and gloves Central Line Prep: Chlorhexidine scrub Local Anesthetic: Lidocaine 1% Amount of anesthesia used (mL): 3 Ultrasound Used for Placement: Yes Central Line Lumen Inserted: triple Post Procedure: good blood return, all ports aspirated, flushed, capped and sutured in place with 2-0 silk Post Procedure X-Ray: tip of catheter in good position Patient Tolerated Procedure: well and no complications Complications: none Medical Decision Making 78-year-old female with a past medical history of atrial fibrillation, high cholesterol, hypertension, atrial fibrillation on apixaban, hysterectomy with salpingo-oophorectomy, who presents today for evaluation of altered mental status. Family states that she was doing fine today, and then this evening her legs gave out and she got very weak, she was slowly lowered to the floor/couch. She was slightly confused after this, and was noted to have a fever. EMS was called and she was brought to the ER for further assessment. Patient denies any cough, headache neck pain or chest pain. She denies any vomiting or diarrhea. She has no complaints herself. Family denies any trauma to the head or falls otherwise. No other complaints. No other modifying factors. Exam demonstrates ANO x 3 female who appears slightly confused so. She has extremely dry mucous membranes, few scattered lesions that have some purulence that there are centers. Notable fungal dermatitis over her left inguinal panel fold. She is tachycardic. Febrile. She has mild crackles at her lung sounds. Concern for pneumonia, UTI and bacteremia. Cellulitis is of concern. Fungal component could be causing systemic symptoms. Intracranial etiology less likely. Will start vancomycin, Zosyn and azithromycin for broad-spectrum antibiotic coverage, will rehydrate with fluids, will get blood cultures, evaluate for concerning etiologies monitor closely and reassess. 10:31 PM Laboratory workup is returned, notable white count of 25, left shift, no bandemia. Lactate elevated at 2.1, no acidosis. Potassium high at 5.6, EKG demonstrates stability compared to prior. Troponin normal, proBNP elevated at 1600, TSH normal. Pro-Steven surprisingly normal at 0.1, urinalysis shows positive nitrites, 3-5 WBCs, still pending COVID flu and RSV. Chest x-ray read as negative, however clinically patient have coarse crackles in the bases prior to fluid administration, concern for pneumonia clinically. No indication for emergent CT scan as she was started on broad-spectrum antibiotics on arrival. Symptoms appearing consistent with PE or dissection. No evidence of STEMI on EKG. Differential continues to include the fungal infection on her pannus as a potential cause of her systemic response, UTI is on the differential still, and again has stated pneumonia. CT scan of the head negative for acute process. Patient became hypotensive in the 70s systolic,, discussed risk and benefits with family, decision was made to place central line, she has not taken her nightly dose of anticoagulant/apixaban. Triple-lumen was placed in the right IJ without complication, right art line was placed without complication. Patient tolerated this well. Chest x-ray post line demonstrates good placement. Patient's blood pressure went from the 70s systolic to the 140s after fluid and central line placement, will continue to monitor closely for additional need for pressor. Patient has received a liter of lactated ringer at this stage. Additionally for management of the patient's hyperkalemia she was administered 10 units of IV insulin, an amp of D50, calcium gluconate for cardiac stability, and inhaled albuterol. Patient tolerated this well. She still demonstrates no current ectopy. Discussed the case with the hospitalist Dr. Ashby, he agrees with the assessment and plan. Patient will be admitted to the ICU for continued potassium management, blood pressure management broad-spectrum antibiotics. I have extensively reviewed the treatment plan with the patient. I have addressed all patient concerns at this time. I have also discussed the plan with the admitting physician and they agree with the current assessment and plan and have agreed to assume responsibility for the patient. All parties demonstrate verbal understanding and agreement with our assessment and plan at this time. The d ocumentation in this chart was dictated using Sentient dictation software. Please excuse any dictation errors. FINDINGS: Limitations: The examination was exposed at low lung volumes. Lungs: There is platelike atelectasis in the lower lung zones. No focal pulmonary consolidation is seen. Pleural spaces: No pleural effusion or pneumothorax is demonstrated. Heart/Mediastinum: The heart is partially obscured but appears top-normal in size. There has been a prior median sternotomy. There is atherosclerotic calcification at the apex of the aortic arch. Bones/joints: The visualized bony structures appear grossly intact. There are osteophytes along the thoracic spinal margin. There is prominent degenerative change at the acromioclavicular joints bilaterally. IMPRESSION: No active disease is seen in the chest. Thank you for allowing us to participate in the care of your patient. Dictated and Authenticated by: Nikolai Silva MD FINDINGS: Bones/joints: Three views of the left 1st digit reveal no acute fracture or dislocation. There are osteophytes along the margins of the distal interphalangeal joint in keeping with osteoarthritis. Soft tissues: There is soft tissue swelling in the region of the metacarpophalangeal joint. IMPRESSION: 1. No acute fracture or dislocation. 2. 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 3. Soft tissue swelling at the metacarpophalangeal joint. Thank you for allowing us to participate in the care of your patient. Dictated and Authenticated by: Nikolai Silva MD 08/30/2023 9:42 PM Eastern Time ([place] & [place]) FINDINGS: Brain: No acute intracranial hemorrhage, mass-effect, midline shift, or extra- axial collection is seen. There is patchy white matter hypoattenuation, nonspecific but commonly seen as a chronic sequela of small vessel ischemic disease. The galicia white matter differentiation appears preserved. There is mild symmetric parenchymal volume loss. Cerebral ventricles: The ventricular system and basilar cisterns appear appropriate in size and configuration. Paranasal sinuses: The paranasal sinuses appear well aerated. No air-fluid levels are seen. Mastoid air cells: The mastoid air cells appear well-aerated. Auditory system: The middle ear cavities appear clear. Soft tissue density material within the external auditory canals probably represents cerumen; however, direct inspection is recommended for definitive evaluation. Orbital cavities: The globes and intraorbital structures appear grossly intact. Bones: The bony calvarium appears intact. No depressed skull fracture is seen. Soft tissues: There are scattered coarse skin calcifications in the frontal scalp. Vasculature: There is atherosclerotic calcification within the intracranial portion of the internal carotid and vertebral arteries bilaterally. IMPRESSION: 1. No acute intracranial abnormality seen. 2. Presumed chronic microvascular ischemic change. 3. Symmetric parenchymal volume loss. Thank you for allowing us to participate in the care of your patient. Dictated and Authenticated by: Nikolai Silva MD 08/30/2023 9:32 PM Eastern Time ([place] & [place]) FINDINGS: Limitations: Imaging was obtained at submaximal inspiration. Tubes, catheters and devices: There has been interval placement of a right internal jugular central venous catheter with its tip in the expected location of the right atrium. Lungs: No pulmonary consolidation is seen. Pleural spaces: There is blunting of the left costophrenic angle. A small left pleural effusion is not excluded. No right-sided pleural effusion is seen. No pneumothorax is demonstrated. Heart/Mediastinum: The heart is partially obscured but appears top-normal in size. There has been prior median sternotomy. There is atherosclerotic calcification at the apex of the aortic arch. Bones/joints: The visualized bony structures appear grossly intact. There is prominent degenerative change of the AC joints bilaterally. There are osteophytes along the thoracic spinal margin. IMPRESSION: Right internal jugular central venous catheter in-situ with its tip in the expected location of the right atrium. Thank you for allowing us to participate in the care of your patient. Quality:SDOH Health Related Social Needs: No Data to Display Critical Care Time Critical Care Time Critical Care Time: Yes Total Critical Care Time: 90 Attestation: Upon my evaluation, this patient had a high probability of imminent or life- threatening deterioration, which required my direct attention, intervention, and personal management. I have personally provided 90 minutes of critical care time exclusive of time spent on separately billable procedures. Time includes review of laboratory data, radiology results, discussion with consultants, and monitoring for potential decompensation. Interventions were performed as documented. [facility] All Active Problems (Updated 08/30/23 @ 22:37 by Nicolas Dumont DO) Hyperkalemia (Acute) Pneumonia (Acute) Septic shock (Acute) Acute dehydration (Acute) Urinary tract infection (Acute) Infection (Acute) Anticoagulated (Chronic) 2021-on low dose Eliquis Hyperlipidemia (Acute) Chronic diastolic CHF (congestive heart failure) (Acute) MISSY (acute kidney injury) (Acute) Chronic atrial fibrillation with rapid ventricular response (Acute) Atrial fibrillation (Chronic) History of aortic valve replacement with bioprosthetic valve (Acute) Replaced, 2018 Obesity (Acute) Lumbar disc prolapse with compression radiculopathy (Acute) s/p surgery 1990 Hyperlipidemia (Acute 12/16/12) Essential hypertension (Acute 06/13/13) Dyspnea (Acute 01/24/02) Exertional;neg MPI ECHO LVH Disorder of diaphragm (Acute) paralyzed left Medical History Gross hematuria Associated with Coumadin use, resolved-2021 Anemia Resolved-2020 likely associate with hematuria which had resolved Hydronephrosis Followed by urology, resolved as of 2021 Adenocarcinoma of endometrium, 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 Grandfather No problems noted. Grandmother No problems noted. Grandmother No problems noted. Other Anticoagulated Social History Smoking/Tobacco Use Status: Never Smoking risk assessment performed?: Yes Alcohol Intake: never Drug use: Never Substance use type: does not use What type of physical activity do you participate in: none Do you feel safe at home: Yes Do you feel safe in your relationship?: Yes
--- NOTE | 2023-08-30 19:45 | DI.RAD_ITS ---
Exam(s) XR THUMB LT EXAM: XR THUMB LT CLINICAL HISTORY: Erythema over MCP joint, eval for fracture/bony er. TECHNIQUE: 2D digital imaging was performed. Three views. COMPARISON: None. FINDINGS: BONES: No acute fracture is present. No bony destructive lesion is seen. JOINTS: No dislocation present. Degenerative changes at the interphalangeal joint of the thumb. Mil d degenerative changes also present 1st carpal metacarpal joint SOFT TISSUE: Soft tissue swelling around the metacarpophalangeal joint. IMPRESSION: No fracture or bony erosion. Soft tissue swelling DATA REPOSITORY: RADIATION DOSE DELIVERED:
[2023-08-30 19:49] LABS: BE (Venous) 4 mmol/L (-2-3); HCO3 (Venous) 28 mmol/L (23-28); O2 Sat (Venous) 87 %; TCO2 (Venous) 25 mmol/L (24-29); pCO2 (Venous) 44 mmHg (41-51); pH (Venous) 7.42 (7.31-7.41); pO2 (Venous) 53 mmHg
[2023-08-30 19:50] LABS: Lactate 2.1 mmol/L (0.6-1.4)
[2023-08-30 19:51] LABS: Absolute Basophil Count 0.08 10^3/uL (0.0-0.2); Absolute Eosinophil Count 0.03 10^3/uL (0.0-0.7); Absolute Lymphocyte Count 0.44 10^3/uL (1.2-3.4); Basophils % 0.3 %; Eosinophils % 0.1 %; HGB 12.8 g/dL (11.2-15.7); Immature Grans % 0.8 %; Lymphocytes % 1.7 %; MCH 29.8 pg (27.0-33.0); MCV 93 fL (80-95); Monocytes % 1.8 %; Neutrophils % 95.3 %; Platelet Count 259 10^3/uL (130-400); RBC 4.29 10^6/uL (3.93-5.22); RDW 13.6 % (11.7-14.6); RDW-SD 46.9 fL
[2023-08-30 19:53] LABS: Absolute Monocyte Count 0.46 10^3/uL (0.1-0.8)
[2023-08-30] MEDS: ACETAMINOPHEN 1,000 MG/100 ML BTL 400 MG IVPB (19:57)
[2023-08-30] MEDS: Normal Saline 1,000 ML 1000 ML IV (19:58)
[2023-08-30 20:04] LABS: INR 1.2 (0.9-1.1); PTT Activated 27.7 sec (23.6-32.8); Prothrombin Time 12.1 sec (9.1-11.1)
[2023-08-30 20:07] LABS: Bilirubin Negative (Negative); Blood Trace-intact (Negative); Clarity Clear (Clear); Glucose Negative (Negative); Ketones Trace mg/dL (Negative); Leukocyte Esterase Negative (Negative); Nitrite Positive (Negative)
[2023-08-30 20:13] LABS: Diff Comment Diff Reviewed; RBC Morphology Normal
[2023-08-30] MEDS: PIPERACILLIN/TAZO 4.5 GM in Normal Saline 100 ML IVPB (20:13)
[2023-08-30 20:17] LABS: ALT 34 U/L (14-59); AST 55 U/L (15-37); Albumin 3.2 g/dL (3.4-5.0); Alkaline Phosphatase 136 U/L (46-116); BUN 33 mg/dL (7-18); Bilirubin, Total 1.2 mg/dL (0.2-1.0); CREATININE 1.3 mg/dL (0.55-1.02); Calcium 8.9 mg/dL (8.5-10.1); Chloride 102 mmol/L (98-107); Estimated GFR 42.35 (mL/min/1.73m2); Glucose 165 mg/dL (74-106); NT-proBNP 1699 pg/mL (<300); Potassium 5.6 mmol/L (3.5-5.1); Sodium 139 mmol/L (136-145); TSH (W/Ref FT4) 0.93 uIU/mL (0.36-3.74); Total Protein 8.3 g/dL (6.4-8.2); Troponin I < 50 ng/L (< or =60)
[2023-08-30 20:22] LABS: Procalcitonin < 0.1 ng/mL
[2023-08-30] MEDS: AZITHROMYCIN 500 MG in Normal Saline 250 ML 250 MG IVPB (20:25)
[2023-08-30 20:29] LABS: Bacteria Many HPF (Negative); C & S Indicated? C&S Done As Ordered; Casts 0-2 Hyaline LPF (Negative); Crystals Negative HPF (Negative); Epithelial Cells Rare HPF (Negative); Mucus Moderate (Negative); RBC 0-2 HPF (0-2)
--- NOTE | 2023-08-30 21:08 | W.PM.HP.N ---
Date of service: 08/30/23 Time of Service: 21:08 Assessment and Plan Assessment and plan (1) Infection: Status: Acute Assessment and plan: 1. Infection manifesting with fever and leukocytosis, source not clear at present, though the oxygen requirement suggests this may be a pneumonia, yet to manifest on imaging; I think the absence of significant pyuria makes the urine an unlikely source. The pustule on the shoulder and thumb erythema raises question of embolic phenomenon (viz SBE), though I think these findings are probably more incidental. The hypotension indicates emerging sepsis. Will await blood cultures, continue triple antibiotics, push fluids and then add pressors as needed to maintain MAP>55-60. 2. AF: will continue DOAC and, as BP tolerates, beta allison for rate control 3. Hypokalemia: modest, without EKG changes, secondary to Spironolacone and azotemia. Has received Calcium and D50/insulin in ER. I think hydration and holding of Spironolactone should be sufficient, don't see that binders indicated at present. Reviewed ADs, requests Full Code History of Present Illness History of Present Illness Chief Complaint: weakness Narrative: 78 female with h/o AF, CHF -- brought to ER for one day of generalized weakness. EMS report temp 103. here in ER findings of note for O2 sat 92 on 4L (per nursing dips to 80s on RA), temp 38.5, initial BP 130/sys and pulse approx 120. Lab of note for white count 28, K 5.6 , CXR w/o definite infiltrate, urine + nitrite and bacteruria, but only 3-5 WBC/hpf. Blood cxx obtained and patient given Vanco, Zosyn and Zithromax. I was asked to evaluate for admission. During my visit BP dropped to 79/sys (auto cuff, confirmed by myself with 83/palp). Saline bolus ordered. Patient denies cough, dysuria or any other specific symptoms -- just generally weak, and also reports mouth is dry. Review of Systems Narrative: per HPI PFSH All Active Problems (Updated 08/30/23 @ 21:19 by Bhavik Ashby MD) Infection (Acute) Anticoagulated (Chronic) 2021-on low dose Eliquis Hyperlipidemia (Acute) Chronic diastolic CHF (congestive heart failure) (Acute) MISSY (acute kidney injury) (Acute) Chronic atrial fibrillation with rapid ventricular response (Acute) Atrial fibrillation (Chronic) History of aortic valve replacement with bioprosthetic valve (Acute) Replaced, 2018 Obesity (Acute) Lumbar disc prolapse with compression radiculopathy (Acute) s/p surgery 1990 Hyperlipidemia (Acute 12/16/12) Essential hypertension (Acute 06/13/13) Dyspnea (Acute 01/24/02) Exertional;neg MPI ECHO LVH Disorder of diaphragm (Acute) paralyzed left Medical History Gross hematuria Associated with Coumadin use, resolved-2021 Anemia Resolved-2020 likely associate with hematuria which had resolved Hydronephrosis Followed by urology, resolved as of 2021 Adenocarcinoma of endometrium, 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 Grandfather No problems noted. Grandmother No problems noted. Grandmother No problems noted. Other Anticoagulated Social History Smoking/Tobacco Use Status: Never Smoking risk assessment performed?: Yes Alcohol Intake: never Drug use: Never Substance use type: does not use What type of physical activity do you participate in: none Do you feel safe at home: Yes Do you feel safe in your relationship?: Yes Meds Allergies and Home Medications Allergies Allergy/AdvReac Type Severity Reaction Status Date / Time diclofenac Allergy Severe HIVES Verified 08/30/23 19:33 nifedipine AdvReac Unknown PEDAL EDEMA Verified 08/30/23 19:33 Home Medications Medication Instructions Recorded Confirmed Type multivitamin (Once Daily tablet) 1 tab PO DAILY 09/02/12 02/19/23 History aspirin 81 mg tablet,delayed 81 mg PO DAILY #0 tabs 03/13/20 02/19/23 Rx release (Adult Low Dose Aspirin) triamcinolone acetonide 0.1 % 1 applic topical BID #30 grams 03/19/22 02/19/23 Rx topical cream apixaban 2.5 mg tablet 2.5 mg PO BID 30 days #60 tabs 05/22/23 Rx atorvastatin 20 mg tablet 20 mg PO DAILY #90 tabs 06/11/23 Rx furosemide 20 mg tablet (Lasix) 40 mg (2 x 20 mg) PO DAILY #180 06/11/23 Rx tabs metoprolol succinate 100 mg 100 mg PO DAILY #90 tabs 06/11/23 Rx tablet,extended release 24 hr (Toprol XL) spironolactone 25 mg tablet See Rx Instructions .Route 06/11/23 Rx .COMPLEX #45 tabs Exam Narrative Exam Narrative: 79/sys, 110, 38.5, 38, 94% 2L. HEENT atraumatic; neck supple; luns clear grossly but diminished; heart irr/irr w.o MRG; abdomen soft and NT, extensive intertrigo left inguinal fold/pannus; extremities w/o edema; neuro ox3, moves all 4s; skin: chronic bilateral pretibial scabbed nodules; single pustule right shoulder and erythema over left MCP #1 Results Labs 08/30/23 19:40 08/30/23 19:40 Labs: Laboratory Results - last 24 hr 08/30/23 08/30/23 19:40 19:55 WBC 25.60 H* RBC 4.29 Hgb 12.8 Hct 40.0 MCV 93 MCH 29.8 MCHC 32.0 RDW 13.6 Plt Count 259 MPV 10.0 Immature Gran % 0.8 Neutrophils % 95.3 Lymphocytes % 1.7 Monocytes % 1.8 Eosinophils % 0.1 Basophils % 0.3 Nucleated RBC % 0.0 Absolute Neutrophils 24.40 H Absolute Lymphocytes 0.44 L Absolute Monocytes 0.46 Absolute Eosinophils 0.03 Absolute Basophils 0.08 RBC Morphology Normal PT 12.1 H INR 1.2 H APTT 27.7 VBG pH 7.42 H VBG pCO2 44 VBG pO2 53 VBG HCO3 28 VBG Total CO2 25 VBG O2 Saturation 87 VBG Base Excess 4 H VBG Lactate 2.1 H Sodium 139 Potassium 5.6 H Chloride 102 Carbon Dioxide 27.0 Anion Gap 10.0 BUN 33 H Creatinine 1.3 H Est GFR (CKD-EPI 2020) 42.35 Glucose 165 H Calcium 8.9 Total Bilirubin 1.2 H AST 55 H ALT 34 Alkaline Phosphatase 136 H Troponin I < 50 NT-Pro-B Natriuret Pep 1699 H Total Protein 8.3 H Albumin 3.2 L Procalcitonin < 0.1 TSH 0.93 Urine Color Yellow Urine Clarity Clear Urine pH 5.0 Ur Specific [place] 1.020 Urine Protein 100 H Urine Ketones Trace H Urine Blood Trace-intact H Urine Nitrite Positive H Urine Bilirubin Negative Urine Urobilinogen 1.0 H Ur Leukocyte Esterase Negative Urine RBC 0-2 Urine WBC 3-5 Ur Epithelial Cells Rare Urine Crystals Negative Urine Bacteria Many Urine Casts 0-2 Hyaline Urine Mucus Moderate Ur Culture Indicated? C&S Done As Ordered Urine Glucose Negative Last Vital Signs Temp 38.5 C H 08/30/23 19:34 Pulse 127 H 08/30/23 19:34 Resp 38 H 08/30/23 19:34 BP 169/90 H 08/30/23 19:34 Pulse Ox 93 08/30/23 19:34 Time Spent Time spent with Patient: 55-74 minutes Time was spent: preparing to see the patient(eg.review tests), obtaining and/or reviewing separately otained hiistory, ordering medications,tests, procedures, referring, communicating with other health health care manager and indepentently interpreting results
--- NOTE | 2023-08-30 21:32 | DI.VRAD_ITS ---
PROCEDURE INFORMATION: Exam: CT Head Without Contrast Exam date and time: 08/30/2023 8:39 PM Age: 78 years old Clinical indication: Altered mental status/memory loss; Patient HX: Confused TECHNIQUE: Imaging protocol: Computed tomography of the head without contrast. COMPARISON: No relevant prior studies available. FINDINGS: Brain: No acute intracranial hemorrhage, mass-effect, midline shift, or extra-axial collection is seen. There is patchy white matter hypoattenuation, nonspecific but commonly seen as a chronic sequela of small vessel ischemic disease. The galicia white matter differentiation appears preserved. There is mild symmetric parenchymal volume loss. Cerebral ventricles: The ventricular system and basilar cisterns appear appropriate in size and configuration. Paranasal sinuses: The paranasal sinuses appear well aerated. No air-fluid levels are seen. Mastoid air cells: The mastoid air cells appear well-aerated. Auditory system: The middle ear cavities appear clear. Soft tissue density material within the external auditory canals probably represents cerumen; however, direct inspection is recommended for definitive evaluation. Orbital cavities: The globes and intraorbital structures appear grossly intact. Bones: The bony calvarium appears intact. No depressed skull fracture is seen. Soft tissues: There are scattered coarse skin calcifications in the frontal scalp. Vasculature: There is atherosclerotic calcification within the intracranial portion of the internal carotid and vertebral arteries bilaterally. IMPRESSION: 1. No acute intracranial abnormality seen. 2. Presumed chronic microvascular ischemic change. 3. Symmetric parenchymal volume loss. Dictated and Authenticated by: Nikolai Silva MD. Ordering:AYDE Valenzuela MD
--- NOTE | 2023-08-30 21:40 | DI.VRAD_ITS ---
PROCEDURE INFORMATION: Exam: XR Chest Exam date and time: 08/30/2023 8:33 PM Age: 78 years old Clinical indication: Fever and other: Hypoxic; Patient HX: Fever, hypoxic, eval for pneumonia TECHNIQUE: Imaging protocol: Radiologic exam of the chest. Views: 1 view. COMPARISON: CR XR CHEST 2V PA LATERAL 01/30/2020 8:30 AM FINDINGS: Limitations: The examination was exposed at low lung volumes. Lungs: There is platelike atelectasis in the lower lung zones. No focal pulmonary consolidation is seen. Pleural spaces: No pleural effusion or pneumothorax is demonstrated. Heart/Mediastinum: The heart is partially obscured but appears top-normal in size. There has been a prior median sternotomy. There is atherosclerotic calcification at the apex of the aortic arch. Bones/joints: The visualized bony structures appear grossly intact. There are osteophytes along the thoracic spinal margin. There is prominent degenerative change at the acromioclavicular joints bilaterally. IMPRESSION: No active disease is seen in the chest. Dictated and Authenticated by: Nikolai Silva MD. Ordering:AYDE Valenzuela MD
--- NOTE | 2023-08-30 21:43 | DI.VRAD_ITS ---
PROCEDURE INFORMATION: Exam: XR Left Finger(s) Exam date and time: 08/30/2023 8:34 PM Age: 78 years old Clinical indication: Patient HX: Erythema over mcp joint; Eval for fx/bony er TECHNIQUE: Imaging protocol: Radiologic exam of the left fingers. Views: Minimum 2 views. COMPARISON: No relevant prior studies available. FINDINGS: Bones/joints: Three views of the left 1st digit reveal no acute fracture or dislocation. There are osteophytes along the margins of the distal interphalangeal joint in keeping with osteoarthritis. Soft tissues: There is soft tissue swelling in the region of the metacarpophalangeal joint. IMPRESSION: 1. No acute fracture or dislocation. 2. 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 3. Soft tissue swelling at the metacarpophalangeal joint. Dictated and Authenticated by: Nikolai Silva MD. Ordering:AYDE Valenzuela MD
--- NOTE | 2023-08-30 21:45 | DI.RAD_ITS ---
Exam(s) XR PORTABLE CHEST AP POST LINE EXAM: XR PORTABLE CHEST AP POST LINE CLINICAL HISTORY: post central line TECHNIQUE: 2D digital imaging was performed. COMPARISON: CR,XR XR CHEST 1V IN DI DEPT from 08/30/2023 FINDINGS: Exam limited by poor pulmonary inflation. Multiple monitoring leads overlie the chest. A A central line is been inserted via the right jugular. The tip projects in the right atrium. LUNGS: No infiltrate visible. Difficult to evaluate due to poor pulmonary inflation. No pleural abn ormality seen. HEART: Cardiac silhouette obscured AORTA: Normal calcification at arch. BONES: Degenerative changes Soft tissues: Unremarkable. IMPRESSION: Status post placement of central line with tip in right atrium. No pneumothorax.. DATA REPOSITORY: RADIATION DOSE DELIVERED:
[2023-08-30] MEDS: Calcium Gluconate 4.65 MEQ/10 ML VIAL 4.65 MG IVP (22:15)
[2023-08-30] MEDS: Dextrose 50%-Water 25 GM/50 ML SYR IVP (22:15)
[2023-08-30] MEDS: Albuterol 2.5 MG/3 ML INH SOLN VIAL UPD (22:15)
[2023-08-30] MEDS: Insulin REGULAR-Human 100 UNITS/ML UNIT 10 UNITS IV (22:16)
--- NOTE | 2023-08-30 22:18 | DI.VRAD_ITS ---
PROCEDURE INFORMATION: Exam: XR Chest Exam date and time: 08/30/2023 9:51 PM Age: 78 years old Clinical indication: Device placement; Other: Post central line TECHNIQUE: Imaging protocol: Radiologic exam of the chest. Views: 1 view. COMPARISON: XR CHEST 1V IN DI DEPT 08/30/2023 8:33 PM FINDINGS: Limitations: Imaging was obtained at submaximal inspiration. Tubes, catheters and devices: There has been interval placement of a right internal jugular central venous catheter with its tip in the expected location of the right atrium. Lungs: No pulmonary consolidation is seen. Pleural spaces: There is blunting of the left costophrenic angle. A small left pleural effusion is not excluded. No right-sided pleural effusion is seen. No pneumothorax is demonstrated. Heart/Mediastinum: The heart is partially obscured but appears top-normal in size. There has been prior median sternotomy. There is atherosclerotic calcification at the apex of the aortic arch. Bones/joints: The visualized bony structures appear grossly intact. There is prominent degenerative change of the AC joints bilaterally. There are osteophytes along the thoracic spinal margin. IMPRESSION: Right internal jugular central venous catheter in-situ with its tip in the expected location of the right atrium. Dictated and Authenticated by: Nikolai Silva MD. Ordering:AYDE Valenzuela MD
[2023-08-30 23:09] LABS: Troponin I < 50 ng/L (< or =60)
[2023-08-30 23:20] LABS: COVID-19 PCR Negative (Negative); Influenza A PCR Negative (Negative); Influenza B PCR Negative (Negative); RSV PCR Negative (Negative); Source NASOPHARYNX
[2023-08-30] MEDS: Normal Saline 1,000 ML 150 ML IV (23:39)
[2023-08-31] VITALS (129 sets, daily range): BP systolic 89–117; BP diastolic 58–78; PULSE 69–140; RESP 7–35; TEMP 36.4–37.5; O2SAT 90–99
[2023-08-31] MEDS: PIPERACILLIN/TAZO 3.375 GM in Normal Saline 50 ML IVPB ×4 (02:09→21:22)
[2023-08-31] MEDS: Acetaminophen 325 MG TAB 650 MG PO ×2 (05:19→20:01)
[2023-08-31] MEDS: Normal Saline 1,000 ML 150 ML IV ×2 (06:14→17:40)
[2023-08-31 06:18] LABS: HCT 33.4 % (36.0-46.0); HGB 10.4 g/dL (11.2-15.7); MCH 30.1 pg (27.0-33.0); MCHC 31.1 % (32.0-36.0); MCV 97 fL (80-95); MPV 10.3 fL (8.0-11.0); Platelet Count 214 10^3/uL (130-400); RBC 3.45 10^6/uL (3.93-5.22); RDW 13.8 % (11.7-14.6); RDW-SD 49.1 fL
[2023-08-31 06:20] LABS: WBC 34.45 10^3/uL (4.4-10.8)
[2023-08-31 06:30] LABS: Anion Gap 9.9 mmol/L (3-11); BUN 33 mg/dL (7-18); CO2 27.1 mmol/L (21.0-32.0); CREATININE 1.4 mg/dL (0.55-1.02); Calcium 8.1 mg/dL (8.5-10.1); Chloride 109 mmol/L (98-107); Estimated GFR 38.75 (mL/min/1.73m2); Glucose 117 mg/dL (74-106); Potassium 3.5 mmol/L (3.5-5.1); Sodium 146 mmol/L (136-145)
--- NOTE | 2023-08-31 09:02 | INITIAL_ITS ---
Date of service: 08/31/23 Time of Service: 09:02 Care Management Initial Assmt Initial Assessment REASON FOR HOSPITALIZATION:: sepsis PREVIOUS FUNCTIONAL STATUS/SOCIAL/FAMILY SUPPORTS:: Aurea lives in a single family home in [facility]. Her grandson Nicolas, who is in his 30s, is staying with her right now and has been very helpful and supportive. Aurea has one daughter Bebe who lives next door with her and family. She uses a cane for ambulation and has a Life Alert but receives no community services. She is independent at baseline. CURRENT FUNCTIONAL STATUS:: Aurea was sitting up in bed when CM met with her. She stated that she is feeling much better than yesterday. She was admitted with sepsis and is in the ICU. Today her vital signs are stable and she has been afebrile. Her WBC continues to rise however and is now 34.45. Aurea does have a urinary tract infection and she has diminished breath sounds at the bases per nursing. She has a rendon catheter and is receiving IV antibiotics which include Zosyn, Azithromycin and Vancomycin. Hoda informed CM that she does not feel she will need any services when discharged as her grandson is able to provide any support she needs. ADVANCE DIRECTIVES:: On file. Bebe Fowler [facility] Has patient been provided with info about the portal/API?: Yes Did the patient sign up for the portal?: No CODE STATUS:: Full Code INSURANCE COVERAGE / FINANCIAL ISSUES:: [employer] Medicare Replacement PRIMARY CARE PHYSICIAN:: Connie Simmons POTENTIAL DISCHARGE NEEDS:: follow up with PCP and plan of care PATIENT/FAMILY EDUCATION NEEDS:: Review of discharge instructions, activity, limitations, follow up plan, discuss Ask Me Three TRANSPORTATION:: via private vehicle PLAN:: Anticipate Aurea will be discharged home, possibly with new home health services, when medically stable. She will follow up with her community providers and plan of care and transport with family. CM will follow and continue to assess for discharge needs. PFSH All Active Problems (Updated 08/31/23 @ 11:45 by Jersey Burger MD) Acute respiratory failure with hypoxia (Acute) Severe sepsis (Acute) Hyperkalemia (Acute) Pneumonia (Acute) Septic shock (Acute) Acute dehydration (Acute) Urinary tract infection (Acute) Infection (Acute) Anticoagulated (Chronic) 2021-on low dose Eliquis Hyperlipidemia (Acute) Chronic diastolic CHF (congestive heart failure) (Acute) MISSY (acute kidney injury) (Acute) Chronic atrial fibrillation with rapid ventricular response (Acute) Atrial fibrillation (Chronic) History of aortic valve replacement with bioprosthetic valve (Acute) Replaced, 2018 Obesity (Acute) Lumbar disc prolapse with compression radiculopathy (Acute) s/p surgery 1990 Hyperlipidemia (Acute 12/16/12) Essential hypertension (Acute 06/13/13) Dyspnea (Acute 01/24/02) Exertional;neg MPI ECHO LVH Disorder of diaphragm (Acute) paralyzed left Medical History Gross hematuria Associated with Coumadin use, resolved-2021 Anemia Resolved-2020 likely associate with hematuria which had resolved Hydronephrosis Followed by urology, resolved as of 2021 Adenocarcinoma of endometrium, 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 Grandfather No problems noted. Grandmother No problems noted. Grandmother No problems noted. Other Anticoagulated Social History Smoking/Tobacco Use Status: Never Smoking risk assessment performed?: Yes Alcohol Intake: never Drug use: Never Substance use type: does not use What type of physical activity do you participate in: none Do you feel safe at home: Yes Do you feel safe in your relationship?: Yes SDOH(Care Management) Screening Will the Patient Participate in the Screening?: Unable to obtain Do you worry about having a steady place to live?: no Problems where you live: no known problems In the past 12 months, have you had to go without electric, gas, oil or water in your home?: no Have you or anyone in your house had to go without enough food to eat?: no Has lack of transportation kept you from medical appointments or from doing things needed for daily living?: no Has anyone in your support network made you feel unsafe for any reason?: no
[2023-08-31] MEDS: Normal Saline Flush 10 ML SYR IVP ×2 (09:57→21:29)
[2023-08-31 10:32] LABS: Vancomycin, Random 18.3 ug/mL
--- NOTE | 2023-08-31 11:28 | PHA.REVIEW2 ---
Pharmacy Admission Review Admission Clinical Review Admission Pharmacy Review: (Updated 08/30/23 @ 22:59 by JAYME RONQUILLO) Infection (Acute) diclofenac Allergy (Severe, Verified 08/30/23 19:33) HIVES nifedipine Adverse Reaction (Unknown, Verified 08/30/23 19:33) PEDAL EDEMA Resuscitation Status Full Code Height 5 ft 6 in Weight 84 kg Pharmacy Admission Review Renal Dosing Renal Dosing: BUN 33 mg/dL (7-18) H 08/31/23 05:48 Creatinine 1.4 mg/dL (0.55-1.02) H 08/31/23 05:48 Medications needing adjustments: Reviewed (CrCl 36.72 mL/min) List of meds needing interventions: Current medications are okay Anticoagulation Anticoagulation: Hgb 10.4 g/dL (11.2-15.7) L D 08/31/23 05:48 Hct 33.4 % (36.0-46.0) L 08/31/23 05:48 Plt Count 214 10^3/uL (130-400) 08/31/23 05:48 INR 1.2 (0.9-1.1) H 08/30/23 19:40 Creatinine 1.4 mg/dL (0.55-1.02) H 08/31/23 05:48 DVT Prophylaxis: Intervened (None at this time, reached out to provider to let the know that patient takes Eliquis at home) Relevant Labs Relevant Labs: Sodium 146 mmol/L (136-145) H 08/31/23 05:48 Potassium 3.5 mmol/L (3.5-5.1) D 08/31/23 05:48 Chloride 109 mmol/L (98-107) H 08/31/23 05:48 Electrolytes, C-Reactive P, ESR: Reviewed (Na 146, glucose 117, Hgb decreased from 12.8 to 10.4) Cardiac Review Cardiac Review: Troponin I < 50 ng/L (< or =60) 08/30/23 22:47 NT-Pro-B Natriuret Pep 1699 pg/mL (<300) H 08/30/23 19:40 BP, HR, EF%: Reviewed (BP 89/60, HR WNL) QTc Review QTc: Reviewed (476 from 08/30/2023) IV to PO Switch IV Medications: Reviewed (Azithromycin, Zosyn and vancomycin) Home Meds Home Med List reviewed: Intervened (Reached out to provider to make them aware that no orders for home meds have been put in yet) Current Meds Current Medication Order Review: Reviewed Pharmacy Antibiotic Review Relevant Labs: Relevant Labs 08/30/23 19:40 Procalcitonin < 0.1 WBC 34.45 10^3/uL (4.4-10.8) H* 08/31/23 05:48 Procalcitonin < 0.1 ng/mL 08/30/23 19:40 Temperature 36.8 C Temperature 36.4 C Temperature 36.8 C Pharmacy Antibiotic Activity: C/S review and Reviewed, no change Comments: Patient currently on Zosyn, azithromycin and vancomycin, day 1 for sepsis. WBC increased from 25.6 to 34.45. Blood and urine cultures are pending. Patient received a 1800mg loading dose of Vancomycin, random level of 18.3 at 0951 this morning. Dose changed to 1000mg q24h with predicted AUC of 546 and trough of 16.4.
--- NOTE | 2023-08-31 11:40 | PGE_ITS ---
Date of Service Date of service: 08/31/23 Time of Service: 11:40 Assessment and Plan Assessment and plan (1) Severe sepsis: Status: Acute Assessment and plan: - Patient may criteria for use. Clear sepsis on admission with white blood cell count of 25.6, temperature of 101.3, heart rate of 110, presumed infection being combination of pneumonia and urinary tract infection, hypotension that improved status post fluid resuscitation, and a lactic acid of 7.1. She was started on Vanco, Zosyn and azithromycin and has had significant improvement overnight -Will continue current antibiotic course until cultures result (2) Hyperkalemia: Status: Acute Assessment and plan: - Potassium was 5.6 upon presenting the emergency department without EKG changes -Was improved after IV fluid hydration, calcium gluconate, IV insulin and dextrose -Improved down to 3.5 this morning -Will follow-up a.m. BMP (3) Acute respiratory failure with hypoxia: Status: Acute Assessment and plan: - Likely secondary to severe sepsis and pneumonia as noted above -Needed up to 2 L nasal cannula At this time since been weaned to room air (4) Pneumonia: Status: Acute Assessment and plan: - As noted above (5) Urinary tract infection: Status: Acute Assessment and plan: - As noted above (6) Hyperlipidemia: Status: Acute Assessment and plan: - Continue home regimen (7) Atrial fibrillation: Status: Chronic Assessment and plan: - Continue home metoprolol and Eliquis (8) Essential hypertension: Status: Acute Assessment and plan: - Hold antihypertensives at this time as patient was transiently hypotensive due to severe sepsis as noted above (9) History of aortic valve replacement with bioprosthetic valve: Status: Acute Subjective Subjective Interval history since last seen: Patient states that she feels significantly better today. She understands that she is being treated for presumed combination of pneumonia and urinary tract infection and will continue on broad-spectrum antibiotics until cultures result. Otherwise she has no other complaints or concerns at this time. Exam Narrative Exam Narrative: Well appearing older female laying in bed in no acute distress, AOx4, heart RRR, lungs CTAB, abdomen soft, non-tender, non-distended Objective Last Vital Signs Temp 98.2 F 08/31/23 07:30 Pulse 79 08/31/23 07:30 Resp 19 08/31/23 11:10 BP 89/60 L 08/31/23 00:01 Pulse Ox 94 08/31/23 11:10 Laboratory Results - last 24 hr 08/30/23 08/30/23 08/30/23 19:40 19:55 22:37 WBC 25.60 H* RBC 4.29 Hgb 12.8 Hct 40.0 MCV 93 MCH 29.8 MCHC 32.0 RDW 13.6 Plt Count 259 MPV 10.0 Immature Gran % 0.8 Neutrophils % 95.3 Lymphocytes % 1.7 Monocytes % 1.8 Eosinophils % 0.1 Basophils % 0.3 Nucleated RBC % 0.0 Absolute Neutrophils 24.40 H Absolute Lymphocytes 0.44 L Absolute Monocytes 0.46 Absolute Eosinophils 0.03 Absolute Basophils 0.08 RBC Morphology Normal PT 12.1 H INR 1.2 H APTT 27.7 VBG pH 7.42 H VBG pCO2 44 VBG pO2 53 VBG HCO3 28 VBG Total CO2 25 VBG O2 Saturation 87 VBG Base Excess 4 H VBG Lactate 2.1 H Sodium 139 Potassium 5.6 H Chloride 102 Carbon Dioxide 27.0 Anion Gap 10.0 BUN 33 H Creatinine 1.3 H Est GFR (CKD-EPI 2020) 42.35 Glucose 165 H Calcium 8.9 Total Bilirubin 1.2 H AST 55 H ALT 34 Alkaline Phosphatase 136 H Troponin I < 50 NT-Pro-B Natriuret Pep 1699 H Total Protein 8.3 H Albumin 3.2 L Procalcitonin < 0.1 TSH 0.93 Urine Color Yellow Urine Clarity Clear Urine pH 5.0 Ur Specific [place] 1.020 Urine Protein 100 H Urine Ketones Trace H Urine Blood Trace-intact H Urine Nitrite Positive H Urine Bilirubin Negative Urine Urobilinogen 1.0 H Ur Leukocyte Esterase Negative Urine RBC 0-2 Urine WBC 3-5 Ur Epithelial Cells Rare Urine Crystals Negative Urine Bacteria Many Urine Casts 0-2 Hyaline Urine Mucus Moderate Ur Culture Indicated? C&S Done As Ordered Urine Glucose Negative Random Vancomycin COVID-19 Source NASOPHARYNX SARS-CoV-2 (PCR) Negative Influenza Type A (PCR) Negative Influenza Type B (PCR) Negative RSV (PCR) Negative 08/30/23 08/31/23 08/31/23 22:47 05:48 09:51 WBC 34.45 H* RBC 3.45 L Hgb 10.4 L D Hct 33.4 L MCV 97 H D MCH 30.1 MCHC 31.1 L RDW 13.8 Plt Count 214 MPV 10.3 Immature Gran % Neutrophils % Lymphocytes % Monocytes % Eosinophils % Basophils % Nucleated RBC % Absolute Neutrophils Absolute Lymphocytes Absolute Monocytes Absolute Eosinophils Absolute Basophils RBC Morphology PT INR APTT VBG pH VBG pCO2 VBG pO2 VBG HCO3 VBG Total CO2 VBG O2 Saturation VBG Base Excess VBG Lactate Sodium 146 H Potassium 3.5 D Chloride 109 H Carbon Dioxide 27.1 Anion Gap 9.9 BUN 33 H Creatinine 1.4 H Est GFR (CKD-EPI 2020) 38.75 Glucose 117 H Calcium 8.1 L Total Bilirubin AST ALT Alkaline Phosphatase Troponin I < 50 NT-Pro-B Natriuret Pep Total Protein Albumin Procalcitonin TSH Urine Color Urine Clarity Urine pH Ur Specific [place] Urine Protein Urine Ketones Urine Blood Urine Nitrite Urine Bilirubin Urine Urobilinogen Ur Leukocyte Esterase Urine RBC Urine WBC Ur Epithelial Cells Urine Crystals Urine Bacteria Urine Casts Urine Mucus Ur Culture Indicated? Urine Glucose Random Vancomycin 18.3 COVID-19 Source SARS-CoV-2 (PCR) Influenza Type A (PCR) Influenza Type B (PCR) RSV (PCR) Time Spent with Patient Time Spent with Patient: >50 minutes Time was spent: preparing to see the patient(eg.review tests), obtaining and/or reviewing separately otained hiistory, ordering medications,tests, procedures, referring, communicating with other health resident care associate, indepentently interpreting results, counseling the patient and care coordination
[2023-08-31] MEDS: VANCOMYCIN/WATER (PEG) 1 GM/200 ML BAG IVPB (14:01)
--- NOTE | 2023-08-31 14:58 | PT.INIE ---
PT Notes Visit Reasons: Fever, Sepsis Physical Therapy Inpatient Initial Evaluation Date: 08/31/2023 Referring Doctor: Jersey Burger MD PT Orders: PT CONSULT: Limited ability Precautions: Fall. Standard. Activity as tolerated. Patient Profile/Admitting Diagnosis: Aurea is a 78-year-old female who presented to the ED on 08/30/2023 due to altered mental status and generalized weakness. Patient is admitted for management of ongoing infection, AF, and hypokalemia. PMHX: All Active Problems (Updated 08/30/23 @ 21:19 by Bhavik Ashby MD) Infection (Acute) Anticoagulated (Chronic) 2021-on low dose Eliquis Hyperlipidemia (Acute) Chronic diastolic CHF (congestive heart failure) (Acute) MISSY (acute kidney injury) (Acute) Chronic atrial fibrillation with rapid ventricular response (Acute) Atrial fibrillation (Chronic) History of aortic valve replacement with bioprosthetic valve (Acute) Replaced, 2018Obesity (Acute) Lumbar disc prolapse with compression radiculopathy (Acute) s/p surgery 1990 Hyperlipidemia (Acute 12/16/12) Essential hypertension (Acute 06/13/13) Dyspnea (Acute 01/24/02) Exertional;neg MPI ECHO LVH Disorder of diaphragm (Acute) paralyzed left Medical History Gross hematuria Associated with Coumadin use, resolved-nemia Resolved-2020 likely associate with hematuria which had resolved Hydronephrosis Followed by urology, resolved as of 2021 Adenocarcinoma of endometrium, 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 Independent with all aspects of ADLs using single point cane in the living room and front-wheeled walker in the other areas of the house. Has an emergency alert device. Equipment Owned/DME: 2 front-wheeled walkers, SPC Subjective: Agreeable to PT consult. Daughter did say that her mother's baseline stance is being hunched forward. Daughter worried about use of just the cane at home. Nurse Eloina temporarily disconnected patient from IV line to help with walking activity. Objective: General Observation: Seated on bedside chair. Telemetry monitoring in place. In no apparent distress. Gay catheter in place. Pustule on the volar apsect of L thumb. Nurse and MD aware. PICC line in place. Mental Status: Alert and oriented x 4 Pain: None reported Vital Signs: Monitored via tele ROM: Trunk: Bent about 30 degrees from vertical on the sagittal plane Right Upper Extremity: Shoulder Flexion about 90 degrees. Shoulder abduction about 90 degrees. Elbow flexion WFL. Wrist flexion WFL. Opening and closing of hand WFL. Left Upper Extremity: Shoulder Flexion about 90 degrees. Shoulder abduction about 90 degrees. Elbow flexion WFL. Wrist flexion WFL. Opening and closing of hand WFL. Right Lower Extremity: Hip flexion WFL. Hip abduction WFL. Knee flexion WFL. Ankle dorsiflexion WFL. Ankle plantarflexion WFL. Left Lower Extremity: Hip flexion WFL. Hip abduction WFL. Knee flexion WFL. Ankle dorsiflexion WFL. Ankle plantarflexion WFL. Strength: Trunk extensors: 2-/5 Right Upper Extremity: Shoulder flexors 3-/5. Shoulder abductors 3-/5. Elbow flexors 4-/5. Elbow extensors 4-/5. [employer] strong. Left Upper Extremity: Shoulder flexors 3-/5. Shoulder abductors 3-/5. Elbow flexors 4-/5. Elbow extensors 4-/5. [employer] strong. Right Lower Extremity: Hip flexors 4-/5. Hip abductors 4-/5. Knee flexors 4-/5. Knee extensors 4-/5. Ankle dorsiflexors 4-/5. Ankle plantarflexors 4-/5. Left Lower Extremity: Hip flexors 4-/5. Hip abductors 4-/5. Knee flexors 4-/5. Knee extensors 4-/5. Ankle dorsiflexors 4-/5. Ankle plantarflexors 4-/5. Sensation: Intact as to pain and pressure on bilateral lower extremities. Bed Mobility/Transfers: Minimal cueing provided for use of B hands as needed for support, movement sequence, AD management, and posture to reduce fall risk and minimize pain report Sit to stand minimal assist Stand to sit minimal assist Bed to chair minimal assist Chair to bed minimal assist Gait: 40 feet + 40 feet using front-wheeled walker with minimal assist and wheelchair follow by daughter Bebe using front-wheeled walker. Excessive trunk flexion, able to stand straighter on command momentarily but assumes the bent position in less than a minute. Verbal cues provided to stay close to walker specially during directional changes. gia to loss of balance forward due to impaired posture. Balance: Static Sitting: Normal Dynamic Sitting: Normal Static Standing: Fair Dynamic Standing: Fair Special Tests: Mobility Limitations Standardized Measure [facility] AM-PAC 6 clicks Basic Mobility Inpatient Short Form: Raw Score: 18 CMS Score: 47% deficit 4-stage balance test: Only able to maintain feet together and symptoms but is unable to perform the other 3 positions indicating at risk for falls without the use of a front wheeled walker. Informed Consent/Education: Patient instructed in purpose of PT consult and plan of care. Agreeable to proceed with established PT POC to achieve personal goals. Assessment: Aurea demonstrates functional mobility decline requiring the use of a front wheeled walker and the assistnce of another for all mobility ADL performance, decreased activity tolerance, and increased risk for falls due to admitting diagnoses and co-morbidities. She will require PT services in order to closely monitor heart rate response during mobility ADL performance and reduce fall risk. The use of a front wheeled walker facilitates more erect posture and conserve energy during transfer and ambulation task performance. Patient presents with clinical signs and symptoms consistent with current/admitting diagnoses that have resulted to mobility limitations, gait instability, generalized weakness, and impairment of motor control as demonstrated by the following impairment level findings: 1. Impaired standing balance 2. Impaired activity tolerance 3. Limitation of joint range of motion in trunk extension (chronic) 4. Impaired trunk posture Impairments are contributing to the following functional limitations: 1. Inability to safely ambulate without assistive device and physical assiatnce 2. Increase completion time for mobility ADL performance 3. Increased fall risk 4. Inability to negotiate steps alone safely Patient is assessed as a 24121 moderate complexity based on the following: History: 78-year-old female with impairment level findings, functional limitations, and past medical history as indicated above Examination: Demonstrable impairment in strength, balance, and mobility level with underlying impairments and functional limitations as documented above Presentation:Evolving Decision Makin moderate complexity Goals: Goals X 3 days 1. Sit-Stand independent 2. Stand-Sit independent 3. Bed-Chair independent 4. Chair-Bed independent 5. Independent gait on level surface with use of FWW for at least 150 feet without report of pain nor dyspnea 6. Independent stair negotiation while holding onto bilateral rails for at least 3 steps without report of pain nor dyspnea 7. Independent with home exercise program 8. Good static and dynamic standing balance/tolerance Plan of Care/Treatment Plan: 1-2x/day, 7 days/week x 1 week. Plan of care has been reviewed with the FLEET MANAGER/DISPATCH providing the service under Physical Therapy direction. Initiate Physical Therapy intervention for strengthening, bed mobility, transfers, gait, stairs, balance training, use of assistive device. DISCHARGE RECOMMENDATIONS: Home when medically cleared by hospitalist. Patient will benefit from home health PT services in order to progress mobility level using least restrictive assistive ambulatory device, assess home safety, identify additional equipment needs, and establish a functional maintenance program that will increase ability of patient to remain at home. TREATMENT CODE/TIME: 37233 x 20 minutes for 1 unit, 83118 x 11 minutes for 1 unit (14:58-15:29). Thank you for the opportunity to participate in the care of this patient. Pham Joseph PT, DPT, CLT [facility] [place], [place]
[2023-08-31] MEDS: Normal Saline 500 ML 30 ML IV (15:43)
[2023-08-31] MEDS: Apixaban 2.5 MG TAB PO (19:44)
[2023-08-31] MEDS: AZITHROMYCIN 250 MG in Normal Saline 250 ML IVPB (19:45)
[2023-08-31] MEDS: Melatonin 3 MG TAB 6 MG PO (20:01)
[2023-08-31] MEDS: Furosemide 40 MG/4 ML VIAL IVP (21:29)
[2023-08-31] MEDS: Miconazole 2% Topical Powder 85 GM BTL (21:40)
[2023-09-01] VITALS (14 sets, daily range): BP systolic 118–167; BP diastolic 64–117; PULSE 68–136; RESP 16–31; TEMP 36–37.1; O2SAT 93–100
[2023-09-01] MEDS: Normal Saline Flush 10 ML SYR IVP ×5 (02:16→21:59)
[2023-09-01] MEDS: PIPERACILLIN/TAZO 3.375 GM in Normal Saline 50 ML IVPB ×4 (02:17→21:59)
[2023-09-01] MEDS: Metoprolol CR 100 MG TABCR PO (06:00)
[2023-09-01 06:37] LABS: HCT 34.7 % (36.0-46.0); HGB 11.1 g/dL (11.2-15.7); MCH 30.1 pg (27.0-33.0); MCV 94 fL (80-95); MPV 10.1 fL (8.0-11.0); Platelet Count 221 10^3/uL (130-400); RBC 3.69 10^6/uL (3.93-5.22); RDW 13.9 % (11.7-14.6); RDW-SD 47.9 fL
[2023-09-01 06:43] LABS: WBC 27.88 10^3/uL (4.4-10.8)
[2023-09-01 06:54] LABS: Anion Gap 13.4 mmol/L (3-11); BUN 31 mg/dL (7-18); CO2 25.6 mmol/L (21.0-32.0); CREATININE 1.4 mg/dL (0.55-1.02); Calcium 8.9 mg/dL (8.5-10.1); Chloride 107 mmol/L (98-107); Estimated GFR 38.75 (mL/min/1.73m2); Glucose 132 mg/dL (74-106); Potassium 3.3 mmol/L (3.5-5.1); Sodium 146 mmol/L (136-145)
[2023-09-01] MEDS: Apixaban 2.5 MG TAB PO ×2 (08:17→21:58)
[2023-09-01] MEDS: Aspirin E.C. 81 MG TABEC PO (08:18)
[2023-09-01] MEDS: Atorvastatin 20 MG TAB PO (08:18)
[2023-09-01] MEDS: Normal Saline 500 ML 60 ML IV (08:21)
--- NOTE | 2023-09-01 09:03 | PDOC.CMPRO ---
Date of service: 09/01/23 Time of Service: 09:04 Care Management Progress Note Progress Note Text Progress Note Text: S/O: Aurea transitioned from the ICU to [facility] floor today. Pt was sitting in the chair visiting with her sister in law when CM met with her. She is eager to discharge home, when medically ready. Central line was placed on 08/30/23 and she being treated with IV Vanco, Zosyn and azithromycin with cultures pending. Her WBC is 27.88 today and her potassium is being monitored and repleted, as needed. Discharge planning continues, CM following. A: 78 year old female admitted to [facility] on 08/30/23 with Sepsis, fever P:Anticipate Aurea will be discharged home when medically stable. New [facility] PT services are recommended, if patient is agreeable. She will follow up with her community providers and plan of care and transport with family. CM will follow and continue to assess for discharge needs. SDOH(Care Management) Screening Will the Patient Participate in the Screening?: Unable to obtain Do you worry about having a steady place to live?: no Problems where you live: no known problems In the past 12 months, have you had to go without electric, gas, oil or water in your home?: no Have you or anyone in your house had to go without enough food to eat?: no Has lack of transportation kept you from medical appointments or from doing things needed for daily living?: no Has anyone in your support network made you feel unsafe for any reason?: no
[2023-09-01] MEDS: Potassium Chloride 20 MEQ TABCR 40 MEQ PO (09:35)
[2023-09-01] MEDS: POTASSIUM CHLORIDE 10 MEQ/100 ML BAG 100 MEQ IVINF ×2 (09:35→10:31)
--- NOTE | 2023-09-01 11:55 | PT.INTREAT ---
PT Notes Visit Reasons: Fever, Sepsis Date: 09/01/23 PRECAUTIONS: Fall. Standard. Activity as tolerated. SUBJECTIVE: Pt in bed side chair when approached for therapy this morning, pt agreed to participating with session. Pt moved from the ICU to the [facility] in the afternoon, reports feeling tired but agreed to participating with session. OBJECTIVE: telemetry and central pic line in place. ? PAIN: none reported VITALS: closely monitored by ICU nurse, monitored by nursing Therapeutic Activities 37144: Direct one-on-one instruction in dynamic activities to improve functional performance. ?? BED MOBILITY/TRANSFERS? Rolling L/R: not performed Supine-sit: ? ?not performed ? Sit-supine: ? ?not performed ? Sit-stand: ? ?min A (am), SBA (pm)? Stand-sit: ?? min A (am), SBA (pm)? Chair to commode:? ? min A? Commode to chair: min A Provided skilled cues and instruction on performance and technique throughout. Gait Training 02385: Direct one-on-one instruction and skilled instruction in: Employing an assistive device Modified weight-bearing status Movement sequencing Turning and movement with proper form Provided verbal cues for equipment management and technique Provided instruction in gait pattern Patient education regarding pacing and breathing techniques to maximize activity tolerance? GAIT? Assistive Device: ?? ? FWW? Weight bearing: WBAT Assist: ? ?CGA? Distance:?? ? 50'x1, 70'x1, 10'x2? ?WC follow for seated rest break, pole management (am), 80'x1? 10'x2 (pm)? Deviation: ? ?anterior trunk lean, wide FAUZIA, slow ronaldo, low step height, short step length. ? ASSESSMENT:?pt able to tolerate gait distance with rest break in between, Pt daughter provide assistance with WC follow, pt much more stronger in the afternoon happy to be free from the lines connected to her in the ICU. PLAN: Continue with balance training, global strengthening and general conditioning for improved safety, mobility and activity tolerance until pt is ready for DC. TREATMENT CODE/TIME: 15603x3, [id number] 30mins (11:15-11:45am) 78519v3 15mins (3:00-3:15pm)
[2023-09-01] MEDS: VANCOMYCIN/WATER (PEG) 1 GM/200 ML BAG IVPB (12:15)
[2023-09-01 12:30] LABS: MRSA PCR Positive (Negative)
[2023-09-01] MEDS: Bacitracin 1 PACKET TP (13:00)
--- NOTE | 2023-09-01 16:52 | W.PM.PROGNOT ---
Date of Service Date of service: 09/01/23 Time of Service: 08:35 Assessment and Plan Assessment and plan (1) Severe sepsis: Status: Acute Assessment and plan: - Patient may criteria for severe sepsis on admission with white blood cell count of 25.6, temperature of 101.3, heart rate of 110, presumed infection being combination of pneumonia and urinary tract infection, hypotension that improved status post fluid resuscitation. Hemodynamically now stable. She was started on Vanco, Zosyn and azithromycin and has had significant improvement overnight -Urine culture growing E. 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 colonized and may be spreading infection from picking, continue vancomycin -I'm not convinced she ever had pneumonia, can stop azithro (2) Acute respiratory failure with hypoxia: Status: Acute Assessment and plan: - Likely secondary to severe sepsis as noted above, weaned to room air 5/6 (3) Urinary tract infection: Status: Acute Assessment and plan: - As noted above (4) Hyperlipidemia: Status: Acute Assessment and plan: - Continue home regimen (5) Atrial fibrillation: Status: Chronic Assessment and plan: - Continue home metoprolol and Eliquis (6) Essential hypertension: Status: Acute Assessment and plan: - Held antihypertensives other than metoprolol at admission due as was transiently hypotensive due to severe sepsis as noted above - resume spironolactone and furosemide tomorrow. (7) History of aortic valve replacement with bioprosthetic valve: Status: Acute (8) Hypokalemia: Status: Acute Assessment and plan: initially hyperkalmic, now hypokalemic. Replaced, resuming spironolactone low dose. (9) Chronic kidney disease, stage 3b: Status: Acute Assessment and plan: Cr near baseline. Monitor. (10) Abnormal liver enzymes: Status: Acute Assessment and plan: AST/alk phos as well as bili/albumin abnormal. This does not appear to be chronic. Likely related to sepsis. Follow in am. Subjective Subjective Patient reports: no new complaints; denies nausea, vomiting, shortness of breath or fever Interval history since last seen: Feeling better today. She has been up out of bed. No fevers. Hungry, at breakfast. Both her and nurse have notice growing redness of left dorsal hand. She gets scabs on her skin a lot, tends to pick. Had similar on her left foot which has improved. One on hand worse than yesterday. No trauma. Exam Narrative Exam Narrative: Well appearing older female sitting up in a chair, in no acute distress, AOx4, heart RRR without murmur, lungs CTAB, abdomen soft, non-tender, non-distended. Legs with trace sasha edema, not tender. Several scabs on lower legs (left achilles area, right toes) but not red or swollen around them. Patch of deep red erythema and warmed left dorsal hand between 1-2nd digits. Nails normal, no palmar nodules. Objective Last Vital Signs Temp 36.0 C L 09/01/23 15:09 Pulse 89 09/01/23 15:09 Resp 17 09/01/23 15:09 BP 120/86 09/01/23 15:09 Pulse Ox 95 09/01/23 15:09 Laboratory Results - last 24 hr 09/01/23 09/01/23 06:15 10:40 WBC 27.88 H* RBC 3.69 L Hgb 11.1 L Hct 34.7 L MCV 94 MCH 30.1 MCHC 32.0 RDW 13.9 Plt Count 221 MPV 10.1 Sodium 146 H Potassium 3.3 L Chloride 107 Carbon Dioxide 25.6 Anion Gap 13.4 H BUN 31 H Creatinine 1.4 H Est GFR (CKD-EPI 2020) 38.75 Glucose 132 H Calcium 8.9 MRSA (TEM-PCR) Positive A Time Spent with Patient Time Spent with Patient: >50 minutes Time was spent: preparing to see the patient(eg.review tests), obtaining and/or reviewing separately otained hiistory, ordering medications,tests, procedures, referring, communicating with other health acute care clinical nurse specialist, indepentently interpreting results and counseling the patient
[2023-09-02] MEDS: Normal Saline Flush 10 ML SYR IVP ×5 (00:35→22:15)
[2023-09-02] MEDS: Metoprolol CR 25 MG TABCR PO (01:38)
[2023-09-02 02:34] VITALS: BP 120/80; PULSE 100; RESP 20; TEMP 36.5; O2SAT 94
[2023-09-02] MEDS: PIPERACILLIN/TAZO 3.375 GM in Normal Saline 50 ML IVPB ×4 (04:09→22:14)
[2023-09-02 07:02] LABS: Abs Immature Grans 0.12 10^3/uL (0.0-0.06); Absolute Eosinophil Count 0.13 10^3/uL (0.0-0.7); Absolute Monocyte Count 0.81 10^3/uL (0.1-0.8); Absolute Neutrophil Count 20.61 10^3/uL (1.2-6.7); Basophils % 0.3 %; Eosinophils % 0.6 %; HCT 34.5 % (36.0-46.0); HGB 11.1 g/dL (11.2-15.7); Immature Grans % 0.5 %; Lymphocytes % 3.1 %; MCH 30.2 pg (27.0-33.0); MCHC 32.2 % (32.0-36.0); MCV 94 fL (80-95); MPV 10.5 fL (8.0-11.0); Monocytes % 3.6 %; Neutrophils % 91.9 %; Platelet Count 236 10^3/uL (130-400); RBC 3.68 10^6/uL (3.93-5.22); RDW-SD 48.1 fL; WBC 22.43 10^3/uL (4.4-10.8)
[2023-09-02 07:11] LABS: Absolute Basophil Count 0.07 10^3/uL (0.0-0.2); Diff Comment Diff Reviewed; RBC Morphology Normal
[2023-09-02 07:19] LABS: ALT 36 U/L (14-59); AST 24 U/L (15-37); Albumin 2.6 g/dL (3.4-5.0); Alkaline Phosphatase 132 U/L (46-116); Anion Gap 11.2 mmol/L (3-11); BUN 28 mg/dL (7-18); Bilirubin, Total 0.6 mg/dL (0.2-1.0); CO2 24.8 mmol/L (21.0-32.0); CREATININE 1.2 mg/dL (0.55-1.02); Calcium 9.4 mg/dL (8.5-10.1); Chloride 110 mmol/L (98-107); Estimated GFR 46.62 (mL/min/1.73m2); Glucose 130 mg/dL (74-106); Sodium 146 mmol/L (136-145); Total Protein 7.1 g/dL (6.4-8.2)
[2023-09-02 07:21] VITALS: BP 139/108; PULSE 98; RESP 18; TEMP 35.6; O2SAT 96
[2023-09-02] MEDS: Furosemide 20 MG TAB 40 MG PO (08:25)
[2023-09-02] MEDS: Atorvastatin 20 MG TAB PO (08:26)
[2023-09-02] MEDS: Apixaban 2.5 MG TAB PO ×2 (08:26→20:13)
[2023-09-02] MEDS: Metoprolol CR 100 MG TABCR PO (08:26)
[2023-09-02] MEDS: Spironolactone 25 MG TAB 12.5 MG PO (08:26)
[2023-09-02] MEDS: Aspirin E.C. 81 MG TABEC PO (08:26)
[2023-09-02 09:26] VITALS: BP 146/90
--- NOTE | 2023-09-02 09:56 | PDOC.CMPRO ---
Date of service: 09/02/23 Time of Service: 09:56 Care Management Progress Note Progress Note Text Progress Note Text: S/O: Aurea was sitting up in a chair when CM met with her. She was smiling and reported that she feels much better and just wants to go home. She was told by the provider that she needs to be seen by Cardiology and have an Echocardiogram before she is discharged. Aurea stated that she hoped she could still go home later today, but as there is no Cardiology coverage today, she will not be able to go until at least tomorrow. Aurea has one positive blood culture which is growing gram positive rods, as yet unidentified. She also has an area of cellulitis on her left hand. She stated she had the same thing on her foot, but that it is better. Aurea has been working with PT and proudly shared that she was able to walk 180 feet today. A: 78 year old female admitted to [facility] on 08/30/23 with Sepsis, fever P:Anticipate Aurea will be discharged home when medically stable. New [facility] PT services are recommended, if patient is agreeable. She will follow up with her community providers and plan of care and transport with family. CM will follow and continue to assess for discharge needs. SDOH(Care Management) Screening Will the Patient Participate in the Screening?: Unable to obtain Do you worry about having a steady place to live?: no Problems where you live: no known problems In the past 12 months, have you had to go without electric, gas, oil or water in your home?: no Have you or anyone in your house had to go without enough food to eat?: no Has lack of transportation kept you from medical appointments or from doing things needed for daily living?: no Has anyone in your support network made you feel unsafe for any reason?: no
[2023-09-02 11:19] VITALS: BP 146/88; PULSE 88; RESP 18; TEMP 36.2; O2SAT 96
[2023-09-02] MEDS: VANCOMYCIN/WATER (PEG) 1 GM/200 ML BAG IVPB (11:40)
[2023-09-02 15:22] VITALS: BP 128/82; PULSE 92; RESP 18; TEMP 36.1; O2SAT 97
--- NOTE | 2023-09-02 15:24 | PT.INTREAT ---
PT Notes Visit Reasons: Fever, Sepsis Date: 09/02/23 PRECAUTIONS: Fall. Standard. Activity as tolerated. SUBJECTIVE: pt in recliner when approached for therapy this morning, pt looking forward to [facility] and requested to gait train up to her sons room four doors down the hallway. Pt approached multiple during the course of the afternoon, refused long session was able to participate in increments OBJECTIVE: rendon catheter Right antecubital IV line ? VITALS: monitored by nursing Therapeutic Activities [id number]: Direct one-on-one instruction in dynamic activities to improve functional performance. ?? BED MOBILITY/TRANSFERS? Rolling L/R: not performed Supine-sit: ? ?not performed ? Sit-supine: ? ?not performed ? Sit-stand: ? CGA (am)? Stand-sit: ?? CGA (am)? Chair to commode:? ? CGA? Commode to chair: CGA Provided skilled cues and instruction on performance and technique throughout. Gait Training 96275: Direct one-on-one instruction and skilled instruction in: Employing an assistive device Modified weight-bearing status Movement sequencing Turning and movement with proper form Provided verbal cues for equipment management and technique Provided instruction in gait pattern Patient education regarding pacing and breathing techniques to maximize activity tolerance? GAIT? Assistive Device: ?? ? FWW? Weight bearing: WBAT Assist: ? ?CGA? Distance:?? ? 80'x2? ?seated rest break in between (am), ? Deviation: ? ?anterior trunk lean, wide FAUZIA, slow ronaldo, low step height, short step length. ? ASSESSMENT:?Pt able to reach Son's room without taking rest break, took a seated rest break before going back to her room for lunch. pt did not want to engage in long distance gait training, requested mutliple trips to commode, commode to EOb and bed mobility moving side to side and upward in bed to get properly situated. reports she is looking to doing gait training again tomorrow. PLAN: Continue with balance training, global strengthening and general conditioning for improved safety, mobility and activity tolerance until pt is ready for DC. TREATMENT CODE/TIME: [id number], [id number] 18mins (11:42-12:00am) [id number] 15mins (3:00-3:15pm) [id number] 10mins (1:40-1:50pm)
--- NOTE | 2023-09-02 16:33 | PGE_ITS ---
Date of Service Date of service: 09/02/23 Time of Service: 16:33 Assessment and Plan Assessment and plan (1) Severe sepsis: Status: Acute Assessment and plan: - Patient may criteria for severe sepsis on admission with white blood cell count of 25.6, temperature of 101.3, heart rate of 110, presumed infection being combination of pneumonia and urinary tract infection, hypotension that improved status post fluid resuscitation. Hemodynamically now stable and WBC coming down. She was started on Vanco, Zosyn and azithromycin significant improvement overnight, off azithro 08/31. -blood culture now growing gram positive darlene, raising concern for endocarditis, echo ordered TTE as first step -Urine culture growing E. Coli, sensitive to pip/tazo along with cefazolin and a couple other. 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 (2) Acute respiratory failure with hypoxia: Status: Acute Assessment and plan: - Likely secondary to severe sepsis as noted above, weaned to room air 08/30 (3) Urinary tract infection: Status: Acute Assessment and plan: - As noted above, e. coli being treated (4) Hyperlipidemia: Status: Acute Assessment and plan: - Continue home regimen (5) Atrial fibrillation: Status: Chronic Assessment and plan: - Continue home metoprolol and Eliquis (6) Essential hypertension: Status: Acute Assessment and plan: - Held antihypertensives other than metoprolol at admission due as was transiently hypotensive due to severe sepsis as noted above - resumed spironolactone and furosemide 09/01 and blood pressure and kidney function stable. (7) History of aortic valve replacement with bioprosthetic valve: Status: Acute Assessment and plan: echo as above, may need JANETH if the blood culture is real (8) Hypokalemia: Status: Acute Assessment and plan: initially hyperkalmic, now hypokalemic. Replaced, resuming spironolactone low dose. (9) Chronic kidney disease, stage 3b: Status: Acute Assessment and plan: Cr near baseline. Monitor. (10) Abnormal liver enzymes: Status: Acute Assessment and plan: AST and bili normalized, which is reassuring that sepsis is improving. Alk/phos and albumin still abnormal but not worsening. Subjective Subjective Patient reports: no new complaints, tolerating a regular diet and voiding w/o difficulty; denies diarrhea, nausea or shortness of breath Interval history since last seen: Aurea feels better. Her hand is less hot and red. No fevers. She is eating more. Exam Narrative Exam Narrative: Well appearing older female sitting up in a chair, in no acute distress, AOx4, heart irregularly irregular with only subtle systolic 1/6 murmur LUSB, lungs CTAB, abdomen soft, non-tender, non-distended. Legs with trace sasha edema, not tender. Patch of fading erythema and warmed left dorsal hand between 1-2nd digits. Objective Last Vital Signs Temp 36.1 C L 09/02/23 15:22 Pulse 92 H 09/02/23 15:22 Resp 18 09/02/23 15:22 BP 128/82 09/02/23 15:22 Pulse Ox 97 09/02/23 15:22 Laboratory Results - last 24 hr 09/02/23 09/02/23 06:43 10:05 WBC 22.43 H RBC 3.68 L Hgb 11.1 L Hct 34.5 L MCV 94 MCH 30.2 MCHC 32.2 RDW 14.0 Plt Count 236 MPV 10.5 Immature Gran % 0.5 Neutrophils % 91.9 Lymphocytes % 3.1 Monocytes % 3.6 Eosinophils % 0.6 Basophils % 0.3 Nucleated RBC % 0.0 Absolute Neutrophils 20.61 H Absolute Lymphocytes 0.70 L Absolute Monocytes 0.81 H Absolute Eosinophils 0.13 Absolute Basophils 0.07 RBC Morphology Normal Sodium 146 H Potassium 4.0 Chloride 110 H Carbon Dioxide 24.8 Anion Gap 11.2 H BUN 28 H Creatinine 1.2 H Est GFR (CKD-EPI 2020) 46.62 Glucose 130 H Calcium 9.4 Total Bilirubin 0.6 AST 24 ALT 36 Alkaline Phosphatase 132 H Total Protein 7.1 Albumin 2.6 L Vancomycin Trough 19.0 Time Spent with Patient Time Spent with Patient: 35-49 minutes Time was spent: preparing to see the patient(eg.review tests), obtaining and/or reviewing separately otained hiistory, ordering medications,tests, procedures, referring, communicating with other health tree care foreman, indepentently interpreting results, counseling the patient and care coordination
--- NOTE | 2023-09-02 16:42 | CHAPLAIN ---
Aurea was moved out to Med/Surg from the ICU. She said she's feeling better. She's in touch with family. I explained my role and offered support.
--- NOTE | 2023-09-02 16:45 | DI.US_ITS ---
APPROVED REPORT EXAM: Comprehensive 2D, Doppler, and color-flow Echocardiogram Patient Location: In-Patient Room/Bed: [facility] Band Saw Marker: Jessika Monsivais RDCS (AE) Indications: h/o AVR. Sepsis Other Information Study Quality: Fair. Technically limited study due to body habitus, inability to position patient exa m done bediside supine. Subcostal images were limited.. Conclusion Technically suboptimal and limited study Left ventricle appears grossly normal in size wall thickness and systolic function. The patient is i n atrial fibrillation with [id number] variation, mildly tachycardic, which limits assessment Right ventricle is not well-visualized but appears grossly normal in size Both atria are severely enlarged There is a bioprosthetic aortic valve. Mean gradient is 11 mmHg Mitral annular calcification, mild mitral regurgitation Mild to moderate tricuspid regurgitation. Estimated right ventricular systolic pressure is 31 mmHg Mildly dilated ascending aorta Study is not adequate to assess for valvular vegetations Wall motion Left Ventricle The left ventricle is normal size. Left ventricular systolic function is mildly decreased. There is n ormal left ventricular wall thickness. There is global hypokinesis of the left ventricle. There is no ventricular septal defect visualized. LVEF is 50%. Right Ventricle Right ventricle is not well visualized. Right ventricular systolic function could not be assessed. Atria Left atrium is severely dilated. Right atrium is severely dilated. The interatrial septum is intact with no evidence for an atrial septal defect. Aortic Valve No aortic regurgitation is present. Bioprosthetic aortic valve is present. Mitral Valve Moderate mitral annular calcification. No evidence of mitral valve stenosis. Mild mitral regurgitatio n. Tricuspid Valve The tricuspid valve is normal in structure. There is no tricuspid valve stenosis. Mild to moderate tricuspid regurgitation. Pulmonic Valve The pulmonary valve is normal in structure. There is no pulmonic valvular stenosis. Trace pulmonic re gurgitation. Great Vessels The aortic root is normal in size. The ascending aorta is mild to moderately dilated. The IVC was not visualized. Pericardium Technically limited parasternal imaging. Unable to compress patient. 2D Dimensions IVSD d PLAX 1.00 cm F: 0.6-1.0 Ao Root d 2.89 cm F: 2.7 - 3.3 LVPW d PLAX 1.05 cm F: 0.6 - 1.0 Ao Asc Diam d 3.73 cm F: 2.3 - 3.1 LVID d PLAX 4.28 cm F: 3.8 - 5.2 LVDs 3.19 cm F: 2.2 - 3.5 LV EF Teichholz 50.3 % FS 25.33 % LV EDV (Teich) 82.0 mL LV ESV (Teich) 40.8 mL Auto EF LV EDV A4C 98.7 mL LV EDV A2C 90.0 mL LV EDV BP 94.7 mL LV ESV A4C 48.9 mL LV ESV A2C 45.2 mL LV ESV BP 48.6 mL LVEF(%) A4C 50.5 % LVEF(%) A2C 49.7 % LVEF(%) BP 48.7 % LV SV A4C 49.8 ml LV SV A2C 44.8 ml LV SV BP 46.1 ml LV CO A4C 4.1 L/min LV CO A2C 3.9 L/min LV CO BP 4.0 L/min HR A4C 82.01 BPM HR A2C 87.38 BPM LV EDV Index (BP) LA Volume LA Length A4C 5.8 cm LA Length A2C 6.0 cm LA Area A4C s 24.93 cm2 LA Area A2C s 20.36 cm2 LA Vol A4C A-L 90.77 mL LA Vol A2C A-L 58.27 mL LA Vol Biplane A-L 74.1 mL LA Vol/BSA A4C A-L LA Vol/BSA A2C A-L LA Vol/BSA BP A-L 37.8 mL/m2 LA Vol A4C MOD 85.0 mL LA Vol A2C MOD 55.0 mL LA Vol BP MOD 69.6 mL RA Volume RA Area A4C 21.0 cm2 RA ESV A4C (A-L) 64.8mL RA Vol/BSA A4C A-L RA Length A4C 5.8 cm RA ESV A4C (MOD) 60.9mL LV Diastology MV E Vmax 1.07 (0.4-1.3 m/s) Aortic Valve AoV Vmax 2.23 m/s LVOT Vmax 0.74 m/s AoV Peak Grad 20.2 mmHg LVOT Peak Grad 2.2 mmHg AoV Area (Vmax) 1.05 cm2 LVOT VTI 0.135 m AoV VTI 0.349 m LVOT Mean Grad 1.3 mmHg AoV Mean Shay. 1.56 m/s LVOT SV 42.99 mL AoV Mean Grad 11.2 mmHg LVOT Diam s 2.00 cm AoV Area (VTI) 1.23 cm2 Velocity Ratio 0.33 Mitral Valve MV DT 171 (160-240 msec) MV Vmax TIPS 1.20 m/s MV Mean Grad 2.5 (<2mmHg) MV VTI 0.228 m Pulmonary Valve PV Vmax 1.01 (0.5-1.5 m/s) RVOT Vmax 0.58 m/s PV Peak Grad 4.1 mmHg RVOT Peak Gr. 1.3 mmHg PV Mean Shay 0.72 m/s RVOT VTI 0.080 m PV Mean Grad 2.3 mmHg RVOT Mean Gr. 0.7 mmHg Tricuspid Valve TR Vmax 2.66 m/s TR Peak Grad 28.3 mmHg
[2023-09-02 19:09] VITALS: BP 133/90; PULSE 90; RESP 18; TEMP 36.4; O2SAT 96
[2023-09-02] MEDS: Melatonin 3 MG TAB 6 MG PO (22:15)
[2023-09-03] MEDS: PIPERACILLIN/TAZO 3.375 GM in Normal Saline 50 ML IVPB ×2 (03:40→10:28)
[2023-09-03 04:16] VITALS: BP 145/88; PULSE 89; RESP 20; TEMP 35.8; O2SAT 94
[2023-09-03 07:00] VITALS: BP 140/93; PULSE 81; RESP 16; TEMP 35.7; O2SAT 92
[2023-09-03] MEDS: Apixaban 2.5 MG TAB PO (08:25)
[2023-09-03] MEDS: Atorvastatin 20 MG TAB PO (08:25)
[2023-09-03] MEDS: Furosemide 20 MG TAB 40 MG PO (08:25)
[2023-09-03] MEDS: Aspirin E.C. 81 MG TABEC PO (08:25)
[2023-09-03] MEDS: Spironolactone 25 MG TAB 12.5 MG PO (08:25)
[2023-09-03] MEDS: Metoprolol CR 100 MG TABCR PO (08:25)
[2023-09-03 11:03] VITALS: BP 123/94; PULSE 83; RESP 17; TEMP 36.2; O2SAT 93
--- NOTE | 2023-09-03 11:30 | PT.INTREAT ---
PT Notes Visit Reasons: Fever, Sepsis Date: 09/03/23 PRECAUTIONS: Fall. Standard. Activity as tolerated. SUBJECTIVE: pt in recliner when approached for therapy this morning, pt reports she would really like to go home soon, reports she would just like to take her antibiotics orally. no complaint of pain, agrees to participating with session. OBJECTIVE: Right antecubital IV line, PureWick ? VITALS: monitored by nursing, telemetry in place. Therapeutic Activities [id number]: Direct one-on-one instruction in dynamic activities to improve functional performance. ?? BED MOBILITY/TRANSFERS? Rolling L/R: SBA Supine-sit: ? ?SBA ? Sit-supine: ? SBA ? Sit-stand: ? CGA ? Stand-sit: ?? CGA Chair to commode:? ? CGA? Commode to chair: CGA Provided skilled cues and instruction on performance and technique throughout. Gait Training 20306: Direct one-on-one instruction and skilled instruction in: Employing an assistive device Modified weight-bearing status Movement sequencing Turning and movement with proper form Provided verbal cues for equipment management and technique Provided instruction in gait pattern Patient education regarding pacing and breathing techniques to maximize activity tolerance? GAIT? Assistive Device: ?? ? FWW? Weight bearing: WBAT Assist: ? ?CGA? Distance:?? ? 80'x2? ?seated rest break in between ? Deviation: ? ?anterior trunk lean, wide FAUZIA, slow ronaldo, low step height, short step length. ? ASSESSMENT:?pt cue for staying closer to FWW for safety, tactile cue for FWW management to avoid getting too close to the gilbert, pole management to allow for IV drip to continue while gait training. PLAN: Continue with balance training, global strengthening and general conditioning for improved safety, mobility and activity tolerance until pt is ready for DC. TREATMENT CODE/TIME: [id number], 15mins (11:00-11:15am)
--- NOTE | 2023-09-03 11:59 | PDOC.CMPRO ---
Date of service: 09/03/23 Time of Service: 11:59 Care Management Progress Note Progress Note Text Progress Note Text: S/O: Aurea was sitting up in a chair when CM met with her. A: 78 year old female admitted to [facility] on 08/30/23 with Sepsis, fever P:Anticipate Aurea will be discharged home when medically stable. New [facility] PT services are recommended, if patient is agreeable. She will follow up with her community providers and plan of care and transport with family. CM will follow and continue to assess for discharge needs. SDOH(Care Management) Screening Will the Patient Participate in the Screening?: Unable to obtain Do you worry about having a steady place to live?: no Problems where you live: no known problems In the past 12 months, have you had to go without electric, gas, oil or water in your home?: no Have you or anyone in your house had to go without enough food to eat?: no Has lack of transportation kept you from medical appointments or from doing things needed for daily living?: no Has anyone in your support network made you feel unsafe for any reason?: no
[2023-09-03] MEDS: VANCOMYCIN/WATER (PEG) 1 GM/200 ML BAG IVPB (12:07)
[2023-09-03 15:24] VITALS: BP 129/108; PULSE 91; RESP 16; TEMP 36.2; O2SAT 97
--- NOTE | 2023-09-03 16:20 | PDOC.HHF2F_ITS ---
Home Health Referral Home Health Orders Clinical synopsis of why skilled professionals are needed: Patient with ambulatory instability after treatment for sepsis, deconditioning Medical diagnosis necessitation home health referral: Sepsis, UTI, ambulatory dysfunction/fall risk, atrial fibrillation Registered Nurse: Check all that apply Instruct on new or changed medication(s)/assess compliance: Ordered Physical Therapist: Check all that apply Increase strength & endurance for safe mobility at home: Ordered To design/establish home maintenance program: Ordered Fall reduction therapy program for patient with history of frequent falls: Ordered Home Bound Status Requires the aid of supportive device (check all that apply): Walker Assistance of another person (Describe assistance and medical necessity): not driving, safety and security officer helps do to unstable gait Describe why leaving home would require a considerable and taxing effort: Requires frequent rest periods and Safety Concerns: describe (fall risk) Encounter Date and Reason: I certify that a FTF encounter for this patient was performed on September 03, 2023 and that such encounter was related to the primary reason the patient requires home health services. The encounter was conducted in the following manner: * By me as the certifying physician, BAKERY MACHINE MECHANIC, PA or * By an inpatient physician, BAKERY MACHINE MECHANIC or PA during an inpatient stay who communicated findings to me, Certification And Authentication I certify that I composed the above information based on my clinical judgment relating to this patient's medical condition and, if applicable, clinical findings communicated to me by the NPP or inpatient physician who performed the FTF encounter. Name of Provider that will be monitoring home health services: Connie Simmons
--- NOTE | 2023-09-03 16:45 | PDOC.CMDIS ---
Date of service: 09/03/23 Time of Service: 16:46 LACE Index Scoring Tool Questions: Length of Stay (in days): 4 - 6 Was the patient admitted via the E.D.?: Yes Comorbidities: Congestive Heart Failure and Any Tumor E.D. Visits: 1 Answers: Total Score: 13 Risk of Readmission: High Risk Care Management Discharge Plan Reason for Hospitalization: sepsis Discharge Plan: Aurea will be discharged home with new home health services for PT. She will follow up with her community providers and plan of care and transport with family. Patient/Family Education Needs: Review of discharge instructions, activity, limitations, follow up plan, discuss Ask Me Three Services Needed at Discharge: Home Health Care Services SDOH Health Related Social Needs: No Data to Display
--- NOTE | 2023-09-04 12:07 | DSE_ITS ---
Date of service: 09/03/23 Time of Service: 16:45 DS: Diagnosis Discharge Diagnosis (1) Severe sepsis: Status: Resolved Asessment and Plan: resolved (2) Acute respiratory failure with hypoxia: Status: Resolved Asessment and Plan: resolved (3) Urinary tract infection: Status: Acute (4) Hyperlipidemia: Status: Acute (5) Atrial fibrillation: Status: Chronic (6) Essential hypertension: Status: Acute (7) History of aortic valve replacement with bioprosthetic valve: Status: Acute (8) Hypokalemia: Status: Resolved (9) Chronic kidney disease, stage 3b: Status: Acute (10) Abnormal liver enzymes: Status: Acute Discharge Plan Disposition Patient Disposition: Home W/Home Health Services Condition: Good Discharge Details Reason For Visit: Fever, Sepsis Admit Date/Time: 08/30/23 21:29 Admit Provider: Xavi Amaya Attending Provider: Xavi Amaya Primary Care Provider: Connie Simmons [facility] Course Hospital Course: Patient presented 08/29 with fever and leukocytosis, hypotension, elevated lactat e. Treated for severe sepsis with Vancomycin, piperacillin/tazobactam, azithromycin to cover skin, urine, and pulmonary infections. She stabilized with IV fluids without pressors. MRSA nares swab positive. She improved clinically and did not have respiratory symptoms so azithromycin stopped and transferred out of ICU 08/31. Her skin redness and swelling on the left hand spread initially but then improved. Blood cultures positive for GPR, given her prosthetic valve echocardiogram was ordered and was reassuring. Blood culture read as contaminate actinomyces so we did not pursue JANETH. Urine grew >100 CFU e. coli from strait cathed specimen. Patient discharged on cephalexin to cover e. coli and doxycycline to cover possible MRSA skin infection. She was also given a MRSA decolonization protocol to do while taking doxycycline, using mupirocin and chlorhexadine. AST/bili initially elevated but imrpoved with treating infection. Her alk phos remained mildly elevated and albumin low suggesting some liver dysfunction. Initially hyperkalemic, normalized with fluids and was low 08/31 but normalized back on her home spironolactone and furosmide. She was maintained on apixaban for atrial fibrillation, at 2.5mg dose, though she does not meet the standard criteria for dose reduction from the typical 5mg, this was deferred to PCP. she had two loose stools on day of discharge. She did not feel ill. Stools were not able to be collected. C. dif ordered in case loose stools continue. Home Meds and New Rx's Prescriptions: New doxycycline hyclate 100 mg capsule 100 mg PO BID Qty: 14 0RF cephalexin 500 mg capsule 500 mg PO TID Qty: 10 0RF mupirocin 2 % ointment 1 applic topical BID 5 Days Qty: 22 0RF Rx Instructions: apply to nares per protocol chlorhexidine gluconate [Antiseptic Skin Clnsr(chlorhe)] 4 % liquid 1 applic topical DAILY 5 Days Qty: 473 0RF Rx Instructions: per MRSA decolonization protocol Continued multivitamin [Once Daily] 1 EACH tablet 1 tab PO DAILY triamcinolone acetonide 0.1 % cream 1 applic TP BID Qty: 30 4RF apixaban 2.5 mg tablet 2.5 mg PO BID 30 Days Qty: 60 4RF atorvastatin 20 mg tablet 20 mg PO DAILY Qty: 90 3RF furosemide [Lasix] 20 mg tablet 40 mg PO DAILY Qty: 180 3RF metoprolol succinate [Toprol XL] 100 mg tablet extended release 24 hr 100 mg PO DAILY Qty: 90 3RF spironolactone 25 mg tablet See Rx Instructions .ROUTE .COMPLEX Qty: 45 3RF Dose Instruction: TAKE ONE-HALF TABLET BY MOUTH DAILY Rx Instructions: TAKE ONE-HALF TABLET BY MOUTH DAILY aspirin [Adult Low Dose Aspirin] 81 mg tablet,delayed release (DR/EC) 81 mg PO DAILY Qty: 0 0RF Discharge Instructions Instructions: Urinary Tract Infection in Older Adults (GEN) Additional Instructions: See handout for MRSA decolonizition with chlorhexadine and muperocin Stand Alone Forms: Nursing Discharge Form Referrals: Connie Simmons NP [Primary Care Provider] - 09/08/23 8:00 am Activity:: Activity as Tolerated Equipment/Supplies:: Walker Diet:: As Tolerated Discharge Orders Discharge Orders: Discharge Order (Routine); Ordered 09/03/23 Ordered By: Xavi Amaya Other Ambulatory Orders: C Diff PCR (Routine) Timeframe: 1 Day Facility: [facility] - Location: Laboratory Outpatient - [facility] Ordered By: Xavi Amaya Discharge Data Discharge Date/Time-TO BE ENTERED AT DEPARTURE: 09/03/23 17:45 DS: Summary Time Spent with Patient providing and/or coordinating discharge services: Greater than 30 minutes Status at Discharge Functional status at discharge: uses cane/walker Overall status at discharge: patient is back to baseline Mental Status: mental status grossly normal Speech and Movement: speech and movement normal Mood: congruent mood Affect: normal affect Quality:SDOH Health Related Social Needs: No Data to Display Exam Narrative Exam Narrative: Well appearing older female sitting up in a chair, in no acute distress, AOx4, bright affect. Heart irregularly irregular with only subtle systolic 1/6 murmur LUSB, lungs CTAB, abdomen soft, non-tender, non-distended. Legs with trace sasha edema, not tender. Patch of fading erythema, no longer hot, much less swelling, in left dorsal hand between 1-2nd digits. Psych Mental Status: mental status grossly normal Speech and Movement: speech and movement normal Mood: congruent mood Affect: normal affect DS: Data Vitals/I&O Vitals and I&O: Vital Signs Temperature 36.2 C L 09/03/23 15:24 Temperature Source Tympanic 09/03/23 15:24 Pulse 91 H 09/03/23 15:24 Pulse Rhythm Irregular 09/03/23 08:25 Pulse 95 H 09/01/23 11:24 Respiratory Rate 16 09/03/23 15:24 Respiratory Effort Normal 09/03/23 08:25 Respiratory Depth Normal 09/03/23 08:25 Respiratory Pattern Tachypnea 09/02/23 08:30 Blood Pressure 129/108 H 09/03/23 15:24 Blood Pressure Mean 107 09/01/23 11:24 Blood Pressure Position Sitting 09/01/23 04:05 Pulse Oximetry 97 09/03/23 15:24 Oxygen Delivery Method Room Air 09/03/23 15:24 Oxygen Flow Rate 0 09/03/23 15:24 Pain Level 0 09/03/23 15:24 Comment bp called over radio 09/02/23 11:19 Comment pt refusing BP 08/31/23 23:30 Arterial Systolic 108 08/31/23 13:30 Arterial Diastolic 60 08/31/23 13:30 Arterial Mean 77 08/31/23 13:30 Intake & Output 09/03/23 09/04/23 09/04/23 23:59 11:59 23:59 Intake Total 50 / 110 Output Total 550 / 900 Balance -500 / -790 Intake: IV 50 / 110 Output: Urine 550 / 900 Other: Urine Color Yellow Straw Urine Odor None Data Completed and Pending Labs on day of discharge: Preliminary micro results at discharge 08/30/23 19:40 Blood Culture - Preliminary Blood NO GROWTH 96 HOURS 08/30/23 19:55 Blood Culture - Preliminary Blood Anaerobic gram positive darlene PFSH All Active Problems (Updated 09/04/23 @ 00:06 by JAYME RONQUILLO) Loose stools (Acute) Abnormal liver enzymes (Acute) Chronic kidney disease, stage 3b (Acute) Acute dehydration (Acute) Urinary tract infection (Acute) Anticoagulated (Chronic) 2021-on low dose Eliquis Hyperlipidemia (Acute) Chronic diastolic CHF (congestive heart failure) (Acute) Chronic atrial fibrillation with rapid ventricular response (Acute) Atrial fibrillation (Chronic) History of aortic valve replacement with bioprosthetic valve (Acute) Replaced, 2017 Obesity (Acute) Lumbar disc prolapse with compression radiculopathy (Acute) s/p surgery 1990 Hyperlipidemia (Acute 12/16/12) Essential hypertension (Acute 06/13/13) Dyspnea (Acute 01/24/02) Exertional;neg MPI ECHO LVH Disorder of diaphragm (Acute) paralyzed left Medical History Gross hematuria Associated with Coumadin use, resolved-2021 Anemia Resolved-2020 likely associate with hematuria which had resolved Hydronephrosis Followed by urology, resolved as of 2021 Adenocarcinoma of endometrium, 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 Grandfather No problems noted. Grandmother No problems noted. Grandmother No problems noted. Other Anticoagulated Social History Smoking/Tobacco Use Status: Never Smoking risk assessment performed?: Yes Alcohol Intake: never Drug use: Never Substance use type: does not use What type of physical activity do you participate in: none Do you feel safe at home: Yes Do you feel safe in your relationship?: Yes Time Spent with Patient Time Spent with Patient: 45-69 minutes Time was spent: preparing to see the patient(eg.review tests), obtaining and/or reviewing separately otained hiistory, ordering medications,tests, procedures, referring, communicating with other health emergency care attendant, indepentently interpreting results, counseling the patient and care coordination
--- NOTE | 2023-09-13 08:09 | PGE_ITS ---
Date of Service Date of service: 09/03/23 Time of Service: 13:20 Assessment and Plan Assessment and plan (1) Severe sepsis: Status: Resolved Assessment and plan: - Patient met criteria for severe sepsis on admission with white blood cell count of 25.6, temperature of 101.3, heart rate of 110, presumed infection being combination of pneumonia and urinary tract infection, hypotension that improved status post fluid resuscitation. Hemodynamically stable for the past 2 days and WBC coming down. -She was started on Vanco, Zosyn and azithromycin significant improvement ove rnight, off azithro 08/31. -blood culture now growing gram positive darlene, raising concern for endocarditis, TTE did not suggest endocarditits but does not rule out. If culture reveals organism that can cause endocarditis, we must consider JANETH. -Urine culture growing E. Coli, sensitive to pip/tazo, also some oral options. -Skin infections concerning, MRSA swab confirms she is colonized and may be spr eading infection from picking. She is imporoving on vancomycin so continue this for now. -will wait to further narrow antibiotics until we get blood culture final results as she is improving on pip/tazo and vanco and she was quite sick when she came in. (2) Acute respiratory failure with hypoxia: Status: Resolved Assessment and plan: - Likely secondary to severe sepsis as noted above, weaned to room air 08/30 (3) Urinary tract infection: Status: Acute Assessment and plan: - As noted above, e. coli being treated (4) Hyperlipidemia: Status: Acute Assessment and plan: - Continue home regimen (5) Atrial fibrillation: Status: Chronic Assessment and plan: - Continue home metoprolol and Eliquis (6) Essential hypertension: Status: Acute Assessment and plan: - Held antihypertensives other than metoprolol at admission due as was transiently hypotensive due to severe sepsis as noted above - resumed spironolactone and furosemide 09/01 and blood pressure and kidney function stable. (7) History of aortic valve replacement with bioprosthetic valve: Status: Acute Assessment and plan: echo as above, may need JANETH if the blood culture is real (8) Hypokalemia: Status: Resolved Assessment and plan: initially hyperkalmic, then hypokalemic. Replaced, resumed spironolactone and Cr/K+ stable (9) Chronic kidney disease, stage 3b: Status: Acute Assessment and plan: Cr near baseline. Monitor. (10) Abnormal liver enzymes: Status: Acute Assessment and plan: AST and bili normalized, which is reassuring that sepsis is improving. Alk/phos and albumin still abnormal but not worsening. Can follow as outpatient Subjective Subjective Patient reports: feels better, tolerating a regular diet and afebrile; denies nausea or shortness of breath Interval history since last seen: Has been feeling well for the past day. Eating, has more energy. Exam Narrative Exam Narrative: Well appearing older female sitting up in a chair, in no acute distress, AOx4, bright affect. Heart irregularly irregular with only subtle systolic 1/6 murmur LUSB, lungs CTAB, abdomen soft, non-tender, non-distended. Legs with trace sasha edema, not tender. Patch of fading erythema, not hot, mild swelling, in left dorsal hand between 1-2nd digits. Objective Last Vital Signs Temp 36.2 C L 09/03/23 15:24 Pulse 91 H 09/03/23 15:24 Resp 16 09/03/23 15:24 BP 129/108 H 09/03/23 15:24 Pulse Ox 97 09/03/23 15:24 Time Spent with Patient Time Spent with Patient: 35-49 minutes Time was spent: preparing to see the patient(eg.review tests), obtaining and/or reviewing separately otained hiistory, ordering medications,tests, procedures, referring, communicating with other health intensive care unit registered nurse, indepentently interpreting results and counseling the patient
== END 2023-09-03 17:45 | disposition home health service (06) | DRG 871 ==
LOC: ER 22:37 → ICU 22:58 → MS 09-01 13:51
PROVIDERS: General Practice; Admitting Provider Family Medicine; Emergency Provider Student in an Organized Health Care Education/Training Program; PCP Nurse Practitioner Family; Visit Provider Family Medicine
DX: A41.9 Sepsis, unspecified organism (principal); J18.9 Pneumonia, unspecified organism; J96.01 Acute respiratory failure with hypoxia; N39.0 Urinary tract infection, site not specified; I13.0 Hypertensive heart and chronic kidney disease with heart failure and stage 1 through stage 4 chronic kidney disease, or unspecified chronic kidney disease; I50.32 Chronic diastolic (congestive) heart failure; N17.9 Acute kidney failure, unspecified; I48.20 Chronic atrial fibrillation, unspecified; R65.20 Severe sepsis without septic shock; E87.5 Hyperkalemia; E78.5 Hyperlipidemia, unspecified; Z95.3 Presence of xenogenic heart valve; N18.32 Chronic kidney disease, stage 3b; R53.1 Weakness; Z79.01 Long term (current) use of anticoagulants; E66.9 Obesity, unspecified; Z85.42 Personal history of malignant neoplasm of other parts of uterus; B96.20 Unspecified Escherichia coli [E. coli] as the cause of diseases classified elsewhere; E87.6 Hypokalemia; Z22.322 Carrier or suspected carrier of Methicillin resistant Staphylococcus aureus; L08.9 Local infection of the skin and subcutaneous tissue, unspecified
CPT/HCPCS: 36573; 00123; 36415; 36416; 36556; 36591; 36620; 71045; 77001; 80048; 80053; 82805; 82962; 84145; 85027; 87040; 87077; 87637; 87641; 93005; 93306; 94640; 96365; 96366; 96367; 96368; 97116; 97162; 97530; 99291; 70450; 73140; 80202; 81003; 81015; 83605; 83880; 84443; 84484; 85025; 85610; 85730; 87086; 87186; 93010; 99222; 99232; 99233; 99239; J0131; J0456; J0612; J1815; J1940; J2543; J3370; J3372; J3480; J7613

== ENCOUNTER 2023-09-05 10:55 | Outpatient (REF) | payer MEDICARE, SELFPAY ==
[2023-09-07 11:40] LABS: C Diff PCR Negative (Negative)
== END 2023-09-05 10:56 | disposition home or self-care (01) ==
LOC: LBN 10:55
PROVIDERS: PCP Nurse Practitioner Family; Visit Provider Family Medicine
DX: R19.5 Other fecal abnormalities (principal)
CPT/HCPCS: 87493

== ENCOUNTER 2023-11-23 09:09 | Outpatient (CLI) | payer MEDICARE, SELFPAY ==
[2023-11-23 09:12] LABS: Anion Gap 5.6 mmol/L (3-11); BUN 24 mg/dL (7-18); CO2 32.4 mmol/L (21.0-32.0); CREATININE 1.3 mg/dL (0.55-1.02); Calcium 9.1 mg/dL (8.5-10.1); Calculated LDL 87 mg/dL (<100); Chloride 104 mmol/L (98-107); Cholesterol 146 mg/dL (<200); Estimated GFR 42.35 (mL/min/1.73m2); Glucose 111 mg/dL (74-106); HDL Cholesterol 43 mg/dL (40-60); Potassium 3.8 mmol/L (3.5-5.1); Sodium 142 mmol/L (136-145); Triglyceride 80 mg/dL (<150)
[2023-11-23 09:16] LABS: Hemoglobin A1C 6.5 % (<5.7)
== END 2023-11-23 09:10 | disposition home or self-care (01) ==
LOC: LBO 09:10
PROVIDERS: PCP Nurse Practitioner Family; Visit Provider Nurse Practitioner Family
DX: N18.32 Chronic kidney disease, stage 3b (principal); Z00.00 Encounter for general adult medical examination without abnormal findings; E78.5 Hyperlipidemia, unspecified; I48.91 Unspecified atrial fibrillation; I50.32 Chronic diastolic (congestive) heart failure; I10 Essential (primary) hypertension; R73.03 Prediabetes
CPT/HCPCS: 36415; 80048; 80061; 83036

== ENCOUNTER → 2023-12-01 09:14 | Outpatient (BNVA) | payer MEDICARE, SELFPAY | PROVIDERS: PCP Nurse Practitioner Family; Visit Provider Internal Medicine Cardiovascular Disease | DX: I48.21 Permanent atrial fibrillation (principal); Z79.01 Long term (current) use of anticoagulants; I10 Essential (primary) hypertension; Z95.3 Presence of xenogenic heart valve | CPT/HCPCS: 99213 ==

== ENCOUNTER 2024-06-28 02:19 | Inpatient (IN) | payer MEDICARE, SELFPAY ==
[2024-06-28] VITALS (42 sets, daily range): BP systolic 93–158; BP diastolic 63–118; PULSE 71–117; RESP 14–27; TEMP 36–36.9; O2SAT 93–99; BMI 35.2
--- NOTE | 2024-06-28 02:30 | DI.RAD_ITS ---
Exam(s) XR HIP RT COMPLETE AP PELVIS EXAM: XR HIP RT COMPLETE AP PELVIS CLINICAL HISTORY: fall, rotation, pain. TECHNIQUE: 2D digital imaging was performed. COMPARISON: CR XR HIP RT COMPLETE AP PELVIS from 01/30/2020 FINDINGS: 3 views There is acute intertrochanteric fracture of the right hip with some angulation. No osseous lesions. Bone density age-appropriate. No advanced degenerative changes in the hip joint space. IMPRESSION: Acute intertrochanteric fracture of the right hip with some angulation. DATA REPOSITORY: RADIATION DOSE DELIVERED:
--- NOTE | 2024-06-28 02:30 | RT.EKG_ITS ---
APPROVED REPORT Exam: Resting ECG Reason for Exam: fall, dysrhythmia Patient Location: E HR:92 bpm ECG Measurements Heart Rate 92 AXIS VA [id number] P [id number] QRSd 141 QRS 100 QT 374 T 20 QTc 462 Conclusion Atrial fibrillation...V-rate 69-108, irreg A-activity RBBB and LPFB...QRSd >120mS, axis(90,210)
--- NOTE | 2024-06-28 02:37 | DI.RAD_ITS ---
Exam(s) XR CHEST 1V IN DI DEPT EXAM: XR CHEST 1V IN DI DEPT CLINICAL HISTORY: fall, pre-op. TECHNIQUE: 2D digital imaging was performed. COMPARISON: CR,XR XR PORTABLE CHEST AP POST LINE from 08/30/2023 CR,XR XR HIP RT COMPLETE AP PELVIS from 06/28/2024 FINDINGS: Single AP portable view. The previously present right jugular central line is been removed. There are sternotomy wires again noted. Heart size normal. Prosthetic cardiac valve noted. Mediastinum not widened. There is a less than optimal inspiration resulting in crowding markings in lung bases However, there appear to be infiltrates in both lung bases. Mildly blunted left costophrenic angle m ay indicate some left pleural fluid. IMPRESSION: Suboptimal inspiratory effort. Bilateral lung base infiltrates. DATA REPOSITORY: RADIATION DOSE DELIVERED:
[2024-06-28] MEDS: ACETAMINOPHEN 1,000 MG/100 ML BAG 400 MG IVPB ×2 (02:53→23:47)
[2024-06-28 02:57] LABS: Abs Immature Grans 0.08 10^3/uL (0.0-0.06); Absolute Basophil Count 0.05 10^3/uL (0.0-0.2); Absolute Monocyte Count 0.74 10^3/uL (0.1-0.8); Basophils % 0.3 %; Eosinophils % 0.2 %; HCT 38.6 % (36.0-46.0); HGB 12.5 g/dL (11.2-15.7); Immature Grans % 0.5 %; Lymphocytes % 6.7 %; MCH 30.5 pg (27.0-33.0); MCHC 32.4 % (32.0-36.0); MCV 94 fL (80-95); Monocytes % 4.4 %; Neutrophils % 87.9 %; Platelet Count 237 10^3/uL (130-400); RDW 13.4 % (11.7-14.6); RDW-SD 46.2 fL; WBC 16.78 10^3/uL (4.4-10.8)
[2024-06-28 02:59] LABS: Absolute Eosinophil Count 0.03 10^3/uL (0.0-0.7); Absolute Lymphocyte Count 1.12 10^3/uL (1.2-3.4); Absolute Neutrophil Count 14.75 10^3/uL (1.2-6.7)
--- NOTE | 2024-06-28 03:00 | W.ED.GENAD ---
Discharge Plan Disposition Patient Disposition: Admit to [facility] Condition: Stable Discharge Details Chief Complaint: Orthopedic Clinical Impression: Closed intertrochanteric fracture of right hip, Atrial fibrillation, Anticoagulated Primary Care Provider: Connie Simmons ED Provider: Mitchel Lawson Home Meds and New Rx's Prescriptions: No Action mupirocin 2 % ointment 1 applic topical BID 5 Days Qty: 22 1RF Rx Instructions: Apply to left hand and right arm wound twice daily atorvastatin 20 mg tablet 20 mg PO DAILY Qty: 90 3RF furosemide [Lasix] 20 mg tablet 40 mg PO DAILY Qty: 180 3RF metoprolol succinate [Toprol XL] 100 mg tablet extended release 24 hr 100 mg PO DAILY Qty: 90 3RF spironolactone 25 mg tablet See Rx Instructions .ROUTE .COMPLEX Qty: 45 3RF Dose Instruction: TAKE ONE-HALF TABLET BY MOUTH DAILY Rx Instructions: TAKE ONE-HALF TABLET BY MOUTH DAILY multivitamin [Once Daily] 1 EACH tablet 1 tab PO DAILY triamcinolone acetonide 0.1 % cream 1 applic TP BID Qty: 30 4RF apixaban 2.5 mg tablet 2.5 mg PO BID 30 Days Qty: 60 4RF aspirin [Adult Low Dose Aspirin] 81 mg tablet,delayed release (DR/EC) 81 mg PO DAILY Qty: 0 0RF HPI General Date/Time Provider Initiated Documentation: 06/28/24 02:33. HPI Narrative: The patient is a 79-year-old female, with a past medical history significant for coronary artery disease status post CABG and atrial fibrillation, currently on apixaban and aspirin, who presents the emergency department this evening complaining of right hip pain with leg shortening and internal rotation after a fall this evening at around 7:30 PM. She tells me that her grandson was able to pick her up and put her in a chair but she was not able to get up and stand on her leg after this as there was too much pain trying to get out of the chair. The patient denies other injuries from the fall. She denies any recent illnesses Related Data Home Medications ?Medication ?Instructions ?Recorded ?Confirmed multivitamin (Once Daily tablet) 1 tab PO DAILY 09/02/12 06/28/24 aspirin 81 mg tablet,delayed 81 mg PO DAILY #0 tabs 03/13/20 06/28/24 release (Adult Low Dose Aspirin) triamcinolone acetonide 0.1 % 1 applic topical BID #30 grams 03/19/22 06/28/24 topical cream mupirocin 2 % topical ointment 1 applic topical BID 5 days #22 09/17/23 06/28/24 grams atorvastatin 20 mg tablet 20 mg PO DAILY #90 tabs 05/10/24 06/28/24 furosemide 20 mg tablet (Lasix) 40 mg (2 x 20 mg) PO DAILY #180 05/10/24 06/28/24 tabs metoprolol succinate 100 mg 100 mg PO DAILY #90 tabs 05/10/24 06/28/24 tablet,extended release 24 hr (Toprol XL) spironolactone 25 mg tablet See Rx Instructions .Route 05/10/24 06/28/24 .COMPLEX #45 tabs apixaban 2.5 mg tablet 2.5 mg PO BID 30 days #60 tabs 05/27/24 06/28/24 Previous Rx's ?Medication ?Instructions ?Recorded aspirin 81 mg tablet,delayed 81 mg PO DAILY #0 tabs 03/13/20 release (Adult Low Dose Aspirin) triamcinolone acetonide 0.1 % 1 applic topical BID #30 grams 03/19/22 topical cream mupirocin 2 % topical ointment 1 applic topical BID 5 days #22 09/17/23 grams atorvastatin 20 mg tablet 20 mg PO DAILY #90 tabs 05/10/24 furosemide 20 mg tablet (Lasix) 40 mg (2 x 20 mg) PO DAILY #180 05/10/24 tabs metoprolol succinate 100 mg 100 mg PO DAILY #90 tabs 05/10/24 tablet,extended release 24 hr (Toprol XL) spironolactone 25 mg tablet See Rx Instructions .Route 05/10/24 .COMPLEX #45 tabs apixaban 2.5 mg tablet 2.5 mg PO BID 30 days #60 tabs 05/27/24 Allergies Allergy/AdvReac Type Severity Reaction Status Date / Time diclofenac Allergy Severe HIVES Verified 06/28/24 02:27 nifedipine AdvReac Unknown PEDAL EDEMA Verified 06/28/24 02:27 General Stated Complaint: Orthopedic FEDERICO: 3 Exam Const General: cooperative, comfortable and no acute distress Nutritional Appearance: obese Orientation: alert, awake and oriented x3 Neck Neck: normal visual inspection and full ROM Chest Chest: normal inspection of the chest and normal palpation of entire chest wall Resp Effort & Inspection: normal respiratory effort Auscultation: clear to auscultation bilaterally Cardio Jugular venous pressure: no JVD Rate: tachycardic Rhythm: abnormal rhythm irregularly irregular Heart Sounds: S1 normal Bruits: abdominal aortic bruit GI Inspection: normal to inspection Palpation: soft Auscultation: normal bowel sounds Back/Spine/Pelvis Cervical Spine: cervical ROM normal and No cervical spinal tenderness Thoracic/Lumbar Spine: thoraco-lumbar ROM normal, No thoracic spinal tenderness and No lumbar spinal tenderness Skin Other: There are candidal appearing rashes bilaterally underneath the abdominal pannus folds in the upper thighs Neuro General: patient alert, patient awake, patient oriented x3, moves all extremities, normal light touch, pain and propioception, no focal motor deficits and CN's II-XI intact bilaterally Extrem Right lower extremity: hip/thigh Details: abnormal to inspection Details: foreshortened, abnormal ROM Details: held in an abnormal fashion Details: in internal rotation, pain with active ROM during and pain with passive ROM during and deformity Location: at the hip Course Vital Signs Vital signs: Vital Signs Pulse 111 H 06/28/24 02:21 Respiratory Rate 25 H 06/28/24 02:21 Pulse Oximetry 97 06/28/24 02:21 Temperature 36.8 C 06/28/24 02:24 Temperature Source Skin 06/28/24 02:24 Pulse 111 H 06/28/24 02:21 Respiratory Rate 25 H 06/28/24 02:21 Blood Pressure Position Sitting 06/28/24 02:21 Pulse Oximetry 97 06/28/24 02:21 Oxygen Delivery Method Nasal Cannula 06/28/24 02:21 Oxygen Flow Rate 2 06/28/24 02:21 Pain Level 8 06/28/24 02:25 Lab/Test Results Lab/Test Results: Laboratory Tests Range/Units 06/28/24 02:45 WBC (4.4-10.8) 10^3/uL 16.78 H RBC (3.93-5.22) 10^6/uL 4.10 Hgb (11.2-15.7) g/dL 12.5 Hct (36.0-46.0) % 38.6 MCV (80-95) fL 94 MCH (27.0-33.0) pg 30.5 MCHC (32.0-36.0) % 32.4 RDW (11.7-14.6) % 13.4 Plt Count (130-400) 10^3/uL 237 MPV (8.0-11.0) fL 10.0 Immature Gran % % 0.5 Neutrophils % % 87.9 Lymphocytes % % 6.7 Monocytes % % 4.4 Eosinophils % % 0.2 Basophils % % 0.3 Nucleated RBC % (0.0-0.3) % 0.0 Absolute Neutrophils (1.2-6.7) 10^3/uL 14.75 H Absolute Lymphocytes (1.2-3.4) 10^3/uL 1.12 L Absolute Monocytes (0.1-0.8) 10^3/uL 0.74 Absolute Eosinophils (0.0-0.7) 10^3/uL 0.03 Absolute Basophils (0.0-0.2) 10^3/uL 0.05 Medical Decision Making The patient was seen and examined. She is in no distress but appears to most likely have a hip fracture in the right hip from her fall this evening. The remainder of her secondary survey was negative for any acute traumatic injuries. The patient does have some cardiac dysfunction and is currently on a blood thinner. She will likely require admission for ORIF of the right hip. I will discuss the case with orthopedics once the remainder of the workup and x-rays has been obtained. 0410 - This patient's X-ray of the right hip is positive for an intertrochanteric hip fracture. I discussed the case with Dr. Lockett, who will see the patient for the orthopedic service and perform the surgery required. I discussed the case for admission with Dr. Vinnie Rankin and placed holding orders for him after a discussion regarding surgical timing due to the patient's medications with Dr. Lockett. The patient will most likely be a surgical candidate on Thursday, tomorrow, given her Apixiban use. Diet, and pain management orders were written and the patient will be an ER hold until the dayshift due to low bed availability. Quality:SDOH Health Related Social Needs: No Data to Display PFSH All Active Problems (Updated 06/28/24 @ 04:13 by Mitchel Lawson MD) Closed intertrochanteric fracture of right hip (Acute) Pre-diabetes (Acute) Wound check, abscess (Acute) Loose stools (Acute) Abnormal liver enzymes (Acute) Chronic kidney disease, stage 3b (Acute) Acute dehydration (Acute) Anticoagulated (Chronic) 2021-on low dose Eliquis Chronic diastolic CHF (congestive heart failure) (Acute) Atrial fibrillation (Chronic) History of aortic valve replacement with bioprosthetic valve (Acute) Replaced, 2018 Obesity (Acute) Lumbar disc prolapse with compression radiculopathy (Acute) s/p surgery 1990 Hyperlipidemia (Acute 12/16/12) Essential hypertension (Acute 06/13/13) Dyspnea (Acute 01/24/02) Exertional;neg MPI ECHO LVH Disorder of diaphragm (Acute) paralyzed left Medical History (Updated 06/28/24 @ 04:13 by Mitchel Lawson MD) Urinary tract infection Gross hematuria Associated with Coumadin use, resolved-2021 Anemia Resolved-2020 likely associate with hematuria which had resolved Hydronephrosis Followed by urology, resolved as of 2021 Adenocarcinoma of endometrium, 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 Hyperlipemia Hypertension History of obesity Surgical History S/P aortic valve replacement with bioprosthetic valve PROCEDURES CARDIAC STRESS TEST [facility], NORMAL EXC/DEST INTVRT DISC NOS, 1990 micro disc surgery Abdominal hysterectomy (~08/1994) Bilateral salpingectomy with oophorectomy (~08/1994) Family History Mother Diabetes Heart disease Father Diabetes Heart disease Breast cancer Sister Diabetes Personal history of malignant neoplasm CERVICAL Breast cancer Brother Diabetes Other Anticoagulated Social History Smoking/Tobacco Use Status: Never Second Hand Exposure: Yes Smoking risk assessment performed?: Yes Alcohol Intake: never Drug use: Never Substance use type: does not use Adopted: No Caregiver/Support person: No Household members: other Details: grandson Housing: house Number of Children: 1 number of grandchildren: 2 Communication Needs: None Education Level: high school Details: 11 years Do you need help understanding health information?: Rarely Sexually active: No Do you think of yourself as: straight/heterosexual Current gender identity: female What is your relationship status?: How often do you talk on the phone with friends or family?: three or more times per week How often do you get together with friends or relatives?: once per week How often do you attend zoroastrianism or methodist services?: decline to answer Do you belong to any clubs or organized social groups?: no Panel score (0-1 are the most socially isolated patients): 1 What type of physical activity do you participate in: none Special luly needs: No Seatbelt use: always Helmet use: No (never) Drive intox or ride w/intox miniature train driver: No (never) Do you feel safe at home: Yes
[2024-06-28 03:19] LABS: Anion Gap 9.5 mmol/L (3-11); BUN 33 mg/dL (7-18); CO2 31.5 mmol/L (21.0-32.0); CREATININE 1.4 mg/dL (0.55-1.02); Calcium 9.3 mg/dL (8.5-10.1); Chloride 104 mmol/L (98-107); Estimated GFR 38.51 (mL/min/1.73m2); Glucose 130 mg/dL (74-106); Potassium 4.1 mmol/L (3.5-5.1); Sodium 145 mmol/L (136-145); Troponin I 13 ng/L (<or=51)
[2024-06-28 03:22] LABS: INR 1.2 (0.9-1.1); PTT Activated 25.9 sec (20.6-30.2); Prothrombin Time 11.6 sec (9.1-11.1)
[2024-06-28] MEDS: fentaNYL 100 MCG/2 ML VIAL 25 MCG IVP (03:22)
--- NOTE | 2024-06-28 04:01 | DI.VRAD_ITS ---
PROCEDURE INFORMATION: Exam: XR Chest Exam date and time: 06/28/2024 3:17 AM Age: 79 years old Clinical indication: Injury or trauma; Other: Post op; Injury date: 06/28/24; Injury details: Fall. Pre op TECHNIQUE: Imaging protocol: Radiologic exam of the chest. Views: 1 view. COMPARISON: XR PORTABLE CHEST AP POST LINE 08/30/2023 9:51 PM FINDINGS: Lungs: Very low lung volumes/expiratory phase imaging. Vascular crowding/subsegmental atelectasis at the lung bases. Lungs otherwise clear. Pleural spaces: Unremarkable. No pleural effusion. No pneumothorax. Heart/Mediastinum: Unremarkable. No cardiomegaly. Bones/joints: Unremarkable. Other findings: Patient is rotated to the right. IMPRESSION: Very low lung volumes/expiratory phase imaging. Vascular crowding/subsegmental atelectasis at the lung bases. Lungs otherwise clear. Dictated and Authenticated by: Yang Devine MD. Orderin Lulu Grullon MD
--- NOTE | 2024-06-28 04:03 | DI.VRAD_ITS ---
PROCEDURE INFORMATION: Exam: XR Right Hip Exam date and time: 06/28/2024 3:07 AM Age: 79 years old Clinical indication: Injury or trauma; Blunt trauma (contusions or hematomas); Right; Hip; Injury date: 06/28/24; Injury details: Fall, rotation, pain TECHNIQUE: Imaging protocol: Radiologic exam of the right hip. Views: 2 or 3 views hip with pelvis when performed. COMPARISON: CT ABDOMEN PELVIS W 03/10/2020 12:48 PM FINDINGS: Bones/joints: Acute mildly displaced/angulated intertrochanteric right femur fracture. No hip dislocation. Soft tissues: Unremarkable. IMPRESSION: Acute mildly displaced/angulated intertrochanteric right femur fracture. Dictated and Authenticated by: Yang Devine MD. Orderin Lulu Grullon MD
[2024-06-28] MEDS: fentaNYL 100 MCG/2 ML VIAL 50 MCG IVP ×3 (04:23→10:13)
[2024-06-28 04:25] LABS: COVID-19 PCR Negative (Negative); Influenza A PCR Negative (Negative); Influenza B PCR Negative (Negative); RSV PCR Negative (Negative)
[2024-06-28 04:27] LABS: Source Nasopharynx
--- NOTE | 2024-06-28 04:57 | OCONE_ITS ---
History of Present Illness History of Present Illness Chief Complaint: Right hip pain Narrative: Aurea is a 79 year old female who reported a mechanical fall at home last night. She got up to a chair but had continued pain and was unable to stand so she presented to the emergency department where she was diagnosed with a intertrochanteric proximal femur fracture on the right. She denies any head trauma. She denies any loss of consciousness. She denies pain elsewhere except in the right hip. She denies numbness or tingling. She does have a complex previous medical history with aortic stenosis, treated with a bioprosthetic aortic valve in 2018. She has systolic dysfunction and congestive heart failure for which she takes diuretics also in the setting of atrial fibrillation for which she takes metoprolol and apixaban for stroke prevention. She was admitted last year, approximate 2023, for sepsis. She recovered from this and reportedly is back to her baseline. She follows regularly with cardiology and her primary care practitioner, Connie Simmons. Consults Consult date: 06/28/24 Requesting physician: Mitchel Lawson Consult Reason Right hip fracture Assessment and Plan Assessment and plan (1) Closed intertrochanteric fracture of right hip: Status: Acute Assessment and plan: Aurea is a 79-year-old female who had a mechanical fall resulting in intertrochanteric fracture about the right hip. I discussed treatment options with her and recommend that we proceed with operative fixation given the displaced nature of the fracture and the history of these. I did discuss the tentacle details of the surgery, likely performed with an intramedullary nail. I also discussed the potential risk to include bleeding, infection, pain, stiffness, malunion, nonunion, hardware failure, hardware prominence, need for repeat procedures. I was also very honest with her that her bone health looks quite poor. She does not recall having any testing for her bones and does not report taking any medications for her bones. I would recommend that we consider a dose of zoledronic acid before discharge today with the addition of vitamin D and calcium to her medication regimen as she has the clinical diagnosis of osteoporosis given the hip fracture from a fall from height. She does have a history of sepsis last year with some chronic wound issues and she does have a large pannus with a marginally cared for pannus fold. This will need to be watched postoperatively to ensure that it stays dry and treated appropriately. (2) Osteoporosis: Status: Chronic Assessment and plan: She clinically has this diagnosis. I do not see any record of a DEXA scan in the past. She also is not being treated for any osteopenia as she should be given that she rarely goes outside, she is postmenopausal, and she lives in [place]. Therefore we should treat this aggressively given her osteoporotic fracture. Review of Systems All systems reviewed & are unremarkable except as noted in HPI and below PFSH All Active Problems (Updated 06/28/24 @ 12:01 by Ganesh Lockett MD) Osteoporosis (Chronic) Closed intertrochanteric fracture of right hip (Acute) Pre-diabetes (Acute) Wound check, abscess (Acute) Loose stools (Acute) Abnormal liver enzymes (Acute) Chronic kidney disease, stage 3b (Acute) Acute dehydration (Acute) Anticoagulated (Chronic) 2021-on low dose Eliquis Chronic diastolic CHF (congestive heart failure) (Acute) Atrial fibrillation (Chronic) History of aortic valve replacement with bioprosthetic valve (Acute) Replaced, 2018 Obesity (Acute) Lumbar disc prolapse with compression radiculopathy (Acute) s/p surgery 1990 Hyperlipidemia (Acute 12/16/12) Essential hypertension (Acute 06/13/13) Dyspnea (Acute 01/24/02) Exertional;neg MPI ECHO LVH Disorder of diaphragm (Acute) paralyzed left Medical History Urinary tract infection Gross hematuria Associated with Coumadin use, resolved-2021 Anemia Resolved-2020 likely associate with hematuria which had resolved Hydronephrosis Followed by urology, resolved as of 2021 Adenocarcinoma of endometrium, 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 Hyperlipemia Hypertension History of obesity Surgical History S/P aortic valve replacement with bioprosthetic valve PROCEDURES CARDIAC STRESS TEST [facility], NORMAL EXC/DEST INTVRT DISC NOS, 1990 micro disc surgery Abdominal hysterectomy (~08/1994) Bilateral salpingectomy with oophorectomy (~08/1994) Family History Mother Diabetes Heart disease Father Diabetes Heart disease Breast cancer Sister Diabetes Personal history of malignant neoplasm CERVICAL Breast cancer Brother Diabetes Other Anticoagulated Social History Smoking/Tobacco Use Status: Never Second Hand Exposure: Yes Smoking risk assessment performed?: Yes Alcohol Intake: never Drug use: Never Substance use type: does not use Adopted: No Caregiver/Support person: No Household members: other Details: grandson Housing: house Number of Children: 1 number of grandchildren: 2 Communication Needs: None Education Level: high school Details: 11 years Do you need help understanding health information?: Rarely Sexually active: No Do you think of yourself as: straight/heterosexual Current gender identity: female What is your relationship status?: How often do you talk on the phone with friends or family?: three or more times per week How often do you get together with friends or relatives?: once per week How often do you attend yazidism or mandaeism services?: decline to answer Do you belong to any clubs or organized social groups?: no Panel score (0-1 are the most socially isolated patients): 1 What type of physical activity do you participate in: none Special luly needs: No Seatbelt use: always Helmet use: No (never) Drive intox or ride w/intox local company tanker driver: No (never) Do you feel safe at home: Yes Exam Narrative Exam Narrative: Sitting up in the hospital bed. No acute distress. Alert and oriented to person and place. Evaluation of the right lower extremity shows a shortened and externally rotated lower extremity. She does have a large pannus which was elevated to inspect the right hip which shows some chronic skin changes within the groin fold and signs of irritation although no active candidal infection. No openings in the skin. No areas of laceration or abrasion. No ecchymosis. Thigh is soft and compressible. No pain with palpation of the knee, lower leg, foot or ankle. Sensation intact to light touch of the femoral and sciatic nerve distributions. She has active ankle dorsiflexion, plantarflexion, great toe extension, great toe flexion. Results Last Vital Signs Temp 36.8 C 06/28/24 02:24 Pulse 87 06/28/24 03:40 Resp 24 06/28/24 03:40 BP 134/97 H 06/28/24 02:46 Pulse Ox 97 06/28/24 03:40 Labs 06/28/24 02:45 06/28/24 02:45 Labs: Laboratory Results - last 24 hr 06/28/24 06/28/24 02:45 03:40 WBC 16.78 H RBC 4.10 Hgb 12.5 Hct 38.6 MCV 94 MCH 30.5 MCHC 32.4 RDW 13.4 Plt Count 237 MPV 10.0 Immature Gran % 0.5 Neutrophils % 87.9 Lymphocytes % 6.7 Monocytes % 4.4 Eosinophils % 0.2 Basophils % 0.3 Nucleated RBC % 0.0 Absolute Neutrophils 14.75 H Absolute Lymphocytes 1.12 L Absolute Monocytes 0.74 Absolute Eosinophils 0.03 Absolute Basophils 0.05 PT 11.6 H INR 1.2 H APTT 25.9 Sodium 145 Potassium 4.1 Chloride 104 Carbon Dioxide 31.5 Anion Gap 9.5 BUN 33 H Creatinine 1.4 H Est GFR (CKD-EPI 2020) 38.51 Glucose 130 H Calcium 9.3 Troponin I 13 COVID-19 Source Nasopharynx SARS-CoV-2 (PCR) Negative Influenza Type A (PCR) Negative Influenza Type B (PCR) Negative RSV (PCR) Negative ABO/Rh O Positive Antibody Screen NEGATIVE Imaging Imaging Studies: X-ray of the right hip shows a displaced intertrochanteric fracture of the right proximal femur. There seems to be some generalized osteopenia about the visualized bones. Moderate arthritis seen about the right hip.
--- NOTE | 2024-06-28 05:42 | W.PC.ACHO ---
Registration Status: Primary Language: Preferred Language: ED Information & Data Chief Complaint Orthopedic 06/28/24 03:06 Triage Note fell at 2030, right hip 06/28/24 02:21 affected. Shortening noted as well as external rotation . No meds given per EMS. Pt on o2, not on it at home. 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) Hyperlipemia Hypertension History of obesity (Last Reviewed 12/01/23 @ 09:26 by Blanca Foreman MD) S/P aortic valve replacement with bioprosthetic valve PROCEDURES Abdominal hysterectomy (~08/1994) Bilateral salpingectomy with oophorectomy (~08/1994) Most Recent Vital Signs Temperature 36.8 C 06/28/24 02:24 Temperature Source Skin 06/28/24 02:24 Pulse 106 H 06/28/24 05:20 Pulse 107 H 06/28/24 05:20 Respiratory Rate 22 06/28/24 05:20 Blood Pressure 96/63 L 06/28/24 05:15 Blood Pressure Mean 72 06/28/24 05:15 Blood Pressure Position Sitting 06/28/24 02:21 Pulse Oximetry 97 06/28/24 05:20 Oxygen Delivery Method Nasal Cannula 06/28/24 02:21 Oxygen Flow Rate 2 06/28/24 02:21 Pain Level 8 06/28/24 02:25 Allergies diclofenac Allergy (Severe, Verified 06/28/24 02:27) HIVES nifedipine Adverse Reaction (Unknown, Verified 06/28/24 02:27) PEDAL EDEMA Precautions Isolation Standard precaution 06/28/24 02:23 IV IV Catheter Type [Left Wrist] Saline Lock IV Catheter Gauge [Left Wrist] 20 Diet Orders Category Date Time Status npo [Nothing Per Oral] [DIET] Nutrition 06/28/24 Breakfast Active Diagnostics 06/28/24 06/28/24 06/28/24 Range/Units 05:35 03:40 03:35 WBC (4.4-10.8) 10^3/uL RBC (3.93-5.22) 10^6/uL Hgb (11.2-15.7) g/dL Hct (36.0-46.0) % MCV (80-95) fL MCH (27.0-33.0) pg MCHC (32.0-36.0) % RDW (11.7-14.6) % Plt Count (130-400) 10^3/uL MPV (8.0-11.0) fL Immature Gran % % Neutrophils % % Lymphocytes % % Monocytes % % Eosinophils % % Basophils % % Nucleated RBC % (0.0-0.3) % Absolute Neutrophils (1.2-6.7) 10^3/uL Absolute Lymphocytes (1.2-3.4) 10^3/uL Absolute Monocytes (0.1-0.8) 10^3/uL Absolute Eosinophils (0.0-0.7) 10^3/uL Absolute Basophils (0.0-0.2) 10^3/uL PT (9.1-11.1) sec INR (0.9-1.1) APTT (20.6-30.2) sec Sodium (136-145) mmol/L Potassium (3.5-5.1) mmol/L Chloride (98-107) mmol/L Carbon Dioxide (21.0-32.0) mmol/L Anion Gap (3-11) mmol/L BUN (7-18) mg/dL Creatinine (0.55-1.02) mg/dL Est GFR (CKD-EPI 2020) (mL/min/1.73m2) Glucose (74-106) mg/dL Calcium (8.5-10.1) mg/dL Troponin I Pending Pending (<or=51) ng/L COVID-19 Source Nasopharynx SARS-CoV-2 (PCR) Negative (Negative) Influenza Type A (PCR) Negative (Negative) Influenza Type B (PCR) Negative (Negative) RSV (PCR) Negative (Negative) ABO/Rh Antibody Screen 06/28/24 Range/Units 02:45 WBC 16.78 H (4.4-10.8) 10^3/uL RBC 4.10 (3.93-5.22) 10^6/uL Hgb 12.5 (11.2-15.7) g/dL Hct 38.6 (36.0-46.0) % MCV 94 (80-95) fL MCH 30.5 (27.0-33.0) pg MCHC 32.4 (32.0-36.0) % RDW 13.4 (11.7-14.6) % Plt Count 237 (130-400) 10^3/uL MPV 10.0 (8.0-11.0) fL Immature Gran % 0.5 % Neutrophils % 87.9 % Lymphocytes % 6.7 % Monocytes % 4.4 % Eosinophils % 0.2 % Basophils % 0.3 % Nucleated RBC % 0.0 (0.0-0.3) % Absolute Neutrophils 14.75 H (1.2-6.7) 10^3/uL Absolute Lymphocytes 1.12 L (1.2-3.4) 10^3/uL Absolute Monocytes 0.74 (0.1-0.8) 10^3/uL Absolute Eosinophils 0.03 (0.0-0.7) 10^3/uL Absolute Basophils 0.05 (0.0-0.2) 10^3/uL PT 11.6 H (9.1-11.1) sec INR 1.2 H (0.9-1.1) APTT 25.9 (20.6-30.2) sec Sodium 145 (136-145) mmol/L Potassium 4.1 (3.5-5.1) mmol/L Chloride 104 (98-107) mmol/L Carbon Dioxide 31.5 (21.0-32.0) mmol/L Anion Gap 9.5 (3-11) mmol/L BUN 33 H (7-18) mg/dL Creatinine 1.4 H (0.55-1.02) mg/dL Est GFR (CKD-EPI 2020) 38.51 (mL/min/1.73m2) Glucose 130 H (74-106) mg/dL Calcium 9.3 (8.5-10.1) mg/dL Troponin I 13 (<or=51) ng/L COVID-19 Source SARS-CoV-2 (PCR) (Negative) Influenza Type A (PCR) (Negative) Influenza Type B (PCR) (Negative) RSV (PCR) (Negative) ABO/Rh O Positive Antibody Screen NEGATIVE Intake and Output - 24 Hour Total 06/28/24 02:14 thru 06/28/24 03:45 Intake Total 100 Balance 100 Weight 81.647 kg Intake: IV 100 Falls Risk Assessment History of Falls Admit Due to Fall 06/28/24 02:27 Contributing Factors Unstable,Impairments 06/28/24 02:27 Ambulatory Aids Uses ambulatory device 06/28/24 02:27 Tubes/Lines None 06/28/24 02:27 Gait Evaluation W/no contributing factors 06/28/24 02:27 Cognition No cognitive impairment 06/28/24 02:27 Fall Total Score 56 06/28/24 02:27 Level of Risk High Risk 06/28/24 02:27 Problems (Last Updated 12/01/23 @ 09:27 by Blanca Foreman MD) Closed intertrochanteric fracture of right hip (Acute) Anticoagulated (Chronic) Atrial fibrillation (Chronic) v v v v v v v v v Sending and/or Receiving Nurses: Please use comment section below to note any information pertinent to the patient hand-off not included above. Information / Comments: Pt broke hip, has gotten total of 75mcg of fentanyl for pain. Pt has shortening from fracture. Pt has a cow valve in her heart. Pt is pleasant. Report received from: Yohan @ [id number]
[2024-06-28 06:54] LABS: Troponin I 15 ng/L (<or=51)
[2024-06-28 08:44] LABS: Troponin I 16 ng/L (<or=51)
[2024-06-28] MEDS: Lactated Ringers 1,000 ML 50 ML IV (09:29)
--- NOTE | 2024-06-28 10:10 | PDOC.CMIN ---
Date of service: 06/28/24 Time of Service: 12:45 Care Management Initial Assmt Initial Assessment Reason for Hospitalization: right hip fracture, s/p fall Functional Status/Living Situation Patient Presentation: Aurea presented to the ER last night after having a fall. She was able to get up with the help of her grandson, with whom she lives, but then developed increased pain and she was unable to stand. She was brought to the ER and found to have an intertrochanteric hip fracture. When CM met with Auera today, her daughter, Jinny was visiting. Aurea was in good spirits and stated that she is having surgery this afternoon. Aurea lives at home, her grandson lives with her. Town of Residence: [facility] Resides with: Other (grandson, Pawel) Significant Other/Family: Local (Daughter, Bebe, sister, Martha, and sister in law Genesis) Natural Supports: family, especially Bebe and Pawel Employment Status: Retired Instrumental Activities of Daily Living (ADLs): Independent (until this recent hip fracture) Medications Medication Management: No Issues/Barriers identified Advance Directives Advance Directives: Do you have an Advance Directive: Y 04/16/20 08:28 AD On File at [facility]: Y 04/16/20 08:28 Date Asked 03/13/20 06/28/24 08:56 AD Date Reviewed 06/28/24 06/28/24 04:45 COLST On File at [facility] COLST Date Scanned Code Status Resuscitation Status Full Code Insurance Coverage/Financial Issues Financial Issues: [employer] Medicare Replacement Care Team Visit Care Team Role Provider Type Connie Simmons NP Primary Care Provider NURSE PRACTITIONER Mitchel Lawson MD Emergency Provider [facility] STAFF PHYSICIAN Vinnie Rankin MD Admit Provider [facility] STAFF PHYSICIAN Attending Provider Discharge Potential Discharge Needs: PT Evaluation, PCP F/U Appt and Surgical F/U Appt Anticipated Barriers to Discharge: None Identified Patient/Family Education Needs: Review discharge instructions, discuss Ask Me Three Transportation: Other (dependent on progress and disposition) Plan: Anticipate that Blanca will be transferred to SNF for STR once medically stable and a bed is secured. She stated that she would prefer to go home with , if at all possible. Her grandson does not work and lives with her. Daughter, Bebe, also stated that she may take FMLA to care for her mom. CM will revisit tomorrow after PT consult has been done, and update the plan as needed. Social Determinants of Health Screening Will the Patient Participate in the Screening?: Unable to obtain PFSH All Active Problems (Updated 06/28/24 @ 12:01 by Ganesh Lockett MD) Osteoporosis (Chronic) Closed intertrochanteric fracture of right hip (Acute) Pre-diabetes (Acute) Wound check, abscess (Acute) Loose stools (Acute) Abnormal liver enzymes (Acute) Chronic kidney disease, stage 3b (Acute) Acute dehydration (Acute) Anticoagulated (Chronic) 2021-on low dose Eliquis Chronic diastolic CHF (congestive heart failure) (Acute) Atrial fibrillation (Chronic) History of aortic valve replacement with bioprosthetic valve (Acute) Replaced, 2018 Obesity (Acute) Lumbar disc prolapse with compression radiculopathy (Acute) s/p surgery 1990 Hyperlipidemia (Acute 12/16/12) Essential hypertension (Acute 06/13/13) Dyspnea (Acute 01/24/02) Exertional;neg MPI ECHO LVH Disorder of diaphragm (Acute) paralyzed left Medical History Urinary tract infection Gross hematuria Associated with Coumadin use, resolved-2021 Anemia Resolved-2020 likely associate with hematuria which had resolved Hydronephrosis Followed by urology, resolved as of 2021 Adenocarcinoma of endometrium, 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 Hyperlipemia Hypertension History of obesity Surgical History S/P aortic valve replacement with bioprosthetic valve PROCEDURES CARDIAC STRESS TEST [facility], NORMAL EXC/DEST INTVRT DISC NOS, 1990 micro disc surgery Abdominal hysterectomy (~08/1994) Bilateral salpingectomy with oophorectomy (~08/1994) Family History Mother Diabetes Heart disease Father Diabetes Heart disease Breast cancer Sister Diabetes Personal history of malignant neoplasm CERVICAL Breast cancer Brother Diabetes Other Anticoagulated Social History Smoking/Tobacco Use Status: Never Second Hand Exposure: Yes Smoking risk assessment performed?: Yes Alcohol Intake: never Drug use: Never Substance use type: does not use Adopted: No Caregiver/Support person: No Household members: other Details: grandson Housing: house Number of Children: 1 number of grandchildren: 2 Communication Needs: None Education Level: high school Details: 11 years Do you need help understanding health information?: Rarely Sexually active: No Do you think of yourself as: straight/heterosexual Current gender identity: female What is your relationship status?: How often do you talk on the phone with friends or family?: three or more times per week How often do you get together with friends or relatives?: once per week How often do you attend rastafarian or rastafari services?: decline to answer Do you belong to any clubs or organized social groups?: no Panel score (0-1 are the most socially isolated patients): 1 What type of physical activity do you participate in: none Special luly needs: No Seatbelt use: always Helmet use: No (never) Drive intox or ride w/intox milk wagon driver: No (never) Do you feel safe at home: Yes Readmission Within the Past 30 Days Yes or No: No
--- NOTE | 2024-06-28 11:15 | DI.RAD_ITS ---
Exam(s) XR HIP RT IN OR EXAM: XR HIP RT IN OR CLINICAL HISTORY: fracture of right hip. TECHNIQUE: 2D and realtime digital imaging was performed. COMPARISON: CR,XR XR HIP RT COMPLETE AP PELVIS from 06/28/2024 FINDINGS: Hard copy images show placement of a nail in the proximal right femur for fracture fixation. The ali gnment is significantly improved. Please see procedure note for details. Fluoro time: 1 minutes 14seconds RADIATION DOSE DELIVERED: suleiman Biggs=14.2 mGy
--- NOTE | 2024-06-28 11:16 | W.PM.HP.N ---
Date of service: 06/28/24 Time of Service: 11:00 Assessment and Plan Assessment and plan (1) Closed intertrochanteric fracture of right hip: Status: Acute Assessment and plan: Status post fall confirmed by imaging OR today with Dr. Lockett please read notes: On cefazolin with stop time Started on multimodal pain management with scheduled acetaminophen and as needed Ultram Celebrex might be an option scheduled twice daily will discuss with Ortho but has hives with diclofenac Physical therapy consult (2) Chronic kidney disease, stage 3b: Status: Acute Assessment and plan: Stable will continue to monitor BMP in the morning (3) Chronic diastolic CHF (congestive heart failure): Status: Acute Assessment and plan: Echo in 2019 shows EF of 52% Will continue home medicine regimen (4) Atrial fibrillation: Status: Chronic Assessment and plan: Rate controlled on metoprolol also on Eliquis which has been stopped due to right hip fracture and surgical repair procedure Continue home dose metoprolol medical As per Ortho Eliquis okay to be restarted tonight. (5) On deep vein thrombosis (DVT) prophylaxis: Status: Acute Assessment and plan: Will proceed as per Ortho guidance to restart Eliquis in the meantime we will do TEDs Discussed with Dr. Amaya History of Present Illness History of Present Illness Chief Complaint: Fall, right hip pain, ambulatory dysfunction Narrative: The patient is a 79-year-old female, with a past medical history of CAD status post CABG, atrial fibrillation on Eliquis, presented to the ED status post fall with complaint of ongoing right hip pain. The patient was afebrile and hemodynamically stable. The right lower extremity showed shortening and internal rotation after a fall the prior evening at around 7:30 PM. Patient reported to the ED provider that her grandson was able to pick her up and put her in a chair but she was not able to get up and stand on her leg after this as there was too much pain trying to get out of the chair. The patient denies other injuries from the fall. She denies any recent illnesses Workup in the ED showed an entertrochanteric right hip fracture for which referred to [address] Lockett from orthopedic services with surgery most likely plan for 06/29/2024 due to chronic use of apixaban. Creatinine was at 1.4 with a baseline around 1.2, leukocytosis at 16 which is most likely reactive. The patient was admitted to the medical surgical floor by the hospitalist team for evaluation and management of right hip fracture, pain while awaiting surgical repair. The patient was admitted as a full code confirmed by advanced directives from 2019 . No reported fever, chest pain, nausea , vomiting diarrhea or dysuria Review of Systems All systems reviewed & are unremarkable except as noted in HPI and below PFSH All Active Problems (Updated 06/28/24 @ 16:10 by Lisa Bennett APRN) On deep vein thrombosis (DVT) prophylaxis (Acute) Osteoporosis (Chronic) Closed intertrochanteric fracture of right hip (Acute) Pre-diabetes (Acute) Wound check, abscess (Acute) Loose stools (Acute) Abnormal liver enzymes (Acute) Chronic kidney disease, stage 3b (Acute) Acute dehydration (Acute) Anticoagulated (Chronic) 2021-on low dose Eliquis Chronic diastolic CHF (congestive heart failure) (Acute) Atrial fibrillation (Chronic) History of aortic valve replacement with bioprosthetic valve (Acute) Replaced, 2018 Obesity (Acute) Lumbar disc prolapse with compression radiculopathy (Acute) s/p surgery 1990 Hyperlipidemia (Acute 12/16/12) Essential hypertension (Acute 06/13/13) Dyspnea (Acute 01/24/02) Exertional;neg MPI ECHO LVH Disorder of diaphragm (Acute) paralyzed left Medical History Urinary tract infection Gross hematuria Associated with Coumadin use, resolved-2021 Anemia Resolved-2020 likely associate with hematuria which had resolved Hydronephrosis Followed by urology, resolved as of 2021 Adenocarcinoma of endometrium, 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 Hyperlipemia Hypertension History of obesity Surgical History S/P aortic valve replacement with bioprosthetic valve PROCEDURES CARDIAC STRESS TEST [facility], NORMAL EXC/DEST INTVRT DISC NOS, 1990 micro disc surgery Abdominal hysterectomy (~08/1994) Bilateral salpingectomy with oophorectomy (~08/1994) Family History Mother Diabetes Heart disease Father Diabetes Heart disease Breast cancer Sister Diabetes Personal history of malignant neoplasm CERVICAL Breast cancer Brother Diabetes Other Anticoagulated Social History Smoking/Tobacco Use Status: Never Second Hand Exposure: Yes Smoking risk assessment performed?: Yes Alcohol Intake: never Drug use: Never Substance use type: does not use Adopted: No Caregiver/Support person: No Household members: other Details: grandson Housing: house Number of Children: 1 number of grandchildren: 2 Communication Needs: None Education Level: high school Details: 11 years Do you need help understanding health information?: Rarely Sexually active: No Do you think of yourself as: straight/heterosexual Current gender identity: female What is your relationship status?: How often do you talk on the phone with friends or family?: three or more times per week How often do you get together with friends or relatives?: once per week How often do you attend temple or temple services?: decline to answer Do you belong to any clubs or organized social groups?: no Panel score (0-1 are the most socially isolated patients): 1 What type of physical activity do you participate in: none Special luly needs: No Seatbelt use: always Helmet use: No (never) Drive intox or ride w/intox tour bus driver: No (never) Do you feel safe at home: Yes Meds Allergies and Home Medications Allergies Allergy/AdvReac Type Severity Reaction Status Date / Time diclofenac Allergy Severe HIVES Verified 06/28/24 02:27 nifedipine AdvReac Unknown PEDAL EDEMA Verified 06/28/24 02:27 Home Medications ?Medication ?Instructions ?Recorded ?Confirmed ?Type multivitamin (Once Daily tablet) 1 tab PO DAILY 09/02/12 06/28/24 History aspirin 81 mg tablet,delayed 81 mg PO DAILY #0 tabs 03/13/20 06/28/24 Rx release (Adult Low Dose Aspirin) triamcinolone acetonide 0.1 % 1 applic topical BID #30 grams 03/19/22 06/28/24 Rx topical cream mupirocin 2 % topical ointment 1 applic topical BID 5 days #22 09/17/23 06/28/24 Rx grams atorvastatin 20 mg tablet 20 mg PO DAILY #90 tabs 05/10/24 06/28/24 Rx furosemide 20 mg tablet (Lasix) 40 mg (2 x 20 mg) PO DAILY #180 05/10/24 06/28/24 Rx tabs metoprolol succinate 100 mg 100 mg PO DAILY #90 tabs 05/10/24 06/28/24 Rx tablet,extended release 24 hr (Toprol XL) spironolactone 25 mg tablet See Rx Instructions .Route 05/10/24 06/28/24 Rx .COMPLEX #45 tabs apixaban 2.5 mg tablet 2.5 mg PO BID 30 days #60 tabs 05/27/24 06/28/24 Rx Exam Narrative Exam Narrative: Constitutional The patient in bed comfortable without acute distress Neuro:alert and oriented to self, person, place, time ( off by 24 hours) and situation. No neurological focal deficit Resp: unlabored breathing, clear upper lung bilaterally , right base crackles Cardio:paced on tele, S1, S2, irregular , no murmur, bilateral radial and dorsalis pedis pulses are positive GI: Abdomen is not distended, soft and non tender, bowel sounds are present : rendon in place Integumentary: No skin lesions or rash,right hip dressing intact( s/p Sx) Extremities: RLE weakness d/t increased pain on flexion extension ortherwise intact ext strength Psych: RASS 0, congruent mood and normal affect. Results Labs 06/28/24 17:32 06/28/24 02:45 Labs: Laboratory Results - last 24 hr 06/28/24 06/28/24 06/28/24 02:45 03:40 06:07 WBC 16.78 H RBC 4.10 Hgb 12.5 Hct 38.6 MCV 94 MCH 30.5 MCHC 32.4 RDW 13.4 Plt Count 237 MPV 10.0 Immature Gran % 0.5 Neutrophils % 87.9 Lymphocytes % 6.7 Monocytes % 4.4 Eosinophils % 0.2 Basophils % 0.3 Nucleated RBC % 0.0 Absolute Neutrophils 14.75 H Absolute Lymphocytes 1.12 L Absolute Monocytes 0.74 Absolute Eosinophils 0.03 Absolute Basophils 0.05 PT 11.6 H INR 1.2 H APTT 25.9 Sodium 145 Potassium 4.1 Chloride 104 Carbon Dioxide 31.5 Anion Gap 9.5 BUN 33 H Creatinine 1.4 H Est GFR (CKD-EPI 2020) 38.51 Glucose 130 H Calcium 9.3 Troponin I 13 Cancelled COVID-19 Source Nasopharynx SARS-CoV-2 (PCR) Negative Influenza Type A (PCR) Negative Influenza Type B (PCR) Negative RSV (PCR) Negative ABO/Rh O Positive Antibody Screen NEGATIVE 06/28/24 06/28/24 06:22 08:18 WBC RBC Hgb Hct MCV MCH MCHC RDW Plt Count MPV Immature Gran % Neutrophils % Lymphocytes % Monocytes % Eosinophils % Basophils % Nucleated RBC % Absolute Neutrophils Absolute Lymphocytes Absolute Monocytes Absolute Eosinophils Absolute Basophils PT INR APTT Sodium Potassium Chloride Carbon Dioxide Anion Gap BUN Creatinine Est GFR (CKD-EPI 2020) Glucose Calcium Troponin I 15 16 COVID-19 Source SARS-CoV-2 (PCR) Influenza Type A (PCR) Influenza Type B (PCR) RSV (PCR) ABO/Rh Antibody Screen Last Vital Signs Temp 36.8 C 06/28/24 08:12 Pulse 81 06/28/24 08:12 Resp 18 06/28/24 08:12 BP 93/71 L 06/28/24 08:12 Pulse Ox 96 06/28/24 08:50 Time Spent Time spent with Patient: >75 minutes Time was spent: preparing to see the patient(eg.review tests), obtaining and/or reviewing separately otained hiistory, ordering medications,tests, procedures, referring, communicating with other health primary care nurse practitioner, indepentently interpreting results, counseling the patient and care coordination
--- NOTE | 2024-06-28 11:17 | ANES.PREOP_ITS ---
General Info Date of Service Date Performed: 06/28/24 Height: 5 ft Weight: 81.647 kg Body Mass Index (BMI): 35.2 Surgical Procedure: Operation Date: 06/28/24 15:45 Proposed Procedure Side Surgeon p Hip TFNA, Short Right Ganesh Lockett MD Actual Procedure Side Surgeon p Hip TFNA, Short Right Ganesh Lockett MD Pre-Op Diagnosis Post-Op Diagnosis fracture of right hip Meds Allergies and Home Medications Allergies Allergy/AdvReac Type Severity Reaction Status Date / Time diclofenac Allergy Severe HIVES Verified 06/28/24 02:27 nifedipine AdvReac Unknown PEDAL EDEMA Verified 06/28/24 02:27 Home Medication ?Medication ?Instructions ?Recorded multivitamin (Once Daily tablet) 1 tab PO DAILY 09/02/12 aspirin 81 mg tablet,delayed 81 mg PO DAILY #0 tabs 03/13/20 release (Adult Low Dose Aspirin) triamcinolone acetonide 0.1 % 1 applic topical BID #30 grams 03/19/22 topical cream mupirocin 2 % topical ointment 1 applic topical BID 5 days #22 09/17/23 grams atorvastatin 20 mg tablet 20 mg PO DAILY #90 tabs 05/10/24 furosemide 20 mg tablet (Lasix) 40 mg (2 x 20 mg) PO DAILY #180 05/10/24 tabs metoprolol succinate 100 mg 100 mg PO DAILY #90 tabs 05/10/24 tablet,extended release 24 hr (Toprol XL) spironolactone 25 mg tablet See Rx Instructions .Route 05/10/24 .COMPLEX #45 tabs apixaban 2.5 mg tablet 2.5 mg PO BID 30 days #60 tabs 05/27/24 Current Visit Medications: Current Medications Generic Name Dose Route Start Last Admin Trade Name Freq PRN Reason Stop Dose Admin Fentanyl 50 mcg 06/28/24 04:18 06/28/24 10:13 Fentanyl 100 Mcg/2 Ml Vial IVP 50 mcg Q2H PRN PRN Administration Ringer's Solution 1,000 mls @ 50 mls/hr 06/28/24 07:30 06/28/24 09:29 IV 50 mls/hr INFUSION KARMEN Administration Sodium Chloride 0 ml 06/28/24 11:02 Normal Saline Flush 10 Ml Syr IVP PRN PRN PFSH Active Problems Active Problems: Problem Status Onset Code Closed intertrochanteric fracture of right hip Acute S72.141A Pre-diabetes Acute R73.03 Wound check, abscess Acute Z51.89 Loose stools Acute R19.5 Abnormal liver enzymes Acute R74.8 Chronic kidney disease, stage 3b Acute N18.32 Acute dehydration Acute E86.0 Anticoagulated Chronic Z79.01 Chronic diastolic CHF (congestive heart failure) Acute I50.32 Atrial fibrillation Chronic I48.91 History of aortic valve replacement with bioprosthetic valve Acute Z95.3 Obesity Acute E66.9 Lumbar disc prolapse with compression radiculopathy Acute M51.16 Hyperlipidemia Acute 12/16/12 E78.5 Essential hypertension Acute 06/13/13 I10 Dyspnea Acute 01/24/02 R06.00 Disorder of diaphragm Acute J98.6 Medical History Medical History Urinary tract infection Gross hematuria Associated with Coumadin use, resolved-2021 Anemia Resolved-2020 likely associate with hematuria which had resolved Hydronephrosis Followed by urology, resolved as of 2021 Adenocarcinoma of endometrium, 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 Hyperlipemia Hypertension History of obesity Surgical History Surgical History S/P aortic valve replacement with bioprosthetic valve PROCEDURES CARDIAC STRESS TEST [facility], NORMAL EXC/DEST INTVRT DISC NOS, 1990 micro disc surgery Abdominal hysterectomy (~08/1994) Bilateral salpingectomy with oophorectomy (~08/1994) Tobacco Smoking/Tobacco Use Status: Never Second hand exposure: Yes Alcohol Alcohol Intake: never Substance Use Substance use: Never Substance use type: does not use Vital Signs and Lab Results Vital Signs Most Recent Vital Signs in EMR: Most Recent Vital Signs Temp Pulse Resp BP Pulse Ox 36.8 C 81 18 93/71 L 96 06/28/24 08:12 06/28/24 08:12 06/28/24 08:12 06/28/24 08:12 06/28/24 08:50 Lab Results 06/28/24 02:45 06/28/24 02:45 Blood Type / Crossmatch: 2 Antibody Screen NEGATIVE 06/28/24 Complete Blood Count: 2 White Blood Count 16.78 10^3/uL (4.4-10.8) H 06/28/24 02:45 Red Blood Count 4.10 10^6/uL (3.93-5.22) 06/28/24 02:45 Hemoglobin 12.5 g/dL (11.2-15.7) 06/28/24 02:45 Hematocrit 38.6 % (36.0-46.0) 06/28/24 02:45 Platelet Count 237 10^3/uL (130-400) 06/28/24 02:45 Complete Metabolic Panel: 2 Sodium 145 mmol/L (136-145) 06/28/24 02:45 Potassium 4.1 mmol/L (3.5-5.1) 06/28/24 02:45 Chloride 104 mmol/L (98-107) 06/28/24 02:45 Carbon Dioxide 31.5 mmol/L (21.0-32.0) 06/28/24 02:45 BUN 33 mg/dL (7-18) H 06/28/24 02:45 Creatinine 1.4 mg/dL (0.55-1.02) H 06/28/24 02:45 Est GFR (CKD-EPI 2020) 38.51 (mL/min/1.73m2) 06/28/24 02:45 Calcium 9.3 mg/dL (8.5-10.1) 06/28/24 02:45 Glucose 130 mg/dL (74-106) H 06/28/24 02:45 Liver Function Panel: 2 No Data to Display Coagulation Panel: 2 INR International Normalized Ratio 1.2 (0.9-1.1) H 06/28/24 02 :45 Prothrombin Time 11.6 sec (9.1-11.1) H 06/28/24 02:45 Activated Partial Thromboplast Time 25.9 sec (20.6-30.2) 02:45 Cardiac Panel: 2 Troponin I 16 ng/L (<or=51) 06/28/24 Arterial Blood Gas: 2 No Data to Display Venous Blood Gas: 2 No Data to Display Pancreas Panel: 2 No Data to Display Thyroid Panel: 2 No Data to Display Infectious Disease: 2 Coronavirus (COVID-19)(PCR) Negative (Negative) 06/28/24 03:40 Coronavirus 2019 Source Nasopharynx 06/28/24 03:40 Influenza Virus Type A (PCR) Negative (Negative) 06/28/24 03:4 0 Influenza Virus Type B (PCR) Negative (Negative) 06/28/24 03:4 0 Respiratory Syncytial Virus (PCR) Negative (Negative) 06/28/24 03:40 Blood Cultures: 2 No Data to Display Toxicology Panel: 2 No Data to Display Imaging and Studies Imaging and Studies Study information below may be from another EMR and interpreted by another provider. Please see original notes in EMR for more complete details. EKG Summary: 06/28/24: AFib, RBBB, LPFB Echocardiogram Summary: 09/02/23: Conclusion Technically suboptimal and limited study Left ventricle appears grossly normal in size wall thickness and systolic function. The patient is in atrial fibrillation with [id number] variation, mildly tachycardic, which limits assessment Right ventricle is not well-visualized but appears grossly normal in size Both atria are severely enlarged There is a bioprosthetic aortic valve. Mean gradient is 11 mmHg Mitral annular calcification, mild mitral regurgitation Mild to moderate tricuspid regurgitation. Estimated right ventricular systolic pressure is 31 mmHg Mildly dilated ascending aorta Study is not adequate to assess for valvular vegetations Pulmonary Function Summary: 08/17/2017: Spirometry shows no evidence of obstructive airways disease; no bronchodilator testing was carried out. Lung volumes - incomplete testing. One cannot comment on underlying restriction without total lung capacity measurement. Diffusion capacity mildly reduced, which is normal when corrected to alveolar volume. IMPRESSION: No evidence of obstructive airways disease. Constellation of findings is suggestive of underlying restriction, however without total lung capacity measurement one cannot comment on possible underlying restriction. Therefore, clinical correlation recommended and if restrictive lung disease is suspected, proceeding with plethysmography maneuver is recommended. When this study was compared to previous ones from 02/03/05 and 02/17/05, the patient has a stable FVC and FEV1 is also basically stable. Clinical correlation recommended. Anesthesia Assessment and Plan Anesthesia History Personal History: No History of Anesthesia Complications Family History: No Family History of Anesthesia Complications Exercise Tolerance Exercise Tolerance: Metabolic Equivalents<4 Pertinent Negatives Pertinent Negatives: No Symptoms of GERD Cardiac & Pulmonary Exam Cardiac Exam: Other (Bioprosthetic Valve) Pulmonary Exam: Clear Bilateral Breath Sounds Implantable Cardiac Device Does patient have a Pacemaker or an ICD?: No Airway Exam Known Difficult Airway: No Mallampati Class: 1 Mouth Opening: Normal (> 3cm) Thyromental Distance: Greater than 3 cm Neck Range of Motion: Full ROM Neck Circumference: Normal Teeth Condition: Normal Dentition ASA Classification ASA Score: ASA 3 Emergency Case?: No NPO Status NPO Status: NPO Clears >2 hours, Solids >8 hours Anesthesia Plan Resuscitation Status: Full Code Anesthesia Technique: General Anesthesia Airway Planned: Endotracheal Tube Monitors Used: Standard Monitors and SedLine Preoperative Comments:: Patient transferred to PACU by RN team. Medical history reviewed. Patient currently on 1/L oxygen and feels slightly SOB. No reports of chest pain/pressure. Most recent echo and cardiology note reviewed.
[2024-06-28] MEDS: Normal Saline Flush 10 ML SYR (11:48)
--- NOTE | 2024-06-28 15:05 | PHA.REVIEW2 ---
Pharmacy Admission Review Admission Clinical Review Admission Pharmacy Review: Closed intertrochanteric fracture of right hip (Acute) diclofenac Allergy (Severe, Verified 06/28/24 02:27) HIVES nifedipine Adverse Reaction (Unknown, Verified 06/28/24 02:27) PEDAL EDEMA Resuscitation Status Full Code Height 5 ft Weight 81.647 kg Comments Comments/Follow Ups: Will reach out to provider once patient is post op if orders are not put in. Pharmacy Admission Review Renal Dosing Renal Dosing: BUN 33 mg/dL (7-18) H 06/28/24 02:45 Creatinine 1.4 mg/dL (0.55-1.02) H 06/28/24 02:45 Medications needing adjustments: Reviewed (CrCl 31.35 mL/min) Anticoagulation Anticoagulation: Hgb 12.5 g/dL (11.2-15.7) 06/28/24 02:45 Hct 38.6 % (36.0-46.0) 06/28/24 02:45 Plt Count 237 10^3/uL (130-400) 06/28/24 02:45 INR 1.2 (0.9-1.1) H 06/28/24 02:45 Creatinine 1.4 mg/dL (0.55-1.02) H 06/28/24 02:45 DVT Prophylaxis: Reviewed (SCDs) Opiate Usage Evaluate Pain Scale/Pains Meds: Reviewed (fentanyl 50mcg IVP q2h PRN - 100mcg / 24 hrs) Relevant Labs Relevant Labs: Sodium 145 mmol/L (136-145) 06/28/24 02:45 Potassium 4.1 mmol/L (3.5-5.1) 06/28/24 02:45 Chloride 104 mmol/L (98-107) 06/28/24 02:45 Electrolytes, C-Reactive P, ESR: Reviewed Cardiac Review Cardiac Review: Troponin I 16 ng/L (<or=51) 06/28/24 08:18 Blood Pressure 93/71 0812 Blood Pressure 158/98 0635 Blood Pressure 96/63 0515 Blood Pressure 114/69 0506 BP, HR, EF%: Reviewed (HR 108) QTc Review QTc: Reviewed (EKG pending) IV to PO Switch IV Medications: Reviewed (NPO - OR today) Home Meds Home Med List reviewed: Reviewed Relevent Home Meds Not ordered & why?: Eliquis, aspirin, atorvastatin, furosemide, metoprolol, multivitamin, mupirocin, spironolactone and triamcinolone - currently NPO due to procedure today. Will reach out to provider once patient is post op if orders are not put in. Current Meds Current Medication Order Review: Reviewed Comments Comments/Follow Ups: Will reach out to provider once patient is post op if orders are not put in.
--- NOTE | 2024-06-28 15:38 | W.PM.OP ---
Operative Note Operative Note PRE-OP DIAGNOSIS: RIGHT Intertrochanteric Femur Fracture POST-OP DIAGNOSIS: same PROCEDURE: RIGHT Intramedullary Fixation of Proximal Femur Fracture SURGEON: Ganesh Lockett ANESTHESIA TYPE: General LMA/ETT Refer to Anesthesia Record ESTIMATED BLOOD LOSS: 50 PATHOLOGY: none sent COMPLICATIONS: None Patient was transported to: PACU Patient's condition: stable Implants: Depuy-Synthes TFNA 12mm x 170mm Indications: Aurea is a 79 year old female who presented to the Emergency Department after a fall. X-rays confirmed the diagnosis of a intertrochanteric fracture of the proximal femur. I reviewed the possible treatment options and given the fracture of the femur, I recommened operative fixation. I discussed the technical details of the surgery. I reviewed the risks such as bleeding, infection, pain, stiffness, malunion, nonunion, hardware prominence, hardware faiilure, malrotation, avascular necrosis, blood clot. Despite these risks, she agreed to proceed. Findings: There was a fracture of the proximal femur which was able to be reduced with traction and internal rotation and external manipulation with some residual valgus orientation. Procedure Description: Aurea was taken back to the operating room. A general anesthestic was then administered. The feet were wrapped with cast padding and Coban and then placed into the boot liners and then into the boots. Care was taken to protect the skin and make sure the heels were fully down and the boots were stable. The patient was then positioned onto the HANA table. Both legs were held in a neutral position. SCDs were applied. The patient was then slid down onto a perineal post. The arm of the operative side was then placed across the chest and secured. The nonoperative leg was scissored. A gentle reduction was then performed with traction and internal rotation and gentle external manipulation. Prophylactic antibiotics in the form of Cefazolin were administered. 1g of Tranxemic Acid was given intravenously within 30 minutes of incision. The right leg was then prepped with Chloraprep and draped in a standard fashion with shower-curtain type drape with Iodine impregnated skin protection. A timeout to confirm correct identity, side and site, procedure, allergies, anesthesia, and medical concerns was performed. Using fluoroscopy, the starting point was marked over the lateral hip, proximal to the tip of the greater trochanter. A 3cm incision was made through skin and the fascia of the gluteus musculature until the tip of the trochanter was palpable. The starting wire was placed onto the tip, just slightly on the media aspect, and centered in the AP plane. Using a erasmo, the starting guide wire was buried into the bone. A lateral x-ray confirmed appropriate position and the guidewire was advanced to the level of the lesser trochanter. With a tissue protector, the proximal femur was opened with the opening reamer. The short TFNA was chosen for this case and a Synthes TFNA [id number] nail was selected and opened on the back table. The nail was assembled to the aiming arm on the back table and confirmed to be aligned with the triple sleeve for blade insertion. Using manual force the nail was advanced into the femur. A few light mallet blows advanced the nail to its appropriate position. The triple sleeve was inserted through the targeting arm and the skin, soft tissue, and IT band was then incised. The triple sleeve was advanced down to the lateral femur. A guidewire was advanced into the femoral head where it was noted to be centered. A lateral x-ray was used to confirm centered positioning on the lateral. Happy with the length of the guidewire, this was measured. A 100mm helical blade was opened. The lateral cortex was opened and the path of the blade was reamed with a tapered reamer to appropriate depth. The helical blade was malletted into position and confirmed to be appropriately located on fluoroscopy. The set screw was advanced to a half turn shy of fully tightened, allowing for the helical blade to slide. The fracture was compressed before removing the targeting device. The targeting device was removed. AP and lateral x-rays of the hip confirmed appropriate positioning within the femur and with good alignment of the fracture. Using the targeting arm, the skin was incised for placement of the distal locking screw. The trochar was inserted through the skin and IT band down onto the lateral cortex of the femur. The 4.2mm drill was advanced across the femur and through the nail. This was measured and an appropriately sized 5.0mm screw was placed. The targeting arm was removed. Final x-rays were obtained. The wounds were thoroughly irrigated. A cocktail consisting of 123mg of Ropivacaine, 0.25mg of Epinephrine, 0.04mg of Clonidine, and 15mg of Ketorolac, diluted to 50cc was injected throughout the wounds both deep and superficially. The deep fascia of the proximal two wounds was reapproximated with a 0 Vicryl. The deep tisses were closed with a 2-0 Vicryl and the skin was closed with a running subcuticular Monocryl. The wounds were dressed with a Mepilex silver dressing. At the end of the case, all counts were correct. Aurea tolerated the procedure well without known complication and was taken to the PACU for recovery. Physical therapy will start post-operatively, weigh-bearing as tolerated with assistive devices. Anticoagulation will start within 12-24 hours. 3 doses of post-operative antibiiotics for prophylaxis will be administered. Date of Procedure: 06/28/24
[2024-06-28] MEDS: fentaNYL 100 MCG/2 ML VIAL IVP ×2 (15:51→16:15)
--- NOTE | 2024-06-28 16:13 | W.ANESPOSTOP ---
Postoperative Evaluation Date, Time and Location Date Performed: 06/28/24 Time Performed: 16:13 Patient Location: PACU Vital Signs Most Recent Imported Vital Signs: Most Recent Vital Signs Temp Pulse Resp BP Pulse Ox 36.9 C 108 H 18 93/71 L 96 06/28/24 16:08 06/28/24 08:45 06/28/24 08:12 06/28/24 08:12 06/28/24 08:50 Pain Score Most Recent Pain Score: Most Recent Pain Score Pain Level [Right Hip] 7 06/28/24 08:45 Pain Level [Right Hip] 8 06/28/24 02:25 Pain Level 4 06/28/24 16:08 Assessment Mental Status: Arousable with meaningful communication Airway and Respiratory Function: Patent airway with normal (patient baseline) respiratory exam (continues to require O2 per NC, will be transferred to floor on supplemental oxygen) Cardiovascular Function: Hemodynamically Stable Hydration Status: Adequately Hydrated Nausea & Vomiting: No Nausea or Vomiting Pain: Pain is tolerable per patient Peripheral Nerve Block: Patient did not receive a nerve block
[2024-06-28 17:42] LABS: HCT 38.2 % (36.0-46.0); MCH 30.5 pg (27.0-33.0); MCHC 31.4 % (32.0-36.0); MCV 97 fL (80-95); Platelet Count 195 10^3/uL (130-400); RBC 3.94 10^6/uL (3.93-5.22); RDW 13.2 % (11.7-14.6); RDW-SD 47.3 fL; WBC 17.17 10^3/uL (4.4-10.8)
[2024-06-28] MEDS: ceFAZolin 1 GM/50 ML BAG IVPB (18:16)
[2024-06-28] MEDS: Metoprolol 25 MG TAB PO (18:19)
[2024-06-28] MEDS: Apixaban 2.5 MG TAB PO (20:30)
[2024-06-28] MEDS: Normal Saline Flush 10 ML SYR IVP (20:31)
[2024-06-29] VITALS (8 sets, daily range): BP systolic 95–138; BP diastolic 59–93; PULSE 77–96; RESP 17–22; TEMP 36.3–37; O2SAT 92–97
[2024-06-29] MEDS: Normal Saline 500 ML 125 ML IV (00:43)
[2024-06-29] MEDS: ceFAZolin 1 GM/50 ML BAG IVPB ×2 (02:02→10:04)
[2024-06-29] MEDS: Metoprolol 25 MG TAB PO ×2 (05:50→12:04)
[2024-06-29 06:39] LABS: Abs Immature Grans 0.04 10^3/uL (0.0-0.06); Basophils % 0.2 %; HGB 11.2 g/dL (11.2-15.7); Immature Grans % 0.2 %; Lymphocytes % 3.8 %; MCH 30.5 pg (27.0-33.0); MCV 95 fL (80-95); MPV 10.8 fL (8.0-11.0); Monocytes % 3.5 %; Neutrophils % 92.3 %; Platelet Count 194 10^3/uL (130-400); RBC 3.67 10^6/uL (3.93-5.22); RDW 13.2 % (11.7-14.6); RDW-SD 46.4 fL; WBC 16.11 10^3/uL (4.4-10.8)
[2024-06-29 06:41] LABS: Absolute Basophil Count 0.03 10^3/uL (0.0-0.2); Absolute Lymphocyte Count 0.61 10^3/uL (1.2-3.4); Absolute Monocyte Count 0.56 10^3/uL (0.1-0.8); Absolute Neutrophil Count 14.87 10^3/uL (1.2-6.7)
[2024-06-29 06:56] LABS: ALT 24 U/L (14-59); AST 24 U/L (15-37); Albumin 2.9 g/dL (3.4-5.0); Alkaline Phosphatase 122 U/L (46-116); Anion Gap 5.6 mmol/L (3-11); BUN 39 mg/dL (7-18); Bilirubin, Total 0.66 mg/dL (0.2-1.0); CO2 30.4 mmol/L (21.0-32.0); CREATININE 1.4 mg/dL (0.55-1.02); Calcium 8.9 mg/dL (8.5-10.1); Chloride 106 mmol/L (98-107); Estimated GFR 38.51 (mL/min/1.73m2); Glucose 133 mg/dL (74-106); Potassium 4.6 mmol/L (3.5-5.1); Sodium 142 mmol/L (136-145); Total Protein 6.9 g/dL (6.4-8.2)
[2024-06-29] MEDS: Furosemide 20 MG TAB 40 MG PO (08:47)
[2024-06-29] MEDS: Apixaban 2.5 MG TAB PO ×2 (08:50→20:22)
[2024-06-29] MEDS: Normal Saline Flush 10 ML SYR IVP ×4 (08:53→23:52)
[2024-06-29] MEDS: ACETAMINOPHEN 1,000 MG/100 ML BAG 400 MG IVPB ×3 (08:56→23:51)
--- NOTE | 2024-06-29 09:00 | CMPROGNOTE_ITS ---
Date of service: 06/29/24 Time of Service: 09:01 Care Management Progress Note Progress Note Text Progress Note Text: Aurea is s/p right Intramedullary Fixation of Proximal Femur Fracture yesterday afternoon. She reportedly tolerated the procedure well. She was sitting up in the bedside chair when CM met with her today. She stated that she had a little bit of pain, but not too much. She does not want SNF. She is accepting of HH PT/OT. She will need a lift assist to get into her home, but otherwise, everything she needs is on the first floor. She already has some adaptive equipment in her bathroom. She is eager to see her dog, but knows she will have to be very careful around him. Discharge Potential Discharge Needs: PCP F/U Appt and Surgical F/U Appt Anticipated Barriers to Discharge: None Identified Patient/Family Education Needs: Review discharge instructions, discuss Ask Me Three Transportation: Private vehicle (with lift assist into the house) Plan: Anticipate that Aurea will be discharged home tomorrow with new orders for HH PT/OT. She will f/u with her PCP and the orthopedic surgeon, and continue per her plan of care. Aurea will transport home in a private vehicle, vs. RCT wheel chair van, and use a lift assist to get into the house. This plan will be solidified tomorrow, and CM will assure family is aware. CM will continue to follow and update the plan as needed. Social Determinants of Health Screening Social Determinants of Health last assessed: 06/29/24 Will the Patient Participate in the Screening?: Unable to obtain Do you worry about having a steady place to live?: no Problems where you live: no known problems In the past 12 months, have you had to go without electric, gas, oil or water in your home?: no Have you or anyone in your house had to go without enough food to eat?: no Has lack of transportation kept you from medical appointments or from doing things needed for daily living?: no Has anyone in your life made you feel unsafe or unsupported?: no How hard is it for you to pay for the very basics like food, housing, medical care, and heating? Would you say it is:: Not hard at all Do you want help finding or keeping work or a job?: I do not need or want help If for any reason you need help with day-to-day activities such as bathing, preparing meals, shopping, managing finances, etc., do you get the help you need?: I get all the help I need How often do you feel lonely or isolated from those around you?: Never Do you speak a language other than [place] at home?: No Does the patient want assistance with any of the above?: No Anticipated HH Services Anticipated HH Services at Discharge [facility] Needed, OT and PT Anticipated Date of Discharge: 06/30/24. Following Provider: Connie Simmons.
--- NOTE | 2024-06-29 10:40 | PGE_ITS ---
Date of Service Date of service: 06/29/24 Time of Service: 10:40 Assessment and Plan Assessment and plan (1) Closed intertrochanteric fracture of right hip: Status: Acute Assessment and plan: Status post fall confirmed by imaging Surgical repair with Dr. Lockett on 06/28/2024 completed. Perioperative cefazolin with stop time Ongoing effective multimodal pain management with scheduled acetaminophen and as needed Ultram Celebrex remains an option but patient not requiring as needed pain med Ongoing physical therapy consult (2) Chronic kidney disease, stage 3b: Status: Acute Assessment and plan: Creatinine at 1.4 stable will continue to monitor BMP in the morning (3) Chronic diastolic CHF (congestive heart failure): Status: Acute Assessment and plan: Echo in 2019 shows EF of 52% Will continue home medicine regimen and adjust as needed but most likely to be discharged on full regimen (4) Atrial fibrillation: Status: Chronic Assessment and plan: Continue rate controlled metoprolol and Eliquis (5) On deep vein thrombosis (DVT) prophylaxis: Status: Acute Assessment and plan: On Eliquis for atrial fibrillation Discussed with Dr. Amaya Subjective Subjective Patient reports: no new complaints, feels better, tolerating liquids well, tolerating a regular diet, voiding w/o difficulty and flatus; denies pain is less, diarrhea, nausea, vomiting or shortness of breath Exam Narrative Exam Narrative: Constitutional The patient is sitting in chair acute distress, no report of pain on moving right lower extremity during exam but minimal pain with ambulation Neuro:alert and oriented X3 , No neurological focal deficit Resp: Unlabored breathing, clear lungs Cardio: S1, S2, irregular , no murmur, bilateral radial and dorsalis pedis pulses are positive GI: Abdomen is not distended, soft and non tender, bowel sounds are present : No CVA tenderness Integumentary: No skin lesions or rash,right hip dressing intact( s/p Sx) Extremities: Moves all 4 extremities, right hip surgical site dressing is intact, minimal bruising Psych: RASS 0, congruent mood and normal affect. Objective Last Vital Signs Temp 37 C 06/29/24 08:02 Pulse 93 H 06/29/24 08:02 Resp 20 06/29/24 08:02 BP 138/93 H 06/29/24 08:02 Pulse Ox 92 06/29/24 09:31 Laboratory Results - last 24 hr 06/28/24 06/29/24 17:32 05:58 WBC 17.17 H 16.11 H RBC 3.94 3.67 L Hgb 12.0 11.2 Hct 38.2 35.0 L MCV 97 H 95 MCH 30.5 30.5 MCHC 31.4 L 32.0 RDW 13.2 13.2 Plt Count 195 194 MPV 10.0 10.8 Immature Gran % 0.2 Neutrophils % 92.3 Lymphocytes % 3.8 Monocytes % 3.5 Eosinophils % 0.0 Basophils % 0.2 Nucleated RBC % 0.0 Absolute Neutrophils 14.87 H Absolute Lymphocytes 0.61 L Absolute Monocytes 0.56 Absolute Eosinophils 0.00 Absolute Basophils 0.03 Sodium 142 Potassium 4.6 Chloride 106 Carbon Dioxide 30.4 Anion Gap 5.6 BUN 39 H Creatinine 1.4 H Est GFR (CKD-EPI 2020) 38.51 Glucose 133 H Calcium 8.9 Total Bilirubin 0.66 AST 24 ALT 24 Alkaline Phosphatase 122 H Total Protein 6.9 Albumin 2.9 L Time Spent with Patient Time Spent with Patient: >50 minutes Time was spent: preparing to see the patient(eg.review tests), obtaining and/or reviewing separately otained hiistory, ordering medications,tests, procedures, referring, communicating with other health manager critical care unit, indepentently interpreting results, counseling the patient and care coordination
--- NOTE | 2024-06-29 11:02 | IN_ITS ---
PT Notes Visit Reasons: Right Intertrochanteric Hip Fracture Physical Therapy Inpatient Initial Evaluation Date: 06/29/2024 Referring Doctor: Dr Lockett PT Orders: PT CONSULT: s/p Ortho Surgery Precautions: WBAT RLE with Assistive device Patient Profile/Admitting Diagnosis: Pt is 79 yo female presented to ED via EMS s/p fall at home. She reported falling then her grandson picked her up and put her in a chair when she was unable to get out of the chair they called EMS. Pt presented with shortened rotated right LE. Xray confirmed acute intertrochanteric fracture of the right hip with some angulation. Pt to OR for I ntramedullary Fixation of Proximal Femur Fracture on 06/28/24 under anesthesia. Post op complicated by need for supplemental oxygen. PT consult placed Pt is WBAT with Assistive device PMHX: On deep vein thrombosis (DVT) prophylaxis (Acute) Osteoporosis (Chronic) Closed intertrochanteric fracture of right hip (Acute) Pre-diabetes (Acute) Wound check, abscess (Acute) Loose stools (Acute) Abnormal liver enzymes (Acute) Chronic kidney disease, stage 3b (Acute) Acute dehydration (Acute) Anticoagulated (Chronic) 2021-on low dose EliquisChronic diastolic CHF (congestive heart failure) (Acute) Atrial fibrillation (Chronic) History of aortic valve replacement with bioprosthetic valve (Acute) Replaced, 2018Obesity (Acute) Lumbar disc prolapse with compression radiculopathy (Acute) s/p surgery 1990 Hyperlipidemia (Acute 12/16/12) Essential hypertension (Acute 06/13/13) Dyspnea (Acute 01/24/02) Exertional;neg MPI ECHO LVH Disorder of diaphragm (Acute) paralyzed left Medical History Urinary tract infection Gross hematuria Associated with Coumadin use, resolved-nemia Resolved-2020 likely associate with hematuria which had resolvedHydronephrosis Followed by urology, resolved as of denocarcinoma of endometrium, 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 The first set does not have a railing and there is a walkway between the sets. Pt was independent at home with a cane. She has assistance with medication mgmt and meals. She has a dog which she takes care of. Equipment Owned/DME: FWW, cane, tub seat, elevated toilet Subjective: Pt reports she feels good. Objective: [] General Observation: elderly female in bed with oxygen via NC 1 L/min and rendon to bedside drainage. dtr visiting Mental Status: alert Ox3, some forgetfulness, states walks with walker but dtr corrected her about cane, Pt unable to describe home stairs stating no steps. Dtr corrected her. Pain: denies but noted rubbing her lateral hip on right ROM: [] Right Upper Extremity: WFL Left Upper Extremity: WFL Right Lower Extremity: Knee and ankle WFL Hip flexion 90 degrees, abduction 10 degrees extension to neutral Left Lower Extremity: WFL Strength: [] Right Upper Extremity: grossly 4/5 Left Upper Extremity: grossly 4/5 Right Lower Extremity: Hip flexion: 2- /5; hip abduction: 2- /5; hip extension: 2+ /5; knee extension: 3 /5; knee flexion: 2+ /5 ankle DF: 3+ /5 ; ankle PF: 3+ /5 Left Lower Extremity: Hip flexion: 3 /5; hip abduction:3- /5; hip extension:3 /5; knee extension: 3+ /5; knee flexion: 3- /5 ankle DF: 4 /5 ; ankle PF: 4 /5 Sensation: intact Bed Mobility/Transfers: Supine to sit mod A Sit to stand min A Stand to sit Min A Bed to chair Mod A with FWW Gait: 15 feet with FWW with forward flexed trunk. Min A , step to pattern Balance: [] Static Sitting: Normal Dynamic Sitting: good- Static Standing: fair Dynamic Standing: fair- Special Tests: [] Mobility Limitations Standardized Measure [] [facility] 6 clicks Basic Mobility Inpatient Short Form: [] Raw Score: 13 CMS Score: 64.91% Informed Consent/Education: Patient instructed in purpose of PT consult. Assessment: Patient is a 79 to female presents with clinical signs and symptoms consistent with current/admitting diagnoses that have resulted to mobility limitations, ga it instability, generalized weakness, and impairment of motor control as demonstrated by the following impairment level findings: 1. Decreased strength to right hip major muscle groups 2. Impaired standing balance 3. Limitation of joint range of motion in right hip 4. impaired functional activity tolerance 5. pain right hip 6. forward flexed posture during ambulation 7. Oxygen dependent post op Impairments are contributing to the following functional limitations: 1. Inability to safely ambulate without assistive device 2. Increase completion time for mobility ADL performance 3. Increased fall risk 4. decline bed mobility skills 5. decline in transfer skills 6. difficulty performing stairs without assistance Pt would benefit from short stay SNF for continued rehabilitation prior to discharge to home to improve strength, ROM, balance , posture, functional activity tolerance and all aspects of mobility however pt declines. She will require lift assist into her home Patient is assessed as a moderate complexity based on the following: History: 79-year-old female with impairment level findings, functional limitations, and past medical history as indicated above Examination: Demonstrable impairment in strength, balance, and mobility level with underlying impairments and functional limitations as documented above Presentation: evolving Decision Making: moderate Goals: 1. supine to sit supervision 2. sit to supine supervision 3. transfer with FWW supervision 4. Ambulate with FWW supervision 150 feet 5. 5 steps with rails with CGA 6. supervision HEP for LE strength and ROM Plan of Care/Treatment Plan: 1-2x/day, 7 days/week x 1 week. Plan of care has been reviewed with the PUMP PRESS OPERATOR providing the service under Physical Therapy direction. Initiate Physical Therapy intervention for strengthening, bed mobility, transfers, gait, stairs, balance training, use of assistive device. DISCHARGE RECOMMENDATIONS:Short term SNF( pt refusing) vs HHPT with lift assist into home. TREATMENT CODE/TIME:[id number] Thank you for the opportunity to participate in the care of this patient. Linda Hernández PT [facility]
[2024-06-29] MEDS: Normal Saline Flush 10 ML SYR (12:05)
[2024-06-29] MEDS: traMADol 50 MG TAB 25 MG PO ×2 (13:43→20:23)
--- NOTE | 2024-06-29 14:49 | W.PM.PROGNOT ---
Date of Service Date of service: 06/29/24 Time of Service: 10:45 Assessment and Plan Assessment and plan (1) Closed intertrochanteric fracture of right hip: Status: Acute Assessment and plan: Aurea is a 79-year-old female postop day #1 status post intramedullary nail fixation of a right intertrochanteric femur fracture. She is doing well. She reports minimal pain and is been able to mobilize already. She is quite motivated to go home and she has made excellent first gains. No signs of complications. Continue weightbearing as tolerated with assistive devices. No restrictions on positioning. Mepilex dressing stamp is for at least 1 week but could be left for up to 2. Sutures are buried under the skin and will not need removing. Resume anticoagulation. Follow-up in 4 weeks. Subjective Subjective Interval history since last seen: Aurea reports to be doing well. She was able to mobilize to the chair with physical therapy. She denies any significant pain. She denies any chest pain or shortness of breath. Exam Narrative Exam Narrative: Sitting up in the chair. No acute distress. Very pleasant. Evaluation of the right lower extremity shows dry, clean, intact dressings. No significant ecchymosis. No significant swelling. No significant pain with passive internal/external rotation of the right hip. Sensation intact to light touch of the femoral and sciatic nerve distributions. Objective Last Vital Signs Temp 37 C 06/29/24 08:02 Pulse 93 H 06/29/24 08:02 Resp 20 06/29/24 08:02 BP 138/93 H 06/29/24 08:02 Pulse Ox 92 06/29/24 09:31 Laboratory Results - last 24 hr 06/28/24 06/29/24 17:32 05:58 WBC 17.17 H 16.11 H RBC 3.94 3.67 L Hgb 12.0 11.2 Hct 38.2 35.0 L MCV 97 H 95 MCH 30.5 30.5 MCHC 31.4 L 32.0 RDW 13.2 13.2 Plt Count 195 194 MPV 10.0 10.8 Immature Gran % 0.2 Neutrophils % 92.3 Lymphocytes % 3.8 Monocytes % 3.5 Eosinophils % 0.0 Basophils % 0.2 Nucleated RBC % 0.0 Absolute Neutrophils 14.87 H Absolute Lymphocytes 0.61 L Absolute Monocytes 0.56 Absolute Eosinophils 0.00 Absolute Basophils 0.03 Sodium 142 Potassium 4.6 Chloride 106 Carbon Dioxide 30.4 Anion Gap 5.6 BUN 39 H Creatinine 1.4 H Est GFR (CKD-EPI 2020) 38.51 Glucose 133 H Calcium 8.9 Total Bilirubin 0.66 AST 24 ALT 24 Alkaline Phosphatase 122 H Total Protein 6.9 Albumin 2.9 L Time Spent with Patient Time Spent with Patient: <25 minutes Time was spent: preparing to see the patient(eg.review tests), obtaining and/or reviewing separately otained hiistory and counseling the patient
--- NOTE | 2024-06-29 15:13 | CHAPLAIN ---
Aurea was sitting up in the chair when I visited. She was pleasant and easily engaged in a conversation. She said her daughter visited this morning, and will be back after picking her kids so they can visit Aurea as well. Two nieces sent bouquets. I explained my role and offered support.
--- NOTE | 2024-06-29 16:26 | PT.INTREAT ---
PT Notes Visit Reasons: Right Intertrochanteric Hip Fracture Inpatient Physical Therapy Treatment Note [facility] Date: 06/29/2024 PRECAUTIONS: WBAT RLE Oxygen to keep sats >90% SUBJECTIVE: Pt reports she feels good . SHe got her hair washed so she feels like a new woman OBJECTIVE: presented seated in chair with oxygen in place ? PAIN: denied although noted rubbing lateral hip VITALS: ? Pre-Treatment: 96% 1 L/min ? Post-Treatment: 94% 1L/min? Therapeutic Activities ([id number][]): Direct one-on-one instruction in dynamic activities to improve functional performance. ? BED MOBILITY/TRANSFERS? Rolling L/R: min A Supine-sit: min A? Sit-supine: mod A ? Sit-stand: min A ? Stand-sit: min A? Bed-Chair: min A with FWW ? Chair-bed: min A with FWW Provided skilled cues and instruction on performance and technique throughout. ? Therapeutic Exercises ([id number][]): Direct one-on-one instruction in therapeutic exercises to develop strength, endurance, range of motion and flexibility. ? Exercises 2 sets 5 reps ? Seated: Active assistive range of motion right lower extremity hip flexion, AROM LAQ, Supine AROM QS, GS , ankle pumps . AAROM hip abduction , heel slides, IR ? Provided skilled instruction in proper exercise performance ASSESSMENT: Patient tolerated session well patient denied pain although was noted to be rubbing right posterior lateral hip. Will work with nursing for medication prior to sessions. PLAN: 1-2x/day, 7 days/week x 1 week. Plan of care has been reviewed with the LIVE IN HOUSEKEEPER providing the service under Physical Therapy direction. Initiate Physical Therapy intervention for strengthening, bed mobility, transfers, gait, stairs, balance training, use of assistive device. TREATMENT CODE/TIME: 54159, 39636/ 1:11pm-1:35pm DISCHARGE RECOMMENDATION: PT/OT versus short-term SNF(patient refuses)
[2024-06-29] MEDS: Metoprolol 12.5 MG TAB PO (18:29)
[2024-06-29] MEDS: Atorvastatin 20 MG TAB PO (20:22)
[2024-06-29] MEDS: Docusate Sodium 100 MG CAP PO (23:52)
[2024-06-30] MEDS: traMADol 50 MG TAB 25 MG PO ×3 (04:10→19:37)
[2024-06-30 07:08] LABS: Abs Immature Grans 0.05 10^3/uL (0.0-0.06); Absolute Basophil Count 0.04 10^3/uL (0.0-0.2); Absolute Eosinophil Count 0.13 10^3/uL (0.0-0.7); Absolute Monocyte Count 0.68 10^3/uL (0.1-0.8); Absolute Neutrophil Count 10.16 10^3/uL (1.2-6.7); Basophils % 0.3 %; Eosinophils % 1.1 %; HCT 32.4 % (36.0-46.0); HGB 10.2 g/dL (11.2-15.7); Immature Grans % 0.4 %; Lymphocytes % 7.8 %; MCH 30.3 pg (27.0-33.0); MCHC 31.5 % (32.0-36.0); MCV 96 fL (80-95); MPV 10.7 fL (8.0-11.0); Monocytes % 5.7 %; Neutrophils % 84.7 %; Platelet Count 164 10^3/uL (130-400); RBC 3.37 10^6/uL (3.93-5.22); RDW 13.3 % (11.7-14.6); RDW-SD 47.6 fL; WBC 11.99 10^3/uL (4.4-10.8)
[2024-06-30 07:13] LABS: Absolute Lymphocyte Count 0.94 10^3/uL (1.2-3.4)
[2024-06-30 07:21] LABS: Anion Gap 9.7 mmol/L (3-11); BUN 61 mg/dL (7-18); CO2 28.3 mmol/L (21.0-32.0); CREATININE 2.3 mg/dL (0.55-1.02); Calcium 8.7 mg/dL (8.5-10.1); Chloride 101 mmol/L (98-107); Estimated GFR 21.22 (mL/min/1.73m2); Glucose 123 mg/dL (74-106); Potassium 4.1 mmol/L (3.5-5.1); Sodium 139 mmol/L (136-145)
[2024-06-30 07:35] VITALS: BP 113/73; PULSE 82; RESP 18; TEMP 36.5; O2SAT 95
[2024-06-30] MEDS: Atorvastatin 20 MG TAB PO (09:19)
[2024-06-30] MEDS: Apixaban 2.5 MG TAB PO ×2 (09:19→19:37)
[2024-06-30] MEDS: Docusate Sodium 100 MG CAP PO ×2 (09:19→19:37)
[2024-06-30] MEDS: Aspirin E.C. 81 MG TABEC PO (09:19)
[2024-06-30] MEDS: Metoprolol CR 100 MG TABCR PO (09:20)
--- NOTE | 2024-06-30 09:53 | PGE_ITS ---
Date of Service Date of service: 06/30/24 Time of Service: 09:53 Assessment and Plan Assessment and plan (1) Closed intertrochanteric fracture of right hip: Status: Acute Assessment and plan: S/p fall S/p Surgical repair by ortho Dr. Lockett on 06/28/2024-Perioperative cefazolin completed continue multimodal pain management with scheduled acetaminophen and as needed Ultram Give PRN meds 30- 60 minutes prior to ambulation with PT - failed ambulatory trial today Celebrex remains an option but will continue pain meds as per above - could not be pain free on PRN APAP-Needs it scheduled, doses not to be skept. Ongoing physical therapy consult- limited ambulation d/t lack of pain management effectiveness (2) Chronic kidney disease, stage 3b: Status: Acute Assessment and plan: Creatinine increased but trending down s/p IVF - not further IVF Resume oral furosemide in AM BMP in the morning (3) Chronic diastolic CHF (congestive heart failure): Status: Acute Assessment and plan: Echo in 2019 shows EF of 52% Will resume furosemide in AM , on toprol for A-fib Adjust as needed but most likely to be discharged on home regimen (4) Atrial fibrillation: Status: Chronic Assessment and plan: Continue rate controlled metoprolol and Eliquis (5) On deep vein thrombosis (DVT) prophylaxis: Status: Acute Assessment and plan: On Eliquis for atrial fibrillation (6) Oxygen desaturation: Status: Acute Assessment and plan: Intermittent oxygen need resolving with IS, deep breathing Patient was confused and blowing in IS initially Wean O2 to maintain sat at 92-93% Encourage cough and deep breathing Continue cueing patient as needed for IS use (7) Discharge planning issues: Status: Acute Assessment and plan: Refusing SNF as initially recommended by PT Home with home health PT -Nursing will need EMS for lift assist to go in her house Delayed d/c today d/t poor pain control, PRN acetaminophen nor ultram given prior to PT: unable to ambulate over 5 steps APAP rescheduled - not to be held. Might benefit from scheduled dosing for a few days s/p d/c F/u with Dr. Lockett in 4 weeks in opt orthopedic office-Mepilex dressing change in a week maximum 2- Buried sutures and no removal indicated F/u with PCP Discussed with Dr. Raser Subjective Subjective Patient reports: no new complaints, feels better, tolerating liquids well, tolerating a regular diet, voiding w/o difficulty, flatus, bowel movement and afebrile; denies pain is less, diarrhea, nausea, vomiting or shortness of breath (Shallow breathing improving s/p cues to complete IS stating , I cannot keep it up/ blowing in device instead initially) Exam Narrative Exam Narrative: Constitutional The patient is sitting in chair no acute distress, reports of pain on moving right lower extremity during exam and ambulation Difficulty completing -IS this AM- s/p cues -deeper breaths with improved sat to 93-94% on RA Neuro:alert and oriented X3 , No neurological focal deficit Resp: Unlabored shallow-breathing, clear lungs with decreased bases Cardio: S1, S2, irregular ,dorsalis pedis pulses are positive GI: Abdomen is not distended, soft and non tender, bowel sounds are present : No CVA tenderness Integumentary: No skin lesions or rash,right hip dressing intact( s/p Sx) Extremities: Moves all 4 extremities but protects RLE leaning to the left, right hip surgical site dressing is intact, minimal bruising Psych: RASS 0, congruent mood and normal affect. Objective Last Vital Signs Temp 36.5 C 06/30/24 07:35 Pulse 82 06/30/24 07:35 Resp 18 06/30/24 07:35 BP 113/73 06/30/24 07:35 Pulse Ox 95 06/30/24 07:35 Laboratory Results - last 24 hr 06/30/24 06:01 WBC 11.99 H RBC 3.37 L Hgb 10.2 L Hct 32.4 L MCV 96 H MCH 30.3 MCHC 31.5 L RDW 13.3 Plt Count 164 MPV 10.7 Immature Gran % 0.4 Neutrophils % 84.7 Lymphocytes % 7.8 Monocytes % 5.7 Eosinophils % 1.1 Basophils % 0.3 Nucleated RBC % 0.0 Absolute Neutrophils 10.16 H Absolute Lymphocytes 0.94 L Absolute Monocytes 0.68 Absolute Eosinophils 0.13 Absolute Basophils 0.04 Sodium 139 Potassium 4.1 Chloride 101 Carbon Dioxide 28.3 Anion Gap 9.7 BUN 61 H Creatinine 2.3 H Est GFR (CKD-EPI 2020) 21.22 Glucose 123 H Calcium 8.7 Magnesium 2.0 Time Spent with Patient Time Spent with Patient: >50 minutes Time was spent: preparing to see the patient(eg.review tests), obtaining and/or reviewing separately otained hiistory, ordering medications,tests, procedures, referring, communicating with other health critical care educator, indepentently interpreting results, counseling the patient and care coordination
--- NOTE | 2024-06-30 10:01 | PT.INTREAT ---
PT Notes Visit Reasons: Right Intertrochanteric Hip Fracture Date: 06/30/2024 PRECAUTIONS: WBAT RLE Oxygen to keep sats >90% SUBJECTIVE: Pt in chair when approached for therapy this morning, pt reports she is in pain but reports she would like to engage with PT session. OBJECTIVE: Pt in chair 02 support NC 2L ? PAIN: very painful reports 02/03 VITALS: monitored by nursing Therapeutic Activities 08741: Direct one-on-one instruction in dynamic activities to improve functional performance. ?? BED MOBILITY/TRANSFERS? Sit-stand: ?mod A? Stand-sit: ??min A ? Provided skilled cues and instruction on performance and technique throughout. Gait Training 77895: Direct one-on-one instruction and skilled instruction in: Employing an assistive device Modified weight-bearing status Movement sequencing Turning and movement with proper form Provided verbal cues for equipment management and technique Provided instruction in gait pattern Patient education regarding pacing and breathing techniques to maximize activity tolerance? GAIT? Assistive Device: ?FWW ? Weight bearing: WBAT Assist: ?mod A ? Distance:?? 3steps fwd/bwd ? Deviation: ?antalgic gait? Neuromuscular Re-education 19385: Activities that facilitate re-education of movement balance, posture, coordination, and proprioception or kinesthetic sense, requiring skilled tactile and verbal cues Exercises/techniques: ? Sit to stand [id number] Static standing 1min Dynamic standing weight shifting ?fwd/bwd, side to side Marching in place 5x Heel raise/ toe raise 5x Standing knee flexion 5x Standing hip 3way 5x Seated march 10x Seated SAQ 5x Seated LAQ 5x ASSESSMENT:?pt tolerated activity well, pt stayed in chair vs going back in bed post session PLAN: Continue with balance training, global strengthening and general conditioning for improved safety, mobility and activity tolerance until pt is ready for DC. TREATMENT CODE/TIME: [id number] 26mins (8:33-8:51am)
[2024-06-30] MEDS: Lactated Ringers 1,000 ML 250 ML IV (11:08)
[2024-06-30 14:22] LABS: Anion Gap 7.3 mmol/L (3-11); BUN 62 mg/dL (7-18); CO2 27.7 mmol/L (21.0-32.0); CREATININE 2.1 mg/dL (0.55-1.02); Calcium 8.9 mg/dL (8.5-10.1); Chloride 102 mmol/L (98-107); Estimated GFR 23.67 (mL/min/1.73m2); Glucose 148 mg/dL (74-106); Potassium 4.2 mmol/L (3.5-5.1); Sodium 137 mmol/L (136-145)
--- NOTE | 2024-06-30 14:47 | NUR.NOTE ---
patient AxOx4 throughout shift, VSS, sats stable on room air but encouraging I.S. due to sats in low 90s occasionally due to shallow inspiration. Patient worked with PT this afternoon, given tylenol and ultram prn for R hip pain, incision sites bruised but dsgs C/D/I. PIV intact, receiving IVF at this time for elevated Cr levels this AM, original concerns this AM for retention post rendon removal and bladder scan of >999ml but upon rescan was showing 198ml, potentially high reading due to scanning too close to pannus versus bladder. Pt denies pain or fullness feeling or urge to void, has been urinating occasionally in commode and adequate output noted. Bed bath completed, sitting in chair with chair alarm on, call newton in reach. Pending order for suppository due to no BM x4 days, tolerating good PO intake. Nursing Note:
--- NOTE | 2024-06-30 14:49 | PT.INTREAT ---
PT Notes Visit Reasons: Right Intertrochanteric Hip Fracture Date: 06/30/2024 pm treatment PRECAUTIONS: WBAT RLE Oxygen to keep sats >90% PRE-MEDICATE FOR TREATMENT SUBJECTIVE: Pt in chair when approached for therapy this morning, pt reports she is having pain( Nurse notified and administered) but wants to do exercises while the medicine works OBJECTIVE: Pt in chair no longer on oxygen? PAIN: very painful 12/04 when standing VITALS: monitored by nursing Therapeutic Activities 22102: Direct one-on-one instruction in dynamic activities to improve functional performance. ?? BED MOBILITY/TRANSFERS? Sit-stand: ?mod A x1 on initial stand then min A of 1 x 2 trials ? Stand-sit: ??min A ? chair to commode toward left min A with FWW (pt continues with forward flexed trunk) commode to chair toward right with mod A FWW ( forward flexed trunk) Provided skilled cues and instruction on performance and technique throughout. Neuromuscular Re-education 70187: Activities that facilitate re-education of movement balance, posture, coordination, and proprioception or kinesthetic sense, requiring skilled tactile and verbal cues Exercises/techniques: ? seated reclined in chair : QS, GS, heelslides hip abduction adduction x 10 reps seated marching LAQ ankle pumps x 10 reps Static standing 1 min x2 Dynamic standing weight shifting ?fwd/bwd, side to side at FWW ASSESSMENT:Pt benefits from premedication to improve activity tolerance and progress with function. Patient with increase difficulty advancing RLE this session. Pt ended session with ice to right hip/ anterior thigh. Pt unable to take more than 5 steps this session. As she fatigues she increases forward flexion of trunk with increased flexion B UE. PLAN: 1-2x/day x 7 days /week Continue with balance training, global strengthening and general conditioning for improved safety, mobility and activity tolerance until pt is ready for DC. TREATMENT CODE/TIME: [id number]
[2024-06-30 15:51] VITALS: BP 113/75; PULSE 88; RESP 17; TEMP 37.1; O2SAT 89
[2024-06-30 15:56] VITALS: O2SAT 89
[2024-06-30] MEDS: Bisacodyl 10 MG SUPP PR (15:57)
--- NOTE | 2024-06-30 16:05 | W.PM.PROGNOT ---
Date of Service Date of service: 06/30/24 Time of Service: 15:50 Assessment and Plan Assessment and plan (1) Closed intertrochanteric fracture of right hip: Status: Acute Assessment and plan: Aurea is a 79-year-old female who is postop day #2 from a intervention nail fixation of the right proximal femur. Overall she still doing well. I do think she should have more pain medication to help out with her mobilization. She is doing well otherwise. She is desiring to go home and this will be difficult but I think she can do this. Continue with physical therapy. Continue to premedicate. Weightbearing as tolerated with assistive devices. Anticoagulation per the medicine team. Follow-up with me in 4 weeks. Subjective Subjective Interval history since last seen: Aurea has had more pain today. She has not been taking her pain medication as previously prescribed. However, she finds that the right leg is sore, particular over the proximal lateral aspect. She was able to mobilize to the chair but not much more than that. Otherwise no other acute complaints. She is able to eat. No chest pain or shortness of breath. Exam Narrative Exam Narrative: Sitting up in the chair. No acute distress. There is some ecchymosis seen about the right thigh. The dressings are clean dry and intact. She does have pain with palpation about the right thigh but no significant increase in pain with range of motion of the right leg except laterally. Sensation intact to light touch over the femoral sided nerve distributions. Objective Last Vital Signs Temp 36.8 C 07/01/24 07:49 Pulse 84 07/01/24 07:49 Resp 16 07/01/24 07:49 BP 111/71 07/01/24 07:49 Pulse Ox 100 07/01/24 09:20 Time Spent with Patient Time Spent with Patient: <25 minutes Time was spent: preparing to see the patient(eg.review tests), obtaining and/or reviewing separately otained hiistory and counseling the patient
--- NOTE | 2024-06-30 16:07 | PDOC.CMPRO ---
Date of service: 06/30/24 Time of Service: 12:15 Care Management Progress Note Progress Note Text Progress Note Text: Aurea was up in the bedside chair when CM met with her today. She was very pleasant, easy to smile. She stated that her hip is sore, and she had some trouble with PT this morning, but was eager to work with PT again this afternoon. Dr. Lockett was in to see her while CM was there, and Aurea allowed CM to stay while she talked with her orthopedic surgeon. Dr. Lockett let Aurea know that she is doing well. He encouraged premedication for PT. Dr. Lockett stated that Aurea would likely be ready for discharge tomorrow or the day after. CM called Bebe, Aurea's daughter to update her on the plan. VM was left as her name was clearly stated. Discharge Potential Discharge Needs: PCP F/U Appt and Surgical F/U Appt Anticipated Barriers to Discharge: None Identified Patient/Family Education Needs: Review discharge instructions, discuss Ask Me Three Transportation: Private vehicle Plan: Anticipate that Aurea will be discharged home with new orders for HH PT/OT. She will f/u with her PCP and the orthopedic surgeon, and continue per her plan of care. Aurea will transport home in a private vehicle, vs. [facility] wheel chair van, and use a lift assist to get into the house. CM will continue to follow and update the plan as needed. Social Determinants of Health Screening Social Determinants of Health last assessed: 06/30/24 Will the Patient Participate in the Screening?: Unable to obtain Do you worry about having a steady place to live?: no Problems where you live: no known problems In the past 12 months, have you had to go without electric, gas, oil or water in your home?: no Have you or anyone in your house had to go without enough food to eat?: no Has lack of transportation kept you from medical appointments or from doing things needed for daily living?: no Has anyone in your life made you feel unsafe or unsupported?: no How hard is it for you to pay for the very basics like food, housing, medical care, and heating? Would you say it is:: Not hard at all Do you want help finding or keeping work or a job?: I do not need or want help If for any reason you need help with day-to-day activities such as bathing, preparing meals, shopping, managing finances, etc., do you get the help you need?: I get all the help I need How often do you feel lonely or isolated from those around you?: Never Do you speak a language other than [place] at home?: No Does the patient want assistance with any of the above?: No
[2024-06-30 19:23] VITALS: BP 130/62; PULSE 64; RESP 20; TEMP 36.5; O2SAT 94
[2024-06-30] MEDS: Normal Saline Flush 10 ML SYR IVP (19:37)
[2024-07-01] MEDS: Acetaminophen 500 MG TAB 1000 MG PO ×3 (01:15→16:21)
[2024-07-01 07:49] VITALS: BP 111/71; PULSE 84; RESP 16; TEMP 36.8; O2SAT 97
[2024-07-01] MEDS: Aspirin E.C. 81 MG TABEC PO (08:43)
[2024-07-01] MEDS: Apixaban 2.5 MG TAB PO ×2 (08:43→21:14)
[2024-07-01] MEDS: traMADol 50 MG TAB PO (08:43)
[2024-07-01] MEDS: Furosemide 40 MG TAB PO (08:43)
[2024-07-01] MEDS: Atorvastatin 20 MG TAB PO (08:43)
[2024-07-01] MEDS: Docusate Sodium 100 MG CAP PO (08:43)
[2024-07-01] MEDS: Metoprolol CR 100 MG TABCR PO (08:44)
[2024-07-01] MEDS: Normal Saline Flush 10 ML SYR IVP (08:45)
[2024-07-01 09:20] VITALS: O2SAT 100
--- NOTE | 2024-07-01 10:02 | PDOC.CMPRO ---
Date of service: 07/01/24 Time of Service: 10:02 Care Management Progress Note Progress Note Text Progress Note Text: Aurea was sitting in a chair when CM met with her. She is awake and easily engages in conversation. She worked with PT this morning and is still experiencing significant pain with ambulation and SNF for STR is encouraged. She was planning to discharge home with [facility] services, however she is now agreeable to go to SNF for STR prior to returning home. Referrals are sent to [facility] and the [facility]. CM will continue to follow. Discharge Potential Discharge Needs: PCP F/U Appt and Other (Ortho) Anticipated Barriers to Discharge: Bed availability Patient/Family Education Needs: Review discharge instructions, discuss Ask Me Three Transportation: Private vehicle Plan: Discharge to SNF for STR vs home with new orders for HH PT/OT. Referrals are sent to [facility] and the [facility]. She will f/u with her PCP and the orthopedic surgeon, and continue per her plan of care. Aurea will transport via [facility] wheel chair van (with lift assist if returning home.) CM will continue to follow and update the plan as needed. Social Determinants of Health Screening Social Determinants of Health last assessed: 07/01/24 Will the Patient Participate in the Screening?: Unable to obtain Do you worry about having a steady place to live?: no Problems where you live: no known problems In the past 12 months, have you had to go without electric, gas, oil or water in your home?: no Have you or anyone in your house had to go without enough food to eat?: no Has lack of transportation kept you from medical appointments or from doing things needed for daily living?: no Has anyone in your life made you feel unsafe or unsupported?: no How hard is it for you to pay for the very basics like food, housing, medical care, and heating? Would you say it is:: Not hard at all Do you want help finding or keeping work or a job?: I do not need or want help If for any reason you need help with day-to-day activities such as bathing, preparing meals, shopping, managing finances, etc., do you get the help you need?: I get all the help I need How often do you feel lonely or isolated from those around you?: Never Do you speak a language other than [place] at home?: No Does the patient want assistance with any of the above?: No
--- NOTE | 2024-07-01 11:18 | PTTR_ITS ---
PT Notes Visit Reasons: Right Intertrochanteric Hip Fracture Date: 07/01/2024 am treatment PRECAUTIONS: WBAT RLE Oxygen to keep sats >90% PRE-MEDICATE FOR TREATMENT SUBJECTIVE: Pt in chair when approached for therapy this morning with her dtr present. pt reports her pain is a 2 at rest and she received her pain meds before 9am. OBJECTIVE: Pt in chair no longer on oxygen? PAIN: 2/10 pre treatment ; increase to 7/10 with standing and walking, 4/10 with exercise (pt with visible grimacing and antalgic pattern of stepping) VITALS: monitored by nursing Therapeutic Activities 27529: Direct one-on-one instruction in dynamic activit ies to improve functional performance. ?? BED MOBILITY/TRANSFERS? Sit-stand: ?mod A x1 on initial stand then min A of 1 x 4 trials ?from elevated chair height. ? Stand-sit: ??min A x 1 trial then CGA x 4 trials at elevated chair height ? chair to commode toward left min A with youth FWW ( pt able to sustain elbow extension to assist with upright posture) commode to chair toward right with mod A with youth FWW (pt able to sustain elbow extension to assist with upright posture) ambulation : 3 steps forward 3 steps back with mod A to advance RLE forward, min A to take steps back ( 2 trials) Provided skilled cues and instruction on performance and technique throughout. Neuromuscular Re-education 09574: Activities that facilitate re-education of movement balance, posture, coordination, and proprioception or kinesthetic sense, requiring skilled tactile and verbal cues Static standing 1 min x2 Dynamic standing weight shifting ?fwd/bwd, side to side at FWW Exercises/techniques: ? seated reclined in chair : QS, GS, heelslides hip abduction adduction x 10 reps seated marching LAQ ankle pumps x 10 reps portable restorator: 4 cycles of 20 revolutions (2 forward 2 backward) with assist to complete revolutions. ASSESSMENT: Pt with minimal benefit from pre-medication this date. Pt continues to have significant pain with standing and ambulation. Pt limited to 3 steps requiring assistance to advance RLE. Pt benefited from youth height FWW.which was used as a trial in attempt to increase B elbow extension for UE WB support to unweight RLE . Discussed with pt and dtr at end of session continued concern of her going home at this level requiring alot of assistance from family to move from one surface to another and her inability to walk for distance. Discussed STR as a benefit for her prior to discharge to home. Pt and dtr were considering this option as PT session ended. Care Management and Nurse notified of minimal benefit of pre-medication on improving functional ability. PLAN: 1-2x/day x 7 days /week Continue with balance training, global strengthening and general conditioning for improved safety, mobility and activity tolerance until pt. is ready for DC. TREATMENT CODE/TIME: [id number] , [id number] ,[id number]
--- NOTE | 2024-07-01 15:10 | W.PM.PROGNOT ---
Date of Service Date of service: 07/01/24 Time of Service: 15:10 Assessment and Plan Assessment and plan (1) Closed intertrochanteric fracture of right hip: Status: Acute Assessment and plan: S/p mechanical fall repaired by ortho Dr. Lockett on 06/28/2024- POD 3 continue multimodal pain management with scheduled acetaminophen and as needed Ultram Give PRN meds 30- 60 minutes prior to ambulation with PT - Celebrex remains an option but will continue pain meds as per above - could not be pain free on PRN APAP-Needs it scheduled, doses not to be skipped Ongoing physical therapy consult- limited ambulation d/t lack of pain management effectiveness continue routine post operative care: pulmonary toileting, pain management bowel management and PT (2) Chronic kidney disease, stage 3b: Status: Acute Assessment and plan: avoid nephrotoxic drugs, renal dosing monitor (3) Chronic diastolic CHF (congestive heart failure): Status: Acute Assessment and plan: Echo in 2019 shows EF of 52% back on furosemide , monitor fluid volume status (4) Atrial fibrillation: Status: Chronic Assessment and plan: Continue rate controlled metoprolol and Eliquis (5) On deep vein thrombosis (DVT) prophylaxis: Status: Acute Assessment and plan: On Eliquis for atrial fibrillation (6) Discharge planning issues: Status: Acute Assessment and plan: SNF vs Home with home health PT -Nursing will need EMS for lift assist to go in her house if she goes home F/u with Dr. Lockett in 4 weeks in opt orthopedic office-Mepilex dressing change in a week maximum 2- Buried sutures and no removal indicated F/u with PCP Discussed with Subjective Subjective Patient reports: no new complaints, still having pain, tolerating liquids well, tolerating a regular diet and afebrile; denies shortness of breath Exam Narrative Exam Narrative: Elderly female of stated age no acute distress head is atraumatic eyes nonicteric noninjected respirations even and unlabored cardiovascular regular rate and rhythm abdomen is round obese nontender moves all extremities right limited due to pain she has 2 Mepilex dressings that are intact old bruising that is healing. No erythema. Edematous when compared to the left slightly neurologic she is awake alert oriented no focal deficits psychiatric appropriate mood and affect Objective Last Vital Signs Temp 36.8 C 07/01/24 07:49 Pulse 84 07/01/24 07:49 Resp 16 07/01/24 07:49 BP 111/71 07/01/24 07:49 Pulse Ox 100 07/01/24 09:20 Time Spent with Patient Time Spent with Patient: 35-49 minutes Time was spent: preparing to see the patient(eg.review tests), obtaining and/or reviewing separately otained hiistory, ordering medications,tests, procedures, indepentently interpreting results and counseling the patient
--- NOTE | 2024-07-01 15:35 | DI.RAD_ITS ---
Exam(s) XR FEMUR RT EXAM: XR FEMUR RT CLINICAL HISTORY: post-mobilization after hip fracture repair. TECHNIQUE: 2D digital imaging was performed. AP and lateral views. COMPARISON: CR,XR XR HIP RT COMPLETE AP PELVIS from 06/28/2024 XA XR HIP RT IN OR from 06/28/2024 FINDINGS: BONES: Stable alignment of proximal femoral fracture and hardware. JOINTS: Mild degenerative changes of the right hip. Moderate degenerative changes of the right knee. SOFT TISSUE: Vascular calcifications. IMPRESSION: Stable fracture and hardware alignment. DATA REPOSITORY: RADIATION DOSE DELIVERED:
[2024-07-01 15:56] VITALS: BP 108/78; PULSE 82; RESP 16; TEMP 36.8; O2SAT 93
--- NOTE | 2024-07-01 16:46 | W.PM.PROGNOT ---
Date of Service Date of service: 07/01/24 Time of Service: 13:40 Assessment and Plan Assessment and plan (1) Closed intertrochanteric fracture of right hip: Status: Acute Assessment and plan: Aurea is a 79-year-old female who is postop day #3 status post intramedullary nail fixation of a right intertrochanteric hip fracture. I did repeat x-rays today after she is mobilized which did not show any signs of fracture or failure of hardware malpositioning or failure. I think she may need some more pain medication and the tramadol is just not enough. It is not uncommon to take some days to be able to start mobilizing I do think she still may be to make some good progress and eventually discharged to home but she may require a short stay at a rehab facility. We will continue with weightbearing as tolerated. I will order some stronger, oxycodone, as needed for pain to see if this helps out. Subjective Subjective Interval history since last seen: Aurea reports be doing okay. She has had difficulty with mobilization due to pain. She is frustrated as she wants to discharge to home. No other acute concerns. She did premedicate with tramadol this morning but did not find it very helpful. She feels she tolerated well without any adverse events. Exam Narrative Exam Narrative: Sitting up in the chair. No acute distress. Objective Last Vital Signs Temp 36.8 C 07/01/24 15:56 Pulse 82 07/01/24 15:56 Resp 16 07/01/24 15:56 BP 108/78 07/01/24 15:56 Pulse Ox 93 07/01/24 15:56 Time Spent with Patient Time Spent with Patient: <25 minutes Time was spent: preparing to see the patient(eg.review tests), obtaining and/or reviewing separately otained hiistory, ordering medications,tests, procedures and counseling the patient
[2024-07-01 19:24] VITALS: BP 109/83; PULSE 78; RESP 16; TEMP 36.9; O2SAT 94
[2024-07-02 00:08] VITALS: BP 115/81; PULSE 77; RESP 16; TEMP 36.1; O2SAT 94
[2024-07-02] MEDS: Acetaminophen 500 MG TAB 1000 MG PO ×3 (00:57→16:19)
[2024-07-02 03:13] VITALS: BP 111/62; PULSE 83; RESP 24; TEMP 36.6; O2SAT 90
[2024-07-02 07:48] VITALS: BP 119/79; PULSE 95; RESP 16; TEMP 36.5; O2SAT 96
[2024-07-02] MEDS: Furosemide 40 MG TAB PO (08:49)
[2024-07-02] MEDS: Metoprolol CR 100 MG TABCR PO (08:49)
[2024-07-02] MEDS: Aspirin E.C. 81 MG TABEC PO (08:49)
[2024-07-02] MEDS: Apixaban 2.5 MG TAB PO ×2 (08:49→19:46)
[2024-07-02] MEDS: Normal Saline Flush 10 ML SYR IVP (08:49)
[2024-07-02] MEDS: Atorvastatin 20 MG TAB PO (08:49)
--- NOTE | 2024-07-02 09:15 | PGE_ITS ---
Date of Service Date of service: 07/02/24 Time of Service: 09:17 Assessment and Plan Assessment and plan (1) Closed intertrochanteric fracture of right hip: Status: Acute Assessment and plan: S/p mechanical fall repaired by ortho Dr. Lockett on 06/28/2024- POD 4 continue multimodal pain management with scheduled acetaminophen and PRN oxycodone Give PRN meds 30- 60 minutes prior to ambulation with PT - Celebrex added to regimen On PPI Ongoing physical therapy continue routine post operative care: pulmonary toileting, pain management bowel management and PT (2) Chronic kidney disease, stage 3b: Status: Acute Assessment and plan: avoid nephrotoxic drugs, renal dosing On home dose lasix - will add HCTZ back in AM continue monitor (3) Chronic diastolic CHF (congestive heart failure): Status: Acute Assessment and plan: Echo in 2019 shows EF of 52% Now back on furosemide HCTZ in AM, monitor fluid volume status (4) Atrial fibrillation: Status: Chronic Assessment and plan: controlled rate on metoprolol and Eliquis (5) On deep vein thrombosis (DVT) prophylaxis: Status: Acute Assessment and plan: On Eliquis for atrial fibrillation (6) Discharge planning issues: Status: Acute Assessment and plan: SNF: initially refused but agreeable now F/u with Dr. Lockett in 4 weeks in opt orthopedic office-Mepilex dressing change in a week maximum 2- Buried sutures and no removal indicated F/u with PCP Discussed with Subjective Subjective Interval history since last seen: Still reports pain on mobilization, sleeps well , oral intake well tolerated,BM on 07/01 , voids w/o difficulty Exam Narrative Exam Narrative: No acute distress, awake alert oriented no focal deficits ,respirations even and unlabored, S1- S2 regular rate and rhythm, abdomen is round obese nontender, moves all extremities right limited due to pain she has 2 Mepilex dressings that are intact old bruising that is healing. No erythema. RLE slightly edematous when compared to the left psychiatric appropriate mood and affect Objective Last Vital Signs Temp 36.5 C 07/02/24 07:48 Pulse 95 H 07/02/24 07:48 Resp 16 07/02/24 07:48 BP 119/79 07/02/24 07:48 Pulse Ox 96 07/02/24 07:48 Time Spent with Patient Time Spent with Patient: >50 minutes Time was spent: preparing to see the patient(eg.review tests), obtaining and/or reviewing separately otained hiistory, ordering medications,tests, procedures, referring, communicating with other health resident care manager, indepentently interpreting results, counseling the patient and care coordination
[2024-07-02] MEDS: oxyCODONE 5 MG TAB PO (09:36)
[2024-07-02] MEDS: Pantoprazole 40 MG TABCR PO (09:36)
[2024-07-02] MEDS: Celecoxib 100 MG CAP PO ×2 (09:36→19:46)
[2024-07-02 11:05] VITALS: BP 125/83; PULSE 71; RESP 16; TEMP 36.4; O2SAT 96
--- NOTE | 2024-07-02 13:58 | PT.INTREAT ---
PT Notes Visit Reasons: Right Intertrochanteric Hip Fracture Date: 07/02/2024 PRECAUTIONS: WBAT RLE Oxygen to keep sats >90% PRE-MEDICATE FOR TREATMENT SUBJECTIVE: Pt up in chair, premedicated per nursing. She states that her hip is feeling good, as long as she doesn't move. OBJECTIVE: ? PAIN: pain during RLE advancement, but able to work through VITALS: monitored by nursing Therapeutic Activities 17756: Direct one-on-one instruction in dynamic activities to improve functional performance. ?? BED MOBILITY/TRANSFERS? Sit-stand: ?mod A x1 on initial stand then min A of 1 for additional trials (?from recliner) ? Stand-sit: ??min A x 1 trial then CGA for remainder of session. ? Gait : ambulates 8' x 2 with FWW, mod A at trunk. Unable to clear RLE, sliding or toe curling to advance RLE, with intermittent need for assist to advance RLE. Cued for left weight shift and safety with FWW management. Patient demonstrates maximally forward flexed trunk posturing, with forearms to walker. Intermittently reaches for front walker bar, requiring cues for hands to handles frequently throughout session. Instructed in the following: Sit-stand: 5 reps, max cues. standing weight shift to the left, unilateral HR on the right. Attempt progression to right foot clearance, although unable to perform. seated LAQ 10x2 seated heel/toe raises 10x ASSESSMENT: Improved pain management, but continued limitations in functional mobility. Struggles to advance RLE, with need for mod A and significantly increased time to navigate 8' with FWW. Will continue working on LE strengthening and gait training, but continue to recommend SNF prior to return home due to marked limitations in mobility and subsequently elevated fall risk. PLAN: 1-2x/day x 7 days /week Continue with balance training, global strengthening and general conditioning for improved safety, mobility and activity tolerance until pt. is ready for DC. TREATMENT CODE/TIME: [id number] ([id number]) Janice Sy, PT, DPT [facility]
[2024-07-02 15:21] VITALS: BP 102/72; PULSE 72; RESP 16; TEMP 36.6; O2SAT 96
[2024-07-02 19:26] VITALS: BP 97/80; PULSE 79; RESP 17; TEMP 36.7; O2SAT 97
[2024-07-02] MEDS: oxyCODONE 5 MG TAB 2.5 MG PO (19:47)
[2024-07-03] MEDS: Acetaminophen 500 MG TAB 1000 MG PO ×3 (00:19→15:45)
[2024-07-03 05:25] VITALS: BP 114/69; PULSE 81; RESP 18; TEMP 36.4; O2SAT 92
[2024-07-03 06:58] LABS: Abs Immature Grans 0.04 10^3/uL (0.0-0.06); Absolute Basophil Count 0.04 10^3/uL (0.0-0.2); Absolute Eosinophil Count 0.13 10^3/uL (0.0-0.7); Absolute Lymphocyte Count 1.11 10^3/uL (1.2-3.4); Absolute Monocyte Count 0.68 10^3/uL (0.1-0.8); Absolute Neutrophil Count 6.56 10^3/uL (1.2-6.7); Basophils % 0.5 %; Eosinophils % 1.5 %; HCT 30.2 % (36.0-46.0); HGB 9.7 g/dL (11.2-15.7); Immature Grans % 0.5 %; MCH 30.1 pg (27.0-33.0); MCHC 32.1 % (32.0-36.0); MCV 94 fL (80-95); MPV 10.3 fL (8.0-11.0); Monocytes % 7.9 %; Neutrophils % 76.6 %; Platelet Count 231 10^3/uL (130-400); RBC 3.22 10^6/uL (3.93-5.22); RDW 13.5 % (11.7-14.6); RDW-SD 46.2 fL; WBC 8.56 10^3/uL (4.4-10.8)
[2024-07-03 07:14] LABS: BUN 65 mg/dL (7-18); CREATININE 1.5 mg/dL (0.55-1.02); Calcium 8.9 mg/dL (8.5-10.1); Chloride 104 mmol/L (98-107); Estimated GFR 35.45 (mL/min/1.73m2); Glucose 124 mg/dL (74-106); Magnesium 2.2 mg/dL (1.8-2.4); Potassium 4.3 mmol/L (3.5-5.1); Sodium 141 mmol/L (136-145)
[2024-07-03 07:25] VITALS: BP 114/95; PULSE 84; RESP 15; TEMP 36.3; O2SAT 95
[2024-07-03] MEDS: Apixaban 2.5 MG TAB PO ×2 (08:12→21:53)
[2024-07-03] MEDS: Aspirin E.C. 81 MG TABEC PO (08:12)
[2024-07-03] MEDS: Furosemide 40 MG TAB PO (08:12)
[2024-07-03] MEDS: Celecoxib 100 MG CAP PO ×2 (08:12→21:53)
[2024-07-03] MEDS: Spironolactone 25 MG TAB 12.5 MG PO (08:12)
[2024-07-03] MEDS: Atorvastatin 20 MG TAB PO (08:12)
[2024-07-03] MEDS: Metoprolol CR 100 MG TABCR PO (08:12)
[2024-07-03] MEDS: oxyCODONE 5 MG TAB 2.5 MG PO ×2 (08:47→21:53)
--- NOTE | 2024-07-03 09:53 | W.PM.PROGNOT ---
Date of Service Date of service: 07/03/24 Time of Service: 09:53 Assessment and Plan Assessment and plan (1) Closed intertrochanteric fracture of right hip: Status: Acute Assessment and plan: S/p mechanical fall repaired by ortho Dr. Lockett on 06/28/2024- continue multimodal pain management with scheduled acetaminophen and PRN oxycodone Give PRN meds 30- 60 minutes prior to ambulation with PT - Celebrex added to regimen On PPI Ongoing physical therapy continue routine post operative care: pulmonary toileting, pain management bowel management and PT (2) Chronic kidney disease, stage 3b: Status: Acute Assessment and plan: avoid nephrotoxic drugs, renal dosing On home dose lasix - will add HCTZ back in AM continue monitor (3) Chronic diastolic CHF (congestive heart failure): Status: Acute Assessment and plan: Echo in 2019 shows EF of 52% Now back on furosemide HCTZ in AM, monitor fluid volume status (4) Atrial fibrillation: Status: Chronic Assessment and plan: controlled rate on metoprolol and Eliquis (5) On deep vein thrombosis (DVT) prophylaxis: Status: Acute Assessment and plan: On Eliquis for atrial fibrillation (6) Discharge planning issues: Status: Acute Assessment and plan: SNF: initially refused but agreeable now F/u with Dr. Lockett in 4 weeks in opt orthopedic office-Mepilex dressing change in a week maximum 2- Buried sutures and no removal indicated F/u with PCP Discussed with Exam Narrative Exam Narrative: well appearing, sitting up in [place] chair,No acute distress, awake alert oriented no focal deficits ,respirations even and unlabored, regular rate and rhythm, abdomen is round obese nontender, moves all extremities 2 Mepilex dressings that are intact old bruising that is healing. No erythema. RLE slightly edematous when compared to the left psychiatric appropriate mood and affect Objective Last Vital Signs Temp 36.3 C L 07/03/24 07:25 Pulse 84 07/03/24 07:25 Resp 15 07/03/24 07:25 BP 114/95 H 07/03/24 07:25 Pulse Ox 95 07/03/24 07:25 Laboratory Results - last 24 hr 07/03/24 06:35 WBC 8.56 RBC 3.22 L Hgb 9.7 L Hct 30.2 L MCV 94 MCH 30.1 MCHC 32.1 RDW 13.5 Plt Count 231 MPV 10.3 Immature Gran % 0.5 Neutrophils % 76.6 Lymphocytes % 13.0 Monocytes % 7.9 Eosinophils % 1.5 Basophils % 0.5 Nucleated RBC % 0.0 Absolute Neutrophils 6.56 Absolute Lymphocytes 1.11 L Absolute Monocytes 0.68 Absolute Eosinophils 0.13 Absolute Basophils 0.04 Sodium 141 Potassium 4.3 Chloride 104 Carbon Dioxide 27.0 Anion Gap 10.0 BUN 65 H Creatinine 1.5 H Est GFR (CKD-EPI 2020) 35.45 Glucose 124 H Calcium 8.9 Magnesium 2.2 Time Spent with Patient Time Spent with Patient: 35-49 minutes Time was spent: preparing to see the patient(eg.review tests), obtaining and/or reviewing separately otained hiistory, ordering medications,tests, procedures, indepentently interpreting results and counseling the patient
--- NOTE | 2024-07-03 10:01 | PT.INTREAT ---
PT Notes Visit Reasons: Right Intertrochanteric Hip Fracture Date: 07/03/2024 PRECAUTIONS: WBAT RLE Oxygen to keep sats >90% PRE-MEDICATE FOR TREATMENT SUBJECTIVE: Pt up in chair, premedicated per nursing. She is agreeable to PT intervention. OBJECTIVE: ? VITALS: SaO2 100% on room air at rest Therapeutic Exercises (38974u1): BED MOBILITY/TRANSFERS? Sit-stand: ?min A x 1 initially; SBA by end of session ? Stand-sit: ??min A x 1 trial then SBA for remainder of session. ? Gait : ambulates 8' x 2 with FWW, mod A at trunk. Able to independently advance RLE, with improved foot clearance vs yesterday's session. Patient demonstrates maximally forward flexed trunk posturing, with forearms to walker. Intermittently reaches for front walker bar, requiring cues for hands to handles intermittently throughout session. Instructed in the following: Sit-stand: 5 reps, min cues. SBA. Cues for upright posturing upon standing. seated LAQ 10x5 seated heel/toe raises 10x seated hip AB, with support to heel initially, progressing to independent completion glute sets 10x ASSESSMENT: Improved gait mechanics today, with ability to advance RLE on her own. Will continue working on LE strengthening and gait training, but continue to recommend SNF prior to return home due to marked limitations in mobility and subsequently elevated fall risk. PLAN: 1-2x/day x 7 days /week Continue with balance training, global strengthening and general conditioning for improved safety, mobility and activity tolerance until pt. is ready for DC. TREATMENT CODE/TIME: [id number] ([id number]) Janice Sy, PT, DPT [facility]
--- NOTE | 2024-07-03 13:59 | PTTR_ITS ---
PT Notes Visit Reasons: Right Intertrochanteric Hip Fracture Date: 07/03/2024 (pm treatment) PRECAUTIONS: WBAT RLE Oxygen to keep sats >90% PRE-MEDICATE FOR TREATMENT SUBJECTIVE: Pt up in chair, premedicated per nursing. She is agreeable to PT intervention. OBJECTIVE: ? Therapeutic Exercises ([id number]): BED MOBILITY/TRANSFERS? Sit-stand: SBA? Stand-sit: ??SBA ? Gait : ambulates 8' x 2 with FWW, CGA at trunk. Able to independently advance RLE, with improved foot clearance vs yesterday's session. Patient demonstrates maximally forward flexed trunk posturing, with forearms to walker. Instructed in the following: Sit-stand: 3 reps, min cues. SBA. Cues for upright posturing upon standing. seated LAQ 10x2 ASSESSMENT: Improved gait mechanics today, with ability to advance RLE on her own. Will continue working on LE strengthening and gait training, but continue to recommend SNF prior to return home due to marked limitations in mobility and subsequently elevated fall risk. PLAN: 1-2x/day x 7 days /week Continue with balance training, global strengthening and general conditioning for improved safety, mobility and activity tolerance until pt. is ready for DC. TREATMENT CODE/TIME: [id number] ([id number]) Janice Sy, PT, DPT [facility]
[2024-07-03 15:33] VITALS: BP 113/87; PULSE 86; RESP 14; TEMP 36.7; O2SAT 96
[2024-07-03 20:31] VITALS: BP 103/88; PULSE 86; RESP 19; TEMP 36.3; O2SAT 97
[2024-07-03] MEDS: Normal Saline Flush 10 ML SYR IVP (21:54)
[2024-07-04] MEDS: Acetaminophen 500 MG TAB 1000 MG PO ×3 (01:57→16:10)
[2024-07-04 06:00] VITALS: BP 94/75; PULSE 95; RESP 18; TEMP 36.4; O2SAT 96
[2024-07-04] MEDS: Aspirin E.C. 81 MG TABEC PO (09:24)
[2024-07-04] MEDS: Atorvastatin 20 MG TAB PO (09:24)
[2024-07-04] MEDS: Metoprolol CR 100 MG TABCR PO (09:24)
[2024-07-04] MEDS: Docusate Sodium 100 MG CAP PO (09:24)
[2024-07-04] MEDS: Furosemide 40 MG TAB PO (09:24)
[2024-07-04] MEDS: Celecoxib 100 MG CAP PO ×2 (09:24→21:41)
[2024-07-04] MEDS: Apixaban 2.5 MG TAB PO ×2 (09:25→21:41)
[2024-07-04] MEDS: Normal Saline Flush 10 ML SYR IVP (09:25)
[2024-07-04] MEDS: Spironolactone 25 MG TAB 12.5 MG PO (09:25)
--- NOTE | 2024-07-04 11:15 | PTTR_ITS ---
PT Notes Visit Reasons: Right Intertrochanteric Hip Fracture Date: 07/03/2024 (pm treatment) PRECAUTIONS: WBAT RLE Oxygen to keep sats >90% PRE-MEDICATE FOR TREATMENT SUBJECTIVE: Pt up in chair, premedicated per nursing. She is agreeable to PT intervention. (PM) Pt reports she is too tired to try walking but will participate in exercises OBJECTIVE: Pt presented in chair with BLE resting on floor. Large ecchymotic area notedfrom lateral right hip to entire posterior aspect of right thigh extending medial anteriorly to tibial tuberosity. (PM) pt seated in chair ecchymotic area remains. Pt difficulty keeping eyes open she declined to recline in chair or to return to bed for rest period. Pt also seen by Lauri CUEVAS at start of session. ? (AM ) BED MOBILITY/TRANSFERS? Sit-stand: CGA VC for hand placement x 6 trials? Stand-sit: ??SBA ? chair to commode with FWW CGA Gait : ambulates 10' x 4 with FWW, CGA at trunk.Cues to take longer step which she was Able to independently advance RLE , with improved foot clearance Patient demonstrates maximally forward flexed trunk posturing, with right forearm to walker. Instructed in the following: Sit-stand: 3 reps, min cues. SBA. Cues for upright posturing upon standing. performed between amb. seated LAQ 10x2 seated marching 10 reps x 1 (PM) exercises 10 reps Seated LAQ, seated Marching reclined in chair: Heelslides reclined QS reclined QS reclined hip abd/add ASSESSMENT:(AM) Pt with poor carryover of hand placement with sit to stand transition requiring cues each rep. Pt demonstrates Improved gait mechanics today, with ability to advance RLE on her own with Right forearm resting on the walker. (PM) Pt able to perform AROM through limited ROM heelslides and marching as compared to prior sessions when she required AAROM as she was not able to perform even in shorted ROM. . Will continue working on LE strengthening and gait training. PT continue to recommend SNF prior to return home due to marked limitations in mobility , carryover of safe transfer technique, and elevated fall risk. PLAN: 1-2x/day x 7 days /week Continue with balance training, global strengthening and general conditioning for improved safety, mobility and activity tolerance until pt. is ready for DC. TREATMENT CODE/TIME: 14664, [id number] (PM Session) [id number]/ [id number] Linda Hernández, PT [facility]
--- NOTE | 2024-07-04 13:19 | CMPROGNOTE_ITS ---
Date of service: 07/04/24 Time of Service: 13:19 Care Management Progress Note Progress Note Text Progress Note Text: Aurea was sitting in a chair when CM met with her. She is awake and engages in conversation. She verbalizes understanding of PT's recommendation which is SNF for STR, prior to returning home. Aurea would like to get home to see her dog, but she is agreeable to go to STR and has a bed offer across the street at [facility]. After the prior auth was submitted for STR it was discovered that there will be a charge of $176.80 daily, according to Tammy at [facility]. This out of pocket expense is a new occurrence for patient and CM has reached out to the rehab for clarification. Patient is aware of the anticipated fee, and would rather discharge home with services if there ends up being an out of pocket expense. CM will follow. Discharge Potential Discharge Needs: Surgical F/U Appt Anticipated Barriers to Discharge: Bed availability Patient/Family Education Needs: Review discharge instructions, discuss Ask Me Three Transportation: [facility] RCT Transportation: Wheel chair van Plan: Discharge to SNF for STR. Bed offer at [facility] comes with a 40% copay. So she may end up discharging home with services as she originally planned. CM reached out to PT, update to follow after tomorrow's session. Aurea will f/u with her PCP and the orthopedic surgeon, and continue per her plan of care. Aurea will transport via [facility] wheel chair van. CM will continue to follow Social Determinants of Health Screening Social Determinants of Health last assessed: 07/04/24 Will the Patient Participate in the Screening?: Unable to obtain Do you worry about having a steady place to live?: no Problems where you live: no known problems In the past 12 months, have you had to go without electric, gas, oil or water in your home?: no Have you or anyone in your house had to go without enough food to eat?: no Has lack of transportation kept you from medical appointments or from doing things needed for daily living?: no Has anyone in your life made you feel unsafe or unsupported?: no How hard is it for you to pay for the very basics like food, housing, medical care, and heating? Would you say it is:: Not hard at all Do you want help finding or keeping work or a job?: I do not need or want help If for any reason you need help with day-to-day activities such as bathing, preparing meals, shopping, managing finances, etc., do you get the help you need?: I get all the help I need How often do you feel lonely or isolated from those around you?: Never Do you speak a language other than [place] at home?: No Does the patient want assistance with any of the above?: No
[2024-07-04 15:23] VITALS: BP 120/76; PULSE 96; RESP 19; TEMP 36.7; O2SAT 97
--- NOTE | 2024-07-04 16:30 | PGE_ITS ---
Date of Service Date of service: 07/04/24 Time of Service: 16:30 Assessment and Plan Assessment and plan (1) Closed intertrochanteric fracture of right hip: Status: Acute Assessment and plan: Aurea is doing well postop day #6 status post intramedullary nail fixation of right intratrochanteric hip fracture. She was able to ambulate well with physical therapy today. Pain seems to be under good control. She will continue to weight-bear as tolerated and as long as she is discharged tomorrow a follow- up can be planned with orthopedics in approximately 1 month for repeat evaluation and x-ray. Subjective Subjective Interval history since last seen: Aurea is postop day #6 status post intramedullary nail fixation for right intratrochanteric hip fracture. She states that her pain is under good control and was able to walk to the end of the hallway and back to her chair with physical therapy today. She states that her plan is to be discharged tomorrow [facility] a [facility]. Exam Extrem Other: Exam of the right hip today shows that the Mepilex dressing is intact without drainage onto the dressing. Able to demonstrate smooth internal and external ro tation without pain. Objective Last Vital Signs Temp 98.1 F 07/04/24 15:23 Pulse 96 H 07/04/24 15:23 Resp 19 07/04/24 15:23 BP 120/76 07/04/24 15:23 Pulse Ox 97 07/04/24 15:23 Time Spent with Patient Time Spent with Patient: <25 minutes Time was spent: preparing to see the patient(eg.review tests) and counseling the patient
--- NOTE | 2024-07-04 17:46 | W.PM.PROGNOT ---
Date of Service Date of service: 07/04/24 Time of Service: 17:47 Assessment and Plan Assessment and plan (1) Closed intertrochanteric fracture of right hip: Status: Acute Assessment and plan: S/p mechanical fall repaired by ortho Dr. Lockett on 06/28/2024- continue multimodal pain management with scheduled acetaminophen and PRN oxycodone Give PRN meds 30- 60 [id number] prior to ambulation with PT - Continue Celebrex Continue PPI Ongoing physical therapy continue routine post operative care: pulmonary toileting, pain management bowel management and PT (2) Chronic kidney disease, stage 3b: Status: Acute Assessment and plan: avoid nephrotoxic drugs, renal dosing On home dose lasix continue monitor (3) Chronic diastolic CHF (congestive heart failure): Status: Acute Assessment and plan: Echo in 2019 shows EF of 52% Now back on furosemide monitor fluid volume status (4) Atrial fibrillation: Status: Chronic Assessment and plan: controlled rate on metoprolol and Eliquis (5) On deep vein thrombosis (DVT) prophylaxis: Status: Acute Assessment and plan: On Eliquis for atrial fibrillation (6) Discharge planning issues: Status: Acute Assessment and plan: SNF: initially refused but agreeable now F/u with Dr. Lockett in 4 weeks in opt orthopedic office-Mepilex dressing change in a week maximum 2- Buried sutures and no removal indicated F/u with PCP Discussed with Subjective Subjective Patient reports: no new complaints, pain is less, tolerating liquids well, tolerating a regular diet, voiding w/o difficulty, bowel movement and afebrile; denies no flatus, diarrhea, nausea or vomiting Exam Narrative Exam Narrative: Constitutional The patient is sitting in chair acute distress, no report of pain on moving right lower extremity during exam but minimal pain with ambulation Neuro:alert and oriented X3 , No neurological focal deficit Resp: Unlabored breathing, clear lungs Cardio: S1, S2, irregular , no murmur, bilateral radial and dorsalis pedis pulses are positive GI: Abdomen is not distended, soft and non tender, bowel sounds are present : No CVA tenderness Integumentary: No skin lesions or rash,right hip dressing intact( s/p Sx) Extremities: Moves all 4 extremities, right hip surgical site dressing is intact, minimal bruising Psych: congruent mood and normal affect. Objective Last Vital Signs Temp 36.7 C 07/04/24 15:23 Pulse 96 H 07/04/24 15:23 Resp 19 07/04/24 15:23 BP 120/76 07/04/24 15:23 Pulse Ox 97 07/04/24 15:23 Time Spent with Patient Time Spent with Patient: 25-34 minutes Time was spent: preparing to see the patient(eg.review tests), ordering medications,tests, procedures, referring, communicating with other health post acute care registered nurse, indepentently interpreting results, counseling the patient and care coordination
[2024-07-04 19:45] VITALS: BP 101/72; PULSE 89; RESP 18; TEMP 36.5; O2SAT 97
[2024-07-04] MEDS: oxyCODONE 5 MG TAB 2.5 MG PO (21:41)
[2024-07-05 08:05] VITALS: BP 116/83; PULSE 63; RESP 18; TEMP 38.1; O2SAT 92
[2024-07-05] MEDS: Atorvastatin 20 MG TAB PO (08:13)
[2024-07-05] MEDS: Apixaban 2.5 MG TAB PO ×2 (08:14→20:14)
[2024-07-05] MEDS: Metoprolol CR 100 MG TABCR PO (08:14)
[2024-07-05] MEDS: Acetaminophen 500 MG TAB 1000 MG PO ×3 (08:14→23:39)
[2024-07-05] MEDS: Celecoxib 100 MG CAP PO ×2 (08:14→20:14)
[2024-07-05] MEDS: Aspirin E.C. 81 MG TABEC PO (08:15)
[2024-07-05] MEDS: Spironolactone 25 MG TAB 12.5 MG PO (08:15)
[2024-07-05] MEDS: Furosemide 40 MG TAB PO (08:15)
--- NOTE | 2024-07-05 09:44 | PT.INTREAT ---
PT Notes Visit Reasons: Right Intertrochanteric Hip Fracture Date: 07/05/2024 PRECAUTIONS: WBAT RLE Oxygen to keep sats >90% PRE-MEDICATE FOR TREATMENT SUBJECTIVE: (AM)Pt reporting she is not sure how she will be able to afford the copayment at rehab but also knows she is not able to manage at home in her current state. She reports her grandson is with her but he can not provide personal care. She reports it is a long way from her bed to the bathroom and living room (PM) Pt reports she does not know what the plan will be for leaving the hospital. Pt states I just need to keep working on standing but this( rubbing her right hip) is sore. OBJECTIVE: Pt presented in chair with BLE resting on floor. ecchymotic area remains (AM ) BED MOBILITY/TRANSFERS? Sit-stand: CGA VC for hand placement x 2 trials? from elevated bed, min A from stationary chair x 2 trials? Stand-sit: ??SBA ? chair to commode with FWW min A commode to bed min A for FWW mgmt and 100 % cues for safe approach. sit to supine mod A to get legs into bed supine to sit min A Gait : ambulates 10' x 3 with FWW, CGA at trunk.Cues to take longer step which she was Able to independently advance RLE , with improved foot clearance Patient demonstrates maximally forward flexed trunk posturing, with right forearm to walker. Instructed in the following: Sit-stand: 3 reps, min cues. min A initial then progressed to CGA from recliner. Cues for upright posturing upon standing. performed between amb. seated LAQ 10x1 seated marching 10 reps x 1 supine heelslides x 10 reps supine hip abd/add x 10 reps (PM) BED MOBILITY/TRANSFERS? Sit-stand: CGA VC for hand placement x 2 trials? from elevated bed, min A from stationary chair x 2 trials? Stand-sit: ??SBA ? chair to commode with [facility] FWW CGA commode to chair CGA for youth FWW mgmt and 100 % cues for safe approach. Gait : ambulates 6' x 2 with youth FWW, CGA at trunk.Cues to take longer step which she was Able to independently advance RLE , with reduced foot clearance Patient demonstrates slight forward flexed trunk with youth FWW pt able to assist perform one handed stand at youth FWW reach with left UE for object within FAUZIA at mid thigh height for undergarment management after toileting. ASSESSMENT:(AM) Pt continues with poor carryover of hand placement and required increased time for processing of instructions to stand. Uncertain if this is related to pain medication as she has been able to attend to task and process information in prior sessions. Pt at this time would require physical assist of 1 for all mobility and ADL/self care, wheelchair and commode if she were to discharge to home. (PM) Pt issued loaner youth FWW lower height to accomodate for forward flexed trunk. Pt able to improve upright posture however no change in ability to advance RLE or to reduce pain in RLE during WB to advance LLE. Pt with no change in performance with premedicatied vs not premedicated except pt able to attend to task better without premedication. As compared to am session when pt was frequently closing eyes and lowering head. PLAN: 1-2x/day x 7 days /week Continue with balance training, global strengthening and general conditioning for improved safety, mobility and activity tolerance until pt. is ready for DC. TREATMENT CODE/TIME: [id number]/ [id number] (pm Session) [id number]/ [id number] Linda Hernández, PT [facility]
[2024-07-05 11:59] VITALS: BP 107/64; PULSE 100; RESP 17; TEMP 36.8; O2SAT 94
--- NOTE | 2024-07-05 15:16 | CHAPLAIN ---
Aurea was up in the chair when I visited. She was very cheerful and showed me the notes her grandchildren wrote on the whiteboards. She is hoping to get home soon.
--- NOTE | 2024-07-05 17:14 | CMPROGNOTE_ITS ---
Date of service: 07/05/24 Time of Service: 15:30 Care Management Progress Note Progress Note Text Progress Note Text: Aurea was sitting up in the chair when CM met with her today. As usual, she was very pleasant and easily to smile. Her daughter and grandson were present as well. Aurea and her family were notified by CM that [facility] is not able to accept her at this time. After a discussion with PT, family and patient have decided that Aurea just can not safely go home at her mobility level. Family and Aurea were agreeable to new SNF referrals being sent to [facility] and [facility], and this was done. Discharge Potential Discharge Needs: Other (SNF placement for STR) Anticipated Barriers to Discharge: Bed availability Patient/Family Education Needs: Review discharge instructions, discuss Ask Me Three Transportation: [facility] RCT Transportation: Wheel chair van Plan: Anticipate that Aurea will receive a bed offer and be transferred to SNF. She will f/u with the facility provider and complete her rehabilitation. CM will follow and to update the plan as needed. Social Determinants of Health Screening Social Determinants of Health last assessed: 07/05/24 Will the Patient Participate in the Screening?: Unable to obtain Do you worry about having a steady place to live?: no Problems where you live: no known problems In the past 12 months, have you had to go without electric, gas, oil or water in your home?: no Have you or anyone in your house had to go without enough food to eat?: no Has lack of transportation kept you from medical appointments or from doing things needed for daily living?: no Has anyone in your life made you feel unsafe or unsupported?: no How hard is it for you to pay for the very basics like food, housing, medical care, and heating? Would you say it is:: Not hard at all Do you want help finding or keeping work or a job?: I do not need or want help If for any reason you need help with day-to-day activities such as bathing, preparing meals, shopping, managing finances, etc., do you get the help you need?: I get all the help I need How often do you feel lonely or isolated from those around you?: Never Do you speak a language other than [place] at home?: No Does the patient want assistance with any of the above?: No
[2024-07-05 21:15] VITALS: BP 105/75; PULSE 75; RESP 22; TEMP 36.8; O2SAT 96
[2024-07-06 08:00] VITALS: BP 106/75; PULSE 99; RESP 18; TEMP 36.7; O2SAT 93
[2024-07-06] MEDS: Acetaminophen 500 MG TAB 1000 MG PO ×2 (08:49→16:18)
[2024-07-06] MEDS: Furosemide 40 MG TAB PO (08:49)
[2024-07-06] MEDS: Atorvastatin 20 MG TAB PO (08:50)
[2024-07-06] MEDS: Spironolactone 25 MG TAB 12.5 MG PO (08:50)
[2024-07-06] MEDS: Apixaban 2.5 MG TAB PO ×2 (08:50→20:37)
[2024-07-06] MEDS: Celecoxib 100 MG CAP PO ×2 (08:50→20:37)
[2024-07-06] MEDS: Aspirin E.C. 81 MG TABEC PO (08:50)
[2024-07-06] MEDS: Metoprolol CR 100 MG TABCR PO (08:51)
[2024-07-06 08:53] VITALS: BP 103/72; PULSE 117; O2SAT 95
--- NOTE | 2024-07-06 09:54 | PT.INPN ---
PT Notes Visit Reasons: Right Intertrochanteric Hip Fracture Inpatient Physical Therapy Progress Note Date: 07/06/2024 Dates of Service: 06/29/2024-07/06/2024 PRECAUTIONS: WBAT RLE SUBJECTIVE: Pt reports her leg is sore mostly when she is standing on it. Pt reports she does not like having her legs elevated as it hurts her back. OBJECTIVE:Pt presents with significant purple ecchymosis to entire thigh ( initially locallized to incision and posterior thigh). The area extends down her leg including knee and lower leg. Pt with swelling to knee and thigh. Knee high TEDS in place. PAIN: prior to session seated at rest: 06/06; pain with standing -11/03, post ambulation -08/04 BED MOBILITY/TRANSFERS Rolling L/R: min A Supine-sit: min A for RLE Sit-supine: Min A for RLE Sit-stand: CGA and cues for hand placement and count of 3 Stand-sit: SBA with intermittent cues to reach back Bed-Chair: CGA with youth FWW Chair-bed: CGA with youth FWW GAIT Assistive Device: youth FWW Weight bearing: WBAT Assist: CGA and cue for keeping the device closer to her body Distance: 10 feet x 3 with sit rests between Deviation: forward flexed trunk, antalgic pattern RLE, reduced step length, reduce step height toe first at weight acceptance THEREX: 10 reps supine heel slides, hip abd/add, quad sets, glut sets;ankle pumps seated: LAQ, marching, and ankle pumps STAIRS: pt unable to attempt at this time ASSESSMENT: Patient is a 79 yo female whos progress has been limited by significant pain and swelling in her RLE. SHe is non compliant with elevation of her leg. She also limited by significant ecchymosis to entire RLE. Pt presents with clinical signs and symptoms consistent with current/admitting diagnoses that have resulted to mobility limitations, gait instability, generalized weakness, and impairment of motor control as demonstrated by the following impairment level findings: 1. Decreased strength to right hip major muscle groups 2. Impaired standing balance 3. Limitation of joint range of motion in right hip 4. Impaired functional activity tolerance 5. pain right hip/ thigh 6. forward flexed posture during standing and ambulation Impairments are contributing to the following functional limitations: 1. Inability to safely ambulate without assistive device 2. Increase completion time for mobility ADL performance 3. Increased fall risk 4. decline bed mobility skills 5. decline in transfer skills 6. difficulty performing stairs without assistance Pt would benefit from short stay SNF for continued rehabilitation prior to discharge to home to improve strength, ROM, balance , posture, functional activity tolerance and all aspects of mobility however pt declines. She will require lift assist into her home Patient is assessed as a moderate complexity based on the following: History: 79-year-old female with impairment level findings, functional limitations, and past medical history as indicated above Examination: Demonstrable impairment in strength, balance, and mobility level with underlying impairments and functional limitations as documented above Presentation: evolving Decision Making: moderate Goals: [MET/NOT MET] Continue all goals 1. supine to sit supervision [NOT MET] 2. sit to supine supervision [NOT MET] 3. transfer with FWW supervision [NOT MET] 4. Ambulate with FWW supervision 150 feet [NOT MET] 5. 5 steps with rails with CGA [NOT MET ] 6. supervision HEP for LE strength and ROM [NOT MET] PLAN OF CARE/TREATMENT PLAN: 1-2x/day, 7 days/ week x 1 week Plan of care has been reviewed with the [employer] providing the service under Physical therapy direction. Initiate physical therapy intervention for strengthening, bed mobility, transfers, gait, stairs, balance training, use of assistive device. DISCHARGE RECOMMENDATIONS: SNF TREATMENT CODE/TIME: [id number]/ [id number]
--- NOTE | 2024-07-06 11:41 | PGE_ITS ---
Date of Service Date of service: 07/06/24 Time of Service: 11:41 Assessment and Plan Assessment and plan (1) Closed intertrochanteric fracture of right hip: Status: Acute Assessment and plan: S/p mechanical fall repaired by ortho Dr. Lockett on 06/28/2024- continue multimodal pain management with scheduled acetaminophen and PRN oxycodone Give PRN meds 30- 60 [id number] prior to ambulation with PT - Continue Celebrex Continue PPI Ongoing physical therapy continue routine post operative care: pulmonary toileting, pain management bowel management and PT (2) Chronic kidney disease, stage 3b: Status: Acute Assessment and plan: avoid nephrotoxic drugs, renal dosing On home dose lasix continue monitor (3) Chronic diastolic CHF (congestive heart failure): Status: Acute Assessment and plan: Echo in 2019 shows EF of 52% Now back on furosemide monitor fluid volume status (4) Atrial fibrillation: Status: Chronic Assessment and plan: controlled rate on metoprolol and Eliquis (5) On deep vein thrombosis (DVT) prophylaxis: Status: Acute Assessment and plan: On Eliquis for atrial fibrillation (6) Discharge planning issues: Status: Acute Assessment and plan: SNF: initially refused but agreeable now F/u with Dr. Lockett in 4 weeks in opt orthopedic office-Mepilex dressing change in a week maximum 2- Buried sutures and no removal indicated F/u with PCP Discussed with Subjective Subjective Patient reports: no new complaints, pain is less, tolerating liquids well, tolerating a regular diet, voiding w/o difficulty and afebrile; denies flatus, diarrhea, nausea, vomiting or shortness of breath Interval history since last seen: Sitting in the chair in the room pleasant conversant with no complaints. Awaiting SNF placement; possibly the [facility] 07/07/24 - patient is aware there are referrals out. Exam Narrative Exam Narrative: Constitutional The patient is sitting in chair acute distress, no report of pain on moving right lower extremity during exam but minimal pain with ambulation Neuro:alert and oriented X3 , No neurological focal deficit Resp: Unlabored breathing, clear lungs Cardio: S1, S2, irregular , no murmur, bilateral radial and dorsalis pedis pulses are positive GI: Abdomen is not distended, soft and non tender, bowel sounds are present : No CVA tenderness Integumentary: No skin lesions or rash,right hip dressing intact( s/p Sx) Extremities: Moves all 4 extremities, right hip surgical site dressing is intact, minimal bruising Psych: congruent mood and normal affect. Objective Last Vital Signs Temp 36.7 C 07/06/24 08:00 Pulse 117 H 07/06/24 08:53 Resp 18 07/06/24 08:00 BP 103/72 07/06/24 08:53 Pulse Ox 95 07/06/24 08:53 Time Spent with Patient Time Spent with Patient: 25-34 minutes Time was spent: preparing to see the patient(eg.review tests), ordering medications,tests, procedures, referring, communicating with other health intensive care ambulance paramedic, indepentently interpreting results, counseling the patient and care coordination
--- NOTE | 2024-07-06 15:02 | PT.INTREAT ---
PT Notes Visit Reasons: Right Intertrochanteric Hip Fracture Date: 07/06/2024 PRECAUTIONS: WBAT RLE PRE-MEDICATE FOR TREATMENT SUBJECTIVE: Pt reports she is tired and would like to lie down. OBJECTIVE: Pt presented in chair with BLE resting on floor. ecchymotic area has extended to include entire thigh, knee and lower leg LEROY in place BED MOBILITY/TRANSFERS? Sit-stand: CGA VC for hand placement x 2 trials? from elevated bed, min A from stationary chair x 2 trials? Stand-sit: ??SBA ? chair to commode with youth FWW CGA commode to bed CGA for youth FWW mgmt and 100 % cues for safe approach. sit to supine mod A for LEs rolling min A . supine to sit min A Gait : ambulates 6' x 2 with youth FWW, CGA at trunk.Cues to take longer step which she was Able to independently advance RLE , with reduced foot clearance Patient demonstrates slight forward flexed trunk with youth FWW pt able to assist perform one handed stand at youth FWW reach with left UE for object within FAUZIA at mid thigh height for undergarment management after toileting. ASSESSMENT: Pt requesting to attempt lying in bed however once in bed she insisted on layig on her right hip which increased her pain. She noted she can on lay on her right side . She therefore wanted to return to the chair because the bed was too painful. PLAN: 1-2x/day x 7 days /week Continue with balance training, global strengthening and general conditioning for improved safety, mobility and activity tolerance until pt. is ready for DC. TREATMENT CODE/TIME:17938/ [id number] Linda Hernández, PT [facility]
--- NOTE | 2024-07-06 16:43 | CMPROGNOTE_ITS ---
Date of service: 07/06/24 Time of Service: 16:43 Care Management Progress Note Progress Note Text Progress Note Text: Aurea continues to work with PT. She was offered a bed at the [facility] today, pending PA, and she and her daughter have accepted. Aurea would prefer to go home, but knows that she cannot care for herself at this time. She was encouraged to fully participate in her therapy in order to get home quickly. Aurea's daughter would like to follow the transport van, and would like a call once the time is secured. Discharge Potential Discharge Needs: Other (facility provider f/u) Anticipated Barriers to Discharge: None Identified Patient/Family Education Needs: Review discharge instructions, discuss Ask Me Three Transportation: [facility] Transportation: Wheel chair van Plan: Anticipate that Aurea will be transferred to the [facility] in the next day or 2. She will f/u with the facility provider. She will transport via [facility] wheel chair van. Her daughter is planning to follow the van. Aurea will continue with her rehabilitation before returning home Social Determinants of Health Screening Social Determinants of Health last assessed: 07/06/24 Will the Patient Participate in the Screening?: Unable to obtain Do you worry about having a steady place to live?: no Problems where you live: no known problems In the past 12 months, have you had to go without electric, gas, oil or water in your home?: no Have you or anyone in your house had to go without enough food to eat?: no Has lack of transportation kept you from medical appointments or from doing things needed for daily living?: no Has anyone in your life made you feel unsafe or unsupported?: no How hard is it for you to pay for the very basics like food, housing, medical care, and heating? Would you say it is:: Not hard at all Do you want help finding or keeping work or a job?: I do not need or want help If for any reason you need help with day-to-day activities such as bathing, p reparing meals, shopping, managing finances, etc., do you get the help you need?: I get all the help I need How often do you feel lonely or isolated from those around you?: Never Do you speak a language other than Japanese at home?: No Does the patient want assistance with any of the above?: No
[2024-07-06] MEDS: oxyCODONE 5 MG TAB 2.5 MG PO (17:07)
[2024-07-06 19:47] VITALS: BP 111/68; PULSE 102; RESP 17; TEMP 36.9; O2SAT 92
[2024-07-07] MEDS: Acetaminophen 500 MG TAB 1000 MG PO ×3 (00:33→17:12)
[2024-07-07] MEDS: oxyCODONE 5 MG TAB 2.5 MG PO ×2 (00:33→21:22)
[2024-07-07 08:24] VITALS: BP 100/72; PULSE 98; RESP 18; TEMP 36.5; O2SAT 96
[2024-07-07 09:14] VITALS: BP 123/81; PULSE 79
[2024-07-07] MEDS: Furosemide 40 MG TAB PO (09:25)
[2024-07-07] MEDS: Metoprolol CR 100 MG TABCR PO (09:25)
[2024-07-07] MEDS: Atorvastatin 20 MG TAB PO (09:25)
[2024-07-07] MEDS: Celecoxib 100 MG CAP PO ×2 (09:25→21:11)
[2024-07-07] MEDS: Apixaban 2.5 MG TAB PO ×2 (09:25→21:11)
[2024-07-07] MEDS: Aspirin E.C. 81 MG TABEC PO (09:26)
[2024-07-07] MEDS: Spironolactone 25 MG TAB 12.5 MG PO (09:26)
--- NOTE | 2024-07-07 10:08 | PGE_ITS ---
Date of Service Date of service: 07/07/24 Time of Service: 10:08 Assessment and Plan Assessment and plan (1) Closed intertrochanteric fracture of right hip: Status: Acute Assessment and plan: S/p mechanical fall repaired by ortho Dr. Lockett on 06/28/2024- Ongoing multimodal pain management with scheduled acetaminophen and PRN oxycodone, ultram was not effective Continue to administer PRN meds 30- 60 minutes prior to ambulation with PT - On scheduled Celebrex Ongoing PPI Ongoing physical therapy consultation: please read notes continue routine post-op care:IS, deep breathing, pain management, bowel management CBC in AM (2) Chronic kidney disease, stage 3b: Status: Acute Assessment and plan: Renal dosing of medicine and continue to avoid nephrotoxic drugs Continue home dose lasix Continue to monitor (3) Chronic diastolic CHF (congestive heart failure): Status: Acute Assessment and plan: Echo in 2019 shows EF of 52% On home dose furosemide Continue to monitor fluid volume status (4) Atrial fibrillation: Status: Chronic Assessment and plan: Rate controlled on metoprolol Also on Eliquis (5) On deep vein thrombosis (DVT) prophylaxis: Status: Acute Assessment and plan: On Eliquis in the setting of A-Fib (6) Discharge planning issues: Status: Acute Assessment and plan: SNF: initially refused but later was agreeable F/u with Dr. Lockett in 4 weeks in outpatient orthopedic office -Mepilex dressing change in a week maximum 2- Buried sutures and no removal indicated F/u with PCP SNF: Awaiting prior authorization as per [facility] appears to be an accepted option for d/c- 1-2 days as of 07/06 Discussed with Subjective Subjective Patient reports: still having pain (With ambulation - slowly improving ) Exam Narrative Exam Narrative: No acute distress, afebrile, awake alert oriented no focal deficits ,respirations even and unlabored, S1- S2 regular rate and rhythm, positive right pedal pulse, abdomen is round obese nontender, moves all extremities right limited due to pain she has 2 Mepilex dressings that are intact old bruising s/p surgery still there with additional dependent subcutaneous bleeding erythema, RLE edematous when compared to the left , no anasarca- psychiatric appropriate mood and affect Objective Last Vital Signs Temp 36.5 C 07/07/24 08:24 Pulse 79 07/07/24 09:14 Resp 18 07/07/24 08:24 BP 123/81 07/07/24 09:14 Pulse Ox 96 07/07/24 08:24 Time Spent with Patient Time Spent with Patient: >50 minutes Time was spent: preparing to see the patient(eg.review tests), obtaining and/or reviewing separately otained hiistory, ordering medications,tests, procedures, referring, communicating with other health progressive care nurse, indepentently interpreting results, counseling the patient and care coordination
--- NOTE | 2024-07-07 14:33 | PTTR_ITS ---
PT Notes Visit Reasons: Right Intertrochanteric Hip Fracture Date: 07/07/2024 PRECAUTIONS: WBAT RLE PRE-MEDICATE FOR TREATMENT SUBJECTIVE: Pt reports her leg is sorestill. OBJECTIVE: Pt presented in chair with BLE resting on floor. ecchymotic area has extended to include entire thigh, knee and lower leg LEROY in place swelling to right thigh. BED MOBILITY/TRANSFERS? (am/pm) Sit-stand: CGA VC for hand placement x 3 trials? from elevated bed, CGA from stationary chair x 2 trials? Stand-sit: ??SBA ? (am)chair to commode with youth FWW CGA (am)commode to chair CGA for youth FWW mgmt and 100 % cues for safe approach. (am)dynamic balance: pt able to assist [facility] with left UE for object within FAUZIA at mid thigh height for undergarment management after toileting. (pm) Gait : ambulates 6' x 2 with [facility], CGA at trunk.Cues to take longer step which she was Able to independently advance RLE , with reduced foot clearance Patient demonstrates slight forward flexed trunk with [facility] Seated exercises LAQ x 2 sets 10 reps, marching weight shifting in stand at [facility] forward, back, side to side ASSESSMENT: Pt continues with fair tolerance to standing tasks. 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 Pt able to perform seated exercises with max cues for . Fair tolerance to standing weight shifting forward / back/ side to side . PLAN: 1-2x/day x 7 days /week Continue with balance training, global strengthening and general conditioning for improved safety, mobility and activity tolerance until pt. is ready for DC. TREATMENT CODE/TIME:33343/ [id number] 2nd session( [id number], [id number]/ [id number] Linda Hernández, PT [facility]
--- NOTE | 2024-07-07 15:17 | CMPROGNOTE_ITS ---
Date of service: 07/07/24 Time of Service: 15:18 Care Management Progress Note Progress Note Text Progress Note Text: Aurea was snoozing in her recliner each time CM met with her today. She wakes easily, is pleasant and engages in conversation each encounter. She is working with PT and remains agreeable to their recommendation, which is SNF for STR, prior to returning home. [facility] ideal since it in network for her insurance. Unfortunately, they don't anticipate any openings until Thursday, per Victoria due to staffing issues. CM asked Gisele to move forward with the prior auth and will check in with her in the AM. Aurea did have a bed offer at the [facility], however the cost is $4400 X 14 days, and required upfront and is not affordable. Discharge Anticipated Barriers to Discharge: Bed availability Patient/Family Education Needs: Review discharge instructions, discuss Ask Me Three Transportation: RCT Plan: SNF for STR, prior to returning home. She can't afford the [place] ($4400 X 14 days). [facility] may be able to offer her a bed for Thursday, depending on staffing and PA. She will transport via [facility] wheel chair van. Her daughter is planning to follow the van. CM will follow. Social Determinants of Health Screening Social Determinants of Health last assessed: 07/07/24 Will the Patient Participate in the Screening?: Unable to obtain Do you worry about having a steady place to live?: no Problems where you live: no known problems In the past 12 months, have you had to go without electric, gas, oil or water in your home?: no Have you or anyone in your house had to go without enough food to eat?: no Has lack of transportation kept you from medical appointments or from doing things needed for daily living?: no Has anyone in your life made you feel unsafe or unsupported?: no How hard is it for you to pay for the very basics like food, housing, medical care, and heating? Would you say it is:: Not hard at all Do you want help finding or keeping work or a job?: I do not need or want help If for any reason you need help with day-to-day activities such as bathing, preparing meals, shopping, managing finances, etc., do you get the help you need?: I get all the help I need How often do you feel lonely or isolated from those around you?: Never Do you speak a language other than [place] at home?: No Does the patient want assistance with any of the above?: No
[2024-07-07 15:25] VITALS: BP 100/73; PULSE 83; RESP 19; TEMP 36.9; O2SAT 95
[2024-07-07 19:38] VITALS: BP 92/75; PULSE 82; RESP 18; TEMP 37; O2SAT 96
[2024-07-08] MEDS: oxyCODONE 5 MG TAB 2.5 MG PO ×2 (06:03→10:45)
[2024-07-08 06:40] LABS: Abs Immature Grans 0.05 10^3/uL (0.0-0.06); Absolute Basophil Count 0.03 10^3/uL (0.0-0.2); Absolute Eosinophil Count 0.03 10^3/uL (0.0-0.7); Absolute Lymphocyte Count 0.63 10^3/uL (1.2-3.4); Absolute Monocyte Count 0.79 10^3/uL (0.1-0.8); Absolute Neutrophil Count 8.77 10^3/uL (1.2-6.7); Basophils % 0.3 %; Eosinophils % 0.3 %; HCT 32.4 % (36.0-46.0); HGB 10.1 g/dL (11.2-15.7); Immature Grans % 0.5 %; Lymphocytes % 6.1 %; MCH 30.1 pg (27.0-33.0); MCHC 31.2 % (32.0-36.0); MCV 97 fL (80-95); MPV 9.8 fL (8.0-11.0); Monocytes % 7.7 %; Neutrophils % 85.1 %; Platelet Count 231 10^3/uL (130-400); RBC 3.35 10^6/uL (3.93-5.22); RDW 14.8 % (11.7-14.6); RDW-SD 51.4 fL
[2024-07-08 07:32] VITALS: BP 123/85; PULSE 88; RESP 18; TEMP 36.6; O2SAT 97
[2024-07-08 07:54] LABS: Anion Gap 7.7 mmol/L (3-11); BUN 55 mg/dL (7-18); CO2 29.3 mmol/L (21.0-32.0); CREATININE 1.3 mg/dL (0.55-1.02); Calcium 9.1 mg/dL (8.5-10.1); Chloride 104 mmol/L (98-107); Estimated GFR 42.09 (mL/min/1.73m2); Glucose 119 mg/dL (74-106); Potassium 4.2 mmol/L (3.5-5.1); Sodium 141 mmol/L (136-145)
--- NOTE | 2024-07-08 08:00 | DI.US_ITS ---
Exam(s) US LOWER EXTREMITY VENOUS RT EXAM: US LOWER EXTREMITY VENOUS RT CLINICAL HISTORY: Inc. pain/bruising to R hip s/p repair TECHNIQUE: Right lower extremity venous ultrasound performed using grayscale, color-flow, and spectr al Doppler analysis. COMPARISON: No exams were available for comparison FINDINGS: The right common femoral, femoral and popliteal veins demonstrate normal compressibility, augmentatio n, and color Doppler. The posterior tibial veins cannot be adequately assessed. There is limited vis ualization in calf. Color flow is seen within the posterior tibialis veins. The patient requested t hat the examination end due to discomfort. The saphenofemoral junction is unremarkable. There is no evidence of a Davis cyst. There is edema seen in the soft tissues of the lower extremity. IMPRESSION: 1. No evidence of a right lower extremity DVT from the common femoral vein to the popliteal vein. 2. The posterior tibialis veins were not well visualized and the patient requested the examination to end due to the discomfort. DATA REPOSITORY:
[2024-07-08] MEDS: Aspirin E.C. 81 MG TABEC PO (08:58)
[2024-07-08] MEDS: Metoprolol CR 100 MG TABCR PO (08:58)
[2024-07-08] MEDS: Acetaminophen 500 MG TAB 1000 MG PO ×2 (08:58→15:06)
[2024-07-08] MEDS: Spironolactone 25 MG TAB 12.5 MG PO (08:58)
[2024-07-08] MEDS: Atorvastatin 20 MG TAB PO (08:59)
[2024-07-08] MEDS: Furosemide 40 MG TAB PO (08:59)
[2024-07-08] MEDS: Celecoxib 100 MG CAP PO (09:00)
--- NOTE | 2024-07-08 10:00 | PGE_ITS ---
Date of Service Date of service: 07/08/24 Time of Service: 10:03 Assessment and Plan Assessment and plan (1) Closed intertrochanteric fracture of right hip: Status: Acute Assessment and plan: S/p mechanical fall repaired by ortho Dr. Lockett on 06/28/2024- Ongoing multimodal pain management with scheduled acetaminophen and PRN oxycodone, ultram was not effective Continue to administer PRN meds 30- 60 minutes prior to ambulation with PT - On scheduled Celebrex Ongoing PPI Ongoing physical therapy consultation: please read notes continue routine post-op care:IS, deep breathing, pain management, bowel management CBC in AM (2) Chronic kidney disease, stage 3b: Status: Acute Assessment and plan: Renal dosing of medicine and continue to avoid nephrotoxic drugs Continue home dose lasix Continue to monitor (3) Chronic diastolic CHF (congestive heart failure): Status: Acute Assessment and plan: Echo in 2019 shows EF of 52% On home dose furosemide Continue to monitor fluid volume status (4) Atrial fibrillation: Status: Chronic Assessment and plan: Rate controlled on metoprolol Also on Eliquis (5) On deep vein thrombosis (DVT) prophylaxis: Status: Acute Assessment and plan: On Eliquis in the setting of A-Fib (6) Discharge planning issues: Status: Acute Assessment and plan: SNF: initially refused but later was agreeable F/u with Dr. Lockett in 4 weeks in outpatient orthopedic office -Mepilex dressing change in a week maximum 2- Buried sutures and no removal indicated F/u with PCP SNF: Awaiting prior authorization as per Kaitlyn Cleaning appears to be an accepted option for d/c- 1-2 days as of 07/06 Discussed with Subjective Subjective Patient reports: still having pain (With ambulation - slowly improving ), tolerating liquids well, tolerating a regular diet, voiding w/o difficulty and bowel movement; denies diarrhea, blood in stool, nausea, vomiting, shortness of breath or fever Exam Narrative Exam Narrative: No acute distress, afebrile, awake alert oriented no focal deficits ,respirati ons even and unlabored, S1- S2 regular rate and rhythm, positive right pedal pulse, abdomen is round obese nontender, moves all extremities right limited due to pain she has 2 Mepilex dressings that are intact old bruising s/p surgery still there with additional dependent subcutaneous bleeding erythema, RLE edematous when compared to the left , no anasarca- psychiatric appropriate mood and affect Objective Last Vital Signs Temp 36.6 C 07/08/24 07:32 Pulse 88 07/08/24 07:32 Resp 18 07/08/24 07:32 BP 123/85 07/08/24 07:32 Pulse Ox 97 07/08/24 07:32 Laboratory Results - last 24 hr 07/08/24 07/08/24 06:14 07:29 WBC 10.30 RBC 3.35 L Hgb 10.1 L Hct 32.4 L MCV 97 H MCH 30.1 MCHC 31.2 L RDW 14.8 H Plt Count 231 MPV 9.8 Immature Gran % 0.5 Neutrophils % 85.1 Lymphocytes % 6.1 Monocytes % 7.7 Eosinophils % 0.3 Basophils % 0.3 Nucleated RBC % 0.0 Absolute Neutrophils 8.77 H Absolute Lymphocytes 0.63 L Absolute Monocytes 0.79 Absolute Eosinophils 0.03 Absolute Basophils 0.03 Sodium Cancelled 141 Potassium Cancelled 4.2 Chloride Cancelled 104 Carbon Dioxide Cancelled 29.3 Anion Gap Cancelled 7.7 BUN Cancelled 55 H Creatinine Cancelled 1.3 H Est GFR (CKD-EPI 2020) Cancelled 42.09 Glucose Cancelled 119 H Calcium Cancelled 9.1
[2024-07-08] MEDS: Apixaban 2.5 MG TAB PO (10:46)
--- NOTE | 2024-07-08 11:46 | PTTR_ITS ---
PT Notes Visit Reasons: Right Intertrochanteric Hip Fracture Date: 07/08/2024 PRECAUTIONS: WBAT RLE PRE-MEDICATE FOR TREATMENT SUBJECTIVE: Pt reports her leg is very sore. OBJECTIVE: Pt initially presented on commode with 2 LNAs present and her daughter outside the room. Pt was assisted to the commode by LNAs with use of the Steady lift as she was not able to stand from the bed or shiar this morning. Transfer: attempted to stand at FWW however unable to perform with max assist of 2 therefor e steady lift utilized to transfer to the bed. Pt positioned in bed with HOB elevated Pt 1/4 turn to left with foot of bed elevated. Pt denied pain in this position . The bed was then tilted into reverse trendelenberg to promote LE elevation to reduce swelling . Pt tolerated this position well. Manual therapy:? Pt tolerated retrograde massage at anterior thigh/groin then from knee to hip to promote reduction in swelling of RLE exercise: ankle pumps, heel slides, quad sets glute sets, hip abd/adduction x 10 reps. Pt AAROM for hip abd/add and heelslides. ? ASSESSMENT:Pt with significant decline in functional ability this session as well as increased pain. Pt agreeable to attempt positioning in bed to promote reduction in swelling of RLE. Duplex of RLE negative. Pt pre-medicated prior to session. Pt able to participate in AAROM to right hip with reports of pain in right hip. Pt able to tolerate retrograde massage to RLE as well . Discussed with [facility] status and also potential for repeat xray. PLAN: 1-2x/day x 7 days /week Continue with balance training, global strengthening and general conditioning for improved safety, mobility and activity tolerance until pt. is ready for DC. TREATMENT CODE/TIME:80911, 23659/ [id number], [id number] Linda Hernández, PT [facility]
--- NOTE | 2024-07-08 14:29 | W.PM.DS.N ---
Date of service: 07/08/24 Time of Service: 14:14 DS: Diagnosis Discharge Diagnosis (1) Closed intertrochanteric fracture of right hip: Status: Acute (2) Chronic kidney disease, stage 3b: Status: Acute (3) Chronic diastolic CHF (congestive heart failure): Status: Acute (4) Atrial fibrillation: Status: Chronic (5) On deep vein thrombosis (DVT) prophylaxis: Status: Acute (6) Discharge planning issues: Status: Acute Discharge Plan Disposition Patient Disposition: Home W/Home Health Services Condition: Stable Discharge Details Reason For Visit: Right Intertrochanteric Hip Fracture Admit Date/Time: 06/28/24 03:44 Admit Provider: Vinnie Rankin Attending Provider: Vinnie Rankin Primary Care Provider: Connie Simmons Hospital Course Hospital Course: The patient is a 79-year-old female, with a past medical history of CAD status post CABG, atrial fibrillation on Eliquis, presented to the ED on 06/28/24 status post fall with complaint of ongoing right hip pain. Workup in the ED showed creatinine was at 1.4 with a baseline around 1.2, leukocytosis at 16 which is most likely reactivean and an entertrochanteric right hip fracture as per imaging. The patient was admitted to the medical surgical service by the hospitalist team with ongoing orthopedic consulation for repair the next day. Repair was completed on 06/29/24 w/o major complications. F/u with Dr. Cathryn bran in 4 weeks in opt orthopedic office. Mepilex dressing change in a week maximum 2; buried sutures and no removal indicated. Pain management achieved with multimodal regimen.Physical therapy recommendation is for SNF. Post-op imaging showed not DVT not displacement of hardware. H&H remained stable and chemistry is within the patient's normal limits. discussed with Dr. Burger Home Meds and New Rx's Prescriptions: New docusate sodium [Colace] 100 mg Capsule 100 mg PO BID Qty: 60 0RF celecoxib 100 mg Capsule 100 mg PO BID Qty: 10 0RF oxycodone 5 mg Tablet 2.5 mg PO Q8H PRN PRNQty: 10 0RF Continued mupirocin 2 % ointment 1 applic topical BID 5 Days Qty: 22 1RF Rx Instructions: Apply to left hand and right arm wound twice daily atorvastatin 20 mg tablet 20 mg PO DAILY Qty: 90 3RF furosemide [Lasix] 20 mg tablet 40 mg PO DAILY Qty: 180 3RF metoprolol succinate [Toprol XL] 100 mg tablet extended release 24 hr 100 mg PO DAILY Qty: 90 3RF spironolactone 25 mg tablet See Rx Instructions .ROUTE .COMPLEX Qty: 45 3RF Dose Instruction: TAKE ONE-HALF TABLET BY MOUTH DAILY Rx Instructions: TAKE ONE-HALF TABLET BY MOUTH DAILY multivitamin [Once Daily] 1 EACH tablet 1 tab PO DAILY triamcinolone acetonide 0.1 % cream 1 applic TP BID Qty: 30 4RF apixaban 2.5 mg tablet 2.5 mg PO BID 30 Days Qty: 60 4RF aspirin [Adult Low Dose Aspirin] 81 mg tablet,delayed release (DR/EC) 81 mg PO DAILY Qty: 0 0RF Discharge Instructions Referrals: Ganesh Lockett MD [[facility]] - (F/u in 4 weeks ) Connie Simmons NP [Primary Care Provider] - (Follow-up with PCP within 7 days of discharge) Activity:: Activity as Tolerated Equipment/Supplies:: Walker Diet:: heart healthy DS: Summary Time Spent with Patient providing and/or coordinating discharge services: Greater than 30 minutes Status at Discharge Functional status at discharge: uses cane/walker Overall status at discharge: patient is progressing back to baseline Mental Status: mental status grossly normal Speech and Movement: speech and movement normal Mood: congruent mood Affect: normal affect Quality:SDOH Health Related Social Needs: No Data to Display Exam Narrative Exam Narrative: No acute distress, afebrile, awake alert oriented no focal deficits ,respirations even and unlabored, S1- S2 regular rate and rhythm, positive right pedal & popliteal pulses, abdomen is round obese nontender, moves all extremities right limited due to pain she has 2 Mepilex dressings that are intact old bruising s/p surgery still there with additional dependent subcutaneous bleeding erythema, RLE edematous when compared to the left , no anasarca- psychiatric appropriate mood and affect Psych Mental Status: mental status grossly normal Speech and Movement: speech and movement normal Mood: congruent mood Affect: normal affect DS: Data Vitals/I&O Vitals and I&O: Vital Signs Temperature 36.6 C 07/08/24 07:32 Temperature Source Temporal Artery Scan 07/08/24 07:32 Pulse 88 07/08/24 07:32 Pulse Rhythm Regular 06/28/24 07:45 Pulse 107 H 06/28/24 05:20 Respiratory Rate 18 07/08/24 07:32 Respiratory Effort Normal, Non-Labored 06/28/24 07:45 Respiratory Depth Normal 06/28/24 07:45 Respiratory Pattern Normal 06/28/24 07:45 Blood Pressure 123/85 07/08/24 07:32 Blood Pressure Mean 72 06/28/24 05:15 Blood Pressure Position Sitting 06/28/24 02:21 Pulse Oximetry 97 07/08/24 07:32 Oxygen Delivery Method Room Air 07/08/24 07:32 Oxygen Flow Rate 0 07/08/24 07:32 Pain Level 5 07/08/24 10:45 Comment nurse notified 07/07/24 19:38 Intake & Output 07/07/24 07/08/24 07/08/24 23:59 11:59 23:59 Intake Total 200 / 200 120 / 120 Output Total 275 / 725 900 / 900 Balance -75 / -525 -780 / -780 Intake: Oral 200 / 200 120 / 120 Output: Urine 275 / 725 900 / 900 Other: Urine Color Yellow Yellow Urine Appearance Clear Clear Urine Odor Normal Normal Comment pT states that someone had brought her to the bathroom this afternoon. I have asked every time I checked on her if she needed to use bathroom. She would tell me she didn't need to go. Brief is dry and refused to get on the commode due to her saying, Someone already brought me this afternoon. Data Completed and Pending Labs on day of discharge: Labs from last 24 hours 07/08/24 07/08/24 07:29 06:14 WBC 10.30 RBC 3.35 L Hgb 10.1 L Hct 32.4 L MCV 97 H MCH 30.1 MCHC 31.2 L RDW 14.8 H Plt Count 231 MPV 9.8 Immature Gran % 0.5 Neutrophils % 85.1 Lymphocytes % 6.1 Monocytes % 7.7 Eosinophils % 0.3 Basophils % 0.3 Nucleated RBC % 0.0 Absolute Neutrophils 8.77 H Absolute Lymphocytes 0.63 L Absolute Monocytes 0.79 Absolute Eosinophils 0.03 Absolute Basophils 0.03 Sodium 141 Cancelled Potassium 4.2 Cancelled Chloride 104 Cancelled Carbon Dioxide 29.3 Cancelled Anion Gap 7.7 Cancelled BUN 55 H Cancelled Creatinine 1.3 H Cancelled Est GFR (CKD-EPI 2020) 42.09 Cancelled Glucose 119 H Cancelled Calcium 9.1 Cancelled PFSH All Active Problems (Updated 06/30/24 @ 23:44 by Lisa Bennett APRN) Oxygen desaturation (Acute) Discharge planning issues (Acute) On deep vein thrombosis (DVT) prophylaxis (Acute) Osteoporosis (Chronic) Closed intertrochanteric fracture of right hip (Acute) s/p IMN fixation (06/29/24) Pre-diabetes (Acute) Wound check, abscess (Acute) Loose stools (Acute) Abnormal liver enzymes (Acute) Chronic kidney disease, stage 3b (Acute) Acute dehydration (Acute) Anticoagulated (Chronic) 2021-on low dose Eliquis Chronic diastolic CHF (congestive heart failure) (Acute) Atrial fibrillation (Chronic) History of aortic valve replacement with bioprosthetic valve (Acute) Replaced, 2018 Obesity (Acute) Lumbar disc prolapse with compression radiculopathy (Acute) s/p surgery 1990 Hyperlipidemia (Acute 12/16/12) Essential hypertension (Acute 06/13/13) Dyspnea (Acute 01/24/02) Exertional;neg MPI ECHO LVH Disorder of diaphragm (Acute) paralyzed left Medical History Urinary tract infection Gross hematuria Associated with Coumadin use, resolved-2021 Anemia Resolved-2020 likely associate with hematuria which had resolved Hydronephrosis Followed by urology, resolved as of 2021 Adenocarcinoma of endometrium, 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 Hyperlipemia Hypertension History of obesity Surgical History S/P aortic valve replacement with bioprosthetic valve PROCEDURES CARDIAC STRESS TEST NEC, NORMAL EXC/DEST INTVRT DISC NOS, 1990 micro disc surgery Abdominal hysterectomy (~08/1994) Bilateral salpingectomy with oophorectomy (~08/1994) Family History Mother Diabetes Heart disease Father Diabetes Heart disease Breast cancer Sister Diabetes Personal history of malignant neoplasm CERVICAL Breast cancer Brother Diabetes Other Anticoagulated Social History Smoking/Tobacco Use Status: Never Second Hand Exposure: Yes Smoking risk assessment performed?: Yes Alcohol Intake: never Drug use: Never Substance use type: does not use Adopted: No Caregiver/Support person: No Household members: other Details: grandson Housing: house Number of Children: 1 number of grandchildren: 2 Communication Needs: None Education Level: high school Details: 11 years Do you need help understanding health information?: Rarely Sexually active: No Do you think of yourself as: straight/heterosexual Current gender identity: female What is your relationship status?: How often do you talk on the phone with friends or family?: three or more times per week How often do you get together with friends or relatives?: once per week How often do you attend anglican or islam services?: decline to answer Do you belong to any clubs or organized social groups?: no Panel score (0-1 are the most socially isolated patients): 1 What type of physical activity do you participate in: none Special luly needs: No Seatbelt use: always Helmet use: No (never) Drive intox or ride w/intox hazmat tanker driver: No (never) Do you feel safe at home: Yes Time Spent with Patient Time Spent with Patient: 70-84 minutes4 Time was spent: preparing to see the patient(eg.review tests), obtaining and/or reviewing separately otained hiistory, ordering medications,tests, procedures, referring, communicating with other health healthcare science specialist, indepentently interpreting results, counseling the patient and care coordination
--- NOTE | 2024-07-08 14:50 | PTTR_ITS ---
PT Notes Visit Reasons: Right Intertrochanteric Hip Fracture Physical Therapy Inpatient Treatment Note Date: 07/08/2024 PRECAUTIONS: Fall. Standard. WBAT on the R LE with AD. SUBJECTIVE: With [id number], [id number], and grandson when PT came in for session. Agreeable to trying out walking to achieve goal of being able to cover about 50 feet at home. OBJECTIVE: Seated on bedside recliner with B legs down. Persistent ecchymoses and swelling noted in R thigh, hip and leg. BED MOBILITY/TRANSFERS? Moderate cueing provided for use of B hands as needed for support, movement sequence, AD management, and posture to reduce fall risk and minimize pain report Sit-stand: contact guard assist with FWW, stand by assist by BRYCE Augustine for safety? Stand-sit: contact guard ruddy, stand by assist by BRYCE Augustine for safety? Gait: Moderate to maximal verbal cues given to ensure safety and correct technique of level surface ambulation covering about 10 steps from bedside recliner to area outside her bathroom door whne she verbalized needing to use commode to void urine. After pericare was provided by AIRCRAFT MAINTENANCE MANAGER Fawn while PT was assisting ssafe standing, shawn took another 6-8 steps to the door with moderate assist of PT and contact guard assit of BRYCE Augustine. Trunk bent forward and to the L to somehow off load the R LE but was able to self correct briefly when instructed to stand taller only to bend forward again as she got fatigued. She finally was able to transfer from wheelchair to bedside chair with a total of small 6-8 steps (sidestepping, turning, and backing up). ASSESSMENT: Per ÁNGEL Gonzalez, patient is to transfer this afternoon to the SNF. Patient demonstrated improved independence with short distance walking without need for extensive assist from 2 caregivers. Did show some increased pain behavior towards the end of the short walk that needed seated rest. Moderate cues for safety and use of B hands for support. Denied chest pain and lightheadedness t hroughout. PLAN: Continue with subacute rehab at [facility] to regain highest functional level. TREATMENT CODE/TIME: 62986 x 32 minutes for 2 units (14:50-15:22).
--- NOTE | 2024-07-08 16:43 | PDOC.CMDIS ---
Date of service: 07/08/24 Time of Service: 16:00 LACE Index Scoring Tool Questions: Length of Stay (in days): 7 - 13 Was the patient admitted via the E.D.?: Yes Comorbidities: Congestive Heart Failure and Mild Liver/Renal Disease E.D. Visits: 1 Answers: Total Score: 14 Risk of Readmission: High Risk Care Management Discharge Plan Reason for Hospitalization: right hip fracture Discharge Plan: Aurea was transferred to the [facility] this afternoon to continue with her rehabilitation. She will f/u with the facility provider. Aurea was transported by [facility] wheelchair van. Her daughter was notified of the transfer. Patient/Family Education Needs: Review of discharge instructions, activity, limitations, and discuss ask me 3. SDOH Health Related Social Needs: No Data to Display
--- NOTE | 2024-07-15 09:56 | W.PM.PROGNOT ---
Date of Service Date of service: 07/05/24 Time of Service: 10:00 Assessment and Plan Assessment and plan (1) Closed intertrochanteric fracture of right hip: Status: Acute Assessment and plan: S/p mechanical fall repaired by ortho Dr. Lockett on 06/28/2024- continue multimodal pain management with scheduled acetaminophen and PRN oxycodone Give PRN meds 30- 60 [id number] prior to ambulation with PT - Continue Celebrex Continue PPI Ongoing physical therapy continue routine post operative care: pulmonary toileting, pain management bowel management and PT (2) Chronic kidney disease, stage 3b: Status: Acute Assessment and plan: avoid nephrotoxic drugs, renal dosing On home dose lasix continue monitor (3) Chronic diastolic CHF (congestive heart failure): Status: Acute Assessment and plan: Echo in 2019 shows EF of 52% Now back on furosemide monitor fluid volume status (4) Atrial fibrillation: Status: Chronic Assessment and plan: controlled rate on metoprolol and Eliquis (5) On deep vein thrombosis (DVT) prophylaxis: Status: Resolved Assessment and plan: On Eliquis for atrial fibrillation (6) Discharge planning issues: Status: Deleted Assessment and plan: SNF: initially refused but agreeable now F/u with Dr. Lockett in 4 weeks in opt orthopedic office-Mepilex dressing change in a week maximum 2- Buried sutures and no removal indicated F/u with PCP Discussed with Subjective Subjective Patient reports: no new complaints Exam Narrative Exam Narrative: Constitutional The patient is sitting in chair acute distress, no report of pain on moving right lower extremity during exam but minimal pain with ambulation Neuro:alert and oriented X3 , No neurological focal deficit Resp: Unlabored breathing, clear lungs Cardio: S1, S2, irregular , no murmur, bilateral radial and dorsalis pedis pulses are positive GI: Abdomen is not distended, soft and non tender, bowel sounds are present : No CVA tenderness Integumentary: No skin lesions or rash,right hip dressing intact( s/p Sx) Extremities: Moves all 4 extremities, right hip surgical site dressing is intact, minimal bruising Psych: congruent mood and normal affect. Objective Last Vital Signs Temp 36.6 C 07/08/24 07:32 Pulse 88 07/08/24 07:32 Resp 18 07/08/24 07:32 BP 123/85 07/08/24 07:32 Pulse Ox 97 07/08/24 07:32 Time Spent with Patient Time Spent with Patient: 25-34 minutes Time was spent: preparing to see the patient(eg.review tests), obtaining and/or reviewing separately otained hiistory, ordering medications,tests, procedures, referring, communicating with other health health care marketing specialist, indepentently interpreting results, counseling the patient and care coordination
== END 2024-07-08 15:55 | disposition skilled nursing facility (03) | DRG 481 ==
LOC: ER 04:45 → MS 06:35
PROVIDERS: Family Medicine; Student in an Organized Health Care Education/Training Program; Admitting Provider Emergency Medicine; Emergency Provider Emergency Medicine Emergency Medical Services; PCP Nurse Practitioner Family; Responsible Provider Nurse Practitioner Acute Care; Visit Provider Emergency Medicine
PROC: 0QS636Z Reposition Right Upper Femur with Intramedullary Internal Fixation Device, Percutaneous Approach (ICD-10-PCS; CPT 27245; principal; 2024-06-28 15:15)
DX: S72.141A Displaced intertrochanteric fracture of right femur, initial encounter for closed fracture (principal); I13.0 Hypertensive heart and chronic kidney disease with heart failure and stage 1 through stage 4 chronic kidney disease, or unspecified chronic kidney disease; I48.21 Permanent atrial fibrillation; I50.32 Chronic diastolic (congestive) heart failure; M81.0 Age-related osteoporosis without current pathological fracture; N18.32 Chronic kidney disease, stage 3b; I25.10 Atherosclerotic heart disease of native coronary artery without angina pectoris; R73.03 Prediabetes; E66.9 Obesity, unspecified; Z68.35 Body mass index [BMI] 35.0-35.9, adult; Z95.1 Presence of aortocoronary bypass graft; Z79.01 Long term (current) use of anticoagulants; Z79.899 Other long term (current) drug therapy; Z79.82 Long term (current) use of aspirin; Z95.3 Presence of xenogenic heart valve; J98.6 Disorders of diaphragm; E78.5 Hyperlipidemia, unspecified; Z85.42 Personal history of malignant neoplasm of other parts of uterus; R09.02 Hypoxemia; W19.XXXA Unspecified fall, initial encounter; R60.0 Localized edema; G89.18 Other acute postprocedural pain; M79.651 Pain in right thigh; D72.829 Elevated white blood cell count, unspecified
CPT/HCPCS: 27245; 00123; 36415; 73552; 80048; 80053; 85027; 86850; 86900; 86901; 87637; 93005; 96365; 96375; 96376; 97110; 97112; 97116; 97140; 97162; 97530; 99223; 99285; 71045; 73501; 73502; 83735; 84484; 85025; 85610; 85730; 93010; 93971; 94760; 99232; 99233; 99239; J0131; J0690; J1100; J1805; J2003; J2405; J2704; J3010; J3490

== ENCOUNTER 2024-07-28 15:34 | Outpatient (CLI) | payer MEDICARE, SELFPAY ==
--- NOTE | 2024-07-28 10:30 | DI.RAD_ITS ---
Exam(s) XR HIP RT AP LAT ONLY EXAM: XR HIP RT AP LAT ONLY CLINICAL HISTORY: S/P IM FIXATION R FEMUR FX. TECHNIQUE: 2D digital imaging was performed. Two images were obtained. AP and lateral views were ob tained. COMPARISON: CR,XR XR HIP RT COMPLETE AP PELVIS from 06/28/2024 XA XR HIP RT IN OR from 06/28/2024 CR XR FEMUR RT from 07/01/2024 FINDINGS: BONES: There are stable post operative changes of internal fixation of the right femoral neck fractur e present. No new fracture or dislocation. There is now a mildly displaced fracture involving the l espinoza trochanter. JOINTS: The joint spaces are well maintained. SOFT TISSUE: Vascular calcifications are present. IMPRESSION: 1. Postsurgical changes of internal fixation of the right femoral neck fracture. 2. Since the prior examination there has developed a mildly displaced fracture of the lesser trochant er. DATA REPOSITORY: RADIATION DOSE DELIVERED:
== END 2024-07-28 15:35 | disposition home or self-care (01) ==
LOC: DIORS 15:34
PROVIDERS: PCP Nurse Practitioner Family; Referring Provider Nurse Practitioner Family; Visit Provider Student in an Organized Health Care Education/Training Program
DX: S72.141D Displaced intertrochanteric fracture of right femur, subsequent encounter for closed fracture with routine healing; X58.XXXD Exposure to other specified factors, subsequent encounter
CPT/HCPCS: 99024; 73502